=== PATIENT | female | born 1990 | race Caucasian/White ===

== ENCOUNTER 2018-12-19 19:01 | Emergency (ER) | payer MEDICAID, SELFPAY ==
[2018-12-19 19:05] VITALS: BP 151/111; PULSE 102; RESP 16; TEMP 36.8; O2SAT 100
--- NOTE | 2018-12-19 19:34 | W.ED.GENAD ---
Discharge Plan Disposition Patient Disposition: HOME Discharge Details Chief Complaint: Anxiety Clinical Impression: UTI (urinary tract infection) Primary Care Provider: Raiza,Local ED Provider: Chetan Young Home Meds and New Rx's Prescriptions: Continued gabapentin 300 mg capsule 300 mg PO QHS RF: 0 glatiramer [Copaxone] 40 mg/mL syringe 40 mg subcut .3x per week Qty: 12 RF: 11 methadone 10 mg tablet 20 mg PO DAILY MDD 20mg Qty: 1 RF: 0 gabapentin 600 mg tablet 600 mg PO DAILY RF: 0 bupropion HCl [Wellbutrin] 100 MG tablet 100 mg PO TID RF: 0 methylphenidate HCl 10 MG tablet 10 mg PO QID RF: 0 Discharge Instructions Instructions: Urinary Tract Infection in Women (ED) Additional Instructions: Please follow-up with gynecology regarding vaginal discharge. Take full course of antibiotic as prescribed. Be sure to complete the full course even if symptoms have resolved. Please contact your primary care physician to arrange follow-up. Return to the ER for any worsening or new concerning symptoms. [place] [facility] [place] Discharge Data Discharge Date/Time-TO BE ENTERED AT DEPARTURE: 12/19/18 20:35 Medical Decision Making 28-year-old female here with urinary symptoms concerning for UTI. Urinalysis reviewed and UTI. Plan to treat with Macrobid 100 mg twice daily x5 days. Patient has had vaginal discharge for greater than 1 year. She is refusing pelvic exam at this time. Informed refusal provided. She would like to follow-up with gynecology. I will refer her to [facility] and hopefully she can be seen in follow-up as soon as possible. I will asked care management to assist in arranging follow-up. Patient will also need to be established with a primary care physician. She is specifically requesting a primary care physician as she has not had one in recent past. HPI General Mode of arrival: ambulatory. Date/Time Provider Initiated Documentation: 12/19/18 19:15. Limitations to Documentation: no limitations. Information obtained by: patient. HPI Narrative: 28yo f with history of MS, ADD, anxiety disorder, here with chief complaint of urinary symptoms. Patient notes that she has had dysuria for the past 3 days. She has had increased urinary frequency. Yesterday she had some hematuria. Patient is concerned that she might have a urinary tract infection. She denies fever. She is quite anxious and notes multiple other concerns including dry skin and generally not feeling well. She is concerned that her tap water is contaminated because her ice cubes have white discoloration. Related Data Home Medications Medication Instructions Recorded Confirmed bupropion HCl [Wellbutrin] 100 mg PO TID 04/12/14 01/04/19 methylphenidate HCl 10 mg PO QID 12/13/14 01/04/19 gabapentin 300 mg capsule 300 mg PO QHS cap 10/26/18 01/04/19 gabapentin 600 mg tablet 600 mg PO DAILY tab 10/26/18 01/04/19 glatiramer 40 mg/mL subcutaneous 40 mg SUBCUT .3x per week #12 ml 10/26/18 01/04/19 syringe methadone 10 mg tablet 20 mg PO DAILY #1 tab MDD 20mg 10/26/18 01/04/19 Previous Rx's Medication Instructions Recorded glatiramer 40 mg/mL subcutaneous 40 mg SUBCUT .3x per week #12 ml 10/26/18 syringe methadone 10 mg tablet 20 mg PO DAILY #1 tab MDD 20mg 10/26/18 Allergies Allergy/AdvReac Type Severity Reaction Status Date / Time No Known Allergies Allergy Unverified 01/04/19 14:57 General Stated Complaint: Anxiety NAIMA: 3 Review of Systems Constitutional Denies fever(s) Genitourinary Reports as per HPI and Reports vaginal discharge (patient notes vaginal discharge for >1yr) Integumentary/Breasts Reports as per HPI Psychiatric Reports anxiety [facility] Medical History Multiple sclerosis (Chronic) ADD (attention deficit disorder) (Acute) Opioid dependence (Acute) Anxiety (Chronic) Depression (Chronic) Surgical History S/P tubal ligation (Acute) Family History Maternal Grandmother Multiple sclerosis Social History Smoking/Tobacco Use Status: Former Tobacco Use Alcohol Intake: never Drug use: Current Sobriety Substance use type: former substance user Household members: children Do you feel safe at home: Yes Do you feel safe in your relationship?: Yes Additional Social history: Lives with 8 year old daughter who has ADHD. Has 2 older children in the custody of her mother. Exam Const General: cooperative and no acute distress HENMT Mouth: mucous membranes dry Eyes Conjunctivae: normal conjunctivae Sclera: normal sclerae Resp Auscultation: clear to auscultation bilaterally, no rales, no rhonchi and no wheezes Cardio Jugular venous pressure: no JVD Rate: regular rate and not tachycardic Rhythm: regular rhythm GI Palpation: soft, not firm, no guarding, no masses, not rigid and tender (suprapubic) Skin General skin exam: no rashes or lesions noted Neuro General: alert, awake and tone normal Extrem General: no edema Psych Appearance: grossly normal Mood: anxious mood Course Vital Signs Temperature 36.8 C 12/19/18 19:05 Pulse 102 H 12/19/18 19:05 Respiratory Rate 16 12/19/18 19:05 Blood Pressure 151/111 H 12/19/18 19:05 Pulse Oximetry 100 12/19/18 19:05 Temperature 36.8 C 12/19/18 19:05 Temperature Source Temporal Artery Scan 12/19/18 19:05 Pulse 102 H 12/19/18 19:05 Respiratory Rate 16 12/19/18 19:05 Respiratory Effort 12/19/18 19:09 Blood Pressure 151/111 H 12/19/18 19:05 Blood Pressure Position Sitting 12/19/18 19:05 Pulse Oximetry 100 12/19/18 19:05 Oxygen Delivery Method Room Air 12/19/18 19:05 Oxygen Flow Rate 0 12/19/18 19:05
[2018-12-19 19:38] LABS: Bilirubin Negative (Negative); Blood Small (Negative); Clarity Clear; Glucose Negative (Negative); Ketones Negative (Negative); Leukocyte Esterase Small (Negative); Nitrite Negative (Negative); Urobilinogen 0.2 EU/dL (Up TO 0.2)
--- NOTE | 2018-12-19 19:44 | ED.GENADUL_ITS ---
Discharge Plan Disposition Patient Disposition: HOME Discharge Details Chief Complaint: Anxiety Clinical Impression: UTI (urinary tract infection) Primary Care Provider: Raiza,Local ED Provider: Chetan Young Home Meds and New Rx's Prescriptions: Continued gabapentin 300 mg capsule 300 mg PO QHS RF: 0 glatiramer [Copaxone] 40 mg/mL syringe 40 mg subcut .3x per week Qty: 12 RF: 11 methadone 10 mg tablet 20 mg PO DAILY MDD 20mg Qty: 1 RF: 0 gabapentin 600 mg tablet 600 mg PO DAILY RF: 0 bupropion HCl [Wellbutrin] 100 MG tablet 100 mg PO TID RF: 0 methylphenidate HCl 10 MG tablet 10 mg PO QID RF: 0 Discharge Instructions Instructions: Urinary Tract Infection in Women (ED) Additional Instructions: Please follow-up with gynecology regarding vaginal discharge. Take full course of antibiotic as prescribed. Be sure to complete the full course even if symptoms have resolved. Please contact your primary care physician to arrange follow-up. Return to the ER for any worsening or new concerning symptoms. Referrals: [facility] [place] [Provider Group] Discharge Data Discharge Date/Time-TO BE ENTERED AT DEPARTURE: 12/19/18 20:35 Medical Decision Making 28-year-old female here with urinary symptoms concerning for UTI. Urinalysis reviewed and UTI. Plan to treat with Macrobid 100 mg twice daily x5 days. Patient has had vaginal discharge for greater than 1 year. She is refusing pelvic exam at this time. Informed refusal provided. She would like to follow-up with gynecology. I will refer her to [facility] and hopefully she can be seen in follow-up as soon as possible. I will asked care management to assist in arranging follow-up. Patient will also need to be established with a primary care physician. She is specifically requesting a primary care physician as she has not had one in recent past. HPI General Mode of arrival: ambulatory . Date/Time Provider Initiated Documentation: 12/19/18 19:15 . Limitations to Documentation: no limitations . Information obtained by: patient . HPI Narrative: 28yo f with history of MS, ADD, anxiety disorder, here with chief complaint of urinary symptoms. Patient notes that she has had dysuria for the past 3 days. She has had increased urinary frequency. Yesterday she had some hematuria. Patient is concerned that she might have a urinary tract infection. She denies fever. She is quite anxious and notes multiple other concerns including dry skin and generally not feeling well. She is concerned that her tap water is contaminated because her ice cubes have white discoloration. Related Data Home Medications Medication Instructions Recorded Confirmed bupropion HCl [Wellbutrin] 100 mg PO TID 04/12/14 01/04/19 methylphenidate HCl 10 mg PO QID 12/13/14 01/04/19 gabapentin 300 mg capsule 300 mg PO QHS cap 10/26/18 01/04/19 gabapentin 600 mg tablet 600 mg PO DAILY tab 10/26/18 01/04/19 glatiramer 40 mg/mL subcutaneous 40 mg SUBCUT .3x per week #12 ml 10/26/18 01/04/19 syringe methadone 10 mg tablet 20 mg PO DAILY #1 tab MDD 20mg 10/26/18 01/04/19 Previous Rx's Medication Instructions Recorded glatiramer 40 mg/mL subcutaneous 40 mg SUBCUT .3x per week #12 ml 10/26/18 syringe methadone 10 mg tablet 20 mg PO DAILY #1 tab MDD 20mg 10/26/18 Allergies Allergy/AdvReac Type Severity Reaction Status Date / Time No Known Allergies Allergy Unverified 01/04/19 14:57 General Stated Complaint: Anxiety NAIMA: 3 Review of Systems Constitutional Denies fever(s) Genitourinary Reports as per HPI and Reports vaginal discharge (patient notes vaginal discharge for >1yr) Integumentary/Breasts Reports as per HPI Psychiatric Reports anxiety [facility] Medical History Multiple sclerosis (Chronic) ADD (attention deficit disorder) (Acute) Opioid dependence (Acute) Anxiety (Chronic) Depression (Chronic) Surgical History S/P tubal ligation (Acute) Family History Maternal Grandmother Multiple sclerosis Social History Smoking/Tobacco Use Status: Former Tobacco Use Alcohol Intake: never Drug use: Current Sobriety Substance use type: former substance user Household members: children Do you feel safe at home: Yes Do you feel safe in your relationship?: Yes Additional Social history: Lives with 8 year old daughter who has ADHD. Has 2 older children in the custody of her mother. Exam Const General: cooperative and no acute distress HENMT Mouth: mucous membranes dry Eyes Conjunctivae: normal conjunctivae Sclera: normal sclerae Resp Auscultation: clear to auscultation bilaterally, no rales, no rhonchi and no wheezes Cardio Jugular venous pressure: no JVD Rate: regular rate and not tachycardic Rhythm: regular rhythm GI Palpation: soft, not firm, no guarding, no masses, not rigid and tender (suprapubic) Skin General skin exam: no rashes or lesions noted Neuro General: alert, awake and tone normal Extrem General: no edema Psych Appearance: grossly normal Mood: anxious mood Course Vital Signs Temperature 36.8 C 12/19/18 19:05 Pulse 102 H 12/19/18 19:05 Respiratory Rate 16 12/19/18 19:05 Blood Pressure 151/111 H 12/19/18 19:05 Pulse Oximetry 100 12/19/18 19:05 Temperature 36.8 C 12/19/18 19:05 Temperature Source Temporal Artery Scan 12/19/18 19:05 Pulse 102 H 12/19/18 19:05 Respiratory Rate 16 12/19/18 19:05 Respiratory Effort 12/19/18 19:09 Blood Pressure 151/111 H 12/19/18 19:05 Blood Pressure Position Sitting 12/19/18 19:05 Pulse Oximetry 100 12/19/18 19:05 Oxygen Delivery Method Room Air 12/19/18 19:05 Oxygen Flow Rate 0 12/19/18 19:05
[2018-12-19 19:57] LABS: Epithelial Cells Few HPF (Negative); Other Cells Rare Renal (Negative)
[2018-12-19 19:58] LABS: Bacteria Negative HPF (Negative); C & S Indicated? Yes; Casts Negative LPF (Negative); Mucus Trace (Negative)
[2018-12-19] MEDS: MacroBID 100 MG CAP PO (20:31)
[2018-12-19 20:36] VITALS: BP 138/94; PULSE 71; O2SAT 100
--- NOTE | 2018-12-20 08:55 | PDOC.ERCMPRO ---
Care Management Progress Note 12/20-Dr. Eugenia Young requested assistance with a figure model f/u as well as establishing a PCP in 1-[address] Bradshaw automotive parts person. Referral faxed to [facility] as well as to [facility].
--- NOTE | 2018-12-20 08:56 | CMPROGNOTE_ITS ---
Care Management Progress Note 12/20-Dr. Eugenia Young requested assistance with a street worker f/u as well as establishing a PCP in 1-[address] Bradshaw extension clerk. Referral faxed to [facility] as well as to [facility].
== END 2018-12-19 20:35 | disposition home or self-care (01) ==
PROVIDERS: Emergency Provider Student in an Organized Health Care Education/Training Program
DX: N39.0 Urinary tract infection, site not specified (principal)
CPT/HCPCS: 99283; 81003; 81015; 87086

== ENCOUNTER 2019-01-04 14:48 | Emergency (ER) | payer MEDICAID, SELFPAY ==
[2019-01-04 14:53] VITALS: BP 141/102; PULSE 104; RESP 12; TEMP 36.5; O2SAT 98
--- NOTE | 2019-01-04 16:20 | W.ED.GENAD ---
Discharge Plan Disposition Patient Disposition: HOME Condition: Good Discharge Details Chief Complaint: RashLesion Clinical Impression: Anxiety about health, Scabies exposure Primary Care Provider: Raiza,Local ED Provider: Dewayne Moody Home Meds and New Rx's Prescriptions: Continued gabapentin 300 mg capsule 300 mg PO QHS RF: 0 glatiramer [Copaxone] 40 mg/mL syringe 40 mg subcut .3x per week Qty: 12 RF: 11 methadone 10 mg tablet 20 mg PO DAILY MDD 20mg Qty: 1 RF: 0 gabapentin 600 mg tablet 600 mg PO DAILY RF: 0 bupropion HCl [Wellbutrin] 100 MG tablet 100 mg PO TID RF: 0 methylphenidate HCl 10 MG tablet 10 mg PO QID RF: 0 Discharge Instructions Instructions: Scabies (ED), Anxiety (ED) Additional Instructions: Please watch for any development of rash and follow-up with your primary care provider or return to the emergency department as needed for reassessment. Otherwise continue to use mild soap to cleanse her skin and wash all of your linens well. You may also use hydrating lotion to help with dry skin. Referrals: Primary Care Provider [Outside] (As needed for reassessment) Medical Decision Making Patient presenting to the emergency department for chief complaint of scabies exposure. Patient states that her significant other that she was with for years was recently diagnosed with scabies but had not received treatment for years she reports that she has not been with this person for the past couple months but just found out about the scabies recently and started having subjective symptoms of crawling on her skin, intermittent random itching, odd sensations to her skin. Physical exam shows no evidence of rash, no erythema, no signs of excoriation, some white markings to her fingers that she reports was due to her soaking her arms and peroxide. Physical exam is otherwise unremarkable. I feel that patient's symptoms are mostly related to her anxiety about her health which she states is not ongoing problem. There is no evidence of active scabies infection as there are no lesions or other markings to suggest this. Thorough discussion of hygiene and washing of linens was performed with patient and she was encouraged to watch for any additional symptoms and to follow-up with her primary care provider or return as needed for reassessment. Patient does seem to have some mild dry skin so she was informed to use a hydrating lotion. After discussion of diagnosis and plan of care patient has no further needs, questions, or concerns and states clear understanding to return to the emergency department for any worsening symptoms. Patient did need to leave before receiving discharge paperwork but was agreeable to having us mail it to her. HPI General Mode of arrival: ambulatory. Date/Time Provider Initiated Documentation: 01/04/19 15:02. Limitations to Documentation: no limitations. Information obtained by: patient. History of Present Illness 28 year old F presents to the emergency department with the chief complaint of Scabies exposure, Quality is described as burning (itching), and is localized to the upper extremity. Patient started experiencing this week(s) (1) and it has been intermittent. No relieving factors improve symptom(s), Patient did receive the following treatments prior to arrival, other (Peroxide rinse) Related Data Home Medications Medication Instructions Recorded Confirmed bupropion HCl [Wellbutrin] 100 mg PO TID 04/12/14 01/04/19 methylphenidate HCl 10 mg PO QID 12/13/14 01/04/19 gabapentin 300 mg capsule 300 mg PO QHS cap 10/26/18 01/04/19 gabapentin 600 mg tablet 600 mg PO DAILY tab 10/26/18 01/04/19 glatiramer 40 mg/mL subcutaneous 40 mg SUBCUT .3x per week #12 ml 10/26/18 01/04/19 syringe methadone 10 mg tablet 20 mg PO DAILY #1 tab MDD 20mg 10/26/18 01/04/19 Previous Rx's Medication Instructions Recorded glatiramer 40 mg/mL subcutaneous 40 mg SUBCUT .3x per week #12 ml 10/26/18 syringe methadone 10 mg tablet 20 mg PO DAILY #1 tab MDD 20mg 10/26/18 Allergies Allergy/AdvReac Type Severity Reaction Status Date / Time No Known Allergies Allergy Unverified 01/04/19 14:57 General Stated Complaint: RashLesion NAIMA: 5 Review of Systems Constitutional Denies chills and Denies fever(s) Integumentary/Breasts Reports as per HPI [facility] Medical History Multiple sclerosis (Chronic) ADD (attention deficit disorder) (Acute) Opioid dependence (Acute) Anxiety (Chronic) Depression (Chronic) Surgical History S/P tubal ligation (Acute) Family History Maternal Grandmother Multiple sclerosis Social History Smoking/Tobacco Use Status: Former Tobacco Use Alcohol Intake: never Drug use: Current Sobriety Substance use type: former substance user Household members: children Do you feel safe at home: Yes Do you feel safe in your relationship?: Yes Additional Social history: Lives with 8 year old daughter who has ADHD. Has 2 older children in the custody of her mother. Exam Const General: cooperative, healthy appearing, no acute distress and anxious Orientation: alert, awake and oriented x3 HENMT Mouth: moist mucous membranes Resp Effort & Inspection: normal respiratory effort, able to speak in complete sentences and no respiratory distress Cardio Rate: regular rate Rhythm: regular rhythm Skin General skin exam: no rashes or lesions noted, no crusts, dry skin, no ecchymosis, no erythema, no excoriation(s) and no petechiae Lesions: no lesions Rashes: no rashes Trauma: no lacerations or abrasions Wounds: no wounds Neuro General: alert, awake, oriented x3 and moves all extremities Course Vital Signs Temperature 36.5 C 01/04/19 14:53 Pulse 104 H 01/04/19 14:53 Respiratory Rate 12 01/04/19 14:53 Blood Pressure 141/102 H 01/04/19 14:53 Pulse Oximetry 98 01/04/19 14:53 Temperature 36.5 C 01/04/19 14:53 Temperature Source Tympanic 01/04/19 14:53 Pulse 104 H 01/04/19 14:53 Respiratory Rate 12 01/04/19 14:53 Respiratory Effort Non-Labored 01/04/19 14:55 Blood Pressure 141/102 H 01/04/19 14:53 Blood Pressure Position Sitting 01/04/19 14:53 Pulse Oximetry 98 01/04/19 14:53 Oxygen Delivery Method Room Air 01/04/19 14:53 Oxygen Flow Rate 0 01/04/19 14:53 Pain Level 0 01/04/19 15:53
== END 2019-01-04 15:54 | disposition home or self-care (01) ==
PROVIDERS: Emergency Provider Nurse Practitioner Family
DX: F41.9 Anxiety disorder, unspecified (principal); Z20.7 Contact with and (suspected) exposure to pediculosis, acariasis and other infestations
CPT/HCPCS: 99282

== ENCOUNTER 2019-05-05 20:40 | Emergency (ER) | payer MEDICAID, SELFPAY ==
[2019-05-05 20:48] VITALS: BP 147/110; PULSE 102; RESP 20; TEMP 37.9; O2SAT 100
[2019-05-05 20:57] VITALS: RESP 20
--- NOTE | 2019-05-05 21:08 | ED.GENADUL_ITS ---
Discharge Plan Disposition Patient Disposition: HOME Condition: Improving Discharge Details Chief Complaint: GenMedical Clinical Impression: Anxiety Primary Care Provider: Raiza,Local ED Provider: Corona Cunningham Home Meds and New Rx's Prescriptions: Continued gabapentin 300 mg capsule 300 mg PO QHS RF: 0 glatiramer [Copaxone] 40 mg/mL syringe 40 mg subcut .3x per week Qty: 12 RF: 11 methadone 10 mg tablet 20 mg PO DAILY MDD 20mg Qty: 1 RF: 0 gabapentin 600 mg tablet 600 mg PO DAILY RF: 0 bupropion HCl [Wellbutrin] 100 MG tablet 100 mg PO TID RF: 0 methylphenidate HCl 10 MG tablet 10 mg PO QID RF: 0 Discharge Instructions Instructions: Anxiety (ED) Additional Instructions: You have declined further work-up at this time. Follow-up with neurology and her primary care doctor as previously planned. Return to the emergency department if you develop a fever, rash, or any other acute concern Medical Decision Making 28-year-old female presents emerged department stating that she became very anxious after a friend told her that 3 years of intermittent symptoms she has been having may be secondary to a parasite. She has not traveled, no exposure to fresh stream water, no work with indigent or incarcerated. She has had abdominal cramps, anxiety, dry eye, early satiety at times. She is anxious upon arrival with initial triage pulse of 102. She calms after my exam and his pulse measured at approximately 88. Discussed with her consideration of screening laboratories which she declines. She states she wishes to follow-up with her primary care as previously planned and is reassured that she does not appear to have acute parasitic infection after my history and physical. Offered to return at any time for reconsideration. She is stable for discharge at this time HPI General Mode of arrival: ambulatory . Date/Time Provider Initiated Documentation: 05/05/19 20:42 . Limitations to Documentation: no limitations . Information obtained by: patient . History of Present Illness 28 year old F presents to the emergency department with the chief complaint of Generalized anxiety, I think I have a parasite, described as moderate, Quality is described as constant, Patient reports no radiation. Patient started experiencing this hour(s) and it has been constant. No relieving factors improve symptom(s), No exacerbating factors reported . Patient notes other (General anxiety, feels her skin skin is crawling at times, abdominal cramps). Patient did receive the following treatments prior to arrival, none Related Data Home Medications Medication Instructions Recorded Confirmed bupropion HCl [Wellbutrin] 100 mg PO TID 04/12/14 05/05/19 methylphenidate HCl 10 mg PO QID 12/13/14 05/05/19 gabapentin 300 mg capsule 300 mg PO QHS cap 10/26/18 05/05/19 gabapentin 600 mg tablet 600 mg PO DAILY tab 10/26/18 05/05/19 glatiramer 40 mg/mL subcutaneous 40 mg SUBCUT .3x per week #12 ml 10/26/18 05/05/19 syringe methadone 10 mg tablet 20 mg PO DAILY #1 tab MDD 20mg 10/26/18 05/05/19 Previous Rx's Medication Instructions Recorded glatiramer 40 mg/mL subcutaneous 40 mg SUBCUT .3x per week #12 ml 10/26/18 syringe methadone 10 mg tablet 20 mg PO DAILY #1 tab MDD 20mg 10/26/18 Allergies Allergy/AdvReac Type Severity Reaction Status Date / Time No Known Allergies Allergy Unverified 05/05/19 20:55 General Stated Complaint: GenMedical NAIMA: 3 Review of Systems Review of Systems No travel, no fever, no rash, no tick bites. 6 systems reviewed and otherwise neg [facility] Medical History ADD (attention deficit disorder) (Acute) Anxiety (Chronic) Depression (Chronic) Multiple sclerosis (Chronic) Opioid dependence (Acute) Surgical History S/P tubal ligation (Acute) Family History Maternal Grandmother Multiple sclerosis Social History Smoking/Tobacco Use Status: Former Tobacco Use Alcohol Intake: never Drug use: Current Sobriety Substance use type: former substance user Household members: children Do you feel safe at home: Yes Do you feel safe in your relationship?: Yes Additional Social history: Lives with 8 year old daughter who has ADHD. Has 2 older children in the custody of her mother. Exam Narrative Exam Narrative: GEN: awake, alert, oriented 3. Pleasant, well groomed, interactive. HEAD: Normocephalic, atraumatic ENT: Mucous membranes moist, oropharynx unremarkable, External ear exam unremarkable EYES: PERRL, EOMI NECK: Full ROM, no MYLES, no menigismus CHEST/RESP: Nontender, clear to auscultation bilateral, no wheeze/rhonchi/rales CARDIOVASCULAR: RRR, no murmur, rub ernesto. 2+ Rad pulse bilateral ABDOMEN: Soft, nontender, no mass. +Bowel sounds EXT: Full ROM, no edema, no rash Neuro: Grossly normal neurologic exam, conversant, interactive. Cranial nerves II through XII intact. Visual villeda intact to confrontation Psych: Speech fluent, thoughts congruent, affect anxious Course Vital Signs Temperature 37.9 C H 05/05/19 20:48 Pulse 102 H 05/05/19 20:48 Respiratory Rate 20 05/05/19 20:48 Blood Pressure 147/110 H 05/05/19 20:48 Pulse Oximetry 100 05/05/19 20:48 Temperature 37.9 C H 05/05/19 20:48 Temperature Source Tympanic 05/05/19 20:48 Pulse 102 H 05/05/19 20:48 Respiratory Rate 20 05/05/19 20:57 Respiratory Effort 05/05/19 20:57 Respiratory Depth Normal 05/05/19 20:57 Respiratory Pattern Normal 05/05/19 20:57 Blood Pressure 147/110 H 05/05/19 20:48 Blood Pressure Position Sitting 05/05/19 20:48 Pulse Oximetry 100 05/05/19 20:48 Oxygen Delivery Method Room Air 05/05/19 20:48 Oxygen Flow Rate 0 05/05/19 20:48 Pain Level 0 05/05/19 20:48
== END 2019-05-05 21:20 | disposition home or self-care (01) ==
PROVIDERS: Emergency Provider Emergency Medicine
DX: F41.8 Other specified anxiety disorders (principal)
CPT/HCPCS: 99283

== ENCOUNTER 2019-07-31 16:10 | Emergency (ER) | payer MEDICAID, SELFPAY ==
[2019-07-31 16:15] VITALS: BP 158/90; PULSE 88; RESP 18; TEMP 36.8; O2SAT 100
--- NOTE | 2019-07-31 16:24 | W.ED.GENAD ---
Discharge Plan Disposition Patient Disposition: HOME Condition: Good Discharge Details Chief Complaint: DentalOral Clinical Impression: Broken tooth Primary Care Provider: Raiza,Local ED Provider: Etelvina Sterling Home Meds and New Rx's Prescriptions: Continued gabapentin 600 mg tablet 600 mg PO TID RF: 0 bupropion HCl [Wellbutrin] 100 MG tablet 100 mg PO QID RF: 0 methylphenidate HCl 10 MG tablet 10 mg PO QID RF: 0 methadone 10 mg tablet 14 mg PO DAILY MDD 20mg RF: 0 Discharge Instructions Instructions: Acute Dental Trauma (ED) Additional Instructions: Encourage hydration. Tylenol and/or ibuprofen as needed for discomfort. You may try temporary filling as discussed. He will need definitive care with a dentist, attached is a list of local dentist that you may call. If you develop fever/chills, increased pain, swelling, drainage or the new/worsening symptoms please seek care urgently once again. At this point, I see no evidence of infection that requires antibiotics. Discharge Data Discharge Date/Time-TO BE ENTERED AT DEPARTURE: 07/31/19 16:45 Medical Decision Making Patient is a 29-year-old female presenting today with chief complaint of broken tooth. She reports that the tooth broke this afternoon. Was advised by friend to seek care as there was concern for infection. She is not having any pain prior to the broken tooth. Does not appear to be uncomfortable now. She reports that this tooth has been bad for the past 4 years. She reports I was eating oatmeal and bit down on the spoon and attempt subsequently cracked. She denies any fevers or chills. Is not noted any swelling. Had not been having any acute issues prior to the broken tooth. Patient is concerned she is a history of MS and is concerned that if she has an infection it may cause a flare. Patient I discussed at length that had a broken tooth puts her at risk for infection that does not mean imminently she has an infection or will require antibiotics. I did advise that with her history of MS, she should get prophylactic care routinely needs to see a dentist on a regular basis. I did advise that she will need definitive care for this tube as it is a site that could be the source of infection. Encourage hydration. We did discuss [id number] measures to help with her discomfort. List of local dentist was given. She was given return precautions. All of her questions and concerns were addressed she is in agreement this plan. HPI General Mode of arrival: ambulatory. Date/Time Provider Initiated Documentation: 07/31/19 16:23. Limitations to Documentation: no limitations. Information obtained by: patient and RN notes reviewed. History of Present Illness 29 year old F presents to the emergency department with the chief complaint of dental pain, broken tooth, described as moderate, with intensity rated at 7. Quality is described as aching, and is localized to the mouth. Patient reports no radiation. Patient started experiencing this minute(s) and it has been constant. No relieving factors improve symptom(s), No exacerbating factors reported . Patient notes denies diaphoresis, fever/chills, headaches, loss of appetite, malaise, nausea/vomiting and rash. Patient did receive the following treatments prior to arrival, none Related Data Home Medications Medication Instructions Recorded Confirmed bupropion HCl [Wellbutrin] 100 mg PO QID 04/12/14 07/31/19 methylphenidate HCl 10 mg PO QID 12/13/14 07/31/19 gabapentin 600 mg tablet 600 mg PO TID tab 10/26/18 07/31/19 methadone 14 mg PO DAILY MDD 20mg 07/31/19 07/31/19 Allergies Allergy/AdvReac Type Severity Reaction Status Date / Time No Known Allergies Allergy Unverified 07/31/19 16:20 General Stated Complaint: DentalOral NAIMA: 4 Review of Systems Constitutional Constitutional: Reports as per HPI, Denies chills, Denies fatigue, Denies fever(s), Denies headache(s) and Denies poor appetite Eyes Eyes: Denies change in vision and Denies irritation ENT Ears, Nose, Mouth, and Throat: Reports as per HPI, Reports dental pain, Denies dysphagia, Denies dizziness, Denies dry mouth, Denies ear discharge, Denies otalgia, Reports facial pain, Denies headache(s), Denies hoarseness, Denies lip swelling, Denies nasal congestion, Denies odynophagia and Denies sore throat Cardiovascular Cardiovascular: Reports as per HPI and Denies chest pain Respiratory Respiratory: Reports as per HPI and Denies cough Gastrointestinal Gastrointestinal: Reports as per HPI, Denies dysphagia, Denies nausea, Denies odynophagia and Denies vomiting Integumentary/Breasts Skin/Breast: Reports as per HPI, Denies erythema, Denies rash and Denies skin pain Neurologic Neurologic: Reports as per HPI, Denies dizziness and Denies headache(s) Endocrine Endocrine: Denies fatigue Allergic/Immunologic Allergic/Immunologic: Denies lip swelling [facility] Medical History ADD (attention deficit disorder) (Acute) Anxiety (Chronic) Depression (Chronic) Multiple sclerosis (Chronic) Opioid dependence (Acute) Surgical History S/P tubal ligation (Acute) Social History Smoking/Tobacco Use Status: Former Tobacco Use Alcohol Intake: never Drug use: Current Sobriety Substance use type: former substance user Household members: children Do you feel safe at home: Yes Do you feel safe in your relationship?: Yes Additional Social history: Lives with 8 year old daughter who has ADHD. Has 2 older children in the custody of her mother. Exam Const General: cooperative, healthy appearing, comfortable, no acute distress, well developed and well groomed Nutritional Appearance: average body habitus and well nourished Orientation: alert and awake HENCO Head: normal to inspection, normocephalic and atraumatic Ears: hearing grossly normal bilaterally, external ears normal and TM's normal bilaterally General nose exam: external nose normal and nares normal Face and sinus: normal facial exam, sinuses nontender and face symmetric Mouth: oral mucosae normal, lip normal, tongue normal, salivary ducts normal, oropharynx normal, no trismus and No restricted motion Teeth and gingiva: poor dentition (Patient has a broken #3 tooth. No erythema, no swelling, no area of fluctu) Throat: posterior oropharynx normal, tonsils normal and uvula midline Eyes General: appearance normal, both eyes and all related structures Neck Neck: normal visual inspection, full ROM, no lymphadenopathy, supple and no anterior neck swelling Resp Effort & Inspection: normal respiratory effort, able to speak in complete sentences and no respiratory distress Auscultation: clear to auscultation bilaterally, no rales, no rhonchi and no wheezes Cardio Rate: regular rate Rhythm: regular rhythm Heart Sounds: S1 normal and S2 normal Skin General skin exam: no rashes or lesions noted Trauma: no lacerations or abrasions Neuro General: alert and awake Cognition: normal cognition Speech: speech normal Gait: normal gait Psych Appearance: grossly normal and well kempt Mental Status: mental status grossly normal Speech and Movement: speech and movement normal Course Vital Signs Vital signs: Vital Signs Temperature 36.8 C 07/31/19 16:15 Pulse 88 07/31/19 16:15 Respiratory Rate 18 07/31/19 16:15 Blood Pressure 158/90 H 07/31/19 16:15 Pulse Oximetry 100 07/31/19 16:15 Temperature 36.8 C 07/31/19 16:15 Temperature Source Temporal Artery Scan 07/31/19 16:15 Pulse 88 07/31/19 16:15 Respiratory Rate 18 07/31/19 16:15 Respiratory Effort 07/31/19 16:22 Blood Pressure 158/90 H 07/31/19 16:15 Blood Pressure Position Sitting 07/31/19 16:15 Pulse Oximetry 100 07/31/19 16:15 Oxygen Delivery Method Room Air 07/31/19 16:15 Oxygen Flow Rate 0 07/31/19 16:15 Pain Level 7 07/31/19 16:15
== END 2019-07-31 16:45 | disposition home or self-care (01) ==
PROVIDERS: Emergency Provider Physician Assistant
DX: K03.81 Cracked tooth (principal)
CPT/HCPCS: 99282

== ENCOUNTER 2020-03-14 04:41 | Emergency (ER) | payer MEDICAID, SELFPAY ==
--- NOTE | 2020-03-14 04:48 | W.ED.GENAD ---
Discharge Plan [facility]position [facility] Condition: Fair Discharge Details Chief Complaint: PsychEval Clinical Impression: Auditory hallucinations, Suicidal ideations Primary Care Provider: None,None ED Provider: Cody Rahman Home Meds and New Rx's Prescriptions: No Action turmeric root extract 500 mg capsule 500 mg PO DAILY RF: 0 glatiramer [Copaxone] 40 mg/mL syringe 40 mg subcut .3x per week Qty: 12 RF: 11 gabapentin 800 mg tablet 800 mg PO TID Qty: 90 RF: 5 cholecalciferol (vitamin D3) 50 mcg (2,000 unit) capsule 2,000 unit PO DAILY Qty: 90 RF: 3 bupropion HCl [Wellbutrin] 100 MG tablet 200 mg PO BID RF: 0 methylphenidate HCl 10 MG tablet 10 mg PO QID RF: 0 methadone 10 mg tablet 10 mg PO DAILY MDD 20mg RF: 0 fexofenadine 180 mg Tablet 180 mg PO DAILY RF: 0 omeprazole 20 mg Capsule,Delayed Release(Dr/Ec) 20 mg PO DAILY RF: 0 hydroxyzine HCl 10 mg Tablet 10 mg PO TID PRNRF: 0 loratadine 10 mg Tablet 10 mg PO DAILY RF: 0 levomefolate calcium [L-Methylfolate] 7.5 mg Tablet 7.5 mg PO DAILY RF: 0 Medical Decision Making <Nish Palma MD - Last Filed: 03/14/20 06:25> Patient presenting for mental health evaluation with complaint of hearing voices. Feeling suicidal because she cannot stand the constant voices in her head at this point. Will obtain screening laboratory studies. Has had imaging of her brain in the past because of history of MS. Will need a CPSO given complaint of feeling suicidal because of the voices. Consult mental health. 06:10 - Patient medically cleared. Laboratory studies are unremarkable. Mental health evaluating via Zoom currently. 06:30 - Patient to be admitted for inpatient psychiatric evaluation and management. COVID swab being sent now. Patient will be signed over to oncoming physician, Dr. Rahman. Medical Records Medical records reviewed: Yes I reviewed the patient's medical records. Lab Data Lab results reviewed: Yes I reviewed the patient's lab results. <Cody Rahman DO - Last Filed: 03/15/20 10:27> Patient was signed out to me by my colleague Dr. Palma pending [facility] placement. The patient has been hearing voices, and is concerned for this. [facility] recommends admission. It is 3:14 PM, we just got bed confirmation for [facility] but this will not be available until tomorrow morning or afternoon. There are currently no beds available at the hospital. We will continue to hold the patient here. We have given her morning medications, she remained stable currently. 6 PM Patient continues to remain stable here in the ED, patient was signed out to my colleague Dr. Palma pending placement tomorrow morning. Currently the patient is asking to take a shower. We have confirmed both with clinical case manager, her care plan, and nursing public works supervisor and we will bring the patient upstairs for shower. 03/15/20 10:25 AM Patient has been stable throughout the night. She is slept well. We have given her her methadone and gave some additional Haldol this morning because the patient was notably anxious, and hearing tons of voices. EKG shows no evidence of significant QT prolongation. QT 400, QTc 450. Patient tolerated her medications well. She has been accepted at [facility], under ariadna browne. Patient will be transferred via EMS which was specifically requested by the admitting facility. I have extensively reviewed the treatment plan with the patient. I have addressed all patient concerns at this time. I have also discussed the plan with the admitting physician and they agree with the current assessment and plan and have agreed to assume responsibility for the patient. All parties demonstrate verbal understanding and agreement with our assessment and plan at this time. EKG 8: 07 Rate 76, MI 142, QT 400, QRS 90, sinus rhythm, no significant ST elevations or depressions. No evidence of STEMI. HPI <Nish Palma MD - Last Filed: 03/14/20 06:25> General Mode of arrival: ambulatory. Date/Time Provider Initiated Documentation: 03/14/20 04:43. Limitations to Documentation: no limitations. Information obtained by: patient, RN notes reviewed and old records reviewed. HPI Narrative: Patient presents to ED with complaint of hearing voices. Patient reports hearing voices probably for the last 5 years. She does have a therapist and she has mentioned this to her but did not elaborate to therapist as to how bad it was. It has become progressively worse. She is to the point where she is constantly hearing voices. They do not tell her to do anything but tell her she has bad. She is unable to sleep or eat because they are so distracting. She presents to the ED because it is so bad she does not want to live anymore. She did call mental health crisis line. She has no complaint of fever, cough, shortness of breath, chest pain, vomiting, diarrhea, urinary symptoms. She is on methadone but denies drug use, alcohol use. She does have history of multiple sclerosis. She is cooperative and here for help. Related Data Home Medications Medication Instructions Recorded Confirmed bupropion HCl [Wellbutrin] 200 mg PO BID 04/12/14 03/14/20 methylphenidate HCl 10 mg PO QID 12/13/14 03/14/20 glatiramer 40 mg/mL subcutaneous 40 mg SUBCUT .3x per week #12 ml 08/24/19 03/14/20 syringe turmeric root extract 500 mg 500 mg PO DAILY 08/24/19 03/14/20 capsule cholecalciferol (vitamin D3) 50 2,000 unit PO DAILY #90 cap 11/23/19 03/14/20 mcg (2,000 unit) capsule gabapentin 800 mg tablet 800 mg PO TID #90 tab 11/23/19 03/14/20 methadone 10 mg tablet 10 mg PO DAILY tab MDD 20mg 11/23/19 03/14/20 fexofenadine 180 mg PO DAILY 03/14/20 03/14/20 hydroxyzine HCl 10 mg PO TID PRN 03/14/20 03/14/20 levomefolate calcium 7.5 mg PO DAILY 03/14/20 03/14/20 [L-Methylfolate] loratadine 10 mg PO DAILY 03/14/20 03/14/20 omeprazole 20 mg PO DAILY 03/14/20 03/14/20 Previous Rx's Medication Instructions Recorded glatiramer 40 mg/mL subcutaneous 40 mg SUBCUT .3x per week #12 ml 08/24/19 syringe cholecalciferol (vitamin D3) 50 2,000 unit PO DAILY #90 cap 11/23/19 mcg (2,000 unit) capsule gabapentin 800 mg tablet 800 mg PO TID #90 tab 11/23/19 Allergies Allergy/AdvReac Type Severity Reaction Status Date / Time cat dander Allergy Intermediate Verified 03/14/20 09:47 house dust mite Allergy Mild Verified 03/14/20 09:47 General NAIMA: 4 Review of Systems <Nish Palma MD - Last Filed: 03/14/20 06:25> Narrative: 07/03 Review of Systems completed and is negative except as stated above in HPI (Systems reviewed: Const, ENT, Resp, CV, GI, , MSK, Skin, Neuro, Psych) PFSH <Nish Palma MD - Last Filed: 03/14/20 06:25> Medical History ADD (attention deficit disorder) (Acute) Anxiety (Chronic) Depression (Chronic) Multiple sclerosis (Chronic) Opioid dependence (Acute) Surgical History S/P tubal ligation (Acute) Social History Smoking/Tobacco Use Status: Former Tobacco Use Alcohol Intake: never Drug use: Current Sobriety Substance use type: former substance user Household members: children Do you feel safe at home: Yes Do you feel safe in your relationship?: Yes Additional Social history: Lives with 8 year old daughter who has ADHD. Has 2 older children in the custody of her mother. Exam <Nish Palma MD - Last Filed: 03/14/20 06:25> Narrative Exam Narrative: Vitals: Afebrile. Elevated blood pressure. Normal heart rate. Normal room air pulse ox. Const: Thin female in NAD. HEENT: NC/AT. Normal facial exam. Eyes: Normal conjunctiva and sclera. Neck: Supple. Trachea midline. Lungs: Normal respiratory effort. Neuro: A+O x 3. Normal speech, mentation, gait. Cranial nerves II - XII grossly intact. No gross motor or sensory deficit. Ext: No C/C/E. Skin: Warm and dry without rash. Psych: Anxious, cooperative, holding head telling voices to stop. Tearful. Seems overwhelmed. Sign Out <Nish Palma MD - Last Filed: 03/14/20 06:25> Sign Out Data: Sign Out Comment: pending placement Last updated by Nish Palma MD at 03/14/20 07:40 Sign Out Comment: Pending transfer to outlying facility tomorrow with bed that is already confirmed, remaining stable, did give morning medication. Last updated by Cody Rahman DO at 03/14/20 19:15 Sign Out Comment: Slept all night after getting 5 mg of Ambien for sleep. Pending transfer to inpatient psych facility today. Last updated by Nish Palma MD at 03/15/20 07:28
[2020-03-14 05:05] VITALS: BP 133/105; PULSE 95; RESP 16; TEMP 36.4; O2SAT 97
[2020-03-14 05:23] LABS: Abs Immature Grans 0.02 k/cumm (0.0-0.09); Absolute Basophil Count 0.01 k/cumm (0.0-0.2); Absolute Eosinophil Count 0.04 k/cumm (0.0-0.7); Absolute Lymphocyte Count 1.24 k/cumm (1.2-3.4); Absolute Monocyte Count 0.61 k/cumm (0.11-0.7); Absolute Neutrophil Count 5.65 k/cumm (1.2-6.7); Basophils % 0.1; Eosinophils % 0.5; HCT 43.9 % (36.0-46.0); HGB 14.8 g/dL (12.0-15.5); Immature Grans % 0.3 %; Lymphocytes % 16.4; Mean Corp. HGB Concentration 33.7 g/dL (32.0-36.0); Mean Corpuscular Hemoglobin 31.1 pg (27.0-33.0); Mean Corpuscular Volume 92.2 fL (80-95); Mean Platelet Volume 10.2 fL (8.0-11.0); Monocytes % 8.1; Neutrophils % 74.6; Platelet Count 290 x1000/uL (130-400); RBC 4.76 m/cumm (4.00-5.20); White Blood Cell Count 7.57 k/cumm (4.4-10.8)
--- NOTE | 2020-03-14 05:23 | NUR.NOTE ---
To room for mental health eval. Pt reports she lives alone, has had auditory hallucinations x 5 years. This week becoming more frequent, telling her she is a bad person, that she will hurt people. States she hears 6 different voices. States she left her home 3 days ago and went to her mothers house. I just freaked out and left, I didn't even lock the door. States she is still hearing the voices at her mothers house if they don't leave me alone I'm going to kill myself, I can't live like this. States she cut her left wrist today in an attempt to kill herself. No wounds noted to left wrist I just did it really lightly. Pt calm and cooperative with care. Changed to paper clothing, room secured per protocol. Belongings in 2 white bags in utility room. Attempted to provide urine spec, unable. Provided with PO fluids. States she has a therapist, has not seen in several weeks. Stopped taking her meds a few days ago I thought the methylphenidate was what was making the voices worse. States at times she sees shadows as well.
[2020-03-14 05:46] LABS: ALT 19 U/L (14-59); AST 18 U/L (15-37); Albumin 4.8 g/dL (3.4-5.0); Alkaline Phosphatase 73 U/L (46-116); Anion Gap 13.9 mmol/L (3-11); BUN 33 mg/dL (7-18); Bilirubin, Total 0.7 mg/dL (0.2-1.0); CO2 26.1 mmol/L (21.0-32.0); CREATININE 1.05 mg/dL (0.55-1.02); Calcium 9.4 mg/dL (8.5-10.1); Chloride 101 mmol/L (98-107); Glucose 102 mg/dL (74-106); Potassium 3.4 mmol/L (3.5-5.1); Sodium 141 mmol/L (136-145); TSH 0.83 uIU/mL (0.36-3.74); Total Protein 7.9 g/dL (6.4-8.2)
[2020-03-14 05:48] LABS: ETHANOL BLOOD < 3.0 mg/dL (<3); Salicylate < 2.8 mg/dL (2.8-20.0)
[2020-03-14 05:49] LABS: Acetaminophen < 2 ug/mL (10-30)
--- NOTE | 2020-03-14 06:36 | PDOC.MHCN ---
Date of service: 03/14/20 Time of Service: 06:36 Mental Health Crisis Note Presenting Issue How did you arrive at the ED and why did you come: Client arrived at the ED by her mother. Client reported auditory hallucinations that will not go away. The voices are telling her to hurt herself and that she is a bad person. Client reports this has been going on for 5 years and she has brushed them off, but over the past few weeks the voices have become more constant. Precipitating Factors Client reports SI. Client reports that she cannot take listening to the voices talking to her all the time and that she wants to get a gun and shoot herself. Client reports that she has recently stopped taking all of her medication because she does not like how she feels while on the medication. Client is asking for inpatient treatment. Disposition BEHAVIOR: Hyperactive and agitated EYE CONTACT: normal MOOD: irritable AFFECT: flat APPETITE: Client reports that she has no appetite SLEEP(trouble falling/staying asleep: Client reports having difficulty sleeping and when she does fall asleep, she wakes up from the voices in her head. Plan This automobile service writer spoke with Dr. Palma and it was agreed that client will benefit from inpatient treatment. Client is willing to go voluntarily. This automobile service writer contacted hospitals for availability. All paperwork will be faxed over. This automobile service writer contacted sap solution manager consultant Sports Analyst to discuss plan and is waiting for call back. Client will remain at [facility] awaiting COVID testing as well as placement availability. Signature Clinician's Name/Title: Ilda Boland [facility] Emergency Clinician
--- NOTE | 2020-03-14 06:45 | NUR.NOTE ---
Eval by mental health. Plan for inpt psych. Covid swab obtained. Pt aware of need for urine spec. Intermittently sleeping. CPSO in place.
--- NOTE | 2020-03-14 08:38 | CMSP_ITS ---
- If Service Date Differs Date of service: 03/14/20 Time of Service: 08:38 Care Management Safety Plan Chief Complaint: Toya is a 29 year old female who presents in the ED for suicidal ideation and auditory hallucinations. Toya is seeking a voluntary psych placement. Toya was evaluated via zoom by Ilda [facility] crisis screener, and was found to meet criteria for a voluntary hospitalization. Referrals have been made to the [facility] and [facility] for review. All other psych hospitals are full. Toya will remain at [facility] while she awaits a placement. VOLUNTARY FOR INPATIENT PSYCHIATRIC STABILIZATION. Patient is appropriate in all interactions since arriving at [facility]; Pt has demonstrated appropriate coping and communication skills, has articulated her needs and concerns and is fully engaged during staff interactions. Safety plan has been established with patient, and care team, to adhere to patient goals, identify restrictions based on behavioral status, address nutrition, and determine allowed personal belongings, tools for hygiene and personal care. Determine level of activity including ambulation, level of supervision, visitors, and determine privileges based on behaviors and level of engagement by pt. SAFETY PLAN: 1. Will remain on suicide precautions. In Paper Clothes 2. Will remain in room under direct supervision of one-on-one staff at all times provided by CPSO; PROMISE, ASSISTANT FINANCIAL ACCOUNTANT assistant prosecuting attorney. 3. May have paper cups, plates, finger foods as well as a cardboard spoon with which to eat meals. 4. Follow [facility] Management of the Admitted Behavioral Health Patient policy. 5. Comfort bath system only. 6. No personal belongings 7. Visitors-No visitors at this time. 8. Activities: Soft tip markers, paper, music, and other activities at nursing discretion. 9. Bathroom privileges: While in the ED, must be accompanied by staff. If patient is moved to [facility], she will be allowed to use the bathroom in her room without supervision. 10. Phone: Patient allowed to call her mom at nursing discretion. 11. Due to VOLUNTARY status, if patient wishes to leave [facility], the [facility] trail maintenance worker must be contacted to re-evaluate patient prior to patient exiting the building. Patient is currently voluntarily at [facility] and seeking inpatient admission when a bed becomes available. [facility] Frontline Programs Director will continue seeking placement. Please contact the Health Care Coach Clothing Sorter ([phone]) and [facility] Programs Director ([phone]) for any needed changes in the Safety Plan. Safety plan has been provided to interdepartmental care team.
--- NOTE | 2020-03-14 08:52 | CMPROGNOTE_ITS ---
- If Service Date Differs Date of service: 03/14/20 Time of Service: 08:52 Care Management Progress Note S/O: Toya presents in the ED for suicidal ideation with a plan to shoot herself with a gun and with auditory hallucinations telling her to harm herself. She is also experiencing paranoid thoughts, believing that some unknown person is trying to poison her. Toya reports she has experienced auditory hallucinations for many years and states she previously was able to ignore the voices, but the voices have been increasing in intensity and have become more and more difficult to ignore over the past couple of weeks. She goes on to say she believed her medication may have been contributing to the worsening of the hallucinations, so she stopped taking her psych meds a couple of days ago. Toya is pleasant, cooperative and easily engages in conversation, but she is a nxious and is observed responding to internal stimuli. She denies a history of psychiatric hospitalizations. A: Toya is a 29 year old female who presents in the ED for suicidal ideation and auditory hallucinations. P: Toay was evaluated via zoom by Ilda [facility] crisis screener, and was found to meet criteria for a voluntary hospitalization. [facility] and [facility] for review. All other psych hospitals are full. Toya will remain at [facility] while she awaits a voluntary placement. [facility] will continue to follow.
[2020-03-14 09:16] LABS: Bilirubin Small (Negative); Blood Negative (Negative); Clarity Clear (Clear); Glucose Negative (Negative); Ketones 15 mg/dL (Negative); Leukocyte Esterase Negative (Negative); Nitrite Negative (Negative); Specific Gravity >= 1.030 (1.005-1.025); pH 6.5 (5-8)
[2020-03-14 09:29] LABS: Bacteria Negative HPF (Negative); C & S Indicated? No; Casts Negative LPF (Negative); Crystals Negative HPF (Negative); Epithelial Cells Moderate HPF (Negative); Mucus Moderate (Negative); RBC Negative HPF (0-2)
[2020-03-14 09:59] LABS: *AMPHETAMINES SCREEN URINE Negative (Negative); *BARBITURATES SCREEN URINE Negative (Negative); *BENZODIAZEPINES SCREEN URINE Negative (Negative); Cannabinoids THC Negative (Negative); Cocaine Screen,Urine Negative (Negative); METHADONE URINE SCREEN POSITIVE (Negative); OPIATES URINE SCREEN Negative (Negative)
[2020-03-14 10:01] LABS: Tricyclic Antidepressants Negative (Negative)
[2020-03-14 11:46] LABS: COVID-19 RT-PCR UVMMC Result Negative (Negative)
[2020-03-14] MEDS: Methadone 10 MG TAB PO (11:50)
[2020-03-14] MEDS: Gabapentin 800 MG TAB PO ×2 (11:50→20:59)
--- NOTE | 2020-03-14 16:14 | CMSP_ITS ---
- If Service Date Differs Date of service: 03/14/20 Time of Service: 16:14 Care Management Safety Plan REVISED SAFETY PLAN Chief complaint: Toya presents in the ED due to suicidal ideation and auditory hallucinations. Toya was assessed by Ilda [facility] face worker, earlier today and found to meet criteria for a voluntary psychiatric hospitalization. Referrals are faxed to [facility], [facility] and [facility] for review. The [facility] accepts Toya for placement but not until tomorrow (Wednesday, March 15, 2020). Transport will be done via nature photographer when ready. VOLUNTARY FOR INPATIENT PSYCHIATRIC STABILIZATION. Patient is appropriate in all interactions since arriving at [facility]; Pt has demonstrated appropriate coping and communication skills, has articulated her needs and concerns and is fully engaged during staff interactions. Safety plan has been established with patient, and care team, to adhere to patient goals, identify restrictions based on behavioral status, address nutrition, and determine allowed personal belongings, tools for hygiene and personal care. Determine level of activity including ambulation, level of supervision, visitors, and determine privileges based on behaviors and level of engagement by pt. SAFETY PLAN: 1. Will remain on suicide precautions and in paper clothes 2. Will remain in room under direct supervision of one-on-one staff at all times provided by C[employer]; PROMISE, PAINT PREPARER prevocational/rehabilitation counselor. 3. May have paper cups, plates, finger foods as well as a cardboard spoon with which to eat meals. 4. Follow [facility] Management of the Admitted Behavioral Health Patient policy. 5. Comfort bath system only while in the ED. If patient is moved to Med Surg, will be allowed to shower with supervision. 6. No personal belongings 7. Visitors-No visitors at this time. 8. Activities: Soft tip markers, paper, tablet for music, and other activities at nursing discretion. Will be allowed television if moved to Med Surg. 9. Bathroom privileges: While in the ED, must be accompanied by staff. If patient is moved to Med Surg, she will be allowed to use the bathroom in her room without supervision. 10. Phone: Patient is NOT allowed to have her cell phone. [facility] staff will assist in coordinating a phone call to her mom by using an [facility] staff phone. This will be done at nursing or CM discretion. 11. Due to VOLUNTARY status, if patient wishes to leave [facility], the [facility] dobie worker must be contacted to re-evaluate patient prior to patient exiting the building. Patient is currently voluntarily at [facility] and seeking inpatient admission when a bed becomes available. [facility] Frontline Bridge Painter will continue seeking placement. Please contact the Pipeline Systems Operator Quality Associate ([phone]) and [facility] Bridge Painter ([phone]) for any needed changes in the Safety Plan. Safety plan has been provided to interdepartmental care team.
[2020-03-14 16:55] VITALS: BP 144/111; PULSE 74; RESP 18; TEMP 36.7; O2SAT 98
[2020-03-14 19:09] VITALS: BP 137/92; PULSE 71; RESP 16; O2SAT 98
[2020-03-14] MEDS: Zolpidem 5 MG TAB PO (20:59)
[2020-03-15 08:14] VITALS: BP 126/98; PULSE 86; RESP 18; TEMP 36.8; O2SAT 98
[2020-03-15] MEDS: Haloperidol 5 MG TAB PO (08:25)
[2020-03-15] MEDS: Gabapentin 800 MG TAB PO (08:26)
[2020-03-15] MEDS: LORazepam 2 MG/ML VIAL IM (10:07)
[2020-03-15] MEDS: Methadone 10 MG TAB PO (10:34)
[2020-03-15 11:02] VITALS: BP 126/98; PULSE 86; RESP 16; TEMP 36.8; O2SAT 98
== END 2020-03-15 11:00 | disposition short-term general hospital (02) ==
PROVIDERS: Emergency Medicine; Emergency Provider Student in an Organized Health Care Education/Training Program
DX: R44.0 Auditory hallucinations (principal); R45.851 Suicidal ideations; F41.8 Other specified anxiety disorders; F11.20 Opioid dependence, uncomplicated; G35 Multiple sclerosis
CPT/HCPCS: 36415; 80053; 80307; 81025; 93005; 96372; 99285; U0003; 80320; 80329; 81003; 81015; 84443; 85025; 93010; J2060

== ENCOUNTER 2021-01-28 03:38 | Outpatient (CLI) | payer MEDICAID, SELFPAY ==
[2021-01-28 10:27] LABS: Hemoglobin A1C 4.7 % (<5.7)
[2021-01-28 11:08] LABS: ALT 33 U/L (14-59); AST 43 U/L (15-37); Albumin 4.4 g/dL (3.4-5.0); Alkaline Phosphatase 81 U/L (46-116); Anion Gap 13.6 mmol/L (3-11); BUN 25 mg/dL (7-18); Bilirubin, Total 0.5 mg/dL (0.2-1.0); CO2 24.4 mmol/L (21.0-32.0); CREATININE 0.8 mg/dL (0.55-1.02); Calcium 9.1 mg/dL (8.5-10.1); Calculated LDL 101 mg/dL (<100); Chloride 104 mmol/L (98-107); Cholesterol 250 mg/dL (<200); Glucose 87 mg/dL (74-106); HDL Cholesterol 116 mg/dL (40-60); Potassium 4.1 mmol/L (3.5-5.1); Sodium 142 mmol/L (136-145); TSH 1.99 uIU/mL (0.36-3.74); Total Protein 7.5 g/dL (6.4-8.2); Triglyceride 166 mg/dL (<150)
[2021-01-28 14:18] LABS: *AMPHETAMINES SCREEN URINE Negative (Negative); *BARBITURATES SCREEN URINE Negative (Negative); *BENZODIAZEPINES SCREEN URINE Negative (Negative); Cannabinoids THC Positive (Negative); Cocaine Screen,Urine Negative (Negative); METHADONE URINE SCREEN Negative (Negative); OPIATES URINE SCREEN Negative (Negative)
[2021-01-28 14:26] LABS: Tricyclic Antidepressants Negative (Negative)
== END 2021-01-28 03:39 | disposition home or self-care (01) ==
LOC: LBO 03:38
PROVIDERS: Visit Provider Nurse Practitioner Psychiatric/Mental Health
DX: F32.1 Major depressive disorder, single episode, moderate (principal); Z79.899 Other long term (current) drug therapy
CPT/HCPCS: 36415; 80053; 80061; 80307; 83036; 84443

== ENCOUNTER 2021-02-27 18:17 | Inpatient (IN) | payer MEDICAID, SELFPAY ==
[2021-02-27 18:30] VITALS: BP 184/112; PULSE 106; TEMP 37; O2SAT 97
[2021-02-27 18:49] LABS: Bilirubin Small (Negative); Blood Small (Negative); Clarity Clear (Clear); Glucose Negative (Negative); Ketones 40 mg/dL (Negative); Leukocyte Esterase Negative (Negative); Nitrite Negative (Negative); Specific Gravity >= 1.030 (1.005-1.025); pH 6.5 (5-8)
[2021-02-27 19:00] LABS: Bacteria Negative HPF (Negative); C & S Indicated? No; Casts Negative LPF (Negative); Crystals Negative HPF (Negative); Epithelial Cells Few HPF (Negative); Mucus Negative (Negative)
--- NOTE | 2021-02-27 19:03 | ED.GENADUL_ITS ---
Discharge Plan Disposition Patient Disposition: [facility] INPATIENT Condition: Stable Discharge Details Clinical Impression: Auditory hallucination, Visual hallucinations Primary Care Provider: Unknown,Unknown ED Provider: Jemal Patel Home Meds and New Rx's Prescriptions: No Action turmeric root extract 500 mg capsule 500 mg PO DAILY RF: 0 glatiramer [Copaxone] 40 mg/mL syringe 40 mg subcut .3x per week Qty: 12 RF: 11 gabapentin 800 mg tablet 800 mg PO TID Qty: 90 RF: 5 cholecalciferol (vitamin D3) 50 mcg (2,000 unit) capsule 2,000 unit PO DAILY Qty: 90 RF: 3 aripiprazole [Abilify] 5 mg tablet 5 mg PO DAILY RF: 0 zolpidem [Ambien] 5 mg tablet 5 mg PO QHS PRNRF: 0 bupropion HCl [Wellbutrin] 100 MG tablet 200 mg PO BID RF: 0 methylphenidate HCl 10 MG tablet 10 mg PO QID RF: 0 fexofenadine 180 mg Tablet 180 mg PO DAILY RF: 0 omeprazole 20 mg Capsule,Delayed Release(Dr/Ec) 20 mg PO DAILY RF: 0 loratadine 10 mg Tablet 10 mg PO DAILY RF: 0 Medical Decision Making 30-year-old female presenting to the ER for increasing both visual and auditory hallucinations. She feels hopeless but does not actively feel suicidal or homicidal. She has no medical complaints at this time. Admits to a sip of alcohol today, had a couple drinks yesterday. Admits to regular marijuana use. Clinically she appears well, nontoxic. The patient denies history of alcohol withdrawals and there are no signs of alcohol drawl on her examination now. Will obtain routine laboratory values for screening purposes and request mental health evaluate the patient. Given her hallucinations and her hopelessness, will order a [employer]PS[employer], and a safety plan Laboratory values resulted and did not reveal any obvious emergent process. Mental health was paged. Mental health evaluation completed, please see their note. Will begin referral process for inpatient voluntary psychiatric placement. Discussed the plan with patient, she is agreeable but reports that she feels claustrophobic in the exam room 5. She has taken Ambien before to help sleep, will provide a single dose of 5 mg. Will contact our hospitalist team to discuss admitting while psychiatric placement can be found. Case discussed with Dr. Angulo and was agreeable to admit the patient. I will place holding orders. Medical Records Medical records reviewed: Yes I reviewed the patient's medical records. Lab Data Lab results reviewed: Yes I reviewed the patient's lab results. Labs: Laboratory Tests Range/Units 02/27/21 02/27/21 02/27/21 18:36 18:36 18:58 WBC (4.4-10.8) 10^3/uL RBC (3.93-5.22) 10^6/uL Hgb (11.2-15.7) g/dL Hct (36.0-46.0) % MCV (80-95) fL MCH (27.0-33.0) pg MCHC (32.0-36.0) % RDW (11.7-14.6) % Plt Count (130-400) 10^3/uL MPV (8.0-11.0) fL Immature Gran % Neutrophils % Lymphocytes % Monocytes % Eosinophils % Basophils % Nucleated RBC % % Absolute Neutrophils (1.2-6.7) 10^3/uL Absolute Lymphocytes (1.2-3.4) 10^3/uL Absolute Monocytes (0.1-0.8) 10^3/uL Absolute Eosinophils (0.0-0.7) 10^3/uL Absolute Basophils (0.0-0.2) 10^3/uL Sodium (136-145) mmol/L 140 Potassium (3.5-5.1) mmol/L 3.6 Chloride (98-107) mmol/L 103 Carbon Dioxide (21.0-32.0) mmol/L 27.0 Anion Gap (3-11) mmol/L 10.0 BUN (7-18) mg/dL 18 Creatinine (0.55-1.02) mg/dL 0.9 Estimated GFR/1.73 m2 (mL/min/1.73m2) >= 60.00 Glucose (74-106) mg/dL 99 Calcium (8.5-10.1) mg/dL 9.2 Total Bilirubin (0.2-1.0) mg/dL 0.6 AST (15-37) U/L 70 H ALT (14-59) U/L 56 Alkaline Phosphatase (46-116) U/L 81 Total Protein (6.4-8.2) g/dL 7.6 Albumin (3.4-5.0) g/dL 4.1 TSH (0.36-3.74) uIU/mL 2.25 Urine Color (Yellow) Yellow Urine Clarity (Clear) Clear Urine pH (5-8) 6.5 Ur Specific [place] (1.005-1.025) >= 1.030 H Urine Protein (Negative) mg/dL 30 H Urine Ketones (Negative) mg/dL 40 H Urine Blood (Negative) Small H Urine Nitrite (Negative) Negative Urine Bilirubin (Negative) Small H Urine Urobilinogen (Up TO 0.2) EU/dL 1.0 H Ur Leukocyte Esterase (Negative) Negative Urine RBC (0-2) HPF 3-5 H Urine WBC (0-5) HPF 3-5 Ur Epithelial Cells (Negative) HPF Few Urine Crystals (Negative) HPF Negative Urine Bacteria (Negative) HPF Negative Urine Casts (Negative) LPF Negative Urine Mucus (Negative) Negative Ur Culture Indicated? No Urine Glucose (Negative) mg/dL Negative Salicylates (<2.8) mg/dL Urine Opiates Screen (Negative) Negative Urine Methadone Screen (Negative) Negative Acetaminophen (10-30) ug/mL Ur Barbiturates Screen (Negative) Negative Ur Tricyclics Screen (Negative) Negative Ur Amphetamines Screen (Negative) Negative U Benzodiazepines Scrn (Negative) Negative Urine Cocaine Screen (Negative) Negative Ur THC Screen (Negative) Positive A Ethyl Alcohol (<3) mg/dL < 3.0 Range/Units 02/27/21 02/27/21 18:58 18:58 WBC (4.4-10.8) 10^3/uL 6.32 RBC (3.93-5.22) 10^6/uL 4.22 Hgb (11.2-15.7) g/dL 13.9 Hct (36.0-46.0) % 42.2 MCV (80-95) fL 100.0 H MCH (27.0-33.0) pg 32.9 MCHC (32.0-36.0) % 32.9 RDW (11.7-14.6) % 11.3 L Plt Count (130-400) 10^3/uL 241 MPV (8.0-11.0) fL 9.9 Immature Gran % 0.2 Neutrophils % 73.3 Lymphocytes % 17.7 Monocytes % 6.2 Eosinophils % 2.1 Basophils % 0.5 Nucleated RBC % % 0 Absolute Neutrophils (1.2-6.7) 10^3/uL 4.64 Absolute Lymphocytes (1.2-3.4) 10^3/uL 1.12 L Absolute Monocytes (0.1-0.8) 10^3/uL 0.39 Absolute Eosinophils (0.0-0.7) 10^3/uL 0.13 Absolute Basophils (0.0-0.2) 10^3/uL 0.03 Sodium (136-145) mmol/L Potassium (3.5-5.1) mmol/L Chloride (98-107) mmol/L Carbon Dioxide (21.0-32.0) mmol/L Anion Gap (3-11) mmol/L BUN (7-18) mg/dL Creatinine (0.55-1.02) mg/dL Estimated GFR/1.73 m2 (mL/min/1.73m2) Glucose (74-106) mg/dL Calcium (8.5-10.1) mg/dL Total Bilirubin (0.2-1.0) mg/dL AST (15-37) U/L ALT (14-59) U/L Alkaline Phosphatase (46-116) U/L Total Protein (6.4-8.2) g/dL Albumin (3.4-5.0) g/dL TSH (0.36-3.74) uIU/mL Urine Color (Yellow) Urine Clarity (Clear) Urine pH (5-8) Ur Specific [place] (1.005-1.025) Urine Protein (Negative) mg/dL Urine Ketones (Negative) mg/dL Urine Blood (Negative) Urine Nitrite (Negative) Urine Bilirubin (Negative) Urine Urobilinogen (Up TO 0.2) EU/dL Ur Leukocyte Esterase (Negative) Urine RBC (0-2) HPF Urine WBC (0-5) HPF Ur Epithelial Cells (Negative) HPF Urine Crystals (Negative) HPF Urine Bacteria (Negative) HPF Urine Casts (Negative) LPF Urine Mucus (Negative) Ur Culture Indicated? Urine Glucose (Negative) mg/dL Salicylates (<2.8) mg/dL < 2.8 Urine Opiates Screen (Negative) Urine Methadone Screen (Negative) Acetaminophen (10-30) ug/mL < 2 Ur Barbiturates Screen (Negative) Ur Tricyclics Screen (Negative) Ur Amphetamines Screen (Negative) U Benzodiazepines Scrn (Negative) Urine Cocaine Screen (Negative) Ur THC Screen (Negative) Ethyl Alcohol (<3) mg/dL HPI General Mode of arrival: ambulatory . Date/Time Provider Initiated Documentation: 02/27/21 18:36 . Limitations to Documentation: no limitations . Information obtained by: patient . HPI Narrative: This is a 30-year-old female, presenting to the ER today with a past medical history of auditory hallucinations, she denies formal diagnosis of schizophrenia and/or bipolar, pr esenting for increased hallucinations. Patient is a rather vague and poor historian, she reports that there is a stressor a few days ago, unclear exactly what this was but it made her symptoms worse. Since that time her daughter has not been staying with her and so she is feeling hopeless and without a purpose. She states that the voices are not mean integrating to her but not giving her commands. She also states that at night in her bedroom she sees dark figures shadows. She denies any overt suicidal or homicidal thoughts but reports that she has tried to harm herself in the past, and again she is feeling hopeless. She admits to marijuana use and alcohol use. She states that her alcohol use is typically vodka, she drinks just enough to take the edge off because she feels like the Abilify is not working. She was hospitalized at [place] approximately 1 year ago. She denies recent illness or trauma. She denies any current fever, headache, chest pain, shortness of breath or abdominal pain, change in bowel or bladder function, numbness, tingling, weakness. Related Data Home Medications Medication Instructions Recorded Confirmed bupropion HCl [Wellbutrin] 200 mg PO BID 04/12/14 07/10/20 methylphenidate HCl 10 mg PO QID 12/13/14 07/10/20 glatiramer 40 mg/mL subcutaneous 40 mg SUBCUT .3x per week #12 ml 08/24/19 07/10/20 syringe turmeric root extract 500 mg 500 mg PO DAILY 08/24/19 07/10/20 capsule cholecalciferol (vitamin D3) 50 2,000 unit PO DAILY #90 cap 11/23/19 07/10/20 mcg (2,000 unit) capsule gabapentin 800 mg tablet 800 mg PO TID #90 tab 11/23/19 07/10/20 fexofenadine 180 mg PO DAILY 03/14/20 07/10/20 loratadine 10 mg PO DAILY 03/14/20 07/10/20 omeprazole 20 mg PO DAILY 03/14/20 07/10/20 aripiprazole 5 mg tablet 5 mg PO DAILY 07/10/20 07/10/20 zolpidem 5 mg tablet 5 mg PO QHS PRN 07/10/20 07/10/20 Previous Rx's Medication Instructions Recorded glatiramer 40 mg/mL subcutaneous 40 mg SUBCUT .3x per week #12 ml 08/24/19 syringe cholecalciferol (vitamin D3) 50 2,000 unit PO DAILY #90 cap 11/23/19 mcg (2,000 unit) capsule gabapentin 800 mg tablet 800 mg PO TID #90 tab 11/23/19 Allergies Allergy/AdvReac Type Severity Reaction Status Date / Time cat dander Allergy Intermediate Verified 07/10/20 10:50 house dust mite Allergy Mild Verified 07/10/20 10:50 General Stated Complaint: PsychEval NAIMA: 2 Review of Systems Constitutional Constitutional: Denies fatigue, Denies fever(s) and Denies weakness Eyes Eyes: Denies change in vision ENT Ears, Nose, Mouth, and Throat: Denies neck pain Cardiovascular Cardiovascular: Denies chest pain and Denies dyspnea Respiratory Respiratory: Denies cough and Denies dyspnea Gastrointestinal Gastrointestinal: Denies abdominal pain, Denies nausea and Denies vomiting Genitourinary Genitourinary: Denies dysuria Musculoskeletal Musculoskeletal: Denies back pain, Denies neck pain, Denies numbness and Denies tingling Integumentary/Breasts Skin/Breast: Denies rash Neurologic Neurologic: Denies numbness, Denies tingling and Denies weakness Psychiatric Psychiatric: Reports anxiety, Reports depression, Reports hopelessness, Denies homicidal ideation and Denies suicidal ideation Endocrine Endocrine: Denies fatigue [facility] Medical History ADD (attention deficit disorder) Anxiety Depression Migraine headache without aura Multiple sclerosis Opioid dependence Surgical History S/P tubal ligation Family History Maternal Grandmother Multiple sclerosis Social History Smoking/Tobacco Use Status: Former Tobacco Use Smoking risk assessment performed?: Yes Alcohol Intake: never Drug use: Current Sobriety Substance use type: former substance user Household members: children Housing: apartment Number of Children: 3 Pets and animals: No Seatbelt use: always Do you feel safe at home: Yes Do you feel safe in your relationship?: Yes Additional Social history: Lives with 8 year old daughter who has ADHD. Has 2 older children in the custody of her mother. Exam Const General: cooperative, healthy appearing, comfortable and no acute distress Orientation: alert, awake and oriented x3 HENMT Head: normal to inspection, normocephalic and atraumatic Face and sinus: normal facial exam Mouth: moist mucous membranes Eyes General: appearance normal, both eyes and all related structures Conjunctivae: conjunctivae normal Neck Neck: normal visual inspection, full ROM, no lymphadenopathy, no meningeal signs, trachea midline and supple Resp Effort & Inspection: normal respiratory effort and able to speak in complete sentences Auscultation: clear to auscultation bilaterally Cardio Rate: regular rate Rhythm: regular rhythm GI Palpation: soft and nontender Back/Spine/Pelvis Back: No back tenderness Skin General skin exam: no rashes or lesions noted Neuro General: patient alert, patient awake, patient oriented x3, moves all extremities and no focal motor deficits Cognition: normal cognition Speech: speech normal Gait: normal gait Motor: muscle tone normal throughout Sensory Exam: no sensory deficits noted Extrem General: normal to inspection, full ROM and capillary refill normal Psych Appearance: grossly normal Mental Status: mental status grossly normal Speech and Movement: speech and movement normal Mood: dysthymic mood Affect: sad Attitude: cooperative Thought Process: normal Thought Content: hallucinations auditory and visual Insight: fair Judgment: fair Course Vital Signs Vital signs: Vital Signs Temperature 37.0 C 02/27/21 18:30 Pulse 106 H 02/27/21 18:30 Blood Pressure 184/112 H 02/27/21 18:30 Pulse Oximetry 97 02/27/21 18:30 Temperature 37.0 C 02/27/21 18:30 Temperature Source Oral 02/27/21 18:30 Pulse 106 H 02/27/21 18:30 Respiratory Effort Non-Labored 02/27/21 18:57 Blood Pressure 184/112 H 02/27/21 18:30 Blood Pressure Position Sitting 02/27/21 18:30 Pulse Oximetry 97 02/27/21 18:30 Oxygen Delivery Method Room Air 02/27/21 18:30 Oxygen Flow Rate 0 02/27/21 18:30 Pain Level 0 02/27/21 18:30 Lab/Test Results Lab/Test Results: Laboratory Tests Range/Units 02/27/21 18:36 Urine Color (Yellow) Yellow Urine Clarity (Clear) Clear Urine pH (5-8) 6.5 Ur Specific [place] (1.005-1.025) >= 1.030 H Urine Protein (Negative) mg/dL 30 H Urine Ketones (Negative) mg/dL 40 H Urine Blood (Negative) Small H Urine Nitrite (Negative) Negative Urine Bilirubin (Negative) Small H Urine Urobilinogen (Up TO 0.2) EU/dL 1.0 H Ur Leukocyte Esterase (Negative) Negative Urine RBC (0-2) HPF 3-5 H Urine WBC (0-5) HPF 3-5 Ur Epithelial Cells (Negative) HPF Few Urine Crystals (Negative) HPF Negative Urine Bacteria (Negative) HPF Negative Urine Casts (Negative) LPF Negative Urine Mucus (Negative) Negative Ur Culture Indicated? No Urine Glucose (Negative) mg/dL Negative
[2021-02-27 19:04] LABS: Abs Immature Grans 0.01 10^3/uL (0.0-0.06); Absolute Basophil Count 0.03 10^3/uL (0.0-0.2); Absolute Eosinophil Count 0.13 10^3/uL (0.0-0.7); Absolute Lymphocyte Count 1.12 10^3/uL (1.2-3.4); Absolute Monocyte Count 0.39 10^3/uL (0.1-0.8); Absolute Neutrophil Count 4.64 10^3/uL (1.2-6.7); Basophils % 0.5; Eosinophils % 2.1; HCT 42.2 % (36.0-46.0); HGB 13.9 g/dL (11.2-15.7); Immature Grans % 0.2; Lymphocytes % 17.7; MCH 32.9 pg (27.0-33.0); MCHC 32.9 % (32.0-36.0); MPV 9.9 fL (8.0-11.0); Monocytes % 6.2; Neutrophils % 73.3; Nucleated RBC 0 %; Platelet Count 241 10^3/uL (130-400); RBC 4.22 10^6/uL (3.93-5.22); RDW 11.3 % (11.7-14.6); RDW-SD 41.5 fL; WBC 6.32 10^3/uL (4.4-10.8)
[2021-02-27 19:07] VITALS: BP 141/107; PULSE 101; O2SAT 99
[2021-02-27 19:07] LABS: *AMPHETAMINES SCREEN URINE Negative (Negative); *BARBITURATES SCREEN URINE Negative (Negative); *BENZODIAZEPINES SCREEN URINE Negative (Negative); Cannabinoids THC Positive (Negative); Cocaine Screen,Urine Negative (Negative); METHADONE URINE SCREEN Negative (Negative); OPIATES URINE SCREEN Negative (Negative)
[2021-02-27 19:08] LABS: Tricyclic Antidepressants Negative (Negative)
[2021-02-27 19:27] LABS: Salicylate < 2.8 mg/dL (<2.8)
[2021-02-27 19:29] LABS: ALT 56 U/L (14-59); AST 70 U/L (15-37); Albumin 4.1 g/dL (3.4-5.0); Alkaline Phosphatase 81 U/L (46-116); BUN 18 mg/dL (7-18); Bilirubin, Total 0.6 mg/dL (0.2-1.0); CREATININE 0.9 mg/dL (0.55-1.02); Calcium 9.2 mg/dL (8.5-10.1); Chloride 103 mmol/L (98-107); Glucose 99 mg/dL (74-106); Potassium 3.6 mmol/L (3.5-5.1); Sodium 140 mmol/L (136-145); TSH (W/Ref FT4) 2.25 uIU/mL (0.36-3.74); Total Protein 7.6 g/dL (6.4-8.2)
[2021-02-27 19:31] VITALS: BP 139/91; PULSE 92
[2021-02-27 19:31] LABS: Acetaminophen < 2 ug/mL (10-30)
[2021-02-27 19:45] LABS: ETHANOL BLOOD < 3.0 mg/dL (<3)
[2021-02-27 21:05] VITALS: BP 139/94; PULSE 87; RESP 16; O2SAT 98
--- NOTE | 2021-02-27 21:15 | PDOC.MHCN ---
Date of service: 02/27/21 Time of Service: 21:16 Mental Health Crisis Note Presenting Issue How did you arrive at the ED and why did you come: Client arrived at ED via self. Client reports hearing voices which sometimes tells her to do harm to herself. Client also reported that her current medication are not working and that is why she drinks. Client is seeking in-patient treatment for med adjustment and regulation and states that hopes the voices finally go away. Precipitating Factors Client denied SI/ HI at this time. However, client stated that sometimes the voice tells her to do harmful things to herself. Disposition BEHAVIOR: Client presented a withdrawn, depressed and tearful throughout this assessment. client expressed feeling physically and emotionally fatigues and stated: I don't have any will to keep going. Client initially presented as guarded but later became more open during this assessment. EYE CONTACT: Client maintained minimal eye contact and appeared to dissociate for a short time during this assessment. MOOD: Client presented with anxious, depressed and hopeless mood. AFFECT: Client presented with restricted affect APPETITE: Client reported no appetite and she did not eat anything all day. SLEEP(trouble falling/staying asleep: Client reported difficulty falling and staying asleep. Client also reported she experiences nightmares every time she sleep. Plan Client is currently on voluntary status and expressed a strong willingness to get treatment. However, client also expressed that she was very anxious and feeling panic about being at the hospital and having to wait for placement. Client has to be continuously encouraged to stay at the hospital so she can get placed for in-patient treatment. Client will also need to be reassessed by [facility] if and when she decides to discharge before placement. Client will be assessed daily by [facility] till she is placed. Signature Clinician's Name/Title: Shu Rodriguez / Emergency Services Clinician
[2021-02-27 21:45] LABS: Source Nasal/Nares
[2021-02-27] MEDS: Zolpidem 5 MG TAB PO (22:18)
--- NOTE | 2021-02-27 22:18 | W.PM.HP.N ---
Date of service: 02/27/21 Time of Service: 22:18 Assessment and Plan Assessment and plan (1) Auditory hallucination: Status: Acute (2) Visual hallucinations: Status: Acute (3) Depression: Status: Chronic Assessment and plan: She will be admitted to the hospital for further care. Attempt was made to get her transferred to a psychiatric facility as soon as possible. We will continue her Abilify, bupropion, methylphenidate and other nonpsychiatric medicines. She is in stable condition at the present time. History of Present Illness This 30-year-old female is here because of hallucinations, anxiety and difficulty sleeping. She has had a history of this going on for a number of months and is been on haloperidol and most recently on Abilify. She says the medicines do not really control her symptoms. When she was on the haloperidol she felt like a zombie. She has been hospitalized for this previously and would like to be readmitted to the hospital to get the symptoms under better control. She was evaluated emergency department she would like to be voluntarily admitted to a psychiatric institution. No beds are available tonight. She says she has been hearing voices and sees figures in her vision and sometimes they disappear but they seem quite real. Recently she has been drinking alcohol to help with her symptoms but has had legal problems with her drinking and would like to get her symptoms under better control. She has a history of multiple sclerosis that affects her legs and feet. She has 3 children and her youngest daughter is currently with her daughter's father. He has had her for the last 3 days. She is on disability due to her mental illness. She has not been around any medicines been sick and has been reluctant to get the Covid vaccine because she is afraid it might make her sick. She has not been traveling. Review of Systems Constitutional Constitutional: Reports difficulty sleeping, Denies fever(s), Reports lethargy and Reports poor appetite Cardiovascular Cardiovascular: Denies chest pain and Denies dyspnea Respiratory Respiratory: Denies dyspnea Gastrointestinal Gastrointestinal: Denies diarrhea, Denies nausea and Denies vomiting Genitourinary Genitourinary: Denies urinary frequency Comments: LMPis now. Psychiatric Psychiatric: Reports depression, Reports difficulty concentrating, Reports auditory hallucinations, Reports visual hallucinations, Denies homicidal ideation and Denies suicidal ideation [facility] Medical History ADD (attention deficit disorder) Anxiety Depression Migraine headache without aura Multiple sclerosis Opioid dependence Surgical History S/P tubal ligation Family History Maternal Grandmother Multiple sclerosis Social History Smoking/Tobacco Use Status: Former Tobacco Use Smoking risk assessment performed?: Yes Alcohol Intake: never Drug use: Current Sobriety Substance use type: former substance user Household members: children Housing: apartment Number of Children: 3 Pets and animals: No Seatbelt use: always Do you feel safe at home: Yes Do you feel safe in your relationship?: Yes Additional Social history: Lives with 8 year old daughter who has ADHD. Has 2 older children in the custody of her mother. Meds Allergies and Home Medications Allergies Allergy/AdvReac Type Severity Reaction Status Date / Time cat dander Allergy Intermediate Verified 07/10/20 10:50 house dust mite Allergy Mild Verified 07/10/20 10:50 Home Medications Medication Instructions Recorded Confirmed Type bupropion HCl [Wellbutrin] 200 mg PO BID 04/12/14 02/27/21 History methylphenidate HCl 10 mg PO QID 12/13/14 02/27/21 History glatiramer 40 mg/mL subcutaneous 40 mg SUBCUT .3x per week #12 ml 08/24/19 07/10/20 Rx syringe turmeric root extract 500 mg 500 mg PO DAILY 08/24/19 07/10/20 History capsule cholecalciferol (vitamin D3) 50 2,000 unit PO DAILY #90 cap 11/23/19 07/10/20 Rx mcg (2,000 unit) capsule gabapentin 800 mg tablet 800 mg PO TID #90 tab 11/23/19 02/27/21 Rx fexofenadine 180 mg PO DAILY 03/14/20 02/27/21 History loratadine 10 mg PO DAILY 03/14/20 07/10/20 History omeprazole 20 mg PO DAILY 03/14/20 02/27/21 History aripiprazole 5 mg tablet 5 mg PO DAILY 07/10/20 02/27/21 History zolpidem 5 mg tablet 5 mg PO QHS PRN 07/10/20 02/27/21 History Exam Const General: cooperative, comfortable and no acute distress Nutritional Appearance: average body habitus and well nourished Limitations: mental status not altered Eyes General: appearance normal, both eyes and all related structures Neck Neck: normal visual inspection and no lymphadenopathy Resp Effort & Inspection: normal respiratory effort and able to speak in complete sentences Auscultation: no rales, no rhonchi and no wheezes Cardio Rate: regular rate Rhythm: regular rhythm Heart Sounds: S1 normal, S2 normal, no gallops and no murmurs GI Inspection: normal to inspection Palpation: no hepatosplenomegaly, no guarding and nontender Psych Speech and Movement: speech and movement normal and not agitated Insight: fair Judgment: fair Results Labs Result diagrams: 02/27/21 18:58 02/27/21 18:58 Labs: Laboratory Results - last 24 hr 02/27/21 02/27/21 02/27/21 18:36 18:36 18:58 WBC RBC Hgb Hct MCV MCH MCHC RDW Plt Count MPV Immature Gran % Neutrophils % Lymphocytes % Monocytes % Eosinophils % Basophils % Nucleated RBC % Absolute Neutrophils Absolute Lymphocytes Absolute Monocytes Absolute Eosinophils Absolute Basophils Sodium 140 Potassium 3.6 Chloride 103 Carbon Dioxide 27.0 Anion Gap 10.0 BUN 18 Creatinine 0.9 Estimated GFR/1.73 m2 >= 60.00 Glucose 99 Calcium 9.2 Total Bilirubin 0.6 AST 70 H ALT 56 Alkaline Phosphatase 81 Total Protein 7.6 Albumin 4.1 TSH 2.25 Urine Color Yellow Urine Clarity Clear Urine pH 6.5 Ur Specific [place] >= 1.030 H Urine Protein 30 H Urine Ketones 40 H Urine Blood Small H Urine Nitrite Negative Urine Bilirubin Small H Urine Urobilinogen 1.0 H Ur Leukocyte Esterase Negative Urine RBC 3-5 H Urine WBC 3-5 Ur Epithelial Cells Few Urine Crystals Negative Urine Bacteria Negative Urine Casts Negative Urine Mucus Negative Ur Culture Indicated? No Urine Glucose Negative Salicylates Urine Opiates Screen Negative Urine Methadone Screen Negative Acetaminophen Ur Barbiturates Screen Negative Ur Tricyclics Screen Negative Ur Amphetamines Screen Negative U Benzodiazepines Scrn Negative Urine Cocaine Screen Negative Ur THC Screen Positive A Ethyl Alcohol < 3.0 COVID-19 Source 02/27/21 02/27/21 02/27/21 18:58 18:58 21:40 WBC 6.32 RBC 4.22 Hgb 13.9 Hct 42.2 MCV 100.0 H MCH 32.9 MCHC 32.9 RDW 11.3 L Plt Count 241 MPV 9.9 Immature Gran % 0.2 Neutrophils % 73.3 Lymphocytes % 17.7 Monocytes % 6.2 Eosinophils % 2.1 Basophils % 0.5 Nucleated RBC % 0 Absolute Neutrophils 4.64 Absolute Lymphocytes 1.12 L Absolute Monocytes 0.39 Absolute Eosinophils 0.13 Absolute Basophils 0.03 Sodium Potassium Chloride Carbon Dioxide Anion Gap BUN Creatinine Estimated GFR/1.73 m2 Glucose Calcium Total Bilirubin AST ALT Alkaline Phosphatase Total Protein Albumin TSH Urine Color Urine Clarity Urine pH Ur Specific [place] Urine Protein Urine Ketones Urine Blood Urine Nitrite Urine Bilirubin Urine Urobilinogen Ur Leukocyte Esterase Urine RBC Urine WBC Ur Epithelial Cells Urine Crystals Urine Bacteria Urine Casts Urine Mucus Ur Culture Indicated? Urine Glucose Salicylates < 2.8 Urine Opiates Screen Urine Methadone Screen Acetaminophen < 2 Ur Barbiturates Screen Ur Tricyclics Screen Ur Amphetamines Screen U Benzodiazepines Scrn Urine Cocaine Screen Ur THC Screen Ethyl Alcohol COVID-19 Source Nasal/nares Last Vital Signs Temp 37.0 C 02/27/21 18:30 Pulse 87 02/27/21 21:05 Resp 16 02/27/21 21:05 BP 139/94 H 02/27/21 21:05 Pulse Ox 98 02/27/21 21:05 COVID-19 Screening Have you, or household traveled for leisure in last 14 days?: No Had IN PERSON contact w/suspected or confirmed C-19 person: No
[2021-02-27 22:37] VITALS: BP 139/94; PULSE 87; RESP 16; TEMP 37; O2SAT 98
[2021-02-27 22:41] VITALS: BP 150/98; PULSE 85; RESP 18; TEMP 35.6; O2SAT 100
[2021-02-27 22:46] LABS: COVID-19 PCR Negative (Negative)
[2021-02-28 08:11] VITALS: BP 116/86; PULSE 70; RESP 17; TEMP 36.6; O2SAT 97
--- NOTE | 2021-02-28 08:19 | CMSP_ITS ---
- If Service Date Differs Date of service: 02/28/21 Time of Service: 08:28 Care Management Safety Plan Status: Voluntary - Reason for Wait Reason for Wait: Inpatient Admission VOLUNTARY FOR INPATIENT PSYCHIATRIC STABILIZATION. Patient is appropriate in all interactions since arriving at [facility]; Pt has demonstrated appropriate coping and communication skills, has articulated his or her needs and concerns and is fully engaged during staff interactions. Safety plan has been established with patient, and care team, to adhere to patient goals, identify restrictions based on behavioral status, address nut rition, and determine allowed personal belongings, tools for hygiene and personal care. Determine level of activity including ambulation, level of supervision, visitors, and determine privileges based on behaviors and level of engagement by pt. SAFETY PLAN: 1. Will remain on suicide precautions. In Paper Clothes 2. Will remain in room under direct supervision of one-on-one staff at all times provided by [employer]; PROMISE, GRAPHICS PROGRAMMER assembly line supervisor. 3. May have paper cups, plates, finger foods as well as a metal spoon with which to eat meals. 4. Follow [facility] Management of the Admitted Behavioral Health Patient policy. 5. Comfort bath system only, shower permitted at RN discretion. 6. Permitted patient's own cell phones at this time; [employer] to charge items as needed. 7. Visitors-limited to two vaccinated visitors per current visitor policy at this time. 8. Activities: SOFT cart items permitted per RN discretion, currently keshia, word search, adult coloring, crayons and fidget toy have been provided. 9. Bathroom available in room without limitation. 10. Phone: incoming and outgoing calls on the [facility] cordless phone permitted per RN discretion. 11. Due to VOLUNTARY status, if patient wishes to leave [facility], staff will contact [facility] Crisis Screener ([phone]) and On-Call Database Modeler ([phone]) as soon as possible. In the event of elopement, notify [facility] Police ([phone]). Patient is currently voluntarily at [facility] and seeking inpatient admission when a bed becomes available. [facility] Frontline Airplane Refueler will continue seeking placement. Please contact the Vehicle Body Maker Database Modeler ([phone]) and [facility] Airplane Refueler ([phone]) for any needed changes in the Safety Plan. Safety plan has been provided to interdepartmental care team.
--- NOTE | 2021-02-28 08:19 | PDOC.CMSAFE ---
- If Service Date Differs Date of service: 02/28/21 Time of Service: 08:28 Care Management Safety Plan Status: Voluntary - Reason for Wait Reason for Wait: Inpatient Admission VOLUNTARY FOR INPATIENT PSYCHIATRIC STABILIZATION. Patient is appropriate in all interactions since arriving at [facility]; Pt has demonstrated appropriate coping and communication skills, has articulated his or her needs and concerns and is fully engaged during staff interactions. Safety plan has been established with patient, and care team, to adhere to patient goals, identify restrictions based on behavioral status, address nutrition, and determine allowed personal belongings, tools for hygiene and personal care. Determine level of activity including ambulation, level of supervision, visitors, and determine privileges based on behaviors and level of engagement by pt. SAFETY PLAN: 1. Will remain on suicide precautions. In Paper Clothes 2. Will remain in room under direct supervision of one-on-one staff at all times provided by [employer]; PROMISE, FIRE OPERATIONS FORESTER home service demonstrator. 3. May have paper cups, plates, finger foods as well as a metal spoon with which to eat meals. 4. Follow [facility] Management of the Admitted Behavioral Health Patient policy. 5. Comfort bath system only, shower permitted at RN discretion. 6. Permitted patient's own cell phones at this time; [employer] to charge items as needed. 7. Visitors-limited to two vaccinated visitors per current visitor policy at this time. 8. Activities: SOFT cart items permitted per RN discretion, currently keshia, word search, adult coloring, crayons and fidget toy have been provided. 9. Bathroom available in room without limitation. 10. Phone: incoming and outgoing calls on the [facility] cordless phone permitted per RN discretion. 11. Due to VOLUNTARY status, if patient wishes to leave [facility], staff will contact [facility] Crisis Screener ([phone]) and On-Call Bonding Machine Operator ([phone]) as soon as possible. In the event of elopement, notify [facility] Police ([phone]). Patient is currently voluntarily at [facility] and seeking inpatient admission when a bed becomes available. [facility] Frontline Gas Furnace Installer will continue seeking placement. Please contact the [employer] Bonding Machine Operator ([phone]) and [facility] Gas Furnace Installer ([phone]) for any needed changes in the Safety Plan. Safety plan has been provided to interdepartmental care team.
[2021-02-28] MEDS: buPROPion 100 MG TAB 200 MG PO ×2 (08:29→20:28)
[2021-02-28] MEDS: Omeprazole 20 MG CAPCR PO (08:29)
[2021-02-28] MEDS: Gabapentin 800 MG TAB PO ×3 (08:29→20:28)
[2021-02-28] MEDS: ARIPiprazole 5 MG TAB PO (08:29)
[2021-02-28] MEDS: Fexofenadine 180 MG TAB PO (08:29)
[2021-02-28] MEDS: Loratidine 10 MG TAB PO (08:29)
[2021-02-28 08:52] LABS: HCG Qual (Urine) Negative
--- NOTE | 2021-02-28 08:53 | PDOC.CMPRO ---
- If Service Date Differs Date of service: 02/28/21 Time of Service: 09:10 Care Management Progress Note [id number] CM called [facility] to confirm referral was received. Spoke with Erica who reported referral was received and is currently being reviewed. [id number] CM spoke with Erica of who reported Toya was first on the waitlist to LGBTQ unit, with a possible anticipated discharge for tomorrow, 03/01/21. CM outreached to Erica as Toya requested, she is advocating for transfer to , while verbalizing that she is struggling with the idea of remaining at [facility] through another night. CM discussed with Nadia, who advised Eusebio would come to meet with Toya and review options for safety-planning. CM reviewed process with Toya who verbalized her needs well and advocated appropriately; safety plan adjusted accordingly. - Status Status: Voluntary - Reason for Wait Reason for Wait: Inpatient Admission
--- NOTE | 2021-02-28 08:56 | NUR.NOTE ---
Patient appeared to be crying so bid writer went in and attempted to talk to patient. Patient states that there was nothing that bid writer could do to make her feel better and refused offer to have bid writer sit in room with her.
[2021-02-28] MEDS: Methylphenidate 10 MG TAB 20 MG PO (10:55)
--- NOTE | 2021-02-28 12:38 | NUR.NOTE ---
PT talking to this GANG TAILER about her kids and why she is here. Also expressed to me that she is mad that it got this far. Sometimes I just wish I could run away and not come back.Nursing Note:
--- NOTE | 2021-02-28 13:08 | NUR.NOTE ---
PT just asked this BEAD FORMING MACHINE SET UP OPERATOR if it was almost time for some afternoon meds. She then expressed to me that she is starting to feel a little anxious. RN notified. Nursing Note:
--- NOTE | 2021-02-28 14:00 | PHA.REVIEW ---
Pharmacy Admission Review - Admission Clinical Review (Last Reviewed 02/27/21 @ 21:39 by CANELO Kelley) Auditory hallucination (Acute) Visual hallucinations (Acute) cat dander Allergy (Intermediate, Verified 07/10/20 10:50) house dust mite Allergy (Mild, Verified 07/10/20 10:50) Resuscitation Status Full Code Height 5 ft 7.5 in Weight 77.111 kg - Renal Dosing Renal Dosing: BUN 18 mg/dL (7-18) 02/27/21 18:58 Creatinine 0.9 mg/dL (0.55-1.02) 02/27/21 18:58 Medications needing adjustments: Reviewed - Anticoagulation Anticoagulation: Hgb 13.9 g/dL (11.2-15.7) 02/27/21 18:58 Hct 42.2 % (36.0-46.0) 02/27/21 18:58 Plt Count 241 10^3/uL (130-400) 02/27/21 18:58 Creatinine 0.9 mg/dL (0.55-1.02) 02/27/21 18:58 DVT Prohphylaxis: N/A - Opiate Usage Evaluate Pain Scale/Pains Meds: N/A - Relevant Labs Sodium 140 mmol/L (136-145) 02/27/21 18:58 Potassium 3.6 mmol/L (3.5-5.1) 02/27/21 18:58 Chloride 103 mmol/L (98-107) 02/27/21 18:58 Electrolytes, C-Reactive P, ESR: Reviewed - DM Control DM Control: Glucose 99 mg/dL (74-106) 02/27/21 18:58 Insulin Dosing: Reviewed - Heart Failure/PR EF%, MARGA's, B-Blockers, Diuretics: N/A - BP Control BP Control: Blood Pressure 116/86 If elevated: Reviewed - IV to PO Switch IV Medications: Reviewed - Home Meds Home Med List reviewed: Reviewed Relevent Home Meds Not ordered & why?: L-methylfolate - just added; copaxone is pending - waiting to hear back from prescriber to confirm if patient is still taking, would need it brought in as patient's own if she is; confirmed methylphenidate dosing with pt's pharmacy to be 2 tabs in AM 1 tab at noon and 1 at HS -- wanted to confirm this dosing with prescriber as well, waiting to hear back (HS dosing is uncommon but could be used to improve sleep efficiency given dx of ADHD) - Current meds Current Medication Order Review: Reviewed
[2021-02-28] MEDS: diazePAM 5 MG TAB PO ×2 (14:20→20:28)
--- NOTE | 2021-02-28 15:19 | W.INMHPGNOTE ---
Date of service: 02/28/21 Time of Service: 15:20 Mental Health Crisis Note Presenting Issue How did you arrive at the ED and why did you come: Pt arrived yesterday for a voluntary admission. She denied SI and Hi however, is having auditory hallucinations. Precipitating Factors Pt denied SI and HI today. Disposition BEHAVIOR: Pt is cooperative but very anxious about not being placed as of yet. She is trying to entertain herself but this has proven to be even harder at [facility]. She is not confident that she can stay at the hospital for placement. EYE CONTACT: Eye contact is good. MOOD: Mood is anxious. AFFECT: Affect is flat. APPETITE: Pt ate half her bagel this morning per her report. SLEEP(trouble falling/staying asleep: Pt reported she slept ok with the help of Ambien. Plan Pt will remain at [facility] pending admission. She will be assessed daily by [facility]. If she wants to leave she has agreed to safety plan with [facility] before leaving. She thought having the CPSO in her room may help distract her from her thoughts so the CPSO moved into the room. Signature Clinician's Name/Title: Nadia Patino MS, [facility] Emergency Services Clinician, [facility]
[2021-02-28 16:25] VITALS: BP 122/85; PULSE 80; RESP 17; TEMP 36.4; O2SAT 98
--- NOTE | 2021-02-28 16:34 | W.PM.PROGNOT ---
Date of Service Date of service: 02/28/21 Time of Service: 16:34 Assessment and Plan Assessment and plan (1) Auditory hallucination: Status: Acute Assessment and plan: patient still hearing voices telling her how bad a person she is and suggesting to kill herself. However she says that she is not suicidal and has no definite plans. She remains admitted on voluntary basis. She is now back on her Abilify and Wellbutrin. I added valium to help w/ her anxiety which she thanked me for this as she now feels calmer than this morning (2) Visual hallucinations: Status: Acute Assessment and plan: no visual hallucination today (3) Depression: Status: Chronic Assessment and plan: She will be admitted to the hospital for further care. Attempt was made to get her transferred to a psychiatric facility as soon as possible. We will continue her Abilify, bupropion, methylphenidate and other nonpsychiatric medicines. She is in stable condition at the present time. Subjective Subjective Interval history since last seen: Patient remains hospitalized on voluntary basis for auditory and visual hallucinations w/ suicidal ideation. She states that she has not intentios to commit suicide and she entered the hospital on a voluntary basis as she felt that her Abilify was not helping. she is awaiting acceptance and transfer to a psychiatric facility. Exam Const General: cooperative, healthy appearing, comfortable, no acute distress, well developed and well groomed Nutritional Appearance: average body habitus Orientation: alert, awake and oriented x3 Neuro General: patient alert, patient awake and patient oriented x3 Cognition: normal cognition Speech: speech normal Gait: normal gait Motor: muscle tone normal throughout Sensory Exam: no sensory deficits noted Psych Appearance: grossly normal Mental Status: mental status grossly normal Speech and Movement: speech and movement normal Mood: congruent mood Affect: normal affect Attitude: cooperative Thought Process: normal Thought Content: normal Insight: insight good Judgment: judgment good Objective Last Vital Signs Temp 36.4 C L 02/28/21 16:25 Pulse 80 02/28/21 16:25 Resp 17 02/28/21 16:25 BP 122/85 02/28/21 16:25 Pulse Ox 98 02/28/21 16:25 Laboratory Results - last 24 hr 02/27/21 02/27/21 02/27/21 18:36 18:36 18:36 WBC RBC Hgb Hct MCV MCH MCHC RDW Plt Count MPV Immature Gran % Neutrophils % Lymphocytes % Monocytes % Eosinophils % Basophils % Nucleated RBC % Absolute Neutrophils Absolute Lymphocytes Absolute Monocytes Absolute Eosinophils Absolute Basophils Sodium Potassium Chloride Carbon Dioxide Anion Gap BUN Creatinine Estimated GFR/1.73 m2 Glucose Calcium Total Bilirubin AST ALT Alkaline Phosphatase Total Protein Albumin TSH Urine Color Yellow Urine Clarity Clear Urine pH 6.5 Ur Specific [place] >= 1.030 H Urine Protein 30 H Urine Ketones 40 H Urine Blood Small H Urine Nitrite Negative Urine Bilirubin Small H Urine Urobilinogen 1.0 H Ur Leukocyte Esterase Negative Urine RBC 3-5 H Urine WBC 3-5 Ur Epithelial Cells Few Urine Crystals Negative Urine Bacteria Negative Urine Casts Negative Urine Mucus Negative Ur Culture Indicated? No Urine Glucose Negative Urine HCG, Qual Negative Salicylates Urine Opiates Screen Negative Urine Methadone Screen Negative Acetaminophen Ur Barbiturates Screen Negative Ur Tricyclics Screen Negative Ur Amphetamines Screen Negative U Benzodiazepines Scrn Negative Urine Cocaine Screen Negative Ur THC Screen Positive A Ethyl Alcohol COVID-19 Source SARS-CoV-2 (PCR) 02/27/21 02/27/21 02/27/21 18:58 18:58 18:58 WBC 6.32 RBC 4.22 Hgb 13.9 Hct 42.2 MCV 100.0 H MCH 32.9 MCHC 32.9 RDW 11.3 L Plt Count 241 MPV 9.9 Immature Gran % 0.2 Neutrophils % 73.3 Lymphocytes % 17.7 Monocytes % 6.2 Eosinophils % 2.1 Basophils % 0.5 Nucleated RBC % 0 Absolute Neutrophils 4.64 Absolute Lymphocytes 1.12 L Absolute Monocytes 0.39 Absolute Eosinophils 0.13 Absolute Basophils 0.03 Sodium 140 Potassium 3.6 Chloride 103 Carbon Dioxide 27.0 Anion Gap 10.0 BUN 18 Creatinine 0.9 Estimated GFR/1.73 m2 >= 60.00 Glucose 99 Calcium 9.2 Total Bilirubin 0.6 AST 70 H ALT 56 Alkaline Phosphatase 81 Total Protein 7.6 Albumin 4.1 TSH 2.25 Urine Color Urine Clarity Urine pH Ur Specific [place] Urine Protein Urine Ketones Urine Blood Urine Nitrite Urine Bilirubin Urine Urobilinogen Ur Leukocyte Esterase Urine RBC Urine WBC Ur Epithelial Cells Urine Crystals Urine Bacteria Urine Casts Urine Mucus Ur Culture Indicated? Urine Glucose Urine HCG, Qual Salicylates < 2.8 Urine Opiates Screen Urine Methadone Screen Acetaminophen < 2 Ur Barbiturates Screen Ur Tricyclics Screen Ur Amphetamines Screen U Benzodiazepines Scrn Urine Cocaine Screen Ur THC Screen Ethyl Alcohol < 3.0 COVID-19 Source SARS-CoV-2 (PCR) 02/27/21 21:40 WBC RBC Hgb Hct MCV MCH MCHC RDW Plt Count MPV Immature Gran % Neutrophils % Lymphocytes % Monocytes % Eosinophils % Basophils % Nucleated RBC % Absolute Neutrophils Absolute Lymphocytes Absolute Monocytes Absolute Eosinophils Absolute Basophils Sodium Potassium Chloride Carbon Dioxide Anion Gap BUN Creatinine Estimated GFR/1.73 m2 Glucose Calcium Total Bilirubin AST ALT Alkaline Phosphatase Total Protein Albumin TSH Urine Color Urine Clarity Urine pH Ur Specific [place] Urine Protein Urine Ketones Urine Blood Urine Nitrite Urine Bilirubin Urine Urobilinogen Ur Leukocyte Esterase Urine RBC Urine WBC Ur Epithelial Cells Urine Crystals Urine Bacteria Urine Casts Urine Mucus Ur Culture Indicated? Urine Glucose Urine HCG, Qual Salicylates Urine Opiates Screen Urine Methadone Screen Acetaminophen Ur Barbiturates Screen Ur Tricyclics Screen Ur Amphetamines Screen U Benzodiazepines Scrn Urine Cocaine Screen Ur THC Screen Ethyl Alcohol COVID-19 Source Nasal/nares SARS-CoV-2 (PCR) Negative
[2021-02-28] MEDS: Methylphenidate 10 MG TAB PO (18:23)
[2021-02-28] MEDS: Zolpidem 5 MG TAB PO (22:37)
--- NOTE | 2021-03-01 05:31 | NUR.NOTE ---
Documented PT observation for 044 and 0500 done by CHARLEEN, were entered on behalf of [employer], Jacinta Penaloza, who was locked out of the computer during those times.
[2021-03-01] MEDS: diazePAM 5 MG TAB PO ×2 (06:33→14:29)
[2021-03-01] MEDS: Methylphenidate 10 MG TAB 20 MG PO (06:33)
[2021-03-01 07:33] VITALS: BP 139/103; PULSE 92; RESP 18; TEMP 36.4; O2SAT 99
[2021-03-01 07:41] VITALS: BP 140/96
[2021-03-01] MEDS: buPROPion 100 MG TAB 200 MG PO (07:42)
[2021-03-01] MEDS: ARIPiprazole 5 MG TAB PO (07:43)
[2021-03-01] MEDS: Fexofenadine 180 MG TAB PO (07:43)
[2021-03-01] MEDS: Omeprazole 20 MG CAPCR PO (07:43)
[2021-03-01] MEDS: Gabapentin 800 MG TAB PO ×2 (07:43→14:27)
[2021-03-01] MEDS: Loratidine 10 MG TAB PO (07:43)
--- NOTE | 2021-03-01 10:32 | PDOC.MHCN ---
Date of service: 03/01/21 Time of Service: 10:32 Mental Health Crisis Note Presenting Issue How did you arrive at the ED and why did you come: Client arrived at [facility] ED on 03/01/21 stating she was hearing persistent voices that were telling her she was useless. Client is seen this morning for check-in assessment while awaiting voluntary placement at [facility]. Precipitating Factors Client denies current SI.HI with no plan or intent. Disposition BEHAVIOR: Client is sitting up in bed writing on paper when this production underwriter arrives in person. Client is dressed in proper paper hospital attire and engages with this production underwriter throughout assessment. EYE CONTACT: Client maintains good eye contact with this production underwriter. MOOD: Clients mood appears to be depressed and anxious. Client states that she has is super anxious about getting into treatment, but does not know how much longer she can stand to be in the hospital awaiting treatment. AFFECT: Normal Affect APPETITE: Client states that she did not eat breakfast this morning, but that she did eat dinner last night which was suprising. SLEEP(trouble falling/staying asleep: Client states that she normally does not sleep very well, however since they prescribed her Ambien since she had been at [facility] she has been able to get some good rest. Plan Client will remain at [facility] awaiting inpatient treatment at [facility]. Client is anxious about waiting another day for placement. however this production underwriter encourages her to stay. This production underwriter [facility] to check on referral. Erica at [facility] states that client is first on the list when there is a discharge, which is not looking like today, but hoping for a discharge tomorrow. Signature Clinician's Name/Title: Alina Schumacher [facility] Emergency Clinician
[2021-03-01] MEDS: Methylphenidate 10 MG TAB PO (11:38)
[2021-03-01] MEDS: diazePAM 5 MG TAB 10 MG PO (11:38)
--- NOTE | 2021-03-01 11:49 | W.PM.PROGNOT ---
Date of Service Date of service: 03/01/21 Time of Service: 12:06 Assessment and Plan Assessment and plan (1) Auditory hallucination: Start date: 03/01/21 Start time: 12:19 Status: Acute Assessment and plan: Still hearing voices though she states not as bad. She is feeling anxious wants to leave but states she will try riding it out. She doesn't understand why she doesn't have a bed. Will give now dose valium. (2) Visual hallucinations: Start date: 03/01/21 Start time: 12:30 Status: Acute Assessment and plan: no visual hallucination today (3) Depression: Start date: 03/01/21 Start time: 12:30 Status: Chronic Assessment and plan: CM continues to search for Bed. (4) DVT prophylaxis: Start date: 03/01/21 Start time: 12:33 Status: Acute Assessment and plan: 30 y.o female that is ambulatory not indicated discussed with Dr. Downing Subjective Subjective Interval history since last seen: Patient anxious. States she will stick it out for another day but she is getting tired of waiting. She keeps thinking of her apartment and wants to be there. She thought she would have been moved by now. She is upset and but reasonable. She states the voices are improving. She denies any other issues, she is having worsening anxiety. Will give her dose of valium now. Exam Const General: cooperative, healthy appearing, comfortable, no acute distress, well developed and well groomed Nutritional Appearance: average body habitus and well nourished Orientation: alert, awake and oriented x3 Limitations: mental status not altered Eyes General: appearance normal, both eyes and all related structures Neck Neck: normal visual inspection and no lymphadenopathy Resp Effort & Inspection: normal respiratory effort and able to speak in complete sentences Auscultation: no rales, no rhonchi and no wheezes Cardio Rate: regular rate Rhythm: regular rhythm Heart Sounds: S1 normal, S2 normal, no gallops and no murmurs GI Inspection: normal to inspection Palpation: no hepatosplenomegaly, no guarding and nontender Neuro General: patient alert, patient awake and patient oriented x3 Cognition: normal cognition Speech: speech normal Gait: normal gait Motor: muscle tone normal throughout Sensory Exam: no sensory deficits noted Psych Appearance: grossly normal Mental Status: mental status grossly normal Speech and Movement: speech and movement normal and not agitated Mood: anxious mood Affect: normal affect Attitude: cooperative Thought Process: normal Thought Content: normal Insight: fair Judgment: fair Objective Last Vital Signs Temp 36.4 C L 03/01/21 07:33 Pulse 92 H 03/01/21 07:33 Resp 18 03/01/21 07:33 BP 140/96 H 03/01/21 07:41 Pulse Ox 99 03/01/21 07:33
--- NOTE | 2021-03-01 13:43 | W.PM.DS.N ---
Date of service: 03/01/21 Time of Service: 13:43 DS: Diagnosis Discharge Diagnosis (1) Auditory hallucination: Start date: 03/01/21 Start time: 13:44 Status: Acute Asessment and Plan: C/o continuing to have them but they have improved. Valium for anxiety Accepted at [facility] for treatment by Dr. Pineda SI on admission, not having any SI today (2) Visual hallucinations: Start date: 03/01/21 Start time: 13:45 Status: Acute Asessment and Plan: denies any today (3) Depression: Start date: 03/01/21 Start time: 13:45 Status: Chronic Asessment and Plan: as above discussed with Dr. Downing Discharge Plan Disposition Patient Disposition: [facility] Condition: Stable Discharge Details Reason For Visit: Auditory and visual hallucinations Admit Date/Time: 02/27/21 21:35 Admit Provider: George Angulo Attending Provider: George Angulo Primary Care Provider: Unknown,Unknown Hospital Course Hospital Course: This 30-year-old female is here because of hallucinations, anxiety and difficulty sleeping. She has had a history of this going on for a number of months and is been on haloperidol and most recently on Abilify. She says the medicines do not really control her symptoms. When she was on the haloperidol she felt like a zombie. She has been hospitalized for this previously and would like to be readmitted to the hospital to get the symptoms under better control. She was evaluated by the emergency department and medically cleared. Mental health evaluated her for voluntarily admission to a psychiatric institution. She has a history of multiple sclerosis that affects her legs and feet. She has 3 children and her youngest daughter is currently with her daughter's father. He has had her for the last 3 days. She was admitted to transition unit with [facility] and 1:1 for further managment. She says she has been hearing voices and sees figures in her vision and sometimes they disappear but they seem quite real. Recently she has been drinking alcohol to help with her symptoms but has had legal problems with her drinking and would like to get her symptoms under better control. She is on disability due to her mental illness. Her anxiety has been up while up in the hospital requiring valium, which has been helpful. She has been accepted to [facility] by Dr. Pineda for further treatment. Home Meds and New Rx's Prescriptions: No Action turmeric root extract 500 mg capsule 500 mg PO DAILY RF: 0 glatiramer [Copaxone] 40 mg/mL syringe 40 mg subcut .3x per week Qty: 12 RF: 11 gabapentin 800 mg tablet 800 mg PO TID Qty: 90 RF: 5 cholecalciferol (vitamin D3) 50 mcg (2,000 unit) capsule 2,000 unit PO DAILY Qty: 90 RF: 3 aripiprazole [Abilify] 5 mg tablet 5 mg PO DAILY RF: 0 zolpidem [Ambien] 5 mg tablet 5 mg PO QHS PRNRF: 0 bupropion HCl [Wellbutrin] 100 MG tablet 200 mg PO BID RF: 0 methylphenidate HCl 10 MG tablet 10 mg PO QID RF: 0 levomefolate calcium 7.5 mg tablet 7.5 mg PO DAILY RF: 0 fexofenadine 180 mg Tablet 180 mg PO DAILY RF: 0 omeprazole 20 mg Capsule,Delayed Release(Dr/Ec) 20 mg PO DAILY RF: 0 loratadine 10 mg Tablet 10 mg PO DAILY RF: 0 Discharge Instructions Activity:: Activity as Tolerated Diet:: As Tolerated DS: Summary Time Spent with Patient providing and/or coordinating discharge services: Less than 30 minutes Status at Discharge Functional status at discharge: independent ambulation Overall status at discharge: patient is not back to baseline Mental Status: mental status grossly normal Speech and Movement: speech and movement normal and No agitated Mood: anxious mood Affect: normal affect Exam Const General: cooperative, healthy appearing, comfortable, no acute distress, well developed and well groomed Nutritional Appearance: average body habitus and well nourished Orientation: alert, awake and oriented x3 Limitations: mental status not altered Eyes General: appearance normal, both eyes and all related structures Neck Neck: normal visual inspection and no lymphadenopathy Resp Effort & Inspection: normal respiratory effort and able to speak in complete sentences Auscultation: no rales, no rhonchi and no wheezes Cardio Rate: regular rate Rhythm: regular rhythm Heart Sounds: S1 normal, S2 normal, no gallops and no murmurs GI Inspection: normal to inspection Palpation: no hepatosplenomegaly, no guarding and nontender Neuro General: patient alert, patient awake and patient oriented x3 Cognition: normal cognition Speech: speech normal Gait: normal gait Motor: muscle tone normal throughout Sensory Exam: no sensory deficits noted Psych Appearance: grossly normal Mental Status: mental status grossly normal Speech and Movement: speech and movement normal and not agitated Mood: anxious mood Affect: normal affect Attitude: cooperative Thought Process: normal Thought Content: normal Insight: fair Judgment: fair DS: Data Vitals/I&O Vitals and I&O: Vital Signs Temperature 36.4 C L 03/01/21 07:33 Temperature Source Tympanic 03/01/21 07:33 Pulse 92 H 03/01/21 07:33 Pulse Rhythm Regular 03/01/21 08:34 Respiratory Rate 18 03/01/21 07:33 Respiratory Effort Non-Labored 03/01/21 08:34 Respiratory Depth Normal 03/01/21 08:34 Respiratory Pattern Normal 03/01/21 08:34 Blood Pressure 140/96 H 03/01/21 07:41 Blood Pressure Position Sitting 02/27/21 18:30 Pulse Oximetry 99 03/01/21 07:33 Oxygen Delivery Method Room Air 03/01/21 07:33 Oxygen Flow Rate 0 03/01/21 07:33 Pain Level 0 02/28/21 16:25 Intake & Output 02/28/21 03/01/21 03/01/21 23:59 11:59 23:59 Other: Urine Appearance Clear Clear Comment voided in toilet, unmeasured pT voids independent Voiding Methods Toilet Toilet [facility] Medical History ADD (attention deficit disorder) Anxiety Depression Migraine headache without aura Multiple sclerosis Opioid dependence Surgical History S/P tubal ligation Family History Maternal Grandmother Multiple sclerosis Social History Smoking/Tobacco Use Status: Former Tobacco Use Smoking risk assessment performed?: Yes Alcohol Intake: never Drug use: Current Sobriety Substance use type: former substance user Household members: children Housing: apartment Number of Children: 3 Pets and animals: No Seatbelt use: always Do you feel safe at home: Yes Do you feel safe in your relationship?: Yes Additional Social history: Lives with 8 year old daughter who has ADHD. Has 2 older children in the custody of her mother.
[2021-03-01 15:18] VITALS: BP 124/92; PULSE 94; RESP 19; TEMP 36.6; O2SAT 99
--- NOTE | 2021-03-01 15:45 | PDOC.MHCN_ITS ---
Date of service: 03/01/21 Time of Service: 15:45 Mental Health Crisis Note Presenting Issue How did you arrive at the ED and why did you come: Client arrived at [facility] Ed on 02/27 having auditory hallucinations. Client is seen this afternoon after finding out that she was accepted at [facility] she is having 2nd thoughts on going now. Precipitating Factors Client denies current SI/HI with no plan or intent. Disposition BEHAVIOR: Client is sitting up in hospital bed in proper paper hospital attire when this advertising copywriter arrives in person. She is seen looking out the window and at her paperwork that she has all over the bed. Client tells this advertising copywriter that she is 2nd guessing if she should go to [facility] or not. Client had asked inpatient care manager rn what unit she was going to be on and when told that she was going to be on the [facility] unit she stated that she did not want to go. When this advertising copywriter engages with client she states that somebody that she knows had a bad experience on this unit and she does not want this to make her feel worse then she is already feeling. EYE CONTACT: Client makes minimal eye contact with this advertising copywriter, she is seen looking out the window the majority of the time. MOOD: Client appears to be anxious, stating she is unsure of what to expect when she arrives at [facility]. AFFECT: Normal affect APPETITE: This advertising copywriter does not assess at this time SLEEP(trouble falling/staying asleep: This advertising copywriter does not assess at this time. Plan Client was accepted at [facility] this afternoon. She is awaiting transportation currently. Client will follow up with [facility] when she gets out of treatment. Signature Clinician's Name/Title: Alina Schumacher [facility] Emergency Clinician
--- NOTE | 2021-03-02 13:22 | CMDISCH_ITS ---
- If Service Date Differs Date of service: 03/01/21 Time of Service: 15:00 Care Management Discharge Reason for Hospitalization: auditory hallucinations Discharge Plan: Toya will be transferred to [facility] for voluntary psychiatric admission. She will transport via EMS coordinated by nursing purchasing and claims supervisor. Patient/Family Education Needs: Expectations, limitations, Ask Me Three - MH Services (Omit if N/A) Current MH Services: Psychiatric Inp - Disposition Disposition: [place] Transport via of: EMS
== END 2021-03-01 16:07 | disposition short-term general hospital (02) | DRG 880 ==
LOC: ER 21:44 → MS 22:32
PROVIDERS: Admitting Provider Family Medicine; Emergency Provider Physician Assistant; Visit Provider Family Medicine
DX: R44.0 Auditory hallucinations (principal); F11.20 Opioid dependence, uncomplicated; R44.1 Visual hallucinations; F32.9 Major depressive disorder, single episode, unspecified; F41.9 Anxiety disorder, unspecified; F98.8 Other specified behavioral and emotional disorders with onset usually occurring in childhood and adolescence; G43.009 Migraine without aura, not intractable, without status migrainosus; G35 Multiple sclerosis; Z87.891 Personal history of nicotine dependence; Z20.822 Contact with and (suspected) exposure to COVID-19
CPT/HCPCS: 80053; 80307; 81025; 87635; 99285; 80320; 80329; 81003; 81015; 84443; 85025; 99222; 99231; 99232; 99238; 99284

== ENCOUNTER 2021-09-27 23:02 | Emergency (ER) | payer MEDICAID, SELFPAY ==
[2021-09-27 23:05] VITALS: BP 134/94; PULSE 73; RESP 18; TEMP 36.5; O2SAT 97
--- NOTE | 2021-09-27 23:15 | DI.RAD_ITS ---
Exam(s) XR ELBOW LT COMPLETE EXAM: XR ELBOW LT COMPLETE CLINICAL HISTORY: pain. TECHNIQUE: 2D digital imaging was performed. COMPARISON: No exams were available for comparison FINDINGS: BONES: No acute fracture is present. No bony destructive lesion is seen. JOINTS: The elbow is normally aligned. No joint effusion is seen. SOFT TISSUE: Normal. IMPRESSION: Unremarkable radiographs of the left elbow. DATA REPOSITORY: RADIATION DOSE DELIVERED:
--- NOTE | 2021-09-27 23:17 | ED.GENADUL_ITS ---
Discharge Plan Disposition Patient Disposition: HOME Condition: Stable Discharge Details Clinical Impression: Contusion of elbow, left Primary Care Provider: None,None ED Provider: Luis Daniel Forman Home Meds and New Rx's Prescriptions: Continued turmeric root extract 500 mg capsule 500 mg PO DAILY RF: 0 zolpidem [Ambien] 5 mg tablet 5 mg PO QHS PRNRF: 0 buspirone 10 mg tablet 10 mg PO TID RF: 0 clonidine HCl 0.2 mg tablet 0.2 mg PO TID RF: 0 escitalopram oxalate [Lexapro] 10 mg tablet 10 mg PO DAILY RF: 0 hydroxyzine pamoate 50 mg capsule 50 mg PO BID PRNRF: 0 levomefolate calcium [L-Methylfolate] 7.5 mg tablet 7.5 mg PO DAILY RF: 0 olanzapine 7.5 mg tablet 7.5 mg PO QHS RF: 0 gabapentin 800 mg tablet 800 mg PO QHS Qty: 90 RF: 3 glatiramer [Copaxone] 40 mg/mL syringe 40 mg subcut .3x per week Qty: 12 RF: 11 cholecalciferol (vitamin D3) 50 mcg (2,000 unit) capsule 2,000 unit PO DAILY Qty: 90 RF: 3 methylphenidate HCl 10 MG tablet 10 mg PO QID RF: 0 Discharge Instructions Instructions: Contusion in Adults (ED) Additional Instructions: your xray did not show a broken bone if pain continues in a week follow up with your primary care provider if you feel more ill, have severe worsening pain or fevers return to the emergency department Medical Decision Making 31 yo female with hx of add, chronic pain, MS, who comes in with left elbow pain for 2 days. She does admit to drinking alcohol tonight and denies other drug use. She is caox4 though has slurred speech and smells of alcohol. She states the pain started 2 days ago and she believes it was froma fall but doesn't provide any other input when questioned on this fall. She denies headache, neck pain, chest pain or abdominal pain. She has mild swelling of the olecranon otherwise no significant palpable or visible deformity on exam. Has intact distal sensation and pulses in the hand, no wrist, hand or other arm tenderness. Has no signs of trauma to the head, no ramos sign, perrl eomi, CN II-xII intact, no hemotympanum. Given pain started after reported fall will obtain xray of the elbow and reassess. xray negative on my read, still no other findings on exam, no tenderness anywhere on the arm other than over olecranon. She can range it though with pain. no erythema or warmth to suggest septic joint. Will treat as possible bone contusion and advised to follow up with pcp if pain continues in a week and return precautions given Differential Diagnosis Differential Diagnosis: contusion, fracture, sprain Medical Records Medical records reviewed: Yes I reviewed the patient's medical records. Imaging Data Radiologic Study: Attestation: I personally reviewed and interpreted this imaging study as follows: Imaging: X-Ray Radiologist's impression: no acute findings HPI General Mode of arrival: ambulatory . Date/Time Provider Initiated Documentation: 09/27/21 23:06 . Limitations to Documentation: no limitations . Information obtained by: patient . History of Present Illness 31 year old F presents to the emergency department with the chief complaint of left elbow pain, described as moderate, Quality is described as aching, and is localized to the left and upper extremity. Patient reports no radiation. Patient started experiencing this day(s) (2) and it has been constant. Rest improves symptom(s), Movement worsens symptoms . Patient notes no other symptoms.. Patient did receive the following treatments prior to arrival, none Related Data Home Medications Medication Instructions Recorded Confirmed methylphenidate HCl 10 mg PO QID 12/13/14 09/27/21 turmeric root extract 500 mg 500 mg PO DAILY 08/24/19 09/27/21 capsule zolpidem 5 mg tablet 5 mg PO QHS PRN 07/10/20 09/27/21 buspirone 10 mg tablet 10 mg PO TID 09/01/21 09/27/21 cholecalciferol (vitamin D3) 50 2,000 unit PO DAILY #90 cap 09/01/21 09/27/21 mcg (2,000 unit) capsule clonidine HCl 0.2 mg tablet 0.2 mg PO TID 09/01/21 09/27/21 escitalopram oxalate 10 mg tablet 10 mg PO DAILY 09/01/21 09/27/21 gabapentin 800 mg tablet 800 mg PO QHS #90 tab 09/01/21 09/27/21 glatiramer 40 mg/mL subcutaneous 40 mg SUBCUT .3x per week #12 ml 09/01/21 09/27/21 syringe hydroxyzine pamoate 50 mg capsule 50 mg PO BID PRN 09/01/21 09/27/21 levomefolate calcium 7.5 mg tablet 7.5 mg PO DAILY 09/01/21 09/27/21 olanzapine 7.5 mg tablet 7.5 mg PO QHS 09/01/21 09/27/21 Previous Rx's Medication Instructions Recorded cholecalciferol (vitamin D3) 50 2,000 unit PO DAILY #90 cap 09/01/21 mcg (2,000 unit) capsule gabapentin 800 mg tablet 800 mg PO QHS #90 tab 09/01/21 glatiramer 40 mg/mL subcutaneous 40 mg SUBCUT .3x per week #12 ml 09/01/21 syringe Allergies Allergy/AdvReac Type Severity Reaction Status Date / Time cat dander Allergy Intermediate Verified 09/27/21 23:15 house dust mite Allergy Mild Verified 09/27/21 23:15 General Stated Complaint: Orthopedic NAIMA: 4 Review of Systems All systems reviewed & are unremarkable except as noted in HPI and below Constitutional Constitutional: Denies chills, Denies fever(s) and Denies weakness Cardiovascular Cardiovascular: Denies chest pain and Denies dyspnea Respiratory Respiratory: Denies cough and Denies dyspnea Gastrointestinal Gastrointestinal: Denies abdominal pain, Denies nausea and Denies vomiting Musculoskeletal Musculoskeletal: Denies joint swelling Neurologic Neurologic: Denies weakness PFSH All Active Problems (Updated 09/27/21 @ 23:37 by Luis Daniel Forman MD) Contusion of elbow, left (Acute) DVT prophylaxis (Acute) Depression (Chronic) Auditory hallucination (Acute) Visual hallucinations (Acute) Migraine headache without aura (Acute) Blurred vision (Acute) Chronic pain (Chronic) Right knee pain (Acute) Fatigue (Chronic) Arm paresthesia, right (Chronic) Multiple sclerosis (Chronic) Medical History ADD (attention deficit disorder) Anxiety Depression Opioid dependence Surgical History S/P tubal ligation Family History Maternal Grandmother Multiple sclerosis Social History Smoking/Tobacco Use Status: Former Tobacco Use Smoking risk assessment performed?: Yes Alcohol Intake: never Drug use: Current Sobriety Substance use type: former substance user Household members: children Housing: apartment Number of Children: 3 Pets and animals: No Seatbelt use: always Do you feel safe at home: Yes Do you feel safe in your relationship?: Yes Additional Social history: Lives with 8 year old daughter who has ADHD. Has 2 older children in the custody of her mother. Exam Const General: no acute distress Orientation: alert HENMT Head: normal to inspection Ears: external ears normal General nose exam: external nose normal Mouth: moist mucous membranes Eyes General: appearance normal, both eyes and all related structures Neck Neck: normal visual inspection Resp Effort & Inspection: normal respiratory effort and able to speak in complete sentences Cardio Rate: regular rate Skin General skin exam: no rashes or lesions noted Neuro General: patient alert and patient oriented x3 Extrem General: normal to inspection Psych Thought Content: no homicidality and suicidality Course Vital Signs Vital signs: Vital Signs Temperature 36.5 C 09/27/21 23:05 Pulse 73 09/27/21 23:05 Respiratory Rate 18 09/27/21 23:05 Blood Pressure 134/94 H 09/27/21 23:05 Pulse Oximetry 97 09/27/21 23:05 Temperature 36.5 C 09/27/21 23:05 Temperature Source Oral 09/27/21 23:05 Pulse 73 09/27/21 23:05 Respiratory Rate 18 09/27/21 23:05 Blood Pressure 134/94 H 09/27/21 23:05 Blood Pressure Position Sitting 09/27/21 23:05 Pulse Oximetry 97 09/27/21 23:05 Oxygen Delivery Method Room Air 09/27/21 23:05 Oxygen Flow Rate 0 09/27/21 23:05 Pain Level 5 09/27/21 23:05
--- NOTE | 2021-09-27 23:44 | DI.VRAD_ITS ---
PROCEDURE INFORMATION: Exam: XR Left Elbow Exam date and time: 09/27/2021 11:29 PM Age: 31 years old Clinical indication: Pain; Elbow; Left TECHNIQUE: Imaging protocol: XR Left elbow. Views: 3 or more views. COMPARISON: No relevant prior studies available. FINDINGS: Bones/joints: Elbow joint spacing and alignment are anatomic. Bones and joints are intact. Normal osseous mineralization. No joint effusion. Soft tissues: Normal. IMPRESSION: No significant abnormality. Dictated and Authenticated by: Edil Larios MD. Ordering:DEANDRE Cary MD
== END 2021-09-27 23:55 | disposition home or self-care (01) ==
PROVIDERS: Emergency Provider Emergency Medicine
DX: S50.02XA Contusion of left elbow, initial encounter (principal); W18.39XA Other fall on same level, initial encounter
CPT/HCPCS: 99283; 73080

== ENCOUNTER 2024-07-08 09:19 | Emergency (ER) | payer MEDICAID, SELFPAY ==
[2024-07-08] VITALS (13 sets, daily range): BP systolic 148–170; BP diastolic 98–131; PULSE 72–110; RESP 15–25; TEMP 36.2–36.3; O2SAT 94–98
--- NOTE | 2024-07-08 09:45 | RT.EKG_ITS ---
APPROVED REPORT Exam: Resting ECG Reason for Exam: L. chest wall pain Patient Location: E HR:85 bpm ECG Measurements Heart Rate 85 AXIS OR 159 P 55 QRSd 89 QRS 51 QT 408 T -11 QTc 486 Conclusion Sinus rhythm, rate 85 No interval abnormalities No STEMI
--- NOTE | 2024-07-08 09:45 | DI.RAD_ITS ---
Exam(s) XR CHEST 2V PA LATERAL EXAM: XR CHEST 2V PA LATERAL CLINICAL HISTORY: L. chest pain with inspiration TECHNIQUE: 2D digital imaging was performed of the chest. Two images were obtained. PA and lateral views were obtained. COMPARISON: CR ABD FLAT UPRIGHT PA CHEST from 01/26/2009 FINDINGS: MEDIASTINUM: Normal. HEART: Normal. PULMONARY VASCULATURE: Normal. LUNGS: Clear. PLEURAL SPACE: No pleural effusion or pneumothorax. BONE:Within normal limits for the patient's age. OTHER FINDINGS:Normal. IMPRESSION: No acute pulmonary findings. DATA REPOSITORY: RADIATION DOSE DELIVERED:
--- NOTE | 2024-07-08 09:52 | ED.GENADUL_ITS ---
Discharge Plan Disposition Patient Disposition: Home Condition: Stable Discharge Details Clinical Impression: Epiploic appendagitis, Multiple sclerosis, Migraine headache without aura, Hepatosplenomegaly Primary Care Provider: None,None ED Provider: Betty Mustafa Home Meds and New Rx's Prescriptions: No Action zolpidem [Ambien] 5 mg tablet 5 mg PO QHS PRN clonidine HCl 0.2 mg tablet 0.2 mg PO TID escitalopram oxalate [Lexapro] 10 mg tablet 10 mg PO DAILY olanzapine 7.5 mg tablet 7.5 mg PO QHS cholecalciferol (vitamin D3) 50 mcg (2,000 unit) capsule 2,000 unit PO DAILY Qty: 90 3RF dexmethylphenidate [Focalin XR] 15 mg capsule,ER biphasic 50-50 15 mg PO DAILY Discharge Instructions Instructions: Managing acute pain at home Additional Instructions: You were seen in the emergency department today for evaluation of pain, and were found to have a twisting of the fat inside your belly, condition called epiploic appendagitis. This is managed by taking anti-inflammatory medicine such as ibuprofen for the next few days to reduce the inflammation in the area. It does not require antibiotics and typically does not require any surgical intervention s. You were also noted to have an enlargement of your liver and spleen, and need to follow-up with a primary care provider to discuss this finding, and ongoing management of your chronic conditions. Thank you for allowing us to be part of your care. HPI General Mode of arrival: ambulatory . Date/Time Provider Initiated Documentation: 07/08/24 09:30 . Limitations to Documentation: no limitations . Information obtained by: patient and old records reviewed . HPI Narrative: HPI: This is a 34-year-old female patient with a past medical history significant for multiple sclerosis, not on any medical therapies, a history of migraines, and depression who is presenting for evaluation of left chest wall pain and nausea with vomiting. The patient reports that she first noted the symptoms approximately weeks ago, they started gradually and did not have any inciting injury, illness, or other event. She reports that the pain is located around her left sided ribs and into her left upper abdomen, are worse with deep breath, movement, and palpation. She has noted nonbloody, nonbilious emesis and has had difficulty maintaining her p.o. intake. She states that she has not noted any hemoptysis, shortness of breath, does not have chest pain at rest. She tried some Tylenol a few days ago to manage her symptoms without improvement. The patient reports that she has not had measured fevers, but does occasionally get night sweats. She does not use any hormonal medications and does not have any history of thromboembolic disease nor complaints of DVT symptoms. She has a history of tubal ligation, no other past abdominal surgical history. Exam: Gen: Awake and alert, in no apparent distress HEENT: Non-icteric sclera Neck: Supple Lungs: No apparent respiratory distress, normal respiratory effort. Lung sounds clear and equal bilaterally without wheezes, rhonchi, rales CV: Appears well perfused, strong distal pulses, heart with regular rate and rhythm on this provider's examination. The patient has tenderness to palpation over the left sided costal margin without overlying skin changes, deformity, or crepitus Abdomen: Non-distended, soft, tenderness to palpation in the left upper lateral quadrant, without rigidity, rebound, or guarding MSK: Moves 4 extremities without apparent limitation in ROM. No unilateral calf swelling or tenderness, no peripheral edema Skin: Visualized skin without rashes, cyanosis. Neuro: Normal Gait, no obvious focal deficits or facial asymmetry. Speaks in full, clear sentences. Psych: Appropriate for situation. MDM: This is a 34-year-old female patient presenting for evaluation of left- sided and upper abdominal pain, vomiting, and night sweats. My differential includes but is not limited to infectious etiologies including pneumonia, bronchitis, considered viral upper respiratory infection though the patient is without nasal symptoms or fever. Certainly considered pulmonary embolism in this patient who is hypertensive in triage and has a pleuritic aspect to her pain. Considered pneumothorax, pleural effusion, pulmonary edema, malignancy. There is no evidence on physical examination for herpes zoster, she is young and at lower risk for ACS. I considered pericarditis and myocarditis, as well as abdominal abnormalities including gastritis/PUD, pancreatitis. I considered hepatitis, cholecystitis, appendicitis. No urinary symptoms to suggest UTI or nephrolithiasis the patient reports no new sexual partners or concern for STIs, making her lower risk for PID/TOA. Abdominal exam is not consistent with c oncerning pathology such as perforation, bowel obstruction, mesenteric ischemia. The patient is hemodynamically appropriate at this time, we will provide her with a dose of Zofran as well as Toradol for symptomatic management. I will obtain a chest x-ray, and laboratory studies to include CBC, CMP, lipase, troponin, D-dimer. ED Course: I reviewed the patient's laboratory studies, which show no leukocytosis, anemia or thrombocytopenia. Chemistry panel without significant electrolyte derangements, nor evidence of kidney dysfunction. The patient has a very modest elevation in her AST to 49 without associated elevation in bilirubin or ALT. Troponin was negative, lipase is low, but the D-dimer was modestly elevated to 696 for this reason we will proceed to CT imaging, including a PE study, and I will obtain an abdomen and pelvis given her abdominal complaints. Independently reviewed the patient's CT imaging, which is notable for epiploic appendagitis in the area of the patient's reported pain, hepatosplenomegaly, and on my review concern for bilateral ovarian cysts. I shared these findings with the patient, encouraged NSAID use for epiploic appendagitis, and obtained a Monospot which was negative. The patient does have a history of alcohol use disorder, and will follow-up with primary care (referral provided) for ongoing workup and management of her hepatosplenomegaly. Given that she had a normal blood count I have less concern for lymphoma or leukemia in this patient, though certainly she requires further monitoring. Urinalysis was obtained and was noninfectious, though contaminated. In the absence of specific urinary symptoms would not send for culture. At this time, the patient has had a full medical evaluation and is safe for discharge to home. They are hemodynamically stable, ambulatory, and tolerating PO. They are understanding of the follow-up plan and return precautions. They left our facility without incident. Betty Mustafa MD Related Data Home Medications ?Medication ?Instructions ?Recorded ?Confirmed zolpidem 5 mg tablet (Ambien) 5 mg PO QHS PRN 07/10/20 07/08/24 cholecalciferol (vitamin D3) 50 2,000 unit PO DAILY #90 caps 09/01/21 07/08/24 mcg (2,000 unit) capsule clonidine HCl 0.2 mg tablet 0.2 mg PO TID 09/01/21 07/08/24 escitalopram oxalate 10 mg tablet 10 mg PO DAILY 09/01/21 07/08/24 (Lexapro) olanzapine 7.5 mg tablet 7.5 mg PO QHS 09/01/21 07/08/24 dexmethylphenidate 15 mg 15 mg PO DAILY 07/08/24 07/08/24 capsule,extended release -32 (Focalin XR) Previous Rx's ?Medication ?Instructions ?Recorded cholecalciferol (vitamin D3) 50 2,000 unit PO DAILY #90 caps 09/01/21 mcg (2,000 unit) capsule Allergies Allergy/AdvReac Type Severity Reaction Status Date / Time cat dander Allergy Intermediate Itching Verified 07/08/24 09:24 house dust mite Allergy Mild Itching Verified 07/08/24 09:24 General Stated Complaint: Chest/Rib NAIMA: 3 Course Vital Signs Vital signs: Vital Signs Temperature 36.2 C L 07/08/24 09:26 Pulse 110 H 07/08/24 09:26 Respiratory Rate 16 07/08/24 09:26 Blood Pressure 170/131 H 07/08/24 09:26 Pulse Oximetry 98 07/08/24 09:26 Temperature 36.2 C L 07/08/24 09:26 Temperature Source Temporal Artery Scan 07/08/24 09:26 Pulse 110 H 07/08/24 09:26 Respiratory Rate 16 07/08/24 09:26 Respiratory Effort Normal, Non-Labored 07/08/24 09:30 Respiratory Depth Normal 07/08/24 09:30 Respiratory Pattern Normal 07/08/24 09:30 Blood Pressure 170/131 H 07/08/24 09:26 Blood Pressure Position Sitting 07/08/24 09:26 Pulse Oximetry 98 07/08/24 09:26 Oxygen Delivery Method Room Air 07/08/24 09:26 Oxygen Flow Rate 0 07/08/24 09:26 Pain Level 6 07/08/24 09:30 Medical Decision Making Quality:SDOH Health Related Social Needs: No Data to Display PFSH All Active Problems (Updated 07/08/24 @ 11:46 by Betty Mustafa MD) Hepatosplenomegaly (Acute) Epiploic appendagitis (Acute) DVT prophylaxis (Acute) Depression (Chronic) Auditory hallucination (Acute) Visual hallucinations (Acute) Migraine headache without aura (Acute) Blurred vision (Acute) Chronic pain (Chronic) Right knee pain (Acute) Fatigue (Chronic) Arm paresthesia, right (Chronic) Multiple sclerosis (Chronic) Medical History ADD (attention deficit disorder) Anxiety Depression Opioid dependence Surgical History S/P tubal ligation Family History Maternal Grandmother Multiple sclerosis Social History Smoking/Tobacco Use Status: Current every day Tobacco Type: cigarettes Smoking risk assessment performed?: Yes Alcohol Intake: current Alcohol Intake frequency: 3 or more drinks per day Alcohol type: beer Drug use: Occasionally Substance use type: marijuana Household members: children Housing: apartment Number of Children: 3 Pets and animals: No Seatbelt use: always Do you feel safe at home: Yes Do you feel safe in your relationship?: Yes Additional Social history: Lives with 8 year old daughter who has ADHD. Has 2 older children in the custody of her mother.
--- OUTSIDE RECORDS SUMMARY | 2024-07-08 09:58 | XMS_ITS | Encounter Summary ---
Author Organization [facility] Address [facility] [place] [address] Care Team Providers Care Plant Operations Engineer Name Role Phone None Primary Care Provider Unavailabl e Reason for Visit * Reason Comments Multiple Sclerosis Encounter Details Date Type Department Care Team (Late st Contact Info) Description 06/14/2017 1:00 PM EDT Office [place] [address] Magalis Nj MD [facility] [place] [address] Chetan Owen MD [facility] [place] [place] [address] Multiple sclerosis Social History Tobacco Use Types Packs/Day Years Used Date Smoking Tobacco: Former Cigarettes 1 5 Smokeless Tobacco: Never Comments:quit 2009 Alcohol Use Standard Drinks/Week Comments No 0 (1 standard drink = 0.6 oz pur e alcohol) Sex and Gender Information Value Date Recorded Sex Assigned at Not on file Gender Identity Not on file Sexual Orientation Not on file documented as of this encounter Last Filed Vital Signs Vital Sign Reading Time Taken Comments Blood Pressure 114/71 06/14/2017 1:07 PM EDT Pulse 97 06/14/2017 1:07 PM EDT Temperature - - Respiratory Rate 18 06/14/2017 1:07 PM EDT Oxygen Saturation - - Inhaled Oxygen Concentration - - Weight 54.4 kg (120 lb) 06/14/2017 1:07 PM EDT Height 166.4 cm (5' 5.5) 06/14/2017 1:07 PM EDT Body Mass Index 19.67 06/14/2017 1:07 PM EDT documented in this encounter Patient Instructions * Patient Instructions* Chetan Owen - 06/14/2017 1:00 PM EDT You were seen in the Neurology Clinic at [facility]. 06/14/2017 Your diagnosis: Relapsing Remitting Multiple Sclerosis Medication Changes: Keep taking the Copaxone (Glatiramer) injections three times a week. I'll work on getting a different medication covered for your MS. We'll hold off on scheduling your MRI today, but will plan to see you again in clinic in 6 months. Patient Instructions: ??? Call your doctor or seek medical attention if you have ??? weakness or numbness in your face or one of your limbs or difficulty speaking ??? loss of vision ??? seizures or loss of consciousness ??? Diet: we recommend a heart healthy diet: low fat, low cholesterol, low concentrated sweets. FOLLOWUP APPOINTMENT: You will have an outpatient followup appointment in the neurology clinic at [facility]. If not already listed in this document, we will contact you to schedule this appointment. -- If 1 week passes by after your visit and you still do not have an appointment, please call [phone]. documented in this encounter Progress Notes * Chetan Owen - 06/14/2017 1:00 PM EDT Neurology Clinic Note - 06/14/2017 Neurology Clinic Visit - 06/14/2017 Patient Name: Toya Tellez : 1990 PCP: None Clinic Attending: Dr. Nj Patient ID: Toya Tellez is a 26 y.o. right handed female with MS, previously seen by Dr. Alvarez, most recently in 01/22/16 for establishing care. Interval History: Toya is a 24yo female with diagnosis of MS based on imaging, symptoms, and LP in 11/04. MRI 10/2014: LP 10/2014: WBC 10 (98% lymphocyte), RBC 0, Pro 28. Glu 57. + 6 oligoclonal bands. IgG index negative. Previously had persistent RUE tingling. This is now improved on gabapentin. Dose reported as 600 mgTID. Smoking:none EtOH:none Interval Hisotry; - doesn't appreciate any changes to MS - No clinical MS flares - She does have intermittent non-specific illness - She relates she is clumsy. Has particular difficulty walking in a straight line. She is self-conscious of this. - She has extreme anxiety. - RUE tingling improved after starting gabapentin for anxiety - Copaxone: She skips some days because of anxiety. - She has been doing better taking it in the past year. - Had a month delay in getting prior auth so didn't take it for a month - Depression felt to be much better off of it - Now back on it for a month, feels depression is worse. Suspects that contributes to her depression. - Wants to set up MRI, but I don't have a doctor. Has to have a pre-sedation phsyical. - Has had some increased nausea recently. Has eaten less. No past medical history on file. Medications: Medications 01/22/16 1428 Medication Sig Taking? glatiramer (COPAXONE) 40 mg/mL Syringe Inject 40 mg subcutaneously three times a week. traZODone (DESYREL) 100 mg Tablet Take 1 tablet by mouth nightly as needed. buPROPion (WELLBUTRIN SR) 100 mg Tablet Sustained Release Take 1 tablet by mouth 3 times daily. METHADONE HCL (METHADONE ORAL) Take 20 mg by mouth daily. Liquid. ondansetron (ZOFRAN) 4 mg Tablet Take 1 tablet by mouth every 8 hours as needed. methylphenidate (RITALIN) 10 mg Tablet Take 10 mg by mouth 3 times daily. Allergy: No Known Allergies Review of systems: Constitutional: No fevers or chills Eyes: No vision changes, no diplopia, no blurry vision ENT: No rhinorrhea or pharyngitis, no meningismus CV: No chest pain or palpitations Resp: No cough, no shortness of breath GI: No nausea, vomiting, diarrhea or constipation : No dysuria, no incontinence Heme: No bleeding or bruising Endo: No polyuria or cold intolerance Neuro: See HPI Psych: No depression, normal sleep [x] Review of systems otherwise negative Physical Exam: Vitals: 06/14/17 1307 BP: 114/71 BP Location (NBP): Right arm Patient Position: Sitting BP Cuff Sizes: Small Adult (20-26 cm) Pulse: 97 Resp: 18 Weight: 54.4 kg (120 lb) Height: 166.4 cm (5' 5.5) Gen: Apparent stated age, well nourished, well developed, awake, alert, NAD Neck: Supple, no meningismus, no carotid bruit, no occipital tenderness HEENT: MMM Resp: Normal respiratory effort Abd: +normoactive bowel sounds, soft, nontender, nondistended Ext: No edema. No bony deformity Skin: No suspicious rashes or lesions Neuro Exam: MS: Awake, alert, oriented to person, place, year, month 3/3 Immediate, 3/3 Delayed recall Able to state months of year backwards, mimic complex hand gestures No dysarthria, language fluent, cooperative with neuro exam CN: Pupils 4mm ERRL, EOMI, visual villeda full to confrontation Facial sensation intact to light touch, temperature No facial asymmetry Hearing intact to voice Palate elevates symmetrically, tongue protrudes midline SCM and trap strength intact Motor: Normal bulk and tone. No pronator drift. Hand rolling intact. UE: 5/5 R, 5/5 L Arm abduction at shoulder 5/5 R, 5/5 L Elbow extension 5/5 R, 5/5 L Elbow flexion 5/5 R, 5/5 L Media Senior Recruiter LE: 5/5 R, 5/5 L Hip flexion 5/5 R, 5/5 L Knee extension 5/5 R, 5/5 L Knee flexion 5/5 R, 5/5 L Foot dorsiflexion 5/5 R, 5/5 L Foot plantar flexion Sensation: Intact to light touch, temperature throughout Reflexes: DTRs 2+ R, 2+ L Biceps 2+ R, 2+ L Brachioradialis 2+ R, 2+ L Triceps 2+ R, 2+ L Patellar 2+ R, 2+ L Achilles tendon Babinski - R down, L down Coordination: Finger to nose intact, mildly dysmetric RUE Rapid alternating movements & finger tapping smooth and symmetric Heel-jaramillo mildly dysmetric on RLE No tremor Gait: Normal stride, stance, armswing. Stable. Negative Romberg. Unable to tandem walk. Labs: No results found for this or any previous visit (from the past 24 hour(s)). Diagnostic Tests and Imaging: MRI Brain wwo 11/2014: Findings are consistent with a demyelinating process with most likely etiology being multiple sclerosis, especially tumefactive MS. Other differential considerations include acute disseminated encephalomyelitis. Findings are not thought to be related to septic emboli, neoplasm, or ischemic infarction. MRI C Spine, Brain wwo 06/2015: IMPRESSION: 1. The lesions in the brain demonstrate significant interval improvement. 2. Numerous cervical cord lesions do not enhance. ?? Assessment / Plan: Toya Tellez is a 26 y.o. female with radiographically diagnosed and CSF confirmed MS. This likely represents relapsing and remitting MS, given suspected four events in the year prior to presentation and has returned to baseline after each with the exception of right arm tingling. No new events or flare ups that we can detect so do not want to change copaxone, but she states when off this, herdepression was much improved. Will work on coverage for dimethyl fumarate, and continue on copaxoneuntil insurance confirmation of coverage for new medication. Of note, she will need sedation with repeat MRIs- she is extremely claustrophobic. # Relapsing Remitting Multiple Sclerosis - Continue copaxone (glatiramer) 40 mg 3x/week for now, - Will work on dimethyl fumarate (Tecfidera) prescription - Conitnue gabapentin at current dose for symptomatic paresthesias - Hold off on repeating MRI for now, given clinical stability # RTC [address] Ondina Owen MD PGY3, Neurology 06/14/2017 documented in this encounter Plan of Treatment Not on file documented as of this encounter Visit Diagnoses Diagnosis Multiple sclerosis documented in this encounter Care Teams Plant Operations Engineer Relationship Specialty Start Date End Date None None PCP - General 01/22/16 documented as of this encounter
--- OUTSIDE RECORDS SUMMARY | 2024-07-08 09:58 | XMS_ITS | Encounter Summary ---
Author Organization [facility] [place] [address] Care Team Providers Care Junior Accountant Name Role Phone None Primary Care Provider Unavailabl e Reason for Visit * Reason Onset Date Comments Medication Refill 09/15/2018 Encounter Details Date Type Department Care Team (Late st Contact Info) Description 09/15/2018 [place] [address] Ced Riggs III, MD [facility] [place] [address] Social History Tobacco Use Types Packs/Day Years Used Date Smoking Tobacco: Former Cigarettes 1 5 0 02/11/2005 - 02/11/2010 Smokeless Tobacco: Never Alcohol Use Standard Drinks/Week Comments No 0 (1 standard drink = 0.6 oz pur e alcohol) Sex and Gender Information Value Date Recorded Sex Assigned at Not on file Gender Identity Not on file Sexual Orientation Not on file documented as of this encounter Plan of Treatment Not on file documented as of this encounter Visit Diagnoses Not on filedocumented in this encounter Care Teams Junior Accountant Relationship Specialty Start Date End Date None None PCP - General 01/22/16 documented as of this encounter
--- OUTSIDE RECORDS SUMMARY | 2024-07-08 09:58 | XMS_ITS | Encounter Summary ---
Author Organization [facility] Address [address] [place] [address] Care Team Providers Care Forge Heater Name Role Phone Arely Miller MD Primary Care Provider [phone] Encounter Details Date Type Department Care Team (Late st Contact Info) Description 11/27/2005 Results Only [facility] [address] [place] [address] Sabas Oreilly MD [address] [place], [place] [id number] Social History Tobacco Use Types Packs/Day Years Used Date Smoking Tobacco: Never Assessed Sex and Gender Information Value Date Recorded Sex Assigned at Not on file Gender Identity Not on file Sexual Orientation Not on file documented as of this encounter Plan of Treatment Not on file documented as of this encounter Procedures Procedure Name Priority Date/Time Associated Diagnosis Comments CYTOPATHOLOGY Routine 11/27/2005 0:00 EST documented in this encounter Results * CYTOPATHOLOGY (11/27/2005 0:00 EST) Pathology Report: CYTOPATHOLOGY REPORT Reports generated via electronic interface contain original data; however they are lacking the format of the original report. Caution should be taken when reading/interpreti ng unformatted reports. Name: ? TEGAN TELLEZ ? Accession #: ? [id number] : ? 1990 (Age: 15) ??F ?Collect Date: ? 11/27/2005 Location: ? [facility] ? Receive Date: ? 11/30/2005 Provider: ?SABAS OREILLY MD Copy to: ? Specimen/Source: ?ThinPrep Pap Test, Cervix/Endocervix, processed on [employer] ThinPrep Imaging System, with manual evaluation Last Menstrual Period: ? 08/18/05 Menstrual/Pregnanc y Status: ? Other: ? HPVA - HPV testing requested if ASC-US on the current ThinPrep Pap test. ? SPECIMEN ADEQUACY ? Satisfactory for Evaluation - transformation zone component present GENERAL CATEGORIZATION ? Epithelial Cell Abnormality INTERPRETATION ? Squamous Cell Abnormality - High grade squamous intraepithelial lesion (HSIL). EDUCATIONAL NOTES/RECOMMENDATI ONS ? [facility] recommends following the 2001 Consensus Guidelines for the Management of Women with Cervical Cytological Abnormalities (CRISTIAN,2002;287:212 0-9). Management algorithms have been distributed by [facility] and are available online at www.ASCCP.org. ? Document reviewed and electronically signed by: ? KEMAL CARR MD ? Report Date: ??12/03/2005 10:25 End of Report [facility] 11/27/2005 11/30/2005 Sabas Oreilly MD PATHOLOGY ORDERABLES [facility] [address] [place] [address] documented in this encounter Visit Diagnoses Not on filedocumented in this encounter Care Teams Forge Heater Relationship Specialty Start Date End Date Arely Miller MD [address] [place] [address] PCP - General 05/22/10 documented as of this encounter
--- OUTSIDE RECORDS SUMMARY | 2024-07-08 09:58 | XMS_ITS | Encounter Summary ---
Author Organization [facility] [place] [address] Care Team Providers Care Sec Reporting Consultant Name Role Phone None Primary Care Provider Unavailabl e Reason for Visit * Reason Onset Date Comments Medication Refill 04/29/2017 Encounter Details Date Type Department Care Team (Late st Contact Info) Description 04/29/2017 [place] [address] Magalis Nj MD [facility] [place] [address] Social History Tobacco Use Types Packs/Day Years [...] on filedocumented in this encounter Care Teams Sec Reporting Consultant Relationship Specialty Start Date End Date None None PCP - General 01/22/16 documented as of this encounter
--- OUTSIDE RECORDS SUMMARY | 2024-07-08 09:58 | XMS_ITS | Encounter Summary ---
Author Organization [facility] [place] [address] Care Team Providers Care Floor Plan Adjuster Name Role Phone None Primary Care Provider Unavailabl e Reason for Visit * Reason Comments Medication Refill Encounter Details Date Type Department Care Team (Late st Contact Info) Description 04/14/2021 Refill Psychiatry and [place] [address] Puja Bradley MD [facility] [place] [address] Social History Tobacco Use Types Packs/Day Years [...] on filedocumented in this encounter Care Teams Floor Plan Adjuster Relationship Specialty Start Date End Date None None PCP - General 01/22/16 documented as of this encounter
--- OUTSIDE RECORDS SUMMARY | 2024-07-08 09:58 | XMS_ITS | Encounter Summary ---
Author Organization [facility] Address [address] [place] [address] Care Team Providers Care Appliance Painter And Refinisher Name Role Phone Arely Miller MD Primary Care Provider [phone] Encounter Details Date Type Department Care Team (Late st Contact Info) Description 07/01/2004 Results Only [facility] [address] [place] [address] Kori Vides MD Social History Tobacco Use Types Packs/Day Years Used Date Smoking Tobacco: Never Assessed Sex and Gender Information Value Date Recorded Sex Assigned at Not on file Gender Identity Not on file Sexual Orientation Not on file documented as of this encounter Plan of Treatment Not on file documented as of this encounter Procedures Procedure Name Priority Date/Time Associated Diagnosis Comments CYTOPATHOLOGY Routine 07/01/2004 0:00 EDT documented in this encounter Results * CYTOPATHOLOGY (07/01/2004 0:00 EDT) Pathology Report: CYTOPATHOLOGY REPORT Reports generated via electronic interface contain original data; however they are lacking the format of the original report. Caution should be taken when reading/interpreti ng unformatted reports. Name: ? TEGAN TELLEZ ? Accession #: ? [id number] : ? 1990 (Age: 14) ??F ?Collect Date: ? 07/01/2004 Location: ? [facility] ? Receive Date: ? 07/02/2004 Provider: ?KORI VIDES MD Copy to: ? Specimen/Source: ?ThinPrep Pap Test, Cervix/Endocervix Last Menstrual Period: ? 06/21/2004 Hormonal/Contracep tive Status: ? Depo-Provera Other: ? Additional clinical information: first pap HPVL - HPV testing requested if LSIL/ASCUS/JOÃO on the current ThinPrep Pap test. ? SPECIMEN ADEQUACY ? Satisfactory for Evaluation - transformation zone component present - scant squamous epithelial component GENERAL CATEGORIZATION ? Negative for Intraepithelial Lesion or Malignancy ? Document reviewed and electronically signed by: ? Alma Feng, [facility](ASCP) ? Report Date: ??07/07/2004 15:03 End of Report [facility] 07/01/2004 07/02/2004 Kori Vides MD PATHOLOGY ORDERABLES Performing Organization Address City/State/[facility] Co de Phone Number [facility] [address] [place] [address] documented in this encounter Visit Diagnoses Not on filedocumented in this encounter Care Teams Appliance Painter And Refinisher Relationship Specialty Start Date End Date Arely Miller MD [address] [place] [address] PCP - General 05/22/10 documented as of this encounter
--- OUTSIDE RECORDS SUMMARY | 2024-07-08 09:58 | XMS_ITS | Clinical Summary ---
Author Organization [facility] Address [address] [place] [address] Care Team Providers Care Coach Cleaner Name Role Phone Arely Miller MD Primary Care Provider [phone] Social History Tobacco Use Types Packs/Day Years Used Date Smoking Tobacco: Never Assessed Sex and Gender Information Value Date Recorded Sex Assigned at Not on file Gender Identity Not on file Sexual Orientation Not on file Plan of Treatment Health Maintenance Due Date Last Done Comments Hepatitis C Screen 1990 Hepatitis B Vaccine (1 of 3 - 19+ 3-dose series) 06/29 COVID-19 Vaccine ( season) 2023 Care Teams Coach Cleaner Relationship Specialty Start Date End Date Arely Miller MD [address] [place] [address] PCP - General 05/22/10
--- OUTSIDE RECORDS SUMMARY | 2024-07-08 09:58 | XMS_ITS | Encounter Summary ---
Author Organization [facility] Address [address] [place] [address] Care Team Providers Care Parimutuel Ticket Cashier Name Role Phone Arely Miller MD Primary Care Provider [phone] Encounter Details Date Type Department Care Team (Late st Contact Info) Description 09/18/2010 Results Only [facility] [phone] Anna Gillette MD [address] [place] [address] Social History Tobacco Use Types Packs/Day Years Used Date Smoking Tobacco: Never Assessed Sex and Gender Information Value Date Recorded Sex Assigned at Not on file Gender Identity Not on file Sexual Orientation Not on file documented as of this encounter Plan of Treatment Not on file documented as of this encounter Procedures Procedure Name Priority Date/Time Associated Diagnosis Comments SURGICAL PATHOLOGY Routine 09/18/2010 0:00 EST documented in this encounter Results * SURGICAL PATHOLOGY (09/18/2010 0:00 EST) Pathology Report: SURGICAL PATHOLOGY REPORT ? Reports generated via electronic interface contain original data; ? however they are lacking the format of the original report. ? Caution should be taken when reading/interpreti ng unformatted reports. ? Name: ? TELLEZ, TEGAN E ? Accession #: ? [id number] ? : ? 1990 (Age: 20) ??F ? Collect Date: ? 09/18/2010 ? Location: ? [facility] ? Receive Date: ? 09/18/2010 ? Provider: ANNA GILLETTE MD ? Copy to: REYNA L SOTO SIGN LANGUAGE INSTRUCTOR ? ANEA LELONG CNM ? Final Pathologic Diagnosis: ? A. ?Fallopian tube, right, ligation: ? 1. ?Segment of fallopian tube with complete cross sections identified. ? B. ?? Fallopian tube, left, ligation: ? 1. ?? Segment of fallopian tube with complete cross sections identified. ? Document reviewed and electronically signed by: ? LELA SKINNER MD ? Report ??Date: 09/22/2010 14:31 ? By the signature above, the attending physician certifies that he/she has ? personally conducted a gross and/or microscopic examination of the described ? specimens and rendered or confirmed the above diagnosis. ? Specimen(s) Received: ? A. ?Portion of right fallopian tube ? B. ? Portion of left fallopian tube ? Clinical History: ? Undesired fertility ? Gross Description: ? Received in formalin labelled Tegan Tellez and portion right fallopian tube is a 2.0 x 1.0 x 0.6 cm piece of khan, smooth, serosal-covered tissue ? containing a tubular structure with a a pinpoint lumen. ??Two commercial representative ? cross sections are submitted as (A). ? Received in formalin labelled Tegan Tellez and #2 portion left fallopian ?? tube is a khan-white, serosal-covered tubular structure measuring 2.0 cm in ? length with a diameter of 0.7 cm and a less than 0.1 cm diameter lumen. ??Two ? commercial representative sections are submitted as (B). ??(C. Yolanda)/main ? End of Report ? [facility] 09/18/2010 09/18/2010 19: 53 EST Anna Gillette MD PATHOLOGY ORDERABLES [facility] [address] [place] [address] documented in this encounter Visit Diagnoses Not on filedocumented in this encounter Care Teams Parimutuel Ticket Cashier Relationship Specialty Start Date End Date Arely Miller MD [address] [place] [address] PCP - General 05/22/10 documented as of this encounter
--- OUTSIDE RECORDS SUMMARY | 2024-07-08 09:58 | XMS_ITS | Encounter Summary ---
[place] [address] Care Team Providers Care Tool Polishing Machine Operator Name Role Phone None Primary Care Provider Unavailabl e Reason for Referral * Consultation (Routine) - Specialty Diagnoses / Procedures Referred By Wendi hernandez Referred To Contact Neurology Diagnoses Multiple sclerosis Ced Lake MD [facility] [place] [address] Referral ID Status Reason Start Date Expiration Date V isits Requested Visits Authorized [id number] Consult, Test & Treat 08/02/2018 01/29/2019 1 1 Encounter Details Date Type Department Care Team (Late st Contact Info) Description 08/02/2018 Orders [place] [address] Ced Lake MD [facility] [place] [address] Multiple sclerosis Social History Tobacco Use Types [...] as of this encounter Plan of Treatment Scheduled Referrals Name Type Priority Associated Diagnoses Orde r Schedule Referral to Neurology Outpatient Referral Routine Multiple sclerosis Ordered: 08/02/2018 documented as of this encounter Visit Diagnoses Diagnosis Multiple sclerosis documented in this encounter Care Teams Tool Polishing Machine Operator Relationship Specialty Start Date End Date None None PCP - General 01/22/16 documented as of this encounter
--- OUTSIDE RECORDS SUMMARY | 2024-07-08 09:58 | XMS_ITS | Encounter Summary ---
Author Organization [facility] Address [address] [place] [address] Care Team Providers Care Monitoring Analyst Name Role Phone Arely Miller MD Primary Care Provider [phone] Encounter Details Date Type Department Care Team (Late st Contact Info) Description 08/18/2010 Results Only [facility] - [facility] ([facility] [address], [place] [address] Tara Kan CNM [address] [place], [place] [id number] Social History Tobacco Use Types Packs/Day Years Used Date Smoking Tobacco: Never Assessed Sex and Gender Information Value Date Recorded Sex Assigned at Not on file Gender Identity Not on file Sexual Orientation Not on file documented as of this encounter Plan of Treatment Not on file documented as of this encounter Procedures Procedure Name Priority Date/Time Associated Diagnosis Comments CYTOPATHOLOGY Routine 08/18/2010 0:00 EST documented in this encounter Results * CYTOPATHOLOGY (08/18/2010 0:00 EST) Pathology Report: CYTOPATHOLOGY REPORT ? Reports generated via electronic interface contain original data; ? however they are lacking the format of the original report. ? Caution should be taken when reading/interpreti ng unformatted reports. ? Name: ? TEGAN TELLEZ ? Accession #: ? [id number] ? : ? 1990 (Age: 20) ??F ?Collect Date: ? 08/18/2010 ? Location: ? [facility] ? Receive Date: ? 08/19/2010 ? Provider: ?ANEA LELONG CNM ? Copy to: ? Specimen/Source: ?Pap Test, Cervix/Endocervix, ThinPrep Imaging System ? with manual evaluation ? Last Menstrual Period: ? 3/28/10 ? Menstrual/Pregnanc y Status: ? Previous Gynecologic Pathology: ? HSIL: 3/06 ? ASC-US: 6/06 cannot exclude HSIL, ASCUS 10/06 ? HPV: + 10/06 ? Treatment History: ? Colposcopy: 3/23/06, 7/07-normal ? Other: ? Additional clinical information: 5/07 and 6/08 pap negative ? SPECIMEN ADEQUACY ? Satisfactory for Evaluation ? - transformation zone component present ? GENERAL CATEGORIZATION ? Negative for Intraepithelial Lesion or Malignancy ? Document reviewed and electronically signed by: ? Radha Chance, CT(ASCP) ? Report Date: ??08/21/2010 14:03 ? End of Report ? [facility] 08/18/2010 08/19/2010 Tara Kan CNM PATHOLOGY ORDERABLES Performing Organization Address City/State/[facility] Co de Phone Number [facility] [address] [place] [address] documented in this encounter Visit Diagnoses Not on filedocumented in this encounter Care Teams Monitoring Analyst Relationship Specialty Start Date End Date Arely Miller MD [address] [place] [address] PCP - General 05/22/10 documented as of this encounter
--- OUTSIDE RECORDS SUMMARY | 2024-07-08 09:58 | XMS_ITS | Encounter Summary ---
Author Organization Health system Address [address] [place] [address] Care Team Providers Care Hand Reamer Name Role Phone Arely Mliler MD Primary Care Provider [phone] Encounter Details Date Type Department Care Team (Late st Contact Info) Description 03/04/2006 Results Only [facility] - Map conversion [address] [place] [address] [place], [place] [address] Social History Tobacco Use Types Packs/Day Years Used Date Smoking Tobacco: Never Assessed Sex and Gender Information Value Date Recorded Sex Assigned at Not on file Gender Identity Not on file Sexual Orientation Not on file documented as of this encounter Plan of Treatment Not on file documented as of this encounter Procedures Procedure Name Priority Date/Time Associated Diagnosis Comments CYTOPATHOLOGY Routine 03/04/2006 0:00 EDT documented in this encounter Results * CYTOPATHOLOGY (03/04/2006 0:00 EDT) Pathology Report: CYTOPATHOLOGY REPORT Reports generated via electronic interface contain original data; however they are lacking the format of the original report. Caution should be taken when reading/interpreti ng unformatted reports. Name: ? TEGAN TELLEZ ? Accession #: ? [id number] : ? 1990 (Age: 15) ??F ?Collect Date: ? 03/04/2006 Location: ? [facility] ? Receive Date: ? 03/05/2006 Provider: ?ALMA MAYS CNM Copy to: ? Specimen/Source: ?ThinPrep Pap Test, Cervix/Endocervix, processed on [employer] ThinPrep Imaging System, with manual evaluation Last Menstrual Period: ? 08/18/05 Menstrual/Pregnanc y Status: ? Previous Gynecologic Pathology: ? HSIL: 11/27/05 - Not verified by colpo Treatment History: ? Colposcopy: 12/10/05 Other: ? HPVA - HPV testing requested if ASC-US on the current ThinPrep Pap test. ? SPECIMEN ADEQUACY ? Satisfactory for Evaluation - transformation zone component present GENERAL CATEGORIZATION ? Epithelial Cell Abnormality INTERPRETATION ? Squamous Cell Abnormality - Atypical squamous cells, cannot exclude ? high grade squamous intraepithelial lesion (HSIL). EDUCATIONAL NOTES/RECOMMENDATI ONS ? [facility] recommends following the 2001 Consensus Guidelines for the Management of Women with Cervical Cytological Abnormalities (CRISTIAN,2002;287:212 0-9). Management algorithms have been distributed by [facility] and are available online at www.ASCCP.org. ? Document reviewed and electronically signed by: ? KRISTINA ABDUL MD ? Report Date: ??03/10/2006 17:13 End of Report [facility] 03/04/2006 03/05/2006 Alma Mays CNM PATHOLOGY ORDERABLES Performing Organization Address City/State/[facility] Co de Phone Number [facility] [address] [place] [address] documented in this encounter Visit Diagnoses Not on filedocumented in this encounter Care Teams Hand Reamer Relationship Specialty Start Date End Date Arely Miller MD [address] [place] [address] PCP - General 05/22/10 documented as of this encounter
--- OUTSIDE RECORDS SUMMARY | 2024-07-08 09:58 | XMS_ITS | Encounter Summary ---
Author Organization [facility] Address [address] [place] [address] Care Team Providers Care Senior Billing Consultant Name Role Phone Arely Miller MD Primary Care Provider [phone] Encounter Details Date Type Department Care Team (Late st Contact Info) Description 01/30/2015 Results Only [facility] [phone] Sue Santos, TREVOR [address] [place] [address] Social History Tobacco Use Types Packs/Day Years Used Date Smoking Tobacco: Never Assessed Sex and Gender Information Value Date Recorded Sex Assigned at Not on file Gender Identity Not on file Sexual Orientation Not on file documented as of this encounter Plan of Treatment Not on file documented as of this encounter Procedures Procedure Name Priority Date/Time Associated Diagnosis Comments PAP TEST- RESULT ONLY Routine 01/30/2015 0:00 EDT documented in this encounter Results * PAP TEST- RESULT ONLY (01/30/2015 0:00 EDT) Pathology Report: CYTOPATHOLOGY REPORT Reports generated via electronic interface contain original data; however they are lacking the format of the original report. Caution should be taken when reading/interpreti ng unformatted reports. Name: ? TEGAN TELLEZ ? Accession #: ? [id number] : ? 1990 (Age: 24) ??F ?Collect Date: ? 01/30/2015 Location: ? [facility] ? Receive Date: ? 02/01/2015 Provider: ?SUE SANTOS FREELANCE DISPLAYER Copy to: ? Specimen/Source: ?Pap Test, Cervix/Endocervix, ThinPrep Imaging System with manual evaluation Last Menstrual Period: ? SPECIMEN ADEQUACY ? Satisfactory for Evaluation - transformation zone component present GENERAL CATEGORIZATION ? Negative for Intraepithelial Lesion or Malignancy ? Document reviewed and electronically signed by: ? Airam Murphy, CT(ASCP)(IAC) ? Report Date: ??02/12/2015 10:01 End of Report [facility] 01/30/2015 02/01/2015 Sue Santos NP PATHOLOGY ORDERABLES [facility] [address] [place] [address] documented in this encounter Visit Diagnoses Not on filedocumented in this encounter Care Teams Senior Billing Consultant Relationship Specialty Start Date End Date Arely Miller MD [address] [place] [address] PCP - General 05/22/10 documented as of this encounter
--- OUTSIDE RECORDS SUMMARY | 2024-07-08 09:58 | XMS_ITS | Encounter Summary ---
Author Organization [facility] [place] [address] Care Team Providers Care Sales Service Professional Name Role Phone None Primary Care Provider Unavailabl e Reason for Visit * Reason Onset Date Comments Other 10/01/2016 Other Encounter Details Date Type Department Care Team (Late st Contact Info) Description 10/01/2016 [place] [phone] Janiya Alvarez MD [facility] [place] [address] Other (Other) Social History Tobacco Use Types Packs/Day Years [...] on file documented as of this encounter Miscellaneous Notes * Telephone Encounter - Nayeli Roger RN - 10/01/2016 1:26 PM EST Voicemail received from Alma at [facility] stating that Medicaid denied the private ride to doctor's appts saying that they needed more information as to why the pt can't take a shuttle. Faxed revised letter to Alma at [phone]. * Telephone Encounter - Nayeli Roger RN - 10/01/2016 12:04 PM EST Call placed to [facility] at [phone] with voicemail reached. Left message asking for a return call regarding pt's ride to her doctor's office. * Telephone Encounter - Kellie Bledsoe - 10/01/2016 11:37 AM EST Caller: Toya If not Pt / Relation to pt: Best time to reach caller: Anytime - Pt has no preference Before 2:30pm - Informed caller that nurse will call back by the end of the day Best number to reach caller: [phone] After 230 pm (if not red arrow message) - Informed caller that if the nurse does not call back by the end of the day they will be called tomorrow AM Best number to reach caller: Reason for call: Patient called in today stating that her Medicaid Ride has canceled on her due to the office notes not being enough for Medicaid. Patient states that [facility] would like for us to call them at to discuss further to approve the Medicaid rides for the patient. documented in this encounter Plan of Treatment Not on file documented as of this encounter Visit Diagnoses Not on filedocumented in this encounter Care Teams Sales Service Professional Relationship Specialty Start Date End Date None None PCP - General 01/22/16 documented as of this encounter
--- OUTSIDE RECORDS SUMMARY | 2024-07-08 09:58 | XMS_ITS | Encounter Summary ---
Author Organization [facility] Address [address] [place] [address] Care Team Providers Care Abstracter Name Role Phone Arely Miller MD Primary Care Provider [phone] Encounter Details Date Type Department Care Team (Late st Contact Info) Description 09/03/2006 Results Only [facility] - Maple conversion [address] [place] [address] Tara Kan [id number] [place], [place] [id number] Social History Tobacco Use Types Packs/Day Years Used Date Smoking Tobacco: Never Assessed Sex and Gender Information Value Date Recorded Sex Assigned at Not on file Gender Identity Not on file Sexual Orientation Not on file documented as of this encounter Plan of Treatment Not on file documented as of this encounter Procedures Procedure Name Priority Date/Time Associated Diagnosis Comments SURGICAL PATHOLOGY Routine 09/03/2006 0:00 EST documented in this encounter Results * SURGICAL PATHOLOGY (09/03/2006 0:00 EST) Pathology Report: SURGICAL PATHOLOGY REPORT Reports generated via electronic interface contain original data; however they are lacking the format of the original report. Caution should be taken when reading/interpreting unformatted reports. Name: ? TELLEZTEGAN SAUNDERS ? Accession #: ? [id number] ? : ? 1990 (Age: 16) ??F ? Collect Date: ? 09/03/2006 ? Location: ? [facility] ? Receive Date: ? 09/06/2006 ? Provider: TARA TURNER Copy to: KORI HOLM MD ? Final Pathologic Diagnosis: ? Tissue passed from cervical os, removal: - Degenerated endometrial tissue with decidualization. ??See comment. Comment: ? Duct Maker sections have been reviewed at intradepartmental consultation conference. ??(Dr. Coleman)/[facility] Document reviewed and electronically signed by: LELA COLEMAN MD Report ??Date: 09/09/2006 14:47 By the signature above, the attending physician certifies that he/she has personally conducted a gross and/or microscopic examination of the described specimens and rendered or confirmed the above diagnosis. Specimen(s) Received: ? endometrial bx Clinical History: ? S/P vaginal del. 05/28/06. Cervical lac that extended into lower uterine segment. Repaired successfully. Patient had endometritis day #14. Tx with ??ABX successfully. F/U visit wnl. Patient passed this tiss.08/31. Exam 09/[address] Callum bejarano path. Patient on Depo 150 mg IM. Gross Description: ? Received in formalin labelled Tellez and ? endometrial bx is a 5.0 x 3.0 x 2.0 saccular khan-brown piece of tissue. ??Duct Maker sections are submitted as (A1)-(A3). (Salinas Martinez)/[facility] End of Report [facility] 09/03/2006 09/06/2006 8:3 1 EST Tara Kan [facility] PATHOLOGY ORDERABLES [facility] [address] [place] [address] documented in this encounter Visit Diagnoses Not on filedocumented in this encounter Care Teams Abstracter Relationship Specialty Start Date End Date Arely Miller MD [address] [place] [address] PCP - General 05/22/10 documented as of this encounter
--- OUTSIDE RECORDS SUMMARY | 2024-07-08 09:58 | XMS_ITS | Encounter Summary ---
Author Organization [facility] [place] [address] Care Team Providers Care Assistant Research Scientist Name Role Phone None Primary Care Provider Unavailabl e Reason for Visit * Reason Onset Date Comments Other 06/16/2017 Encounter Details Date Type Department Care Team (Late st Contact Info) Description 06/16/2017 [place] [phone] Chetan Owen MD [facility] [place] [address] Other Social History Tobacco Use Types Packs/Day Years [...] encounter Miscellaneous Notes * Telephone Encounter - Elizabeth Hays RN - 06/21/2017 10:43 AM EDT Tecfidera start form mailed to patient on 06/21/17 for review and signature. Pt was supplied with pre stamped/[facility] addressed envelope to return to us. MY D-H message also sent to pt informing her of this. * Telephone Encounter - Elizabeth Hays RN - 06/16/2017 4:[address] Owen: Can we work on starting dimethyl fumarate for this patient? 120 mg BID for 1 week, then maintenance 240 mg BID. Has depression and anxiety as side effects of current glatiramer. I attempted to phone pt to review tecfidera. We will also need to mail her a form to sign and mail back. I need to review this on the phone with her prior to mailing out. I have tried to call severaltimes. I left message on cell phone to call back [phone]. I attempted to phone home number listed in chart and it states this number is not reachable. Will wait for pt to call back. documented in this encounter Plan of Treatment Not on file documented as of this encounter Visit Diagnoses Not on filedocumented in this encounter Care Teams Assistant Research Scientist Relationship Specialty Start Date End Date None None PCP - General 01/22/16 documented as of this encounter
--- OUTSIDE RECORDS SUMMARY | 2024-07-08 09:58 | XMS_ITS | Encounter Summary ---
Author Organization [place] [address] Care Team Providers Care Client Care Representative Name Role Phone None Primary Care Provider Unavailabl e Reason for Visit * Reason Onset Date Comments Other 06/30/2017 Encounter Details Date Type Department Care Team (Late st Contact Info) Description 06/30/2017 [place] [phone] Chetan Owen MD [facility] [place] [place] [address] Other Social History Tobacco Use Types Packs/Day [...] Telephone Encounter - Elizabeth Hays RN - 07/02/2017 9:[address] Owen has reviewed and aware. * Telephone Encounter - Elizabeth Hays RN - 07/01/2017 12:28 PM EDT Pt phoned back. She states she reviewed the information on the tecfidera. She doesn't want to change to that right now. She states she would like to stay on the copaxone a little longer and keep track of how she feels on it. Plan: as above and I will forward to Dr. Owen. * Telephone Encounter - Elizabeth Hays RN - 07/01/2017 9:07 AM EDT I attempted to phone pt. There was no answer. Message left on voice mail to call back [phone]. * Telephone Encounter - Delisa Watkins - 06/30/2017 1:21 PM EDT Caller: Toya Best time to reach caller: anytime Before 2:30pm - Informed caller that nurse will call back by the end of the day Best number to reach caller: [phone] Reason for call: patient called. She has read through the pamphlet for the new medication (Tecfidera ) and she would like to stay on the old medication because of the side effects. Please call to discuss. documented in this encounter Plan of Treatment Not on file documented as of this encounter Visit Diagnoses Not on filedocumented in this encounter Care Teams Client Care Representative Relationship Specialty Start Date End Date None None PCP - General 01/22/16 documented as of this encounter
--- OUTSIDE RECORDS SUMMARY | 2024-07-08 09:58 | XMS_ITS | Referral Summary ---
Author Organization [facility] Address [address] [place] [address] Care Team Providers Care Justice Professor Name Role Phone Arely Miller MD Primary Care Provider [phone] Social History Tobacco Use Types Packs/Day Years Used Date Smoking Tobacco: Never Assessed Sex and Gender Information Value Date Recorded Sex Assigned at Not on file Gender Identity Not on file Sexual Orientation Not on file Plan of Treatment Not on file Care Teams Justice Professor Relationship Specialty Start Date End Date Arely Miller MD [address] [place] [address] PCP - General 05/22/10
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
--- OUTSIDE RECORDS SUMMARY | 2024-07-08 09:58 | XMS_ITS | Encounter Summary ---
Author Organization [facility] Address [address] [place] [address] Care Team Providers Care Orchestra Conductor Name Role Phone Arely Miller MD Primary Care Provider Encounter Details Date Type Department Care Team (Late st Contact Info) Description 03/14/2020 Lab Requisition [facility] Pathology & Laboratory Medicine - [facility] [address], [place] [id number] Outr Resulting Lab, Provider Social History Tobacco Use Types Packs/Day Years Used Date Smoking Tobacco: Never Assessed Sex and Gender Information Value Date Recorded Sex Assigned at Not on file Gender Identity Not on file Sexual Orientation Not on file documented as of this encounter Plan of Treatment Not on file documented as of this encounter Procedures Procedure Name Priority Date/Time Associated Diagnosis Comments ZZCOVID-19 TEST [facility] PCR Today 03/14/2020 6:21 EDT COVID-19 TESTING Routine 03/14/2020 6:21 EDT documented in this encounter Results * COVID-19 TEST [facility] PCR (03/14/2020 6:21 EDT) Swab ENTIRE NASOPHARYNX / Unknown 03/14/2020 6:21 EDT 03/14/2020 8:48 EDT Provider Outr Resulting Lab MICROBIOLOGY - GENERAL ORDERABLES [facility] [address] [place] [address] * COVID-19 TESTING (03/14/2020 6:21 EDT) COVID-19 rt-PCR Result Negative Negative 03/14/2020 11:41 EDT [facility] Comment: This test has not been FDA cleared or approved. This test has been authorized by FDA under an EUA for use by authorized laboratories. This test has been authorized only for detection of nucleic acid from 2019-nCoV, not for any other viruses or pathogens. This test is only authorized for the duration of the declaration that circumstances exist justifying the authorization of emergency use of in vitro diagnostic tests for detection and/or diagnosis of 2019-nCoV under section 564(b)(1) of Act, 21 U.S.C ?? 360bbb-3(b) (1), unless the authorization is terminated or revoked sooner. Negative results do not preclude 2019-nCoV infection and should not be used as the sole basis for treatment or other patient management decisions. Negative results must be combined with clinical observations, patient history, and epidemiological information. Performed on the [employer] Fusion instrument Performing Lab [place] [facility] Lab 03/14/2020 11:41 EDT [facility] Swab 03/14/2020 6:21 EDT 03/14/2020 8:48 EDT Provider Outr Resulting Lab MICROBIOLOGY - GENERAL ORDERABLES [facility] [address] [place] [address] documented in this encounter Visit Diagnoses Not on filedocumented in this encounter Care Teams Orchestra Conductor Relationship Specialty Start Date End Date Arely Miller MD [address] [place] [place] [id number] PCP - General 05/22/10 documented as of this encounter
--- OUTSIDE RECORDS SUMMARY | 2024-07-08 09:58 | XMS_ITS | Encounter Summary ---
Author Organization [facility] Address [facility] [place] [address] Care Team Providers Care Chemical Production Engineer Name Role Phone None Primary Care Provider Unavailabl e Encounter Details Date Type Department Care Team (Late st Contact Info) Description 07/28/2018 [place] [address] Ced Lake MD [facility] [place] [address] Social History Tobacco Use Types Packs/Day Years [...] Telephone Encounter - Elizabeth Hays RN - 08/02/2018 12:[address] Lake reviewed and okay to place neurology referral to [facility]. Referral placed. Will ask legal secretary receptionist to fax with recent office note. I attempted to phone pt. There was no answer. Message left on voice mail regarding above. * Telephone Encounter - Elizabeth Hays RN - 08/02/2018 10:54 AM EST I phoned pt back. She is looking for a referral to neurology at [facility]. She states she really needs to be closer to home stating it is difficult for her to get here. I will forward to Dr. Lake. * Telephone Encounter - Elizabeth Hays RN - 07/28/2018 2:08 PM EST I attempted to phone pt to discuss. There was no answer. Message left on voice mail to call back [phone]. * Telephone Encounter - Catalina Gentile - 07/28/2018 12:48 PM EST Clinical Marionette Performer Message Caller: Patient If not Pt / Relation to pt: Callback number: [phone] Best time to reach caller: anytime Reason for call: Lab/Test/Referral order for outside facility Lab/Test/Referral being requested: Neurology Facility Requested: [facility] Facility/Department Name: Neurology Fax #: Does not have Other Info: She would like to see Dr. Baca. Disposition of Call: ?? Orders are not in chart - message sent to nurse documented in this encounter Plan of Treatment Not on file documented as of this encounter Visit Diagnoses Not on filedocumented in this encounter Care Teams Chemical Production Engineer Relationship Specialty Start Date End Date None None PCP - General 01/22/16 documented as of this encounter
--- OUTSIDE RECORDS SUMMARY | 2024-07-08 09:58 | XMS_ITS | Encounter Summary ---
Author Organization [facility] [place] [address] Care Team Providers Care Italian Lecturer Name Role Phone None Primary Care Provider Unavailabl e Encounter Details Date Type Department Care Team (Late st Contact Info) Description 02/11/2018 [place] [address] Dewayne Montes Social History Tobacco Use Types Packs/Day Years [...] on filedocumented in this encounter Care Teams Italian Lecturer Relationship Specialty Start Date End Date None None PCP - General 01/22/16 documented as of this encounter
--- OUTSIDE RECORDS SUMMARY | 2024-07-08 09:58 | XMS_ITS | Clinical Summary ---
Author Organization [facility] Address [facility] [address] Care Team Providers Care Vacuum Conditioner Operator Name Role Phone None Primary Care Provider Unavailabl e Allergies No known active allergies Medications Medication Sig Dispensed Refills Start Date End Date Status methylphenidate (RITALIN) 10 mg Tablet Take 10 mg by mouth 4 times daily. Active buPROPion (WELLBUTRIN SR) 100 mg Tablet Sustained Release Take 1 tablet by mouth 3 times daily. Active METHADONE HCL (METHADONE ORAL) Take 20 mg by mouth daily. Liquid. Active traZODone (DESYREL) 100 mg Tablet Take 1 tablet by mouth nightly as needed. 0 01/18/2016 Active gabapentin (NEURONTIN) 600 mg Tablet Take 1 tablet by mouth 3 times daily. 0 06/02/2017 Active gabapentin (NEURONTIN) 300 mg Capsule Take 300 mg by mouth nightly. Active glatiramer (COPAXONE) 40 mg/mL Syringe Inject 40 mg subcutaneously three times a week. 36 Syringe 09/16/2018 Active escitalopram (Lexapro) 10 mg Tablet TAKE 1 TABLET BY MOUTH EVERY MORNING 30 tablet 1 06/04/2021 Active OLANZapine (ZyPREXA) 5 mg Tablet TAKE 1 TABLET BY MOUTH AT BEDTIME 30 tablet 1 06/04/2021 Active propranoloL (Inderal) 10 mg Tablet TAKE 2 TABLETS BY MOUTH TWICE DAILY 120 tablet 1 06/04/2021 Active Active Problems Problem Noted Date Diagnosed Date MS (multiple sclerosis) 09/15/2017 Social History Tobacco Use Types Packs/Day Years Used Date Smoking Tobacco: Former Cigarettes 1 5 0 02/11/2005 - 02/11/2010 Smokeless Tobacco: Never Tobacco Cessation:Counseling Given: No Alcohol Use Standard Drinks/Week Comments No 0 (1 standard drink = 0.6 oz pur e alcohol) Sex and Gender Information Value Date Recorded Sex Assigned at Not on file Gender Identity Not on file Sexual Orientation Not on file Last Filed Vital Signs Vital Sign Reading Time Taken Comments Blood Pressure 140/99 02/11/2018 9:21 AM EDT Pulse 92 02/11/2018 9:21 AM EDT Temperature 37.1 ??C (98.7 ??F) 06/26/2015 8:58 AM ED T Respiratory Rate 18 06/14/2017 1:07 PM EDT Oxygen Saturation 100% 06/26/2015 11:46 AM EDT Inhaled Oxygen Concentration - - Weight 60.9 kg (134 lb 3.2 oz) 02/11/2018 9:21 A M EDT Height 171.5 cm (5' 7.5) 02/11/2018 9:21 AM EDT reported Body Mass Index 20.71 02/11/2018 9:21 AM EDT Plan of Treatment Health Maintenance Due Date Last Done Comments Tetanus/Diphtheria/Pertussis Vaccines (1 - Tdap) 06/29 HPV test 2018 PAP Smear 2018 Covid-19 Vaccine ( - season) 2024 Influenza (Flu) vaccine (1 o f 1 - Influenza standard series) 05/21/2024 HIV screen Completed 12/14/2014 Hepatitis C Screening Completed 12/14/2014 Procedures Procedure Name Priority Date/Time Associated Diagnosis Comments HIV SCREEN, 4TH GENERATION ([facility] [place]) Routine 12/14/2014 2:25 PM EDT HEPATITIS C ANTIBODY Routine 12/14/2014 2:25 PM EDT from Last 3 Months or Most Recently Relevant to Health Maintenance Results * Hepatitis C Antibody (12/14/2014 2:25 PM EDT) Pathologist [facility] Hepatitis C Antibody Negative Negative [facility] Blood specimen (specimen) Venous Draw / Unknown 12/14/2014 2:25 PM EDT 12/14/2014 2:51 PM EDT Narrative Resulting Agency Comment Spec In Lab Ja Degroot MD CHEMISTRY ORDERA BLES [facility] * HIV Screen, 4th Generation (12/14/2014 2:25 PM EDT) HIV Ab/Ag Screen Negative Negative [facility] Comment: This 4th Generation HIV test screens for the presence of the HIV-1 p24 antigen as well as antibodies reactive against HIV-1 and HIV-2. A negative screen does not rule out an acute HIV infection. If acute HIV infection is suspected, testing should be repeated in 2 - 3 weeks or HIV nucleic acid testing performed. Blood specimen (specimen) 12/14/2014 2:25 PM EDT 12/14/2014 2:32 PM EDT Narrative Resulting Agency Comment Spec In Lab Ja Degroot MD CHEMISTRY ORDERA BLES Performing Organization Address City/[facility] Co de Phone Number [facility] from Last 3 Months or Most Recently Relevant to Health Maintenance Advance Directives * Full Code (Latest Code Status on File) Date Activated Date Inactivated Comments 12/14/2014 12:13 AM 12/19/2014 1:47 PM Question Answer Comments Order Status: Initial Order Does patient have decision m aking capacity? Yes, Order is based on Patients wishes. Care Teams Vacuum Conditioner Operator Relationship Specialty Start Date End Date None None PCP - General 01/22/16
--- OUTSIDE RECORDS SUMMARY | 2024-07-08 09:58 | XMS_ITS | Encounter Summary ---
Author Organization [facility] [place] [address] Care Team Providers Care Mixer And Scaler Name Role Phone None Primary Care Provider Unavailabl e Reason for Visit * Reason Onset Date Comments Prior Authorization 04/29/2017 COPAXONE 40M G APPROVED 05/06/17-05/06/18 Encounter Details Date Type Department Care Team (Late st Contact Info) Description 04/29/2017 [place] [address] Janiya Alvarez MD [facility] [place] [address] Prior Authorization (COPAXONE 40MG APPROVED 05/06/17-05/06/18) Social History Tobacco Use Types Packs/Day Years [...] Telephone Encounter - Elizabeth Hays RN - 05/10/2017 10:55 AM EDT I attempted to phone pt back. Just informing her that copaxone approved. If pt calls back it can bepassed on to her that medication approved. * Telephone Encounter - Catalina Gentile - 05/10/2017 10:28 AM EDT Patient had called into the Neurology office while Henny Isabel called her but she is off and ready for a call back. * Telephone Encounter - Elizabeth Hays RN - 05/10/2017 10:23 AM EDT I attempted to phone pt back. There was no answer and her voice mail has not been set up so was notable to leave message. Was going to inform pt that copaxone has been approved. * Telephone Encounter - Toyin Gonzalez - 05/10/2017 10:06 AM EDT COPAXONE 40MG APPROVED 05/06/17-05/06/18 TRACKING #: [id number] PA #: [id number] QT/DAY SUPPLY: 09/16 * Telephone Encounter - Toyin Gonzalez - 05/06/2017 4:34 PM EDT RENEWAL PA FOR COPAXONE 40MG FAXED TO [facility] [employer]. * Telephone Encounter - Sofia Smith - 04/29/2017 10:20 AM EDT Caller: Toya If not Pt / Relation to pt: Caller Contact Number: [phone] Medication requiring PA: copaxone Pharmacy Coverage Company: [facility] Coverage ID #: Pharmacy Coverage Company Phone Number: Pharmacy used by patient: [facility] BIN#: PCN# : Before 2:30pm - Informed caller that nurse will call back by the end of the day Patient did not have her card with her. Obtained all information that she could give me on the call. After 230 pm - Informed caller that if the nurse does not call back by the end of the day they willbe called tomorrow AM - Best number for tomorrow am: documented in this encounter Plan of Treatment Not on file documented as of this encounter Visit Diagnoses Not on filedocumented in this encounter Care Teams Mixer And Scaler Relationship Specialty Start Date End Date None None PCP - General 01/22/16 documented as of this encounter
--- OUTSIDE RECORDS SUMMARY | 2024-07-08 09:58 | XMS_ITS | Encounter Summary ---
Author [facility] [place] [address] Care Team Providers Care Histologist Name Role Phone None Primary Care Provider Unavailabl e Reason for Visit * Reason Onset Date Comments Prior Authorization 05/10/2018 COPAXONE 40M G APPROVED 05/24/18-05/24/19 Encounter Details Date Type Department Care Team (Late st Contact Info) Description 05/10/2018 [place] [address] Ced Lake MD [facility] [place] [address] Prior Authorization (COPAXONE 40MG APPROVED 05/24/18-05/24/19) Social History Tobacco Use Types Packs/Day Years [...] encounter Miscellaneous Notes * Telephone Encounter - Toyin Gonzalez - 05/25/2018 9:16 AM EDT Images from the original note were not included. * Telephone Encounter - Toyin Gonzalez - 05/24/2018 11:11 AM EDT FORM SIGNED AND FAXED BACK. * Telephone Encounter - oTyin Gonzalez - 05/24/2018 11:11 AM EDT Images from the original note were not included. * Telephone Encounter - Toyin Gonzalez - 05/19/2018 3:14 PM EDT RENEWAL PA FOR COPAXONE 40MG FAXED TO [employer]. * Telephone Encounter - Catalina Gentile - 05/10/2018 4:17 PM EDT Caller: Angie If not Pt / Relation to pt: Field Service Rep For Robin Best time to reach caller: anytime till 5:00pm After 230 pm (if not red arrow message) - Informed caller that if the nurse does not call back by the end of the day they will be called tomorrow AM Best number to reach caller: [phone] Reason for call: Angie states that the patient's Copaxxone requires a PA. SHe states that she can dothe PA but will need the Office notes or she can initiate the PA and send to this office to finish.She would like to know how to proceed. documented in this encounter Plan of Treatment Not on file documented as of this encounter Visit Diagnoses Not on filedocumented in this encounter Care Teams Histologist Relationship Specialty Start Date End Date None None PCP - General 01/22/16 documented as of this encounter
--- OUTSIDE RECORDS SUMMARY | 2024-07-08 09:58 | XMS_ITS | Encounter Summary ---
Author Organization [facility] Address [address] [place] [address] Care Team Providers Care Dull Coat Mill Operator Name Role Phone Arely Miller MD Primary Care Provider [phone] Encounter Details Date Type Department Care Team (Late st Contact Info) Description 01/31/2007 Results Only [facility] [address] [place] [address] Tara Echavarria [place] [id number] [place], [place] [id number] Social History Tobacco Use Types Packs/Day Years Used Date Smoking Tobacco: Never Assessed Sex and Gender Information Value Date Recorded Sex Assigned at Not on file Gender Identity Not on file Sexual Orientation Not on file documented as of this encounter Plan of Treatment Not on file documented as of this encounter Procedures Procedure Name Priority Date/Time Associated Diagnosis Comments CYTOPATHOLOGY Routine 01/31/2007 0:00 EDT documented in this encounter Results * CYTOPATHOLOGY (01/31/2007 0:00 EDT) Pathology Report: CYTOPATHOLOGY REPORT Reports generated via electronic interface contain original data; however they are lacking the format of the original report. Caution should be taken when reading/interpreti ng unformatted reports. Name: ? TEGAN TELLEZ ? Accession #: ? [id number] : ? 1990 (Age: 16) ??F ?Collect Date: ? 01/31/2007 Location: ? [facility] ? Receive Date: ? 02/01/2007 Provider: ?TARA ECHAVARRIA CNM Copy to: ? Specimen/Source: ?ThinPrep Pap Test, Cervix/Endocervix, processed on [employer] ThinPrep Imaging System, with manual evaluation Last Menstrual Period: ? 12/16/06 Menstrual/Pregnanc y Status: ? Hormonal/Contracep tive Status: ? Oral contraceptives Previous Gynecologic Pathology: ? HSIL: 11/27/05 ASC-US: Cannot exclude HSIL 03/04/06 ASC-US: 07/09/06 Treatment History: ? Colposcopy: 12/10/05 ? SPECIMEN ADEQUACY ? Satisfactory for Evaluation - transformation zone component present GENERAL CATEGORIZATION ? Negative for Intraepithelial Lesion or Malignancy ? Document reviewed and electronically signed by: ? DAVID Gomes(ASCP) ? Report Date: ??02/02/2007 16:15 End of Report [facility] 01/31/2007 02/01/2007 Tara Echavarria CNM PATHOLOGY ORDERABLES [facility] [address] [place] [address] documented in this encounter Visit Diagnoses Not on filedocumented in this encounter Care Teams Dull Coat Mill Operator Relationship Specialty Start Date End Date Arely Miller MD [address] [place] [address] PCP - General 05/22/10 documented as of this encounter
--- OUTSIDE RECORDS SUMMARY | 2024-07-08 09:58 | XMS_ITS | Encounter Summary ---
Author Organization [facility] Address [address] [place] [address] Care Team Providers Care Machine Staker Name Role Phone Arely Miller MD Primary Care Provider [phone] Encounter Details Date Type Department Care Team (Late st Contact Info) Description 03/13/[address] [facility] [address] [place] [address] [place], [place] [address] Social History Tobacco Use Types Packs/Day Years Used Date Smoking Tobacco: Never Assessed Sex and Gender Information Value Date Recorded Sex Assigned at Not on file Gender Identity Not on file Sexual Orientation Not on file documented as of this encounter Plan of Treatment Not on file documented as of this encounter Procedures Procedure Name Priority Date/Time Associated Diagnosis Comments CYTOPATHOLOGY Routine 03/13/2008 0:00 EDT documented in this encounter Results * CYTOPATHOLOGY (03/13/2008 0:00 EDT) Pathology Report: CYTOPATHOLOGY REPORT Reports generated via electronic interface contain original data; however they are lacking the format of the original report. Caution should be taken when reading/interpreti ng unformatted reports. Name: ? TEGAN TELLEZ ? Accession #: ? [id number] : ? 1990 (Age: 17) ??F ?Collect Date: ? 03/13/2008 Location: ? [facility] ? Receive Date: ? 03/14/2008 Provider: ?ALMA MAYS WILIAN Copy to: ? Specimen/Source: ?ThinPrep Pap Test, Cervix/Endocervix, processed on [employer] ThinPrep Imaging System, with manual evaluation Last Menstrual Period: ? 05/06/07 Menstrual/Pregnanc y Status: ? Post Previous Gynecologic Pathology: ? HSIL: 11/23 ASC-US: 02/23 cannot exclude HSIL,06/25 Treatment History: ? Colposcopy: 12/10/05 Other: ? Additional clinical information: 01/31/07 neg. pap ? SPECIMEN ADEQUACY ? Satisfactory for Evaluation - transformation zone component present GENERAL CATEGORIZATION ? Negative for Intraepithelial Lesion or Malignancy ? Document reviewed and electronically signed by: ? DAVID Gomes(ASCP) ? Report Date: ??03/15/2008 13:25 End of Report [facility] 03/13/2008 03/14/2008 Alma Dustin CEDENO PATHOLOGY ORDERABLES [facility] [address] [place] [address] documented in this encounter Visit Diagnoses Not on filedocumented in this encounter Care Teams Machine Staker Relationship Specialty Start Date End Date Arely Miller MD [address] [place] [address] PCP - General 05/22/10 documented as of this encounter
--- OUTSIDE RECORDS SUMMARY | 2024-07-08 09:58 | XMS_ITS | Encounter Summary ---
Author [facility] [address] Care Team Providers Care Jewelry Drill Operator Name Role Phone None Primary Care Provider Unavailabl e Reason for Visit * Reason Onset Date Comments Other 10/09/2016 Encounter Details Date Type Department Care Team (Late st Contact Info) Description 10/09/2016 Tele[place] [address] Janiya Alvarez MD [facility] [place] [address] Other Social History Tobacco Use Types Packs/Day [...] Telephone Encounter - Nayeli Roger RN - 10/09/2016 9:16 AM EST Forwarded letter on to Dr. Alvarez to sign. Will fax to [facility] ([place] Medicaid) at [phone]. * Telephone Encounter - Sofia Smith - 10/09/2016 8:48 AM EST Caller: Toya If not Pt / Relation to pt: Best time to reach caller: anytime Before 2:30pm - Informed caller that nurse will call back by the end of the day Best number to reach caller: [phone] Reason for call: Patient called stating that she now needs a letter to Medicaid stating that she needs a ride to all health appointments due to her MS. Please call patient to get fax number and address. She did not have it at the time. documented in this encounter Plan of Treatment Not on file documented as of this encounter Visit Diagnoses Not on filedocumented in this encounter Care Teams Jewelry Drill Operator Relationship Specialty Start Date End Date None None PCP - General 01/22/16 documented as of this encounter
--- OUTSIDE RECORDS SUMMARY | 2024-07-08 09:58 | XMS_ITS | Encounter Summary ---
Author Organization [facility] [place] [address] Care Team Providers Care Sebd Teacher Name Role Phone None Primary Care Provider Unavailabl e Reason for Visit * Reason Onset Date Comments Letter Request From Patient 09/09/2016 Encounter Details Date Type Department Care Team (Late st Contact Info) Description 09/09/2016 [place] [id number] Janiya Alvarez MD [facility] [place] [address] Letter Request From Patient Social History Tobacco Use Types Packs/Day Years [...] Telephone Encounter - Nayeli Roger RN - 09/15/2016 3:12 PM EST Letter faxed. * Telephone Encounter - Nayeli Roger RN - 09/09/2016 11:34 AM EST Forwarded letter on to Dr. Alvarez to sign. [facility] at [phone]. * Telephone Encounter - Dewayne Montes - 09/09/2016 11:12 AM EST Caller: Pt If not Pt / Relation to pt: Caller Contact Number: [phone] Best time to reach pt back: any Reason for call: Patient stated that she receives RCT rides and that they are ending these on Wednesday. Patient stated that she needs a letter of medical necessity for these that establish that she hasMS so that she can continue to get these rides. Patient stated that this is very important and asked for it to be done as soon as possible. Before 2:30pm - Informed caller that nurse will call back by the end of the day After 230 pm - Informed caller that if the nurse does not call back by the end of the day they willbe called tomorrow AM - Best number for tomorrow am: documented in this encounter Plan of Treatment Not on file documented as of this encounter Visit Diagnoses Not on filedocumented in this encounter Care Teams Sebd Teacher Relationship Specialty Start Date End Date None None PCP - General 01/22/16 documented as of this encounter
--- OUTSIDE RECORDS SUMMARY | 2024-07-08 09:58 | XMS_ITS | Encounter Summary ---
Author Organization [facility] [place] [address] Care Team Providers Care Core Composer Feeder Name Role Phone None Primary Care Provider Unavailabl e Reason for Visit * Reason Onset Date Comments Medication Refill 08/30/2017 Encounter Details Date Type Department Care Team (Late st Contact Info) Description 08/30/2017 [place] [address] Chetan Owen MD [facility] [place] [address] Social History Tobacco Use Types Packs/Day Years [...] on filedocumented in this encounter Care Teams Core Composer Feeder Relationship Specialty Start Date End Date None None PCP - General 01/22/16 documented as of this encounter
--- OUTSIDE RECORDS SUMMARY | 2024-07-08 09:58 | XMS_ITS | Encounter Summary ---
Author Organization [facility] [place] [address] Care Team Providers Care Shuttle Inspector Name Role Phone None Primary Care Provider Unavailabl e Reason for Visit * Reason Onset Date Comments Other 06/22/2016 Encounter Details Date Type Department Care Team (Late st Contact Info) Description 06/22/2016 [place] [id number] Janiya Alvarez MD [facility] [place] [address] Other Social History Tobacco Use Types Packs/Day [...] encounter Miscellaneous Notes * Telephone Encounter - Janiya Alvarez MD - 06/22/2016 4:52 PM EDT 4:52 PM Have tried calling ed's phone multiple times, automated no answer. Will try [facility] provider tomorrow morning if i still don't hear from her. If she calls overnight, overnight resident is to call my cell phone. Plan - Attempt to see patient prior to MRI for H&P (not sure if writing abbreviated versions is allowed) Then will have second half of appointment following MRI Will discuss with ed about general sedation, last time she did well with mild. * Telephone Encounter - Reyna Hood - 06/22/2016 11:28 AM EDT Caller: Ed If not Pt / Relation to pt: Caller Contact Number: [phone] Best time to reach pt back: any time Reason for call: Patient called to schedule MRI , because she requires IV sedation which requires an H & P. Patient doesn't have a PCP, I advised her to call local offices to establish care. She would like to speak to Dr. Alvarez, she didn't want to scheduled a follow up at this time. Before 2:30pm - Informed caller that nurse [...] on filedocumented in this encounter Care Teams Shuttle Inspector Relationship Specialty Start Date End Date None None PCP - General 01/22/16 documented as of this encounter
--- OUTSIDE RECORDS SUMMARY | 2024-07-08 09:58 | XMS_ITS | Encounter Summary ---
Author Organization [facility] [place] [address] Care Team Providers Care Carrier Driver Name Role Phone None Primary Care Provider Unavailabl e Reason for Visit * Reason Onset Date Comments Medication Refill 04/29/2017 Encounter Details Date Type Department Care Team (Late st Contact Info) Description 04/29/2017 Telephone [place] [address] Janiya Alvarez MD [facility] [place] [address] Medication Refill Social History Tobacco Use Types Packs/Day Years [...] Telephone Encounter - Elizabeth Hays RN - 04/29/2017 10:37 AM EDT New rx generated for provider review and signature to clinic attending and marked urgent. * Telephone Encounter - Sofia Smith - 04/29/2017 10:17 AM EDT Caller: Toya If not Pt / Relation to pt: Best time to reach caller if there are questions with medication refill request: Best number to reach caller if needed: [phone] Name of Med: copaxone Strength of Pills:40 mg /ml syringe Dosing Directions: inject 40 mg subcutaneously three times a week 30 or 90 Day: 30 Pharmacy: [facility] Last Appointment:02/13/16 Next Appointment:05/11/17 Is Patient out of Medication?:yes documented in this encounter Plan of Treatment Not on file documented as of this encounter Visit Diagnoses Not on filedocumented in this encounter Care Teams Carrier Driver Relationship Specialty Start Date End Date None None PCP - General 01/22/16 documented as of this encounter
--- OUTSIDE RECORDS SUMMARY | 2024-07-08 09:58 | XMS_ITS | Encounter Summary ---
Author Organization [facility] Address [address] [place] [address] Care Team Providers Care Digital Producer Name Role Phone Unavailable Primary Care Provider Aly e Encounter Details Date Type Department Care Team (Late st Contact Info) Description 07/09/2006 Results Only [facility] [address] [place] [address] Tara Echavarria CNM [facility] [address] [place], [place] [id number] Social History Tobacco Use Types Packs/Day Years Used Date Smoking Tobacco: Never Assessed Sex and Gender Information Value Date Recorded Sex Assigned at Not on file Gender Identity Not on file Sexual Orientation Not on file documented as of this encounter Plan of Treatment Not on file documented as of this encounter Procedures Procedure Name Priority Date/Time Associated Diagnosis Comments HPV DETECTION, HIGH RISK TYPES Routine 07/09/2006 11:50 EDT CYTOPATHOLOGY Routine 07/09/2006 0:00 EDT documented in this encounter Results * HUMAN PAPILLOMA VIRUS DNA TEST (07/09/2006 11:50 EDT) Specimen Description Cervix, ThinPrep vial [facility] Result Positive for one or more of HPV types 16,18,31,33,35 ,39,45,51,52,5 6,58,59, or 68. These high/intermedi ate risk HPV types are associated with dysplasia and some cervical cancers. [facility] Report Status Final [id number] [facility] 07/09/2006 11:5 0 EDT 07/19/2006 9:50 EST Tara Echavarria CNM MICROBIOLOGY - GENER AL ORDERABLES [facility] [address] [place] [address] * CYTOPATHOLOGY (07/09/2006 0:00 EDT) Pathology Report: CYTOPATHOLOGY REPORT Reports generated via electronic interface contain original data; however they are lacking the format of the original report. Caution should be taken when reading/interpreti ng unformatted reports. Name: ? TEGAN TELLEZ ? Accession #: ? [id number] : ? 1990 (Age: 16) ??F ?Collect Date: ? 07/09/2006 Location: ? [facility] ? Receive Date: ? 07/12/2006 Provider: ?TARA ECHAVARRIA CNM Copy to: ? Specimen/Source: ?ThinPrep Pap Test, Cervix/Endocervix, processed on Parallel UniversePrep Imaging System, with manual evaluation Last Menstrual Period: ? 08/18/05 Menstrual/Pregnanc y Status: ? Post Previous Gynecologic Pathology: ? HSIL: 11/27/05 ASC-US: cannot exclude HSIL 03/04/06 Treatment History: ? Colposcopy: 12/10/05 not verified by [facility] Other: ? HPVA - HPV testing requested if ASC-US on the current ThinPrep Pap test. ? SPECIMEN ADEQUACY ? Satisfactory for Evaluation - transformation zone component present GENERAL CATEGORIZATION ? Epithelial Cell Abnormality INTERPRETATION ? Squamous Cell Abnormality - Atypical squamous cells, undetermined significance. EDUCATIONAL NOTES/RECOMMENDATI ONS ? [facility] recommends following the 2001 Consensus Guidelines for the Management of Women with Cervical Cytological Abnormalities (CRISTIAN,2002;287:212 0-9). Management algorithms have been distributed by [facility] and are available online at www.ASCCP.org. ? Document reviewed and electronically signed by: ? Laurita Currie MD ? Report Date: ??07/16/2006 13:33 End of Report [facility] 07/09/2006 07/12/2006 Tara Echavarria CNM PATHOLOGY ORDERABLES Performing Organization Address City/State/[facility] Co de Phone Number [facility] [address] [place] [address] documented in this encounter Visit Diagnoses Not on filedocumented in this encounter
--- OUTSIDE RECORDS SUMMARY | 2024-07-08 09:58 | XMS_ITS | Encounter Summary ---
Author Organization [facility] Address [facility] [place] [address] Care Team Providers Care Boat Loader Name Role Phone None Primary Care Provider Unavailabl e Reason for Visit * Reason Onset Date Comments Other 09/30/2016 Encounter Details Date Type Department Care Team (Late st Contact Info) Description 09/30/2016 [place] [phone] Janiya Alvarez MD [facility] [place] [address] Other Social History Tobacco Use Types Packs/Day [...] Encounter - Nayeli Roger RN - 10/01/2016 9:04 AM EST Call placed to pt letting her know that a letter had been faxed to [facility] on 09/15. She was grateful for this information and will call them to schedule a ride. She also asked for information about a medical ID bracelet. Sent her two brochures for the ID jewelry, along with brochures from the [employer] and the [employer] for financial assistance. * Telephone Encounter - O'Carlos Alberto, Wilfred A - 09/30/2016 3:36 PM EST Caller: Patient via VOICEMAIL @ 9:31am on 09/30/16 Best time to reach caller: Did not state Before 2:30pm Best number to reach caller: [phone] Reason for call: Patient called because she states that her [facility] ([facility]) situation has still not been sorted out. documented in this encounter Plan of Treatment Not on file documented as of this encounter Visit Diagnoses Not on filedocumented in this encounter Care Teams Boat Loader Relationship Specialty Start Date End Date None None PCP - General 01/22/16 documented as of this encounter
--- OUTSIDE RECORDS SUMMARY | 2024-07-08 09:58 | XMS_ITS | Encounter Summary ---
Author Organization [facility] [place] [address] Care Team Providers Care Leadership Development Instructor Name Role Phone None Primary Care Provider Unavailabl e Reason for Visit * Reason Onset Date Comments Medication Refill 03/10/2017 Encounter Details Date Type Department Care Team (Late st Contact Info) Description 03/10/2017 [place] [address] Sanchez Harrison MD [facility] [place] [address] Social History Tobacco Use Types Packs/Day Years [...] on filedocumented in this encounter Care Teams Leadership Development Instructor Relationship Specialty Start Date End Date None None PCP - General 01/22/16 documented as of this encounter
--- OUTSIDE RECORDS SUMMARY | 2024-07-08 09:59 | XMS_ITS | Encounter Summary ---
[place] [address] Care Team Providers Care Director Game Name Role Phone Arely Argueta MD Primary Care Provider [phone] Encounter Details Date Type Department Care Team (Late st Contact Info) Description 11/19/2015 [place] [address] Janiya Alvarez MD [facility] [place] [address] Social History Tobacco Use Types Packs/Day Years [...] on file documented as of this encounter Progress Notes * Janiya Alvarez MD - 11/19/2015 4:15 PM EST Re: telephone note E-prescribed rxx to [facility] mail order documented in this encounter Plan of Treatment Not on file documented as of this encounter Visit Diagnoses Not on filedocumented in this encounter Care Teams Director Game Relationship Specialty Start Date End Date Arely Argueta MD [address] [place], [place] [address] PCP - General 08/12/10 01/21/16 documented as of this encounter
--- OUTSIDE RECORDS SUMMARY | 2024-07-08 09:59 | XMS_ITS | Encounter Summary ---
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 differential considerations include acute disseminated encephalomyelitis. Findings are not thought to be related to septic emboli, neoplasm, or ischemic infarction. CT head 12/14/2014: IMPRESSION: Multiple areas of nonspecific white matter hypoattenuation which need further evaluation with MRI. Differential considerations include demyelination,infectious/inflammatory process or vascular insults. The relative lack of edema argues against a neoplastic process. CT carotids and COW 12/14/2014: IMPRESSION: Findings suggest the possibility of intracranial vasculopathy. CT chest with contrast 12/15/2014: Interpretation: Normal chest CT scan The subtle opacities seen on the patient's recent chest x-ray were due to vascular superimposition LP: revealed wbc of 10 (98%), lymphocytic predominance, Protein: 28, Glucose: 57 Labs pending: Lyme igG and igM antibody, Lyme CSF, MBP pending, MBP Oligoclonal bands, IgG index are ABNORMAL VDRL CSF negative, Viral studies negative, Toxoplasma PCR CSF negative Assessment / Plan: Toya Duenas is a 24 y.o. female who presented initially with episodes of vertigo and a bifrontal headache. Her MRI brain with and without contrast was completed on 12/17, which was indicative of ademyelinating disease and she received two doses of gram of solumedrol total so far. Her Oligoclonal bands and IgG index are abnormal. Myelin Basic pending is pending. Viral studies and infectious studies have been negative. After receiving two doses, she has much improved: did not have any vertigoand headache has improved and anticipate discharge today after third dose. Multiple Sclerosis - Neurology q4h neuro checks and vitals - LP completed. Labs pending: MBP, lyme disease in CSF and serum, MARGA in csf - VEP completed - Bupropion 100mg BID (home) - Methadone 10mg qd (home) - Toradol 30 mg IV PRN for pain Other: - DVT ppx: Ambulate, SCDs - GI ppx: RBOs - Regular diet - IVF 100ml/hr - Zofran PRN for nausea Madonna Mejia MD Neurology Resident PGY2 Pager [phone] General Neurology [phone] I have seen the patient and reviewed the resident's above history and I agree with the details as written. The assessment and plan were formulated in discussion with me and I agree with them as documented. Plan: DC home today. FU with Neurology to discuss MS disease modifying drugs for Probable MS. Discussed with patient and will provide introductory information on Avonex and Copaxone Pennie Escobar MD * Toya Bill RN - 12/18/2014 3:57 PM EDT Office of Care Management Clinical Turbine Operator (CRC) Toya Bill RN, BSN -CRC Neurology/ENT Voice Mail [phone] Pager [phone] DISCHARGE PLANNING: Room: [facility] Attending: Dr. Degroot Reason for Hospitalization: 24 y.o. R-handed F w/hx of opiate abuse (no IVDU per patient), anxiety,depression, tubal ligation presenting to [facility] from [facility] for further evaluation. She was at her baseline health until 6 weeks ago when she developed insidious in onset vertigo and gait instability. Therapists feel that patient is doing well and will be able to return home without services. P: No d/c needs identified at this time, will follow in case needs should arise. * Pennie Escobar MD - 12/18/2014 7:47 AM EDT Neurology Progress Note Patient Name: Toya Duenas Admit Date: 12/13/2014 Attending: Dr. Escobar Patient ID: Toya Duenas is a 24 y.o. Toya Duenas is a 24 y.o. R-handed F with a history of opiate abuse(no IVDU per patient), anxiety, depression, tubal ligation presenting to [facility] from [facility] for further evaluation of her ring-enhancing lesions seen on imaging. Active Issues: Demyelinating Disease Secondary Problems: Anxiety, Depression, Previous Opioid Abuse Interval History: Received 1 g of solumedrol yesterday. Patient has improved in her headache(4/10) and mood. She does not have any episodes of vertigo. Quarantine, HSV, Enteroviris is negative Syphilis Antibody negative. VEP completed yesterday, report pending Medications: Scheduled Meds: ??? methadone (METHADOSE) oral solution 10 mg Oral Daily ??? buPROPion 100 mg Oral BID ??? sodium chloride 0.9 % 5 mL Intravenous BID ??? docusate sodium 100 mg Oral BID Continuous Infusions: ??? sodium chloride 0.9% 1,000 mL (12/17/14 5043) PRN Meds:.hydrOXYzine, hydrOXYzine, gadobutrol, acetaminophen, ketorolac, sodium chloride 0.9 %, lidocaine, ondansetron OR ondansetron Physical Exam: Vitals: Temp: [36.5 ??C (97.7 ??F)-36.8 ??C (98.2 ??F)] Heart Rate: [63-82] Resp: [14-16] BP: (105-132)/(55-90) SpO2: [97 %-100 %] Gen: Patient of apparent stated age, well nourished. Neuro Exam: MS: Alert to person, place and time, with clear language, no dysarthria, follows commands CN: PERRL, EOMI, visual villeda full Facial sensation intact, no facial asymmetry Hearing intact to finger rub Palate elevates symmetrically, tongue protrudes midline SCM and trap strength intact Motor: Normal bulk and tone. UE: 5/5 R, 5/5 L Arm abduction at shoulder 5/5 R, 5/5 L Elbow extension 5/5 R, 5/5 L Elbow flexion LE: 5/5 R, 5/5 L Hip flexion 5/5 R, 5/5 L Knee extension5/5 5/5 R, 5/5 L Knee flexion 5/5 R, 5/5 L Foot dorsiflexion 5/5 R, 5/5 L Foot plantar flexion Sensation: Intact to light touch Reflexes: DTRs 3+ R, 3+ L Biceps 3+ R, 3+ L Brachioradialis 3+ R, 3+ L Triceps 3+ R, 3+ L Patellar Coordination: No tremor Gait: able to walk, steady Labs: No results found for this or any previous visit (from the past 24 hour(s)). Diagnostic Tests and Imaging: MRI brain with/WO contrast 12/17/2014: Findings are consistent with a demyelinating process with most likely etiology being multiple sclerosis, especially tumefactive MS. Other differential considerations include acute disseminated encephalomyelitis. Findings are not thought to be related to septic emboli, neoplasm, or ischemic infarction. CT head 12/14/2014: IMPRESSION: Multiple areas of nonspecific white matter hypoattenuation which need further evaluation with MRI. Differential considerations include demyelination,infectious/inflammatory process or vascular insults. The relative lack of edema argues against a neoplastic process. CT carotids and COW 12/14/2014: IMPRESSION: Findings suggest the possibility of intracranial vasculopathy. CT chest with contrast 12/15/2014: Interpretation: Normal chest CT scan The subtle opacities seen on the patient's recent chest x-ray were due to vascular superimposition LP: revealed wbc of 10 (98%), lymphocytic predominance, Protein: 28, Glucose: 57 Labs pending: VDRL CSF, Lyme igG and igM antibody, Lyme CSF, VZV, CMV, EBV, toxoplasma PCR CSF, [facility] labs (Oligoclonal bands, IgG index MBP) Assessment / Plan: Toya Duenas is a 24 y.o. female who presented initially with episodes of vertigo and a bifrontal headache. Her MRI brain with and without contrast was completed on 12/17, which was indicative of ademyelinating disease and she received her first dose of gram of solumedrol yesterday. After receiving her first dose, she has much improved: did not have any vertigo and headache has improved. She will need two more doses. Labs continue pending as per LP. Multiple Sclerosis - Neurology q4h neuro checks and vitals - LP completed. Labs pending, see above. - VEP completed yesterday, report pending - Bupropion 100mg BID (home) - Methadone 10mg qd (home) - Toradol 30 mg IV PRN for pain Other: - DVT ppx: Ambulate, SCDs - GI ppx: RBOs - Regular diet - IVF 100ml/hr - Zofran PRN for nausea Madonna Mejia MD Neurology Resident PGY2 Pager [phone] General Neurology [phone] Attending Physician Attestation I saw and evaluated the patient with Dr. Mejia. I have reviewed the medical records and the patient's history during the visit and I agree with the details as written. My physical examination confirmsthe findings. Much more comfortable and interactive today. Otherwise as above. Labs still pending include toxo titers. MRI brain with multiple lesions characterized by fluffy FLAIR hyperintensity, several of which haveT1 black holes and ring-like enhancement and partial ring enhancement. No mass effect or shift. The assessment and plan were formulated in discussion with me at the time of the visit and I agree with them as documented. Rx: as for acute demyelinating event. MILLER inluding visual evoked potentials ongoing. Will complete 3 days IV Solumedrol. Plan to DC tomorrow if stable, with outpatient close FU. Pennie Escobar MD * Pennie Escobar MD - 12/17/2014 8:10 AM EDT Neurology Progress Note Patient Name: Toya Duenas Admit Date: 12/13/2014 Attending: Dr Escobar Patient ID: Toya Duenas is a 24 y.o. R-handed F with a history of opiate abuse (no IVDU per patient), anxiety, depression, tubal ligation presenting to [facility] from [facility] for further evaluation of her ring- enhancing lesions seen on imaging. Active Issues: Ring-enhancing lesions Secondary Problems: Anxiety, depression Interval History: Patient complaints of bi-frontal headache this morning. LP: revealed wbc of 10 (98%), lymphocytic predominance, Protein: 28, Glucose: 57 HIV negative/Hep B negative/Hep C/MARGA normal Cytology: Rare single atypical cell; likely reactive histiocyte. Mostly small mature reactive lymphocytes. No malignant cell seen. Fluid Flow Cytometry: negative. Cryptococcoal negative LP labs are pending: viral studies (HSV, VZV, CMV, EBV) pending, Lyme, Toxoplasma, fungus culture, MS labs, MARGA, VDRL Serum Labs pending: ANTONELLA, AFB culture, Lyme disease, Syphilis Antibody, Quantiferon-TB Unfortunately couldn't get MRI brain performed secondary to jewelry which couldn't be removed, and patient refused MRI several times over the weekend. 1 bottle of GP Cocci in clusters possible contaminant overnight, Vancomycin was discontinued. Pulmonary had seen felt that there were tiny nodules in the chest that were unrelated to the brain lesions CT Chest: Normal chest CT scan The subtle opacities seen on the patient's recent chest x-ray were due to vascular superimposition. Methadone restarted over the weakness. Medications: Scheduled Meds: ??? methadone (METHADOSE) oral solution 10 mg Oral Daily ??? buPROPion 100 mg Oral BID ??? sodium chloride 0.9 % 5 mL Intravenous BID ??? docusate sodium 100 mg Oral BID Continuous Infusions: ??? sodium chloride 0.9% 1,000 mL (12/16/14 3341) PRN Meds:.acetaminophen, ketorolac, sodium chloride 0.9 %, lidocaine, ondansetron OR ondansetron Physical Exam: Vitals: Temp: [36.4 ??C (97.5 ??F)-36.7 ??C (98.1 ??F)] Heart Rate: [61-78] Resp: [16-18] BP: (110-112)/(70-74) SpO2: [98 %-100 %] Constitutional: Patient of apparent stated age, well nourished, well developed. She does not look comfortable, has an icepack over the forehead. Room is dark, but television is on. HEENT: Anicteric sclerae, no OP exudates, no sinus tenderness Neuro: - MS: Alert, oriented, clear language, no aphasia - CN: PERRL no APD, EOMI no nystagmus, visual villeda full, trigeminal sensation intact, no facial asymmetry, hearing intact to whisper, palate elevates symmetrically, tongue protrudes midline, SCM and trap strength intact. - Motor: Normal bulk and tone. No tremors. 5/5 strength in bilateral upper and lower extremities - Sensation: Vibration and proprioception intact throughout. Slightly decreased light touch in the posterior neck and RUE. - Reflexes: (+) Clonus. (+) L-upgoing toes. Patellar reflexes 4+ w/spread, ankles 2+, biceps/triceps/brachioradialis 2+. - Coordination: no tremor - Gait: Not assessed Labs: No results found for this or any previous visit (from the past 24 hour(s)). Diagnostic Tests and Imaging: LP as above CT head 12/14/2014: IMPRESSION: Multiple areas of nonspecific white matter hypoattenuation which need further evaluation with MRI. Differential considerations include demyelination,infectious/inflammatory process or vascular insults. The relative lack of edema argues against a neoplastic process. CT carotids and COW 12/14/2014: IMPRESSION: Findings suggest the possibility of intracranial vasculopathy. CT chest with contrast 12/15/2014: Interpretation: Normal chest CT scan The subtle opacities seen on the patient's recent chest x-ray were due to vascular superimposition Assessment: Toya Duenas is a 24 y.o. R-handed F w/hx of opiate abuse (no IVDU per patient), anxiety, depression, tubal ligation presenting to [facility] from [facility] for further evaluation. She is complaining of subacute insidious onset of gait instability and vertigo, followed by nausea and vomiting and R-periauricular, cervical and brachial paraesthesia. Her exam is significantfor bilateral hyperreflexia and (+) upgoing toe on the left likely signifying cord myelopathy, brainstem lesion, or diffuse HYDRAULIC PRESS OPERATOR lesions. Differential includes infectious, demyelinating etiologies and currently evaluating for these causes. Patient may need neurosurgical biopsy, will work on continuing to obtain MRI brain. Unsteady gait, ataxia - Neurology q4h neuro checks and vitals - LP completed. - Bupropion 100mg BID (home) - Methadone 10mg qd (home) - Toradol 30 mg IV PRN for pain - Labs: serum ANTONELLA, NMDA-R Ab serum, NMDA-R Ab CSF, IgG index, MBB, oligos, HSV and VZV, Toxo, syphilis, lyme, CMV, EBV Other: - DVT ppx: Ambulate, SCDs - GI ppx: RBOs - Regular diet - IVF 100ml/hr - Zofran PRN for nausea Madonna Mejia MD Neurology Resident PGY2 Pager [phone] General Neurology [phone] Attending Physician Attestation I saw and evaluated the patient with Dr. Mejia. I have reviewed the medical records and the patient's history during the visit and I agree with the details as written. My physical examination confirmsthe findings. She complains of persisitent CALDERON. We discussed options for pain control and her hx of addiction. Meera is to get off methadone, and therefore does not want any increase in methadone dose or other meds that would slow that goal. She actually has significant anxiety/claustrophia and perhaps the addition of hydroxyine to toradol will help with both. The assessment and plan were formulated in discussion with me at the time of the visit and I agree with them as documented. Awaiting infection/inflammation w/u. CSF suggests this rather than malignancy, but is MILLER unrevealing may need to consider Bx to rule out abscess/neoplasm/ Pennie Escobar MD * Shalonda Wu RN - 12/16/2014 4:23 PM EDT Spoke to MRI Regarding pt's test today: need to reavaluate the possibility to have it done with pt's piercings. Will make MD aware. * Dev Campbell MD - 12/16/2014 8:36 AM EDT Neurology Progress Note Patient Name: Toya Duenas Admit Date: 12/13/2014 Attending: Dr Campbell Patient ID: Toya Duenas is a 24 y.o. R-handed F w/hx of opiate abuse (no IVDU per patient), anxiety, depression, tubal ligation presenting to [facility] from [facility] for further evaluation. Active Issues: Ring-enhancing lesions Secondary Problems: Anxiety, depression Interval History: Patient admitted yesterday in transfer LP: revealed wbc of 10, lymphocytic predominance HIV negative/Hep B negative LP labs are pending: viral studies pending, Toxoplasma, fungus culture Unfortunately couldn't get MRI brain performed secondary to jewelry which couldn't be removed, nursing had tried with lidocaine jelly. 1 bottle of GP Cocci in clusters possible contaminant overnight, Vancomycin was discontinued. CT Chest: Normal chest CT scan The subtle opacities seen on the patient's recent chest x-ray were due to vascular superimposition Spoke to methadone clinic to restart her methadone Medications: Scheduled Meds: ??? methadone (METHADOSE) oral solution 10 mg Oral Daily ??? buPROPion 100 mg Oral BID ??? sodium chloride 0.9 % 5 mL Intravenous BID ??? docusate sodium 100 mg Oral BID Continuous Infusions: ??? sodium chloride 0.9% 1,000 mL (12/16/14612) PRN Meds:.acetaminophen, sodium chloride 0.9 %, lidocaine, ondansetron OR ondansetron Physical Exam: Vitals: Temp: [36.4 ??C (97.5 ??F)-36.7 ??C (98.1 ??F)] Heart Rate: [70-109] Resp: [16] BP: (108-129)/(70-78) SpO2: [97 %-99 %] Constitutional: Patient of apparent stated age, well nourished, well developed. She does not look comfortable, has an icepack over the forehead. Room is dark, but television is on. HEENT: Anicteric sclerae, no OP exudates, no sinus tenderness Neck: No meningismus CV: RRR, S1, S2, no murmur Resp: CTAB Abd: Soft, nontender, nondistended Ext: No edema. No bony deformity. No osler nodes, janeway lesions or otherwise signs of IE Neuro: - MS: Alert, oriented, clear language, no aphasia - CN: PERRL no APD, EOMI no nystagmus, visual villeda full, trigeminal sensation intact, no facial asymmetry, hearing intact to whisper, palate elevates symmetrically, tongue protrudes midline, SCM and trap strength intact. - Motor: Normal bulk and tone. No tremors. 5/5 strength in bilateral upper and lower extremities - Sensation: Vibration and proprioception intact throughout. Slightly decreased light touch in the posterior neck and RUE. - Reflexes: (+) Clonus. (+) L-upgoing toes. Patellar reflexes 4+ w/spread, ankles 2+, biceps/triceps/brachioradialis 2+. - Coordination: no tremor - Gait: Not assessed Labs: No results found for this or any previous visit (from the past 24 hour(s)). Diagnostic Tests and Imaging: None new, LP as above Assessment: Toya Duenas is a 24 y.o. R-handed F w/hx of opiate abuse (no IVDU per patient), anxiety, depression, tubal ligation presenting to [facility] from [facility] for further evaluation. She is complaining of subacute insidious onset of gait instability and vertigo, followed by nausea and vomiting and R-periauricular, cervical and brachial paraesthesia. Her exam is significantfor bilateral hyperreflexia and (+) upgoing toe on the left likely signifying cord myelopathy, brainstem lesion, or diffuse HYDRAULIC PRESS OPERATOR lesions. Differential includes infectious, demyelinating etiologies and currently evaluating for these causes. Patient may need neurosurgical biopsy, will work on continuing to obtain MRI brain. Unsteady gait, ataxia - Neurology q4h neuro checks and vitals - XR Fluoro (under light sedation) - Start Aspirin 325mg today, 81mg tomorrow - Bupropion 100mg BID (home) - Methadone 10mg qd (home) - Toradol PRN for pain - Labs: Basic labs, serum ANTONELLA, NMDA-R Ab serum, NMDA-R Ab CSF, CSF protein /glucose/cc, IgG index, MBB, oligos, HSV and VZV, Toxo, sylhillis, lyme, crypto, CMV, EBV, MARGA Other: - DVT ppx: Ambulate, SCDs - GI ppx: RBOs - Regular diet - IVF 100ml/hr - Zofran PRN for nausea Madonna Mejia MD Neurology Resident PGY2 Pager [phone] General Neurology 9190 Neurology Staff Note I have reviewed the above resident's history during the visit and I agree with the details as written. My physical examination confirms the resident's findings. The assessment and plan were formulated in discussion with me at the time of the visit and I agree with them as documented. * Dev Campbell MD - 12/15/2014 11:10 AM EDT Neurology Progress Note Patient Name: Toya Duenas Admit Date: 12/13/2014 Attending: Dr Campbell Patient ID: Toya Duenas is a 24 y.o. R-handed F w/hx of opiate abuse (no IVDU per patient), anxiety, depression, tubal ligation presenting to [facility] from [facility] for further evaluation. Active Issues: Ring-enhancing lesions Secondary Problems: Anxiety, depression Interval History: Patient admitted yesterday in transfer LP yesterday revealed wbc of 10, lymphocytic predominance Unfortunately couldn't get MRI brain performed secondary to jewelry which couldn't be removed 1 bottle of GPCocci in clusters overnight Unable to get methadone secondary to closing of methadone clinic Medications: Scheduled Meds: ??? methadone 10 mg Oral Daily ??? buPROPion 100 mg Oral BID ??? sodium chloride 0.9 % 5 mL Intravenous BID ??? docusate sodium 100 mg Oral BID Continuous Infusions: ??? sodium chloride 0.9% 1,000 mL (12/14/14 1101) PRN Meds:.sodium chloride 0.9 %, lidocaine, ondansetron OR ondansetron Physical Exam: Vitals: Temp: [36.1 ??C (97 ??F)-36.7 ??C (98.1 ??F)] Heart Rate: [55-96] Resp: [14-18] BP: (111-128)/(52-78) SpO2: [97 %-100 %] Constitutional: Patient of apparent stated age, well nourished, well developed. She does not look comfortable, has an icepack over the forehead. Room is dark, but television is on. HEENT: Anicteric sclerae, no OP exudates, no sinus tenderness Neck: No meningismus CV: RRR, S1, S2, no murmur Resp: CTAB Abd: Soft, nontender, nondistended Ext: No edema. No bony deformity. No osler nodes, janeway lesions or otherwise signs of IE Neuro: - MS: Alert, oriented, clear language, no aphasia - CN: PERRL no APD, EOMI no nystagmus, visual villeda full, trigeminal sensation intact, no facial asymmetry, hearing intact to whisper, palate elevates symmetrically, tongue protrudes midline, SCM and trap strength intact. - Motor: Normal bulk and tone. No tremors. 5/5 strength in bilateral upper and lower extremities - Sensation: Vibration and proprioception intact throughout. Slightly decreased light touch in the posterior neck and RUE. - Reflexes: (+) Clonus. (+) L-upgoing toes. Patellar reflexes 4+ w/spread, ankles 2+, biceps/triceps/brachioradialis 2+. - Coordination: Finger to nose intact, rapid alternating movements intact and symmetric - Gait: Not assessed Labs: Recent Results (from the past 24 hour(s)) URINALYSIS WITH MICROSCOPIC Result Value Ref Range Glucose UA Negative Negative mg/dL Protein UA Negative Negative mg/dL Bilirubin UA Negative Negative mg/dL Urobilinogen UA 2.0 (*) Normal mg/dL pH UA 6.0 5.0 - 8.0 Blood UA Negative Negative mg/dL Ketones UA Negative Negative mg/dL Nitrite UA Negative Negative Leukocytes UA Small (*) Negative mcL Appearance UA Hazy (*) Clear Spec [place] UA 1.015 1.002 - 1.030 Color UA Yellow Yellow RBC UA 2 0 - 4 /HPF WBC UA 5 0 - 5 /HPF Bacteria UA Rare (*) None /HPF Squam Epith UA 6 (*) <=4 /HPF URINE, QUALITATIVE Result Value Ref Range SG Urine 1.015 1.002 - 1.030 Beta HCG Qual Negative BASIC METABOLIC PANEL (NON-FASTING) Result Value Ref Range Glucose Lvl 97 60 - 199 mg/dL BUN 15 8 - 18 mg/dL Creatinine 0.79 0.70 - 1.20 mg/dL Sodium 139 135 - 145 mmol/L Potassium 3.9 3.5 - 5.0 mmol/L Chloride 100 98 - 107 mmol/L CO2 25 22 - 31 mmol/L Anion Gap 14 5 - 15 mmol/L Calcium 9.7 8.5 - 10.5 mg/dL Estimated GFR >60 >=60 MAGNESIUM Result Value Ref Range Magnesium 0.89 0.69 - 1.07 mmol/L PHOSPHORUS Result Value Ref Range Phosphorus 4.5 2.5 - 4.5 mg/dL HEPATIC FUNCTION PANEL Result Value Ref Range Total Protein 7.1 6.1 - 8.0 gm/dL Albumin 5.0 3.2 - 5.2 gm/dL AST 19 0 - 30 unit/L ALT 12 0 - 30 unit/L Alk Phos 45 40 - 104 unit/L Total Bilirubin 0.6 0.2 - 1.3 mg/dL Bili, Direct 0.2 0.0 - 0.3 mg/dL HEMOGRAM Result Value Ref Range WBC 5.8 4.0 - 10.0 x10(3)/mcL RBC 4.54 3.93 - 5.22 x10(6)/mcL Hemoglobin 13.4 11.2 - 15.7 gm/dL Hematocrit 40.3 34.0 - 45.0 % MCV 88.8 79.0 - 94.0 fL MCH 29.5 26.6 - 32.2 pg MCHC 33.3 32.0 - 36.5 gm/dL Platelets 169 145 - 370 x10(3)/mcL RDWSD 38.1 35.0 - 46.0 fL RDWCV 11.9 10.9 - 14.4 % MPV 10.6 9.0 - 12.0 fL DIFFERENTIAL, AUTOMATED Result Value Ref Range Neutrophils % 55.7 Neutr Abs (ANC) 3.20 1.50 - 6.30 x10(3)/mcL Lymphocytes % 37.3 Lymphocytes Abs 2.2 1.0 - 3.6 x10(3)/mcL Monocytes % 4.3 Monocyte Abs 0.2 0.2 - 1.0 x10(3)/mcL Eosinophils % 2.4 Eosinophils Abs 0.1 0.0 - 0.5 x10(3)/mcL Basophils % 0.3 Basophils Abs 0.0 0.0 - 0.2 x10(3)/mcL Immature Gran % 0.00 Sandy Gran Abs 0.00 0.00 - 0.05 x10(3)/mcL RAPID QUALITATIVE DRUG SCREEN, URINE ([facility]) Result Value Ref Range MARINO Marijuana Metabolites Scr None Detected None Detected MARINO Phencyclidine Scr None Detected None Detected MARINO Cocaine Metabolites Scr None Detected None Detected MARINO Methamphetamines Scr None Detected None Detected MARINO Opiates Scr None Detected None Detected MARINO Amphetamines Scr None Detected None Detected MARINO Benzodiazepines Scr Presumptive Pos (*) None Detected MARINO Tricyclics Scr None Detected None Detected MARINO Methadone Scr Presumptive Pos (*) None Detected MARINO Barbiturates Scr None Detected None Detected MARINO Oxycodone Scr None Detected None Detected MARINO Propoxyphene Scr None Detected None Detected MRAINO Buprenorphine Scr None Detected None Detected PROTEIN LEVEL CSF Result Value Ref Range T Protein, CSF 28 15 - 45 mg/dL Xanthochromia Neg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 rude it's just that I've been doing all of this for six weeks with no problem.?? Objective: Pt seen for evaluation today in coordination with OT services. Pain: 6/10 on Numeric Pain Rating Scale located headache Vital Signs: Last value Range last 8 hrs Temperature Temp: 36.7 ??C (98.1 ??F) Temp: [36.6 ??C (97.9 ??F)-36.7 ??C (98.1 ??F)] Heart Rate Heart Rate: 64 Heart Rate: [64-70] Blood Pressure BP: 114/61 mmHg BP: (105-114)/(55-61) Respiratory Rate Resp: 14 Resp: [14] SpO2 SpO2: 97 % SpO2: [97 %-99 %] Mental Status: alert, oriented to person, place, and time Musculoskeletal: LE AROM: WFL LE Strength: WFL LE Sensation: WFL Bed Mobility: Supine to Sit: independent without bed rail and with HOB at 20* Sit to Supine: independent without bed rail and with HOB at 20* Transfers: Sit to Stand: independent using no assistive device Stand to Sit: independent using no assistive device Gait: Distance: 150 feet Device used: no assistive device Level of assist: independent Gait pattern: slightly widened CONCHA, otherwise unremarkable Balance: Sitting: WFL Standing: minimally impaired Standardized Testing: [facility] AM-PAC 6 Clicks Basic Mobility Inpatient Short Form (Without Stair Climbing) How much difficulty does the patient currently have... Unable (1) A Lot (2) A Little (3) None (4) 1. Turning over in bed (including adjusting bedclothes, sheets and blankets)? X 2. Sitting down on and standing up from a chair with arms (e.g., wheelchair, bedside commode, etc.)? X 3. Moving from lying on back to sitting on the side of the bed? X How much help from another person does the patient currently need... Total (1) A Lot (2) A Little (3) None (4) 4. Moving to and from a bed to a chair (including a wheelchair)? X 5. Need to walk in hospital room? X Raw Score: 24 Standardized Score: 6.94 CMS 0-100% Score: 0.0% CMS Modifier: CH Education: patient have been educated on Bed mobility, Transfers, Safety , Gait , Role of therapy, Balance and Discharge planning and verbalizes and demonstrates understanding. Patient status, treatment, and mobility recommendations discussed with nursing. Assessment: Toya Duenas admitted for further evaluation of her ring- enhancing lesions seen on imaging. At this time, pt limited by minimally impaired dynamic balance and utilized slightly widenedbase of support, however demonstrates no LOB when ambulating without assistance or use of assistive device. Pt participated in standardized assessment via Six Clicks with raw score of 24/24. Pt fiercely independent and admitted to rehab staff that she is somewhat embarrassed to have impairments identified in evaluation today - OT / PT provided education to pt regarding community resources including ways in which PT/OT may be beneficial in future if pt experiences functional decline. Pt left resting comfortably in bed with Masimo secured, and call golden in reach. Pt encouraged to ambulate frequently with staff, getting into the bathroom for toileting and walking out in the ybarra as able. The pt would benefit from skilled therapy services to maximize functional independence while in the hospital and to address limitations as noted above. Plan: Pt to remain on monitor for this senior writer for remainder of this admission, see recommendations below.Patient agrees with plan as stated above. Discharge Recommendations: No ongoing PT needs upon D/C. No other consults recommended at this time Equipment needs: No equipment necessary. Time IN / OUT: 1:45 - 2:21 Total time spent with patient: 36 minutes for evaluation Total timed interventions: 0 minutes Fabiola Lares PT, DPT 12/18/2014 Pager: [phone] Physical Therapy Inpatient Rehabilitation Department * Plan of Care - Whitney Ruano RN - 12/18/2014 2:19 PM EDT Problem: General Plan of Care Goal: Plan of Care Review 12/17/14 1432 12/18/14 0815 Plan of Care Review Plan of Care Outcome Status ongoing (interventions implemented as appropriate) -- Progress progress toward functional goals as expected -- Coping/Psychosocial Response Interventions Plan of Care Reviewed with -- patient OUTCOME EVALUATION NOTE: OUTCOME SUMMARY: Pt continues to complain of headache and nausea, toradol and zofran given with adequate relief. No changes in neuro checks. PLAN MOVING FORWARD: Monitor hemodynamic status, pain levels, medication effectiveness. Plan is to discharge to home tomorrow, pt disappointed that she couldn't leave today. INDIVIDUALIZED FALL PREVENTION: Assistance: Calls appropriately for assistance Supervision: Independent in room, gait steady Surveillance: Hourly rounding CPG GOAL OUTCOME EVALUATION: Goal: Infection Control 12/18/14 0815 Safety Interventions Isolation Precautions standard precautions maintained Infection Prevention hydration promoted;nutrition promoted Coping/Psychosocial Response Interventions Counseling emotional support provided Problem: Skin Integrity Impairment, Risk/Actual (Adult, Obstetrics) Goal: Identify Signs and Symptoms and Related Risk Factors Signs and symptoms and related risk factors are identified upon initiation of Human Response Clinical Practice Guideline (CPG) 12/16/14 0052 Skin Integrity Impairment, Risk/Actual Treatment Related Related Risk Factors (Skin Integrity Impairment, Risk/Actual) medication;physicalimmobilization;other (see comments) Goal: Skin Integrity/Wound Healing Patient will demonstrate the desired outcomes. 12/18/14 1414 Skin Integrity Impairment, Risk/Actual (Adult, Obstetrics) Skin Integrity/Wound Healing making progress toward outcome * Initial Assessments - Adriana Kaur, OT - 12/18/2014 1:54 PM EDT Occupational Therapy Evaluation Patient profile: Toya Duenas is a 24 y.o. female patient of Pennie Hendricks MD,with h/o opiate use (no IVDU per pt), anxiety, and depression, admitted on 12/13/2014 for further evaluation of her ring-enhancing lesions seen on MRI. Per H&P pt was at her baseline health until 6 weeks prior to admission when she developed insidious in onset vertigo and gait instability. Approximately 10-14 days prior to admission pt started having intermittent bouts of nausea and vomiting, and continued to vomit even on day of admission. Approximately 7 days prior to admission she woke up with numbnessaround her (R) ear, this then progressed to numbness over the (R) posterior aspect of the neck, down to the (R) shoulder, and to (R) hand over the next few days. Her MRI brain with and without contrast was completed on 12/17, which was indicative of a demyelinating disease and she received two dosesof gram of solumedrol with improvement in symptoms. PMH: Tubal ligation Anxiety Depression Opiate use (no IVDU per pt) Social History: Per PT note, Patient lives with her daughter in a single story, 3rd floor apartment in [place], [place]. Pt states that she can use stairs or an elevator to reach the 3dr floor once indoors. Pt reports that bathroom includes a tub shower and does not have grab bars or a seat. Stairs: 0 stairs to enter Baseline Mobility: independent without use of assistive device; Does not drive; Endorses furniture walking when weak prior to admission Equipment at home: none Pt is not currently employed Code Status: Full Code Activity Orders:activty as tolerated Precautions: at risk to fall Subjective: It's just so embarrassing to walk like this. Objective: Seen today for OT evaluation in collaboration with PT. Cognitive Status/Behavior: Alert, oriented x4 Following commands Appropriate Tearful about current status and potential diagnosis Guarded Discussed community resources and potential for support groups and assured pt that people with MS (if this is the diagnosis) can still leave productive lives Communication: appropriate Vision & Perception: denies any vision changes, able to read clock and labels accurately Range of motion, strength, coordination: Hand dominance: right Bilateral UEs are within functional limitations for strength and ROM, mild weakness in hand counter weigher, but functional for self-care tasks LE status: WFL Sensation: reports R >L tingling throughout arm and R side of face/neck, intact to light touch and able to localize to light touch, but states it is different from normal Activities of Daily Living: Self-feeding: Independent per pt Hygiene grooming: pt reports she was able to complete standing at the sink without difficulty Upper and lower body dressing and bathing: ?? LB dressing: able to reach feet to don/doff socks ?? Bathing: pt was able to demonstrate simulated tub shower transfer holding onto a wall with SBA and then stand with feet apart, eyes closed and hands over head with supervision, no LOB Toileting: not observed, reports she has been doing this independently in her room today Functional Mobility: Supine to sit: independent to L EOB Sit to stand: distant supervision with no device Ambulation: pt ambulated 150' with no device, wide base of support, no LOB Stand to sit: distant supervision Sit to supine: independent Balance: noted wide base of support while mobilizing, tending to reach out for objects at times, but no LOB; pt reports she has been able to catch herself' at home when she loses her balance IADL???s: Offered strategies for pacing/energy conservation and managing her home and care of her daughter. Pt was guarded Endurance: Information taken from last recorded vitals in flowsheet. Last value Range last 8 hrs Heart Rate Heart Rate: 79 Blood Pressure BP: 140/82 mmHg SpO2 SpO2: 98 % SpO2: -- Dizziness with quick position changes, improved since admission Pain: Pt reported headache at 6/10, received pain medication before session Skin: Not assessed2 Informed Consent: The patient agrees to and understands the OT treatment plan and goals. Education: Patient has been educated on Role of occupational therapy/rehabilitation, Transfers, ADL, Exercise, Positioning, Safety, Precautions/Protocol, Functional Mobility, Activity pacing/Energy conservation, Home Management, Balance, Recommendations and Discharge planning and verbalizes understanding, though would likely benefit from reinforcement. Patient status, treatment, and mobility recommendations discussed with nursing. Assessment: Pt presents for ongoing workup of demyelinating disease, likely MS. Pt does report improvement with administration of Solumedrol. Session was limited because of headache and pt's frustration. Pt was able to demonstrate the ability to manage her basic ADL's without loss of balance. Pt expressed frustrations and fears related to her potential diagnosis and feeling embarrassed. Offered strategies for pacing/energy conservation and beginning education and encouragement re: support groups. Pt will likely benefit from ongoing support and assistance with managing and adjusting to illness. No further skilled OT needs are warranted at this time. Recommendations: Equipment needs at discharge: No equipment necessary Discharge Recommendations: no further skilled OT needs identified Other Recommendations: pt would benefit from services/resources r/t managing/coping/adjusting to new diagnosis Plan: Plan is for pt to d/c home when medically cleared. Eval Date: 12/18/2014 Total time spent with patient: 27 minutes for initial evaluation Total timed interventions: 0 minutes Pager: [phone] Adriana Kaur OT 12/18/2014 Occupational Therapy Rehabilitation Department * Med Student Progress Note - Lamin Rahman - 12/18/2014 7:01 AM EDT Neurology Progress Note Patient Name: Toya Duenas Admit Date: 12/13/2014 Attending: Dr Escobar Patient ID: Toya Duenas is a 24 y.o. R handed female with a history of non IV substance abuse, depression, and anxiety who was transferred here for evaluation of ring enhancing lesions in the brain. Active Issues: Demyelinating process Secondary Problems: Depression, anxiety Interval History: 24 hrs: lip ring removed, head MRI done Overnight: no issues Toya reports that she is feeling better after having the steroids. The headaches improved after the first dose yesterday. She has not had any further nausea or vomiting. Medications: Scheduled Meds: ??? methadone (METHADOSE) oral solution 10 mg Oral Daily ??? buPROPion 100 mg Oral BID ??? sodium chloride 0.9 % 5 mL Intravenous BID ??? docusate sodium 100 mg Oral BID Continuous Infusions: ??? sodium chloride 0.9% 1,000 mL (12/17/14 6276) PRN Meds:.hydrOXYzine, hydrOXYzine, gadobutrol, acetaminophen, ketorolac, sodium chloride 0.9 %, lidocaine, ondansetron OR ondansetron Physical Exam: Vitals: Temp: [36.5 ??C (97.7 ??F)-36.8 ??C (98.2 ??F)] Heart Rate: [63-82] Resp: [14-16] BP: (105-132)/(55-90) SpO2: [97 %-100 %] Gen: Patient of apparent stated age, well nourished, well developed, awake, alert, NAD CV: + S1, S2, RRR, no murmur Resp: CTA B/L Abd: +normoactive bowel sounds, soft, nontender, nondistended Ext: No edema. No bony deformity Neuro Exam: MS: AAOx4, clear language, no dysarthria, follows commands CN: PERRL, EOMI, Facial sensation intact, no facial asymmetry, Trapezius strength intact Motor: Normal bulk and tone. Full strength throughout. Gait: Stable, a little unsteady, side to side sway when doing toe to heel gait Labs: Quantiferon TB was negative Diagnostic Tests and Imaging: Head MRI yesterday IMPRESSION: 1. Findings are consistent with a demyelinating process with most likely etiology being multiple sclerosis, especially tumefactive MS. Other differential considerations include acute disseminated encephalomyelitis. Findings are not thought to be related to septic emboli, neoplasm, or ischemic infarction. Assessment / Plan: Toya Duenas is a 24 y.o. female who was admitted for work up of ring enhancing lesions. I suspect she has MS from the positive response she had to the first dose of steroids yesterday. # Ring Enhancing Lesions - likely MS - Neuro checks q 4 hours - Vitals q 4 hr - Bupropion 100 mg BID - Methadone 10 mg qd - Toradol 30 mg IV PRN headaches # Prophylaxis - Ambulate, SCDs # Other - Regular diet - IVF 100 ml/hr - Ondansetron prn nausea Lamin Rahman MS [phone] personal pager [phone] team pager * Plan of Care - Whitney Álvarez RN - 12/18/2014 5:09 AM EDT Problem: General Plan of Care Goal: Plan of Care Review Outcome: Ongoing (Interventions Implemented as Appropriate) OUTCOME EVALUATION NOTE: OUTCOME SUMMARY: AOX4, reports headache managed by PRN Toradol, please see MAR. No neuro changes noted over night, slept fairly. PLAN MOVING FORWARD: Continue treatment plan. Consult to PT/OT. Visual evoked Potential test today. INDIVIDUALIZED FALL PREVENTION: Assistance: Stand by assist Supervision: Minimal assistance Surveillance: Hourly rounding, frequent visual check. CPG GOAL OUTCOME EVALUATION: Goal: Fall Prevention-Safe Patient Handling Outcome: Ongoing (Interventions Implemented as Appropriate) 12/18/14457 Safety Interventions Safety Precautions/Fall Reduction fall reduction program maintained;lighting adjusted for task/safety;low bed;nonskid shoes/slippers when out of bed;room near unit station Musculoskeletal Interventions Activity/Level of Assistance up in room;with stand by assist Positioning independent Muscle Strengthening activity/mobility promoted;mobility in bed promoted Self-Care Promotion assistance provided to decrease frustration;independence encouraged while providing assistance Goal: Infection Control Outcome: Ongoing (Interventions Implemented as Appropriate) 12/18/14457 Safety Interventions Isolation Precautions standard precautions maintained Infection Prevention environmental surveillance;rest/sleep promoted Coping/Psychosocial Response Interventions Counseling calming techniques promoted;emotional support provided Problem: Skin Integrity Impairment, Risk/Actual (Adult, Obstetrics) Goal: Skin Integrity/Wound Healing Patient will demonstrate the desired outcomes. Outcome: Ongoing (Interventions Implemented as Appropriate) 12/18/14457 Skin Integrity Impairment, Risk/Actual (Adult, Obstetrics) Skin Integrity/Wound Healing making progress toward outcome * Plan of Care - Miguel Pitts RN - 12/17/2014 2:40 PM EDT Problem: General Plan of Care Goal: Plan of Care Review Outcome: Ongoing (Interventions Implemented as Appropriate) 12/17/14 1432 Plan of Care Review Plan of Care Outcome Status ongoing (interventions implemented as appropriate) Progress progress toward functional goals as expected Coping/Psychosocial Response Interventions Plan of Care Reviewed with patient OUTCOME EVALUATION NOTE: OUTCOME SUMMARY: Patient alert and oriented. Patient reports a constant headache that is made worse by sitting up and ambulated, pain only mildly covered by Toradol and ice. MRI completed today, solu-medrol started. PLAN MOVING FORWARD: Continue with plan of care, orders for PT/OT, anticipated visual evoked potential test tomorrow INDIVIDUALIZED FALL PREVENTION: Assistance: 1 assist Supervision: Nursing Surveillance: Morgan, hourly rounding CPG GOAL OUTCOME EVALUATION: Goal: Individualization and Mutuality Outcome: Ongoing (Interventions Implemented as Appropriate) Goal: Fall Prevention-Safe Patient Handling Outcome: Ongoing (Interventions Implemented as Appropriate) 12/15/14 1600 12/17/14 0900 12/17/14 1057 Safety Interventions Safety Precautions/Fall Reduction -- -- -- Brambila Fall Risk History of Falling -- -- 25 Secondary Diagnosis -- -- 0 Ambulatory Aids -- -- 0 Intravenous Therapy/Heparin/Saline Lock -- -- 20 Gait/Transferring -- -- 0 Mental Status -- -- 0 Score -- -- 45 OTHER Brambila Fall Risk -- -- High Musculoskeletal Interventions Activity/Level of Assistance -- with stand by assist -- Positioning independent -- -- 12/17/14 1418 Safety Interventions Safety Precautions/Fall Reduction bed alarm;fall reduction program maintained;lighting adjusted fortask/safety;low bed;nonskid shoes/slippers when out of bed;room near unit station Brambila Fall Risk History of Falling -- Secondary Diagnosis -- Ambulatory Aids -- Intravenous Therapy/Heparin/Saline Lock -- Gait/Transferring -- Mental Status -- Score -- OTHER Brambila Fall Risk -- Musculoskeletal Interventions Activity/Level of Assistance -- Positioning -- Goal: Infection Control Outcome: Ongoing (Interventions Implemented as Appropriate) 12/17/14 1432 Safety Interventions Isolation Precautions standard precautions maintained Infection Prevention environmental surveillance;hydration promoted;nutrition promoted;rest/sleep promoted Coping/Psychosocial Response Interventions Counseling calming techniques promoted;emotional support provided;understanding of situation facilitated;verbalization of feelings encouraged;reassurance provided Goal: Discharge Needs Assessment Outcome: Ongoing (Interventions Implemented as Appropriate) Problem: Skin Integrity Impairment, Risk/Actual (Adult, Obstetrics) Goal: Identify Signs and Symptoms and Related Risk Factors Signs and symptoms and related risk factors are identified upon initiation of Human Response Clinical Practice Guideline (CPG) Outcome: Ongoing (Interventions Implemented as Appropriate) Goal: Skin Integrity/Wound Healing Patient will demonstrate the desired outcomes. Outcome: Ongoing (Interventions Implemented as Appropriate) 12/17/14 1432 Skin Integrity Impairment, Risk/Actual (Adult, Obstetrics) Skin Integrity/Wound Healing making progress toward outcome * Plan of Care - Hong Costa RN - 12/17/2014 3:59 AM EDT OUTCOME EVALUATION NOTE: OUTCOME SUMMARY: Toya has been pleasant and cooperative. She verbalized not eating well cause the food served doesn't taste Good. She had complaint of headache but wants only ice pack. PLAN MOVING FORWARD: No specific plan yet for d/c. Will continue to monitor INDIVIDUALIZED FALL PREVENTION: Assistance: Standby assist Supervision: Standby assist Surveillance: Frequent rounding, Airborne Precaution, Masimo, CPG GOAL OUTCOME EVALUATION: Problem: General Plan of Care Goal: Plan of Care Review Outcome: Ongoing (Interventions Implemented as Appropriate) 12/16/14 0052 12/16/141999 Plan of Care Review Plan of Care Outcome Status ongoing (interventions implemented as appropriate) -- Progress no change -- Coping/Psychosocial Response Interventions Plan of Care Reviewed with -- patient Goal: Individualization and Mutuality Outcome: Ongoing (Interventions Implemented as Appropriate) 12/13/141999 Mutuality/Individual Preferences What anxieties, fears or concerns do you have about your health or care? i have 3 children What questions do you have about your health or care? no What information would help us give you more personalized care? no Goal: Fall Prevention-Safe Patient Handling Outcome: Ongoing (Interventions Implemented as Appropriate) 12/15/14 1600 12/16/14199912/16/14 2200 Safety Interventions Safety Precautions/Fall Reduction -- -- mobility aid Brambila Fall Risk History of Falling -- 25 -- Secondary Diagnosis -- 0 -- Ambulatory Aids -- 0 -- Intravenous Therapy/Heparin/Saline Lock -- 20 -- Gait/Transferring -- 10 -- Mental Status -- 0 -- Score -- 55 -- OTHER Brambila Fall Risk -- High -- Musculoskeletal Interventions Activity/Level of Assistance -- with stand by assist -- Positioning independent -- -- Goal: Infection Control Outcome: Ongoing (Interventions Implemented as Appropriate) 12/16/141999 Safety Interventions Isolation Precautions airborne precautions maintained Infection Prevention environmental surveillance Coping/Psychosocial Response Interventions Counseling emotional support provided;calming techniques promoted Goal: Discharge Needs Assessment Outcome: Ongoing (Interventions Implemented as Appropriate) 12/14/14 0600 Living Environment Transportation Available public transportation;family or friend will provide Problem: Skin Integrity Impairment, Risk/Actual (Adult, Obstetrics) Goal: Identify Signs and Symptoms and Related Risk Factors Signs and symptoms and related risk factors are identified upon initiation of Human Response Clinical Practice Guideline (CPG) Outcome: Ongoing (Interventions Implemented as Appropriate) 12/15/143 12/16/14 0052 Skin Integrity Impairment, Risk/Actual Personal Related Risk Factors (Skin Integrity Impairment, Risk/Actual) confusion/combative -- Treatment Related Related Risk Factors (Skin Integrity Impairment, Risk/Actual) -- medication;physical immobilization;other (see comments) Goal: Skin Integrity/Wound Healing Patient will demonstrate the desired outcomes. Outcome: Ongoing (Interventions Implemented as Appropriate) 12/14/14 1607 Skin Integrity Impairment, Risk/Actual (Adult, Obstetrics) Skin Integrity/Wound Healing making progress toward outcome * Plan of Care - Whitney Dominguez RN - 12/16/2014 1:18 AM EDT Problem: General Plan of Care Goal: Plan of Care Review Outcome: Ongoing (Interventions Implemented as Appropriate) 12/16/14 0052 Plan of Care Review Plan of Care Outcome Status ongoing (interventions implemented as appropriate) Progress no change Coping/Psychosocial Response Interventions Plan of Care Reviewed with patient OUTCOME SUMMARY: VSS, PERRL, A&Ox4, Lungs clear. bowel sounds in all quadrants. 5/5 strengths all extremities. Patient reports headache. Madonna Mejia MD aware. No new orders at this time. Patient tolerating PO well Standard precautions maintained. Patient slept well this shift. 2129: patient had episode of being tearful, and expressing frustration. Patient stated that she needs to know what is going on with her. That she has never been away from her 4 year old daughter thislong, that her daughter got very upset when she called her so she didn't want to call her anymore because she didn't want to upset her daughter any more. This senior writer asked the patient if there was anything we could do for her to help her with this difficult time. Patient stated that she would like to talk to an MD tomorrow for an update before going to MRI or any other tests. PLAN MOVING FORWARD: Plans for MRI (must take out body piercings prior to MRI) Continue to monitor Pain management Maintain patient safety Continue airborne precautions INDIVIDUALIZED FALL PREVENTION: fall risk precautions maintained. Bed in low position. Bed alarms with 3 side rails raised at all times patient is in bed. Tabs/chair alarms on at all times when patient is out of bed. Staff in bathroom with patient at all times.Tolieting offered. Bathing/hygeine/dressing assistance provided while e ncouraging independence. Environment clear of obstacles/tripping hazard. Lighting provided/adjusted. Patient instructed in use of call golden call golden within reach at all times. Patient will remain free from falls this shift. ASSISTANCE: To ambulate patient is 1 assist SUPERVISION: patient is within reach with all ADL's, when patient is out of bed, and while patient is in bathroom with patient at all times. SURVEILLANCE: Purposeful hourly rounding done, masimo, airborne precautions maintained, call golden within reach. GOAL OUTCOME EVALUATION: Problem: Skin Integrity Impairment, Risk/Actual (Adult, Obstetrics) Goal: Identify Signs and Symptoms and Related Risk Factors Signs and symptoms and related risk factors are identified upon initiation of Human Response Clinical Practice Guideline (CPG) Outcome: Ongoing (Interventions Implemented as Appropriate) 12/16/14 0052 Skin Integrity Impairment, Risk/Actual Treatment Related Related Risk Factors (Skin Integrity Impairment, Risk/Actual) medication;physicalimmobilization;other (see comments) Skin is clean dry and intact. No s/s of pressure ulcers or breakdown present. Ecchymotic. Tatoos. Specialty bed utilized. HOB elevated. Pressure points/heels off bed. Food preferences provided. Frequent small meals provided. Oral nutrition/fluids promoted. Supplemental drinks provided. Oral hygiene/rinse provided. Cleansing/protectant products provided. Skin will remain clear of pressure ulcers during this shift. skin to skin areas protected, skin to device areas protected. Tubing/devices free from under patient. Patient turns/repostitions self. Patient has numerous body piercings, tongue, nostril, lower lip, upper lip. These must be removed prior to MRI * Plan of Care - Aneta Kumar RN - 12/15/2014 8:19 PM EDT Problem: General Plan of Care Goal: Plan of Care Review Outcome: Ongoing (Interventions Implemented as Appropriate) 12/15/14 0217 12/15/14 0800 Plan of Care Review Plan of Care Outcome Status ongoing (interventions implemented as appropriate) -- Progress no change -- Coping/Psychosocial Response Interventions Plan of Care Reviewed with -- patient OUTCOME EVALUATION NOTE: OUTCOME SUMMARY: Patient initial neurological assessment showed that patient unaware of date and time. A&O x [address] done today on shift. Patient very anxious, feeling that she does not know what is going on. Very upset over not having a diagnosis. I'm not staying here for long. Emotionally liable. Discussed need for MRI, patient refused MRI secondary to piercing removal. MRI team stated piercings not a problem in MRI so long as the patient is aware there may be discomfort. Patient still refused, and physician aware. Patient refusing care at this time, refusing vital signs. Airborneprecautions continue. Safety maintained. Will continue to monitor. PLAN MOVING FORWARD: Maintain safety, continue to reinforce stress relief, communication strategies to reduce anxiety. Continue neurological assessments. INDIVIDUALIZED FALL PREVENTION: Assistance: 1 Person assist, stand-by. Supervision: RN and WELDER/FITTER, stand-by. Surveillance: Bed alarm on, bed in lowest position. Call golden in reach, usage reinforced. Rings appropriately. Hourly and frequent rounding continues. Safety maintained. Will continue to monitor. CPG GOAL OUTCOME EVALUATION: Goal: Individualization and Mutuality Outcome: Ongoing (Interventions Implemented as Appropriate) 12/13/141999 Mutuality/Individual Preferences What anxieties, fears or concerns do you have about your health or care? i have 3 children What questions do you have about your health or care? no What information would help us give you more personalized care? no Goal: Fall Prevention-Safe Patient Handling Outcome: Ongoing (Interventions Implemented as Appropriate) 12/15/14 0800 12/15/14 1352 12/15/14 1600 Safety Interventions Safety Precautions/Fall Reduction -- -- environmental modification;fall reduction program maintained;lighting adjusted for task/safety;family at bedside;low bed;nonskid shoes/slippers when out of bed;room near unit station;supervised activity Brambila Fall Risk History of Falling 0 -- -- Secondary Diagnosis 15 -- -- Ambulatory Aids 0 -- -- Intravenous Therapy/Heparin/Saline Lock 20 -- -- Gait/Transferring 10 -- -- Mental Status 15 -- -- Score 60 -- -- OTHER Brambila Fall Risk High -- -- Musculoskeletal Interventions Activity/Level of Assistance -- up ad doris;up in room;with stand by assist -- Positioning -- -- independent Goal: Infection Control Outcome: Ongoing (Interventions Implemented as Appropriate) 12/15/14 0800 Safety Interventions Isolation Precautions airborne precautions maintained Infection Prevention environmental surveillance;bronchial hygiene promoted;hydration promoted;nutrition promoted;promote handwashing;rest/sleep promoted Coping/Psychosocial Response Interventions Counseling calming techniques promoted;emotional support provided;goal setting facilitated;journaling promoted;problem solving facilitated;relaxation techniques promoted;reassurance provided;understanding of situation facilitated;verbalization of feelings encouraged Goal: Discharge Needs Assessment Outcome: Ongoing (Interventions Implemented as Appropriate) 12/14/14 0600 Living Environment Transportation Available public transportation;family or friend will provide Problem: Skin Integrity Impairment, Risk/Actual (Adult, Obstetrics) Goal: Identify Signs and Symptoms and Related Risk Factors Signs and symptoms and related risk factors are identified upon initiation of Human Response Clinical Practice Guideline (CPG) Outcome: Ongoing (Interventions Implemented as Appropriate) 12/15/14 1953 Skin Integrity Impairment, Risk/Actual Personal Related Risk Factors (Skin Integrity Impairment, Risk/Actual) confusion/combative Goal: Skin Integrity/Wound Healing Patient will demonstrate the desired outcomes. Outcome: Ongoing (Interventions Implemented as Appropriate) 12/14/14 1607 Skin Integrity Impairment, Risk/Actual (Adult, Obstetrics) Skin Integrity/Wound Healing making progress toward outcome * Plan of Care - Whitney Dominguez RN - 12/15/2014 2:20 AM EDT Problem: General Plan of Care Goal: Plan of Care Review Outcome: Ongoing (Interventions Implemented as Appropriate) 12/15/14 0217 Plan of Care Review Plan of Care Outcome Status ongoing (interventions implemented as appropriate) Progress no change Coping/Psychosocial Response Interventions Plan of Care Reviewed with patient OUTCOME SUMMARY: VSS, PERRL, A&Ox4 Lungs clear. bowel sounds in all quadrants. 5/5 strengths all extremities. Patient reports no pain. Patient tolerating PO well Standard precautions maintained. Patient slept well this shift. 2015: 2mg ativan PO given prior to MRI. safety sheet done. All piercing except for one on right upper lip removed. Patient states she is unable to removed body piercing on upper lip. Patient returnedto floor, MRI unable to be done at this time. Luis Daniel Rawls MD aware. PLAN MOVING FORWARD: Continue to monitor Pain management Maintain patient safety MRI INDIVIDUALIZED FALL PREVENTION: fall risk precautions maintained. Bed in low position. Bed alarms with 3 side rails raised at all times patient is in bed. Tabs/chair alarms on at all times when patient is out of bed. Staff in bathroom with patient at all times. Tolieting offered. Bathing/hygeine/dressing assistance provided whileencouraging independence. Environment clear of obstacles/tripping hazard. Lighting provided/adjusted. Patient instructed in use of call golden call golden within reach at all times. Patient will remain free from falls this shift. ASSISTANCE: To ambulate patient is 1 - 2 assist SUPERVISION: patient is hands on assist with all ADL's, when patient is out of bed, and while patient is in bathroom with patient at all times. SURVEILLANCE: Purposeful hourly rounding done, morgan, call golden within reach. GOAL OUTCOME EVALUATION: * Consult Note - Corona Cruz MD - 12/14/2014 9:43 PM EDT Pulmonary/preliminary Pt. Seen and examined. Full note to follow. 24 yo wf with multiple ring- enhancing and non-enhancinglesions in brain, no clinical evidence of SBE, and a few tiny nodules in the chest. Seems very unlikely that the chest and brain lesions are associated with one another but further characterization of the chest lesions with a CT would be very helpful. * Consult Note - Corona Cruz MD - 12/14/2014 9:41 PM EDT PPulmonary * Plan of Care - Aneta Kumar RN - 12/14/2014 4:11 PM EDT Problem: General Plan of Care Goal: Plan of Care Review Outcome: Ongoing (Interventions Implemented as Appropriate) 12/14/14 0800 12/14/14 1607 Plan of Care Review Plan of Care Outcome Status -- ongoing (interventions implemented as appropriate) Progress -- no change Coping/Psychosocial Response Interventions Plan of Care Reviewed with patient -- OUTCOME EVALUATION NOTE: OUTCOME SUMMARY: Patient remains A&Ox4, with 5/5 strengths bilaterally. Patient's airborne precautions reinstated at beginning of shift. NPO status maintained until bedside lumbar puncture. Rash noted to have developed on face and chest at time of lumbar puncture. Progressed back to regular diet. Safety maintained, will continue to monitor. PLAN MOVING FORWARD: Awaiting test results, treat anxiety as possible. Continue to monitor and assess for infection, safety, and neurological status. INDIVIDUALIZED FALL PREVENTION: Assistance: 1 person SBA Supervision: RN and PROMISE - SBA. Surveillance: Call golden in reach, bed alarm on, bed in lowest position. Call golden usage reinforced.Frequent and hourly rounding continues. Neurological assessments Q 4 continues. Safety maintained. Will continue to monitor. CPG GOAL OUTCOME EVALUATION: Goal: Individualization and Mutuality Outcome: Ongoing (Interventions Implemented as Appropriate) 12/13/141999 Mutuality/Individual Preferences What anxieties, fears or concerns do you have about your health or care? i have 3 children What questions do you have about your health or care? no What information would help us give you more personalized care? no Goal: Fall Prevention-Safe Patient Handling Outcome: Ongoing (Interventions Implemented as Appropriate) 12/14/14 0800 12/14/14 1200 Safety Interventions Safety Precautions/Fall Reduction -- bed alarm;environmental modification;fall reduction program maintained;lighting adjusted for task/safety;low bed;nonskid shoes/slippers when out of bed;room near unit station;supervised activity Brambila Fall Risk History of Falling 0 -- Secondary Diagnosis 15 -- Ambulatory Aids 0 -- Intravenous Therapy/Heparin/Saline Lock 20 -- Gait/Transferring 0 -- Mental Status 0 -- Score 35 -- OTHER Brambila Fall Risk Med -- Musculoskeletal Interventions Activity/Level of Assistance with stand by assist -- Positioning -- independent Goal: Infection Control Outcome: Ongoing (Interventions Implemented as Appropriate) 12/14/14 0800 Safety Interventions Isolation Precautions airborne precautions initiated Coping/Psychosocial Response Interventions Counseling calming techniques promoted;emotional support provided;goal setting facilitated;reassurance provided;relaxation techniques promoted;understanding of situation facilitated;verbalization of feelings encouraged Goal: Discharge Needs Assessment Outcome: Ongoing (Interventions Implemented as Appropriate) 12/14/14 0600 Living Environment Transportation Available public transportation;family or friend will provide Problem: Skin Integrity Impairment, Risk/Actual (Adult, Obstetrics) Goal: Identify Signs and Symptoms and Related Risk Factors Signs and symptoms and related risk factors are identified upon initiation of Human Response Clinical Practice Guideline (CPG) Outcome: Ongoing (Interventions Implemented as Appropriate) Goal: Skin Integrity/Wound Healing Patient will demonstrate the desired outcomes. Outcome: Ongoing (Interventions Implemented as Appropriate) 12/14/14 1607 Skin Integrity Impairment, Risk/Actual (Adult, Obstetrics) Skin Integrity/Wound Healing making progress toward outcome * Med Student Consult - Savage Ayala - 12/14/2014 3:39 PM EDT MEDICAL STUDENT CONSULT NOTE Service: Consult Pulmonology Note Originally Written by Savage Ayala MS3 ID: Toya Duenas is a 24 year old female with a past medical history notable for depression, anxiety, opioid abuse and ADHD admitted on 12/13/14 for 6 weeks of gait instability and dizziness, 4-5 of persistent nausea and vomiting 1 week of right sided upper extremity numbness and tingling. HPI: Ms. Duenas was in her usual state of good health when 6 weeks ago she noted onset of gait instability and dizziness. She notes that she had difficulty walking without feeling as if she were going to fall over. She describes this sensation not like weakness saying that she felt like falling over if I spent time on either leg. She attributed these symptoms to vertigo, a diagnosis which she had previously been ascribed. She also notes onset of double vision at this time.4-5 weeks ago she noted onset of nausea and vomiting. She says she was unable to keep any food down and would bring upfood contents as well as, green, bileous contents. These symptoms led to her losing 30 lbs in thethe last month. She had marked decrease in appetite, but notes that symptoms were not as pronouncedin the evening and she could eat then. 1 week ago, Ms. Duenas notes a feeling of tingling starting in her R ear but eventually progressing to the right side of her neck and then to her right arm and hand. With this accumulation of symptoms, Ms. Duenas decided she required medical evaluation. Since admission, Ms. Duenas notes resolution of her vomiting and nausea. She continues to note feelings of numbness in her R upper extremity and neck. Yesterday she also developed frontal headache. She says the headache is lessened today but notes that it still is waiting and feels it could recurespecially with harsh light. Her vision continues to doubled. Evaluation of the brain by MRI has revealed white matter hypoattenuation as well as several ring enhancing lesions. CXR from yesterday has revealed multiple nodular densities. She denies any respiratory symptoms. She denies, SOB, cough, runny nose, chest tightness, chest pain, wheeze or hemoptysis. She has also denied fever, night sweats, lymphadenopathy, sick contacts, recent travel or noxious exposure. Notably, Ms. Duenas describes having previous episodes somewhat similar to the one she is sufferingfrom currently. Last year on 03/03 and again on 08/03 Ms. Duenas describes 2 week episodes where shehad difficulty maintaining balance and double vision. Previous evaluation of these episodes led to the diagnosis of vertigo and accumulation of ear wax. She describes that after removal of ear wax during the last episode she started to feel better over the course of a couple weeks. She has never previously had episodes of numbness or tingling and says this current episodes has lasted much longer than her previous ones. ROS: Gen: Endorses weight loss, loss of appetite. Denies fever, night sweats, trauma, malaise. HEENT: Endorses double vision, frontal headache with photophobia. Denies runny nose, epistaxis, sore throat, change in hearing, lymphadenopathy PULM: Denies SOB, cough, sputum, wheeze, hemoptysis CV: Denies chest pain, orthopnea, palpitations, fainting, claudication GI: Endorses nausea and bilious vomiting. Denies abd pain, diarrhea/constipation, hematemesis, bloody stool, indigestion : Denies dysuria, polyuria, hematuria, incontinence MSK: Denies pain, joint stiffness, joint swelling, decreased ROM Neuro: Endorses headache, R sided upper extremity numbness and tingling, ataxia. Denies weakness, changes in smell, changes in hearing, seizures PMH: Depression Anxiety ADHD Opioid abuse: only PO. PSH: None Allergies: NKDA Immunizations: UTD up to age 14, but is unsure. Social: Ms. Duenas lives in [place], [place] with her 4 year old daughter. She has 2 other older children fathered by another man who are not in her custody. She is currently unemployed and is on disabilityfor her emotional condition. She has had previous issues with opioid substance abuse specifically with oral opioids and denies IVDU. She denies any other drug use. She denies smoking cigarettes. She denies any known exposure to HIV or Hep C but notes having a sexual relationship with a man who was an IV drug user and a questionable HIV and Hep C status. When his status became unclear, Ms. Duenas terminated relations with him. She has had no recent travel. Family: Mother has transient upper extremity numbness and tingling attributed to pinched nerves. OBJECTIVE: Vitals: Tm: 36.7 HR: 69 BP: 128/59 RR: 18 SaO2: 97% on RA PHYSICAL EXAM: Gen: Ms. Duenas is a well appearing young woman in no acute distress. She is fully alert and oriented. HEENT: NCAT, EOMI, PERRLA, MMM, no lymphadenopathy PULM: Bilateral, symmetrical excursions without use of accessory muscles. Respirations somewhat shallow. Lungs clear to auscultation bilaterally without evidence of crackles, rhonchi, rales, wheezes CV: RRR, No m/r/g GI: BS+, Soft, NTND MSK: No evidence of splinter hemorrhages, no edema, cap refill <2 secs Neuro: CNII-XII intact bilaterally. Numbness noted on R upper arm and R neck compared with L side. Normal strength bilaterally. Normal finger to nose, heel to jaramillo. No pronator drift. Normal pronation/supination. Recent Results (from the past 24 hour(s)) URINALYSIS WITH MICROSCOPIC Result Value Ref Range Glucose UA Negative Negative mg/dL Protein UA Negative Negative mg/dL Bilirubin UA Negative Negative mg/dL Urobilinogen UA 2.0 (*) Normal mg/dL pH UA 6.0 5.0 - 8.0 Blood UA Negative Negative mg/dL Ketones UA Negative Negative mg/dL Nitrite UA Negative Negative Leukocytes UA Small (*) Negative mcL Appearance UA Hazy (*) Clear Spec [place] UA 1.015 1.002 - 1.030 Color UA Yellow Yellow RBC UA 2 0 - 4 /HPF WBC UA 5 0 - 5 /HPF Bacteria UA Rare (*) None /HPF Squam Epith UA 6 (*) <=4 /HPF URINE, QUALITATIVE Result Value Ref Range SG Urine 1.015 1.002 - 1.030 Beta HCG Qual Negative BASIC METABOLIC PANEL (NON-FASTING) Result Value Ref Range Glucose Lvl 97 60 - 199 mg/dL BUN 15 8 - 18 mg/dL Creatinine 0.79 0.70 - 1.20 mg/dL Sodium 139 135 - 145 mmol/L Potassium 3.9 3.5 - 5.0 mmol/L Chloride 100 98 - 107 mmol/L CO2 25 22 - 31 mmol/L Anion Gap 14 5 - 15 mmol/L Calcium 9.7 8.5 - 10.5 mg/dL Estimated GFR >60 >=60 MAGNESIUM Result Value Ref Range Magnesium 0.89 0.69 - 1.07 mmol/L PHOSPHORUS Result Value Ref Range Phosphorus 4.5 2.5 - 4.5 mg/dL HEPATIC FUNCTION PANEL Result Value Ref Range Total Protein 7.1 6.1 - 8.0 gm/dL Albumin 5.0 3.2 - 5.2 gm/dL AST 19 0 - 30 unit/L ALT 12 0 - 30 unit/L Alk Phos 45 40 - 104 unit/L Total Bilirubin 0.6 0.2 - 1.3 mg/dL Bili, Direct 0.2 0.0 - 0.3 mg/dL HEMOGRAM Result Value Ref Range WBC 5.8 4.0 - 10.0 x10(3)/mcL RBC 4.54 3.93 - 5.22 x10(6)/mcL Hemoglobin 13.4 11.2 - 15.7 gm/dL Hematocrit 40.3 34.0 - 45.0 % MCV 88.8 79.0 - 94.0 fL MCH 29.5 26.6 - 32.2 pg MCHC 33.3 32.0 - 36.5 gm/dL Platelets 169 145 - 370 x10(3)/mcL RDWSD 38.1 35.0 - 46.0 fL RDWCV 11.9 10.9 - 14.4 % MPV 10.6 9.0 - 12.0 fL DIFFERENTIAL, AUTOMATED Result Value Ref Range Neutrophils % 55.7 Neutr Abs (ANC) 3.20 1.50 - 6.30 x10(3)/mcL Lymphocytes % 37.3 Lymphocytes Abs 2.2 1.0 - 3.6 x10(3)/mcL Monocytes % 4.3 Monocyte Abs 0.2 0.2 - 1.0 x10(3)/mcL Eosinophils % 2.4 Eosinophils Abs 0.1 0.0 - 0.5 x10(3)/mcL Basophils % 0.3 Basophils Abs 0.0 0.0 - 0.2 x10(3)/mcL Immature Gran % 0.00 Sandy Gran Abs 0.00 0.00 - 0.05 x10(3)/mcL RAPID QUALITATIVE DRUG SCREEN, URINE ([facility]) Result Value Ref Range MARINO Marijuana Metabolites Scr None Detected None Detected MARINO Phencyclidine Scr None Detected None Detected MARINO Cocaine Metabolites Scr None Detected None Detected MARINO Methamphetamines Scr None Detected None Detected MARINO Opiates Scr None Detected None Detected MARINO Amphetamines Scr None Detected None Detected MARINO Benzodiazepines Scr Presumptive Pos (*) None Detected MARINO Tricyclics Scr None Detected None Detected MARINO Methadone Scr Presumptive Pos (*) None Detected MARINO Barbiturates Scr None Detected None Detected MARINO Oxycodone Scr None Detected None Detected MARINO Propoxyphene Scr None Detected None Detected MARINO Buprenorphine Scr None Detected None Detected PROTEIN LEVEL CSF Result Value Ref Range T Protein, CSF 28 15 - 45 mg/dL Xanthochromia Neg GLUCOSE LEVEL CSF Result Value Ref Range Glucose, CSF 57 LEUKEMIA LYMPHOMA SCREEN (FORMERLY MALIGNANT CELL SCREEN) Result Value Ref Range LLS BF Type CSF Leukemia Lymphoma Screen See Comment CSF DESC 1 Result Value Ref Range Tube Num CSF #1 1 Color CSF #1 Colorless Colorless Appear CSF #1 Clear Clear Tot Vol CSF #1 3.8 CSF DESC 2 Result Value Ref Range Tube Num CSF #2 2 Color CSF #2 Colorless Colorless Appear CSF #2 Clear Clear Tot Vol CSF #2 4.0 CSF DESC 3 Result Value Ref Range Tube Num CSF #3 3 Color CSF #3 Colorless Colorless Appear CSF #3 Clear Clear Tot Vol CSF #3 4.6 CSF DESC 4 Result Value Ref Range Tube Num CSF #4 4 Color CSF #4 Colorless Colorless Appear CSF #4 Clear Clear Tot Vol CSF #4 3.8 CSF CELL COUNT Result Value Ref Range Tube # Ct CSF [address] 10 (*) 0 - 5 /mcl RBC CSF CT 0 Lymphocyte CSF 98 Macrophage CSF [address] CSF 200 HIV SCREEN, 4TH GENERATION Result Value Ref Range HIV-1/2 Ab and Ag Negative Negative CSF CULTURE Result Value Ref Range Central Nervous System Culture Value: Patient Name: TOYA DUENAS Ordered By: JA DEGROOT MR#: [id number] LOC: 5WS /Sex: 1990 (24 years), Female PROCEDURE: Central Nervous System Culture SOURCE: CSF COLLECTED: 12/14/2014 14:25 STARTED: 12/14/2014 16:53 STAINS / PREPARATIONS Gram Stain Report Verified:12/14/2014 17:41 Cytocentrifuge Gram Stain performed White Blood Cells seen No microorganisms seen. PROTHROMBIN TIME Result Value Ref Range PT 15.3 12.5 - 15.5 sec INR 1.1 0.9 - 1.1 APTT Result Value Ref Range PTT 37 (*) 25 - 35 sec MARIOLA INK STAIN Result Value Ref Range Mariola Ink Stain Value: Patient Name: TOYA DUENAS Ordered By: JA DEGROOT MR#: [id number] LOC: 5WST /Sex: 1990 (24 years), Female PROCEDURE: Mariola Ink Stain SOURCE: CSF COLLECTED: 12/14/2014 14:25 STARTED: 12/14/2014 17:00 STAINS / PREPARATIONS Mariola Ink Preparation Report Verified:12/14/2014 17:26 Mariola Ink preparation Negative. HEPATITIS C ANTIBODY Result Value Ref Range Hepatitis C Ab Negative Negative HEPATITIS B SURFACE ANTIGEN Result Value Ref Range HepB Surface Ag Negative Negative HEPATITIS B SURFACE ANTIBODY Result Value Ref Range HepB Surface Ab Positive HEPATITIS B CORE ANTIBODY, TOTAL Result Value Ref Range Hep B Core Ab Negative Negative MISCELLANEOUS LAB REQUEST Result Value Ref Range Misc Lab Result Request received in lab. MISCELLANEOUS LAB REQUEST Result Value Ref Range Misc Lab Result Request received in lab. Scheduled Meds: ??? methadone 10 mg Oral Daily ??? buPROPion 100 mg Oral BID ??? sodium chloride 0.9 % 5 mL Intravenous BID ??? docusate sodium 100 mg Oral BID Continuous Infusions: ??? sodium chloride 0.9% 1,000 mL (12/14/14 1101) PRN Meds:.sodium chloride 0.9 %, lidocaine, ondansetron OR ondansetron Imaging: CXR (12/14/14): 1 cm nodular density with multiple nodular densities noted. MRI of brain (12/14/14): White matter hypoattenuation and multiple ring enhancing lesions. ASSESSMENT/PLAN: A: Toya Duenas is a 24 year old female with a PMHx notable for depression, anxiety, ADHD and non IV opioid abuse admitted on 12/13/14 for persistent gait instability, double vision, nausea vomiting and more recent onset of R sided upper extremity numbness and tingling and CALDERON. A particularly concerning feature of Ms. Duenas' presentation are her imaging results which include white matter hypoattenuation and multiple ring enhancing lesions in addition to multiple nodular opacities on CXR. A mostconcerning diagnosis would be a metastatic lymphoma affecting the lung and the brain, but without night sweats, fatigue as well as lack of lymphadenopathy, this diagnosis is currently less likely. She does present with weight loss, but this could be attributed to poor intake from her nausea/vomiting rather than a neoplastic process. Pyogenic abscesses are also particularly concerning and atypicalorganisms like Nocardia or Mycobacteria could be possible culprit pathogens. However, Ms. Duenas' lack of constitutional symptoms, respiratory symptoms or leukocytosis point away from infective cause. Also, Ms. Duenas' lack of hemoptysis, night sweats, fever and no identifiable exposure to TB wouldmake that infection far less likely. Considering her immunocompetent status and previous negative HIV screen infection with toxoplasmosis, aspergillus or cryptococcus are less likely and lack of travel history would discount neurocysticercosis. However, Ms. Duenas may have had exposure to HIV and definitively evaluating her status is important in ruling out opportunistic infection. CT of the chest would be better able to visualize the nodules visualized on CXR and better understand nature of lung findings. Finally, considering her white matter lesions, neurological symptoms, previous history of similar episodes and demographic, multiple sclerosis is also a possible diagnosis. Evaluation of CSF for oligoclonal bans will be able to evaluate this cause further. The differential will become more clear as initial laboratories return results. P: 1) Further evaluation of chest nodules visualized from CXR -Obtain chest CT -F/u initial labs and cultures Savage Ayala, MS3 * Plan of Care - Luis Daniel Ward RN - 12/14/2014 6:30 AM EDT Problem: General Plan of Care Goal: Fall Prevention-Safe Patient Handling 12/14/14 0630 Safety Interventions Safety Precautions/Fall Reduction fall reduction program maintained;lighting adjusted for task/safety Pt. Educated on need to call for assistance with transfer and amublation. Pt. Agreed to ask for assistance documented in this encounter Plan of Treatment Not on file documented as of this encounter Procedures Procedure Name Priority Date/Time Associated Diagnosis Comments VISUAL EVOKED POTENTIAL TEST Routine 12/18/2014 6:44 PM EDT MISCELLANEOUS LAB REQUEST STAT 2014 12:46 PM EDT MRI BRAIN WWO CONTRAST (GENERIC) Routine 12/17/2014 11:20 AM EDT DIAGNOSTIC LUMBAR PUNCTURE Routine 12/17/2014 10:[address] CHEST W CONTRAST Routine 12/15/2014 3 :29 PM EDT AFB CULTURE Routine 12/14/2014 5:46 PM EDT IMMUNOPHENOTYPING FLOW CYTOMETRY (BLOOD) Routine 12/14/2014 4:00 PM EDT MISCELLANEOUS LAB REQUEST Routine 2014 4:00 PM EDT MISCELLANEOUS LAB REQUEST Routine 2014 4:00 PM EDT LYME IGG & IGM ANTIBODY Routine 12/15/19 15 4:00 PM EDT VDRL SCREEN CSF Routine 12/14/2014 4:00 PM EDT FUNGUS CULTURE & MARIOLA INK STAIN Routine 12/14/2014 2:25 PM EDT MARIOLA INK STAIN Routine 12/14/2014 2:25 PM EDT NON-ADMINISTRATIVE JUDGE FINAL REPORT Routine 12/14/2014 2:25 PM EDT QUANTIFERON-TB GOLD Routine 12/14/2014 2 :25 PM EDT VZV PCR, CSF Routine 12/14/2014 2:25 PM EDT TOXOPLASMA PCR, CSF Routine 12/14/2014 2 :25 PM EDT ENTEROVIRUS PCR, CSF Routine 12/14/2014 2:25 PM EDT EBV PCR QUALITATIVE, CSF Routine 015 2:25 PM EDT CMV PCR, QUALITATIVE Routine 12/14/2014 2:25 PM EDT HEPATITIS C ANTIBODY Routine 12/14/2014 2:25 PM EDT OLIGOCLONAL BANDING CSF Routine 12/15/19 15 2:25 PM EDT TOXOPLASMA ANTIBODY, IGM Routine 015 2:25 PM EDT IGG INDEX CSF Routine 12/14/2014 2:25 PM EDT HEPATITIS B CORE ANTIBODY, TOTAL Routine 12/14/2014 2:25 PM EDT SYPHILIS ANTIBODY SCREEN WITH REFLEX Routine 12/14/2014 2:25 PM EDT CRYPTOCOCCAL ANTIGEN CSF ([facility]/CGP/APD/NL) Routine 12/14/2014 2:25 PM EDT HSV PCR, CSF Routine 12/14/2014 2:25 PM EDT HIV SCREEN, 4TH GENERATION ([facility]/CGP/APD/NL) Routine 12/14/2014 2:25 PM EDT HEPATITIS B SURFACE ANTIBODY Routine 12/14/2014 2:25 PM EDT HEPATITIS B SURFACE ANTIGEN Routine 12/14/2014 2:25 PM EDT APTT Routine 12/14/2014 2:25 PM EDT PROTHROMBIN TIME Routine 12/14/2014 2:25 PM EDT CSF CULTURE Routine 12/14/2014 2:25 PM EDT FUNGUS CULTURE Routine 12/14/2014 2:25 PM EDT ANGIOTENSIN CONVERTING ENZYME Routine 12/14/2014 2:25 PM EDT MYELIN BASIC PROTEIN, CSF Routine 2014 2:24 PM EDT FLUID REVIEW FLOW CYTOMETRY REPORT? Routine 12/14/2014 2:24 PM EDT FLUID REVIEW REPORT Routine 12/14/2014 2 :24 PM EDT MISC MEHTA TEST-MEHTA Routine 12/14/2014 2 :24 PM EDT 4 TOTAL TUBES SENT CSF Routine 5 2:24 PM EDT CSF CELL COUNT Routine 12/14/2014 2:24 PM EDT CSF DESC 4 Routine 12/14/2014 2:24 PM EDT CSF DESC 3 Routine 12/14/2014 2:24 PM EDT CSF DESC 2 Routine 12/14/2014 2:24 PM EDT CSF DESC 1 Routine 12/14/2014 2:24 PM EDT HEMATOLOGY FLUID REVIEW Routine 12/15/19 15 2:24 PM EDT PROTEIN LEVEL CSF Routine 12/14/2014 2:2 4 PM EDT GLUCOSE LEVEL CSF Routine 12/14/2014 2:2 4 PM EDT ANGIOTENSIN CONVERTING ENZYME CSF Routine 12/14/2014 2:24 PM EDT METHADONE, URINE, CONFIRMATION STAT 12/14/2014 1:46 PM EDT DRUG SCREEN WITH CONFIRMATION, URINE (SEND OUT) Routine 12/14/2014 1:46 PM EDT RAPID DRUG SCREEN W/O CONFIRMATION, URINE STAT 12/14/2014 1:46 PM EDT ECHOCARDIOGRAM TRANSTHORACIC Routine 12/14/2014 10:45 AM EDT Brain lesion CYTOPATHOLOGY NON-GYNECOLOGICAL Routine 12/14/2014 9:29 AM EDT XR CHEST PA AND LATERAL Routine 12/15/19 6:[address] CAROTIDS AND [place] OF [place] W CONTRAST Routine 12/14/2014 6:23 AM EDT HEMOGRAM Routine 12/14/2014 4:54 AM EDT DIFFERENTIAL, AUTOMATED Routine 12/15/19 4:54 AM EDT BLOOD CULTURE STAT 12/14/2014 4:54 AM EDT BLOOD CULTURE STAT 12/14/2014 4:54 AM EDT CBC (WITH DIFF) Routine 12/14/2014 4:54 AM EDT ANTONELLA ANTIBODY SCREEN Routine 12/14/2014 4 :54 AM EDT PHOSPHORUS Routine 12/14/2014 4:54 AM EDT MAGNESIUM Routine 12/14/2014 4:54 AM EDT HEPATIC FUNCTION PANEL Routine 5 4:54 AM EDT BASIC METABOLIC PANEL Routine 12/14/2014 4:54 AM EDT METHADONE, URINE, CONFIRMATION Routine 12/14/2014 4:14 AM EDT DRUG SCREEN WITH CONFIRMATION, URINE (SEND OUT) Routine 12/14/2014 4:14 AM EDT URINE, QUALITATIVE Routine 12/14/2014 4:14 AM EDT URINALYSIS WITH REFLEX CULTURE Routine 12/14/2014 4:14 AM EDT REQUEST FOR 2ND READ CT HEAD Routine 12/14/2014 1:05 AM EDT documented in this encounter Results * Visual evoked potential test (12/18/2014 6:44 PM EDT) Narrative Luann Sequeira - 12/18/2014 6:44 PM EDT Luann Sequeira ? 12/18/2014 ??6:44 PM ? VEP#: Patient had LIBORIO in EEG lab 12/18/14 Left eye was 20/20 Right eye was 20/20 Technologist was Luann Sequeira Pennie Escobar MD NEUROLOGY ORDERABLES * Miscellaneous Lab request (12/18/2014 12:46 PM EDT) Label Request received in lab. [facility] Blood specimen (specimen) 12/18/2014 12:46 PM EDT 12/18/2014 1:21 PM EDT Narrative Resulting Agency Comment Spec In Lab Pennie Escobar MD LAB SEND OUT ORDERAB LES [facility] * MRI brain with/WO contrast (12/17/2014 11:20 AM EDT) Anatomical Region Laterality Modality Head Magnetic Resonan ce 12/17/2014 11:2 0 AM EDT Impressions 12/17/2014 3:09 PM EDT IMPRESSION: 1. ??Findings are consistent with a demyelinating process with most likely etiology being multiple sclerosis, ??especially tumefactive MS. Other differential considerations include acute disseminated encephalomyelitis. Findings are not thought to be related to septic emboli, neoplasm, or ischemic infarction. This report was reviewed by George Marin MD at 12/17/2014 3:03 PM Film and interpretation reviewed by the attending Narrative 12/17/2014 3:09 PM EDT EXAMINATION: MR BRAIN W/WO CONTRAST CLINICAL HISTORY: patient with CT lesions - presenting with 6 weeks of vertigo, and 1 weeks of numbness in her right neck and arm. TECHNIQUE: MRI acquired of the brain before and after the administration of 6 mm of gadavist intravenously. COMPARISON: CT head 12/14/[address] head 12/03/2014. Prior MRI examination dated 12/07/2014 is not available at the time of initial interpretation. FINDINGS: There are multiple T2 hyperintense lesions throughout the juxtacortical and periventricular white matter of the supratentorial brain and involving the posterior aspect of the right medulla and left brachium pontis. Many of the supratentorial lesions demonstrate postcontrast ring and partial ring enhancement. Lesions do involve the undersurface of the corpus callosum and callosal septal interface. No central restricted diffusion. No significant mass effect. No susceptibility related signal loss to suggest hemoglobin degradation products. Ventricles are normal in size. Extra-axial spaces are normal. Visualized bone marrow is normal in signal. The orbits are normal in signal. Paranasal sinuses and mastoid air cells are normal in signal. There is a right-sided partially imaged focus of T2 prolongation within the cervical cord at the level of C2 seen on series 5, image 170 which demonstrates postcontrast enhancement on sagittal sequence series 9, image 49. Procedure Note George Mari MD - 12/17/2014 EXAMINATION: MR BRAIN W/WO CONTRAST CLINICAL HISTORY: patient with CT lesions - presenting with 6 weeks ofvertigo, and 1 weeks of numbness in her right neck and arm. TECHNIQUE: MRI acquired of the brain before and after the administrationof 6 mm of gadavist intravenously. COMPARISON: CT head 12/14/[address] head 12/03/2014. Prior MRI examinationdated 12/07/2014 is not available at the time of initial interpretation. FINDINGS: There are multiple T2 hyperintense lesions throughout the juxtacorticaland periventricular white matter of the supratentorial brain and involvingthe posterior aspect of the right medulla and left brachium pontis. Many ofthe supratentorial lesions demonstrate postcontrast ring and partial ring enhancement. Lesions do involve the undersurface of the corpus callosumand callosal septal interface. No central restricted diffusion. No significantmass effect. No susceptibility related signal loss to suggest hemoglobindegradation products. Ventricles are normal in size. Extra-axial spaces are normal. Visualizedbone marrow is normal in signal. The orbits are normal in signal. Paranasalsinuses and mastoid air cells are normal in signal. There is a right-sided partially imaged focus of T2 prolongation withinthe cervical cord at the level of C2 seen on series 5, image 170 whichdemonstrates postcontrast enhancement on sagittal sequence series 9, image 49. IMPRESSION IMPRESSION: 1. Findings are consistent with a demyelinating process with mostlikely etiology being multiple sclerosis, especially tumefactive MS. Other differential considerations include acute disseminatedencephalomyelitis. Findings are not thought to be related to septic emboli, neoplasm, orischemic infarction. This report was reviewed by George Marin MD at 12/17/2014 3:03 PM Film and interpretation reviewed by the attending Ja Degroot MD IMG MRI ORDERABL ES * DIAGNOSTIC LUMBAR PUNCTURE (12/17/2014 10:51 AM EDT) Narrative Pennie Escobar MD - 12/17/2014 10:51 AM EDT Pennie Escobar MD ? 12/17/2014 10:51 AM Neurology Procedure Note: Date: 12/14/2014 Patient: Toya Duenas ?? : ??1990 Procedure name: lumbar puncture (diagnostic) Indications: multiple ring-enhancing lesions Procedural sedation assessment: No past medical history on file. Scheduled Meds: ? ? methadone ??10 mg Oral Daily ? ? buPROPion ??100 mg Oral BID ? ? sodium chloride 0.9 % ??5 mL Intravenous BID ? ? docusate sodium ??100 mg Oral BID ? ? LORazepam ??2 mg Oral Once ? ? hydrOXYzine ??50 mg Oral Once ? ? lidocaine ??5 mL Subdermal Once Continuous Infusions: ? ? sodium chloride 0.9% 1,000 mL (12/14/14 1101) PRN Meds:.sodium chloride 0.9 %, lidocaine, ondansetron OR ondansetron No Known Allergies Most recent food intake: yesterday Expected sedation needs: None Procedure: Risk and benefits were explained to the patient and consent was obtained. Sedation provided: none Patient was prepped with betadine and draped in sterile fashion. ?? The patient was positioned sitting upright/left lateral decubitus. ?? 3cc lidocaine were used to numb the skin and insertion site. ?? A 22-g 3.5 spinal needle was inserted into the space between L4 and L5. ?? One attempt was made. ?? CSF DESCRIPTION: Clear CSF was obtained. Opening pressure of 14.5cmH20 Studies sent for: Protein, glucose, cell count, oligoclonal bands, IgG ratio, MBO, multiple infectious labs A total of 14 cc spinal fluid was removed. ?? Patient tolerated the procedure well. ??There were no immediate complications observed. ??Patient was advised to lie flat. Janiya Mas MD I was the attending physician supervising the resident in the above care and I was present with the resident for the tang component(s) of the procedure and remained immediately available throughout the remainder. Pennie Escobar MD Ja Dergoot MD NEUROLOGY ORDERA BLES * CT chest with contrast (12/15/2014 3:29 PM EDT) Anatomical Region Laterality Modality Chest Computed Tomogra phy 12/15/2014 3:29 PM EDT Narrative 12/15/2014 3:52 PM EDT Clinical information: Technique: 3.75 mm transaxial slices were obtained through the thorax after administration of 60 cc of Omnipaque 350 Findings: Lungs and airways:Normal Pleura:Normal Pneumothorax:NONE Lymph nodes:Normal Esophagus: normal Heart and pericardium: Normal Vasculature:Normal Chest wall:Normal Interpretation: Normal chest CT scan The subtle opacities seen on the patient's recent chest x-ray were due to vascular superimposition Procedure Note Lisset Torre MD - 12/15/2014 Clinical information: Technique: 3.75 mm transaxial slices were obtained through the thoraxafter administration of 60 cc of Omnipaque 350 Findings: Lungs and airways:Normal Pleura:Normal Pneumothorax:NONE Lymph nodes:Normal Esophagus: normal Heart and pericardium: Normal Vasculature:Normal Chest wall:Normal Interpretation: Normal chest CT scan The subtle opacities seen on the patient's recentchest x-ray were due to vascular superimposition Pennie Escobar MD IMG CT ORDERABLES * AFB culture (12/14/2014 5:46 PM EDT) Acid Fast Bacilli Culture ? Patient Name: TOYA DUENAS ? Ordered By: JANIYA MAS ? MR#: [id number] ?LOC: ??5WST ? /Sex: ??1990 (24 years), ? Female ? PROCEDURE: Acid Fast Bacilli Culture ?SOURCE: CSF ? COLLECTED: 12/14/2014 17:46 ? STARTED: 12/14/2014 17:46 ? STAINS / PREPARATIONS ? Acid Fast Stain Report ? Verified: 19:56 ? No Acid Fast Bacilli seen ? Reviewed Stain Report ? Verified: 20:05 ? AFB stain not performed. Report entered by mistake. Called to Alberto ? Frankieyan at ??12/17/2014 20:05:03. ? FINAL REPORT ? Final Report ? Verified: 10:02 ? No Acid Fast Bacilli isolated ? PRELIMINARY REPORT ? Preliminary Report ? Verified: 14:01 ? No acid fast bacilli isolated at 7 weeks. ? [facility]ILLEN[facility] Cerebrospinal fluid specimen (specimen) 12/14/2014 5:46 PM EDT 12/14/2014 5:46 PM EDT Narrative Resulting Agency Comment Spec In Lab Janiya Mas MD MICROBIOLOGY - GENER AL ORDERABLES [facility] * Lyme IgG & IgM Antibody (12/14/2014 4:00 PM EDT) Lyme Antibody Neg Neg [facility] Blood specimen (specimen) Venous Draw / Unknown 12/14/2014 4:00 PM EDT 12/18/2014 8:33 AM EDT Narrative Resulting Agency Comment Spec In Lab Madonna Mejia MD IMMUNOLOGY ORDERABLE S Performing Organization Address City/[facility]/ZIP Co de Phone Number [facility] * Miscellaneous Lab request (12/14/2014 4:00 PM EDT) Label Request received in lab. [facility] Cerebrospinal fluid specimen (specimen) 12/14/2014 4:00 PM EDT 12/14/2014 4:39 PM EDT Narrative Resulting Agency Comment Spec In Lab Ja Degroot MD LAB SEND OUT ORD ERABLES Performing Organization Address [facility] Co de Phone Number [facility] * VDRL Screen CSF (12/14/2014 4:00 PM EDT) VDRL Screen CSF (JANUARY) Negative Negative [facility] Comment: ADDITIONAL INFORMATION Positive results by this test are not confirmed with a treponemal-specific assay. Test Performed by: [facility] [place] [address] Barrel Assembly Inspector: Sabas Rodrigues II, M.D., Ph.D. Cerebrospinal fluid specimen (specimen) 12/14/2014 4:00 PM EDT 12/17/2014 9:45 AM EDT Narrative Resulting Agency Comment Spec In Lab Ja Degroot MD LAB SEND OUT ORD ERABLES Performing Organization Address City/[facility] de Phone Number [facility] * Miscellaneous Lab request (12/14/2014 4:00 PM EDT) Label Request received in lab. [facility] Cerebrospinal fluid specimen (specimen) 12/14/2014 4:00 PM EDT 12/14/2014 4:39 PM EDT Narrative Resulting Agency Comment Spec In Lab Ja Degroot MD LAB SEND OUT ORD ERABLES Performing Organization Address [facility] de Phone Number [facility] * Immunophenotyping Flow Cytometry (12/14/2014 4:00 PM EDT) Immunophenotyping Flow See Comment [facility] Comment: When completed by the Pathologist, the Flow Cytometry Report ([id number]) will display under the Pathology Results section within eD. Specimen of unknown material (specimen) 12/14/2014 4:00 PM EDT 12/14/2014 4:39 PM EDT Narrative Resulting Agency Comment Spec In Lab Ja Degroot MD HEMATOLOGY ORDER ANDERS Performing Organization Address [facility] de Phone Number [facility] * Non-Welding Machine Operator Helper Gas Final Report (12/14/2014 2:25 PM EDT) Diagnosis Discussion ? [facility] ? Provider: ?? JANIYA MAS ? Pt. Name: ?? TOYA DUENAS ? Acc #: ?[id number] ?Pt. ? Col Date: ?? 12/14/2014 ? /Sex: ?1990,( ? years),Female ? Rec Date: ?? 12/14/2014 ? LOC: ?5WST ? CYTOPATHOLOGY: ??NGYN ? ---Cytopathologi c Diagnosis--- ? Negative for Malignancy ? 12/17/14 ?Screened by: ? REP ? Rescreened by: ?? LOGISTICS RESEARCH ENGINEER,LOGISTICS RESEARCH ENGINEER ? 12/17/14 ?Verified by: ? BARRINGTON CARRILLO MD ?Pathologist ?(Electronic Signature) ? ---Comment--- ? Cerebrospinal Fluid, Lumbar: ? Specimen is composed of lymphocytes- mainly small forms with rare larger- ? likely reactive forms. ? Please also see [id number] report and concurrent flow cytometry results on this ? sepcimen. ? ---Clinical Information--- ? Specimen Source: ?Cerebrospinal Fluid, Lumbar ? Pertinent Clinical Data and Significant Therapy: ?New enhancing brain lesions ? Clinical Impression: ?Rule out malignancy ? Pertinent Radiologic Findings: ?(not provided) ? Gross Description: ?Received fresh, approximately 4 ml. total volume of clear, colorless ? fluid. ?Total Preparation: Diff Quik 1; Pap Stain 1. 12/17/2014 3:[address] [facility] CEREBROSPINAL FLUID SPECIMEN / Unknown 12/14/2014 2:25 PM EDT 12/14/2014 2:25 PM EDT Janiya Mas MD PATHOLOGY/CYTOLOGY O RDHARMONY Performing Organization Address City/[facility]/ZIP Co de Phone Number [facility] [place] [address] * Hepatitis B Core Antibody, Total (12/14/2014 2:25 PM EDT) Hepatitis B Core Antibody Negative Negative [facility] Blood specimen (specimen) Venous Draw / Unknown 12/14/2014 2:25 PM EDT 12/14/2014 2:51 PM EDT Narrative Resulting Agency Comment Spec In Lab Ja Degroot MD CHEMISTRY ORDERA BLES Performing Organization Address [facility] Co de Phone Number [facility] * Hepatitis B Surface Antibody (12/14/2014 2:25 PM EDT) Hepatitis B Surface Antibody Positive [facility] Comment: Expected Results: Vaccinated: Positive Unvaccinated: Negative Please note: A positive result for this assay is consistent with a concentration of anti-HBs antibodies >10mIU/ml, which indicates that anti-HBs antibodies have been detected at levels consistent with protective immunity against HBV infection. Blood specimen (specimen) Venous Draw / Unknown 12/14/2014 2:25 PM EDT 12/14/2014 2:51 PM EDT Narrative Resulting Agency Comment Spec In Lab Ja Degroot MD CHEMISTRY ORDERA BLES Performing Organization Address [facility]/ZIP Co de Phone Number [facility] * Hepatitis B Surface Antigen (12/14/2014 2:25 PM EDT) Hepatitis B Surface Antigen Negative Negative [facility] Blood specimen (specimen) Venous Draw / Unknown 12/14/2014 2:25 PM EDT 12/14/2014 2:51 PM EDT Narrative Resulting Agency Comment Spec In Lab Ja Degroot MD CHEMISTRY CHALINO MCKNIGHT Performing Organization Address [facility] de Phone Number [facility] * Hepatitis C Antibody (12/14/2014 2:25 PM EDT) Hepatitis C Antibody Negative Negative [facility] Blood specimen (specimen) Venous Draw / Unknown 12/14/2014 2:25 PM EDT 12/14/2014 2:51 PM EDT Narrative Resulting Agency Comment Spec In Lab Ja Degroot MD CHEMISTRY CHALINO MCKNIGHT Performing Organization Address [facility] de Phone Number [facility] * Fungus culture (12/14/2014 2:25 PM EDT) Pathologist [facility] Fungus Culture ? Patient Name: TOYA DUENAS ? Ordered By: JA DEGROOT ? MR#: [id number] ?LOC: ??5WST ? /Sex: ??1990 (24 years), ? Female ? PROCEDURE: Fungus Culture ?SOURCE: CSF ? COLLECTED: 12/14/2014 14:25 ? STARTED: 12/14/2014 17:00 ? FINAL REPORT ? Final Report ? Verified:2014 08:14 ? No Fungus isolated ? PRELIMINARY REPORT ? Preliminary Report ? Verified:2014 08:09 ? No Fungus isolated to date ? [facility] Cerebrospinal fluid specimen (specimen) 12/14/2014 2:25 PM EDT 12/14/2014 5:00 PM EDT Narrative Resulting Agency Comment Spec In Lab Ja Degroot MD MICROBIOLOGY - G ENERAL ORDERABLES [facility] * Mariola Ink Stain (12/14/2014 2:25 PM EDT) Mariola Ink Stain ? Patient Name: TOYA DUENAS ? Ordered By: JA DEGROOT ? MR#: [id number] ?LOC: ??5WST ? /Sex: ??1990 (24 years), ? Female ? PROCEDURE: Mariola Ink Stain ?SOURCE: CSF ? COLLECTED: 12/14/2014 14:25 ? STARTED: 12/14/2014 17:00 ? STAINS / PREPARATIONS ? Mariola Ink Preparation Report ? Verified: 015 17:26 ? Mariola Ink preparation Negative. ? [facility] Cerebrospinal fluid specimen (specimen) 12/14/2014 2:25 PM EDT 12/14/2014 5:00 PM EDT Narrative Resulting Agency Comment Spec In Lab Ja Degroot MD MICROBIOLOGY - G ENERAL ORDERABLES Performing Organization Address [facility] Co de Phone Number [facility] * (ABNORMAL) APTT (12/14/2014 2:25 PM EDT) Partial Thromboplastin Time 37(H) 25 - 35 sec [facility] Comment: Recommended therapeutic PTT range for full dose unfractionated heparin is 80-114 seconds. Blood specimen (specimen) 12/14/2014 2:25 PM EDT 12/14/2014 2:32 PM EDT Narrative Resulting Agency Comment Spec In Lab Ja Degroot MD HEMATOLOGY ORDER ANDERS Performing Organization Address [facility] Phone Number [facility] * Prothrombin Time (12/14/2014 2:25 PM EDT) Prothrombin Time 15.3 12.5 - 15.5 sec [facility] Comment: Transfusion Committee Guidelines: INR less than 2.0, PTT less than OR equal to 43.5 seconds, or Fibrinogen greater than or equal to 100 mg/dl indicate adequate procoagulant activity for hemostasis in patients without underlying bleeding disorders. International Normalization Ratio 1.1 0.9 - 1.1 [facility] Blood specimen (specimen) 12/14/2014 2:25 PM EDT 12/14/2014 2:32 PM EDT Narrative Resulting Agency Comment Spec In Lab Ja Degroot MD HEMATOLOGY ORDER ANDERS Performing Organization Address [facility] Co de Phone Number [facility] * Syphilis Antibody, IgG (12/14/2014 2:25 PM EDT) Syphilis IgG Neg Neg [facility] Blood specimen (specimen) 12/14/2014 2:25 PM EDT 12/17/2014 7:51 AM EDT Narrative Resulting Agency Comment Spec In Lab Ja Degroot MD CHEMISTRY ORDERA BLES Performing Organization Address [facility] Co de Phone Number [facility] * Toxoplasma Antibody, IgM (12/14/2014 2:25 PM EDT) Toxoplasma Antibody IgM Neg Neg [facility] Blood specimen (specimen) 12/14/2014 2:25 PM EDT 12/17/2014 11:36 AM EDT Narrative Resulting Agency Comment Spec In Lab Ja Degroot MD IMMUNOLOGY ORDER ANDERS Performing Organization Address [facility] de Phone Number [facility] * Toxoplasma PCR, CSF (12/14/2014 2:25 PM EDT) Toxoplasma Gondii Pcr (MAY) Test ? Result ?? Flag ??Unit ??RefValue Toxoplasma gondii PCR ??Specimen Source ?CSF ??Toxoplasma gondii PCR ?Negative ? Negative ---ADDITIONAL INFORMATION----- Laboratory developed test. Test Performed by: [facility] - [address] [address] Barrel Assembly Inspector: Sabas Rodrigues II, M.D., Ph.D. [facility] Cerebrospinal fluid specimen (specimen) 12/14/2014 2:25 PM EDT 12/17/2014 10:36 AM EDT Narrative Resulting Agency Comment Spec In Lab Ja Degroot MD LAB SEND OUT ORD CarJumpBLES Performing Organization Address [facility] Co de Phone Number [facility] * EBV PCR Qualitative, CSF (12/14/2014 2:25 PM EDT) EBV PCR, Qual Test ? Result ?? Flag ??Unit ??RefValue ------ Rick-Traore Virus PCR ??Specimen Source ?CSF ??Rick-Traore Virus PCR ? Negative ? Negative -ADDITIONAL INFORMATION------- Analyte Specific Reagent: This test was developed and its performance characteristics determined by [facility]. It has not been cleared or approved by the U.S. Food and Drug Administration. Test Performed by: [facility] [address] [address] Barrel Assembly Inspector: Melania Denson, Ph.D. [facility] Cerebrospinal fluid specimen (specimen) 12/14/2014 2:25 PM EDT 12/17/2014 10:37 AM EDT Narrative Resulting Agency Comment Spec In Lab Ja Degroot MD LAB SEND OUT ORD CarJumpJUAN LUIS Performing Organization Address [facility] Co de Phone Number [facility] * CMV PCR, Qualitative, CSF (12/14/2014 2:25 PM EDT) Cmv Pcr, Qualitative (MAY) Test ? Result ?? Flag ??Unit ??RefValue Cytomegalovirus PCR ??Specimen Source ?CSF ??Cytomegalovir us PCR ?Negative ? Negative ----ADDITIONAL INFORMATION---- Laboratory developed test. Test Performed by: [place] [address] Barrel Assembly Inspector: Melania Denson, Ph.D. [facility] Cerebrospinal fluid specimen (specimen) 12/14/2014 2:25 PM EDT 12/17/2014 10:37 AM EDT Narrative Resulting Agency Comment Spec In Lab Ja Degroot MD LAB SEND OUT ORD JAYLINBLES [facility] * VZV PCR, CSF (12/14/2014 2:25 PM EDT) Varicella-Zos ter PCR (MAY) Test ? Result ?? Flag ??Unit ??RefValue Varicella-Zoster Virus PCR ??Specimen Source ?CSF ??Varicella-Zost er Virus PCR ?? Negative ? Negative ---ADDITIONAL INFORMATION----- Laboratory developed test. Test Performed by: [place] [address] Barrel Assembly Inspector: Melania Denson, Ph.D. [facility] Cerebrospinal fluid specimen (specimen) 12/14/2014 2:25 PM EDT 12/17/2014 10:37 AM EDT Narrative Resulting Agency Comment Spec In Lab Ja Degroot MD LAB SEND OUT ORD ERABLES Performing Organization Address [facility] Co de Phone Number [facility] * Enterovirus PCR, CSF (12/14/2014 2:25 PM EDT) ENTV PCR Negative Negative [facility] Cerebrospinal fluid specimen (specimen) 12/14/2014 2:25 PM EDT 12/14/2014 4:57 PM EDT Narrative Resulting Agency Comment Spec In Lab Ja Degroot MD MICROBIOLOGY - G ENERAL ORDERABLES Performing Organization Address [facility] de Phone Number [facility] * HSV PCR, CSF (12/14/2014 2:25 PM EDT) HSV PCR, Qualitative Negative Negative [facility] Comment: This test was developed and its performance characteristics determined by [facility]. It has not been cleared or approved by the FDA. The laboratory is regulated under CLIA as qualified to perform high-complexity testing. This test is used for clinical purposes. It should not be regarded as investigational or for research. Cerebrospinal fluid specimen (specimen) 12/14/2014 2:25 PM EDT 12/14/2014 4:57 PM EDT Narrative Resulting Agency Comment Spec In Lab Ja Degroot MD MICROBIOLOGY - G ENERAL ORDERABLES Performing Organization Address City/State/ZIP Co la Phone Number [facility] * (ABNORMAL) IgG Index CSF (12/14/2014 2:25 PM EDT) IgG Index, CSF (MAY) Test ? Result ?? Flag ??Unit ? RefValue Cerebrospinal Fl, CSF, IgG Index ??IgG Index, CSF ? 0.81 ?<=0.85 ??IgG, CSF ? 2.2 ?mg/dL ?<=8.1 ??Albumin, CSF ? 17.2 ? mg/dL ?<=27.0 ??IgG/Albumin, CSF ? 0.13 ?<=0.21 ??Synthesis Rate, CSF ?3.68 ? mg/24 h ??<=12 ??IgG, S ? 765 ? L ?mg/dL ?767 - 1590 ??Albumin, S ? 4850 ?H ?mg/dL ?3200 - 4800 ??IgG/Albumin, S ? 0.16 ?<=0.40 Test Performed by: [facility] - [address] [address] Barrel Assembly Inspector: Sabas Rodrigues II, M.D., Ph.D. (A) [facility] Mehta Review 12/14/2014 2:25 PM EDT 12/17/2014 12:00 PM EDT Narrative Resulting Agency Comment Spec In Lab Ja Degroot MD LAB SEND OUT ORD ERABLES [facility] * (ABNORMAL) Oligoclonal banding (12/14/2014 2:25 PM EDT) Oligo Bands Csf (MAY) Test ? Result ??Flag ??Unit ?? RefValue --------- Oligoclonal Banding ??Serum Bands ?0 ? bands ??CSF Bands ?6 ? bands ??CSF Olig Bands ? 6 ?@ ?bands ??<4 ?Interpretation The oligoclonal band assay detected 4 or more IgG bands in the CSF, which are not detected in the serum. This is a Positive result. CSF is used in the diagnosis of MS by identifying increased intrathecal IgG synthesis qualitatively (Oligoclonal Bands) or quantitatively (IgG index or IgG synthesis rate, CSF). Oligoclonal bands (4 or more CSF-specific bands) and/or an elevated CSF IgG index are detected in up to 90% of patients with MS. These findings, however, are not specific for MS as CSF-specific IgG synthesis may also be found in patients with other neurologic diseases including infectious, inflammatory, cerebrovascular, and paraneoplastic disorders. Test Performed by: [address] [address] Barrel Assembly Inspector: Sabas Rodrigues II, M.D., Ph.D.(A) [facility] Review 12/14/2014 2:25 PM EDT 12/17/2014 12:00 PM EDT Narrative Resulting Agency Comment Spec In Lab Ja Degroot MD LAB SEND OUT ORD ERABLES Performing Organization Address [facility] Co de Phone Number [facility] * Cryptococcal Antigen CSF (12/14/2014 2:25 PM EDT) Cryptococcal Antigen, CSF Negative Negative [facility] Cerebrospinal fluid specimen (specimen) 12/14/2014 2:25 PM EDT 12/14/2014 5:45 PM EDT Narrative Resulting Agency Comment Spec In Lab Ja Degroot MD MICROBIOLOGY - G ENERAL ORDERABLES Performing Organization Address [facility] de Phone Number [facility] * CSF Culture (12/14/2014 2:25 PM EDT) Central Nervous System Culture ? Patient Name: TOYA DUENAS ? Ordered By: JA DEGROOT ? MR#: [id number] ?LOC: ??5WST ? /Sex: ??1990 (24 years), ? Female ? PROCEDURE: Central Nervous System Culture ?SOURCE: CSF ? COLLECTED: 12/14/2014 14:25 ? STARTED: 12/14/2014 16:53 ? STAINS / PREPARATIONS ? Gram Stain Report ? Verified:12/15/19 15 17:41 ? Cytocentrifuge Gram Stain performed ? White Blood Cells seen ? No microorganisms seen. ? FINAL REPORT ? Final Report ? Verified:12/18/19 15 10:19 ? No growth ? PRELIMINARY REPORT ? Preliminary Report ? Verified:12/16/19 15 07:58 ? No growth to date. ? [facility] Cerebrospinal fluid specimen (specimen) 12/14/2014 2:25 PM EDT 12/14/2014 4:53 PM EDT Narrative Resulting Agency Comment Spec In Lab Ja Degroot MD MICROBIOLOGY - G ENERAL ORDERABLES [facility] * HIV Screen, 4th Generation (12/14/2014 2:25 PM EDT) Pathologist [facility] HIV Ab/Ag Screen Negative Negative [facility] Comment: This 4th Generation HIV test screens [...] Spec In Lab Ja Degroot MD CHEMISTRY CHALINO MCKNIGHT [facility] * QuantiFERON-TB Gold (12/14/2014 2:25 PM EDT) Quantiferon-TB Gold Negative Negative [facility] Comment: Nil (IU/mL)=0.04 TB Ag minus Nil (IU/mL)=0.00 Mitogen minus Nil (IU/mL)=>10 M. tuberculosis (TB) infection NOT likely ?A negative specimen should have a TB Ag minus Nil value less than 0.35 IU/mL OR a TB Ag minus Nil greater than or equal to 0.35 IU/mL and in addition the TB Ag minus Nil value must be less than 25% of the Nil value. A negative specimen should have a Mitogen minus Nil value greater than or equal to 0.5 IU/mL. ?A negative QuantiFERON-TB Gold IT result does not preclude the possibility of M. tuberculosis infection or tuberculosis disease: false negative results can be due to stage of infection (e.g., specimen obtained prior to the development of cellular immune response), co-morbid conditions which affect immune function, or other individual immunological factors. ?The performance of the QuantiFERON-TB Gold IT test has not been extensively evaluated with specimens from the following groups of individuals: ?1. Individuals who have impaired or altered immune function such as those who have HIV infection or AIDS, those who have transplantation managed with immunosuppressive treatment or others who receive immunosuppressive drugs (e.g., corticosteroids, methotrexate, azathioprine, cancer chemotherapy), and those who have other clinical conditions: diabetes, silicosis, chronic renal failure, hematological disorders (e.g., leukemia and lymphomas), and other specific malignancies (e.g., carcinoma of the head or neck and lung). ?2. Individuals younger than age 17 years. ?3. women. Note: Diagnosing or excluding tuberculosis disease, and assessing the probability of LTBI, require a combination of epidemiological, historical, medical, and diagnostic findings that should be taken into account when interpreting QuantiFERON-TB Gold results. Reference (http://www.cdc.gov/nchstp/tb/) Blood specimen (specimen) 12/14/2014 2:25 PM EDT 12/17/2014 8:17 AM EDT Narrative Resulting Agency Comment Spec In Lab Ja Degroot MD CHEMISTRY ORDERA BLES Performing Organization Address [facility] Co de Phone Number [facility] * Angiotensin Converting Enzyme (12/14/2014 2:25 PM EDT) Pathologist [facility] Marga (JANUARY) 23 8 - 53 unit/L [facility] Comment: Test Performed by: [facility] [address] Barrel Assembly Inspector: Melania Denson, Ph.D. Blood specimen (specimen) 12/14/2014 2:25 PM EDT 12/14/2014 4:17 PM EDT Narrative Resulting Agency Comment Spec In Lab Ja Degroot MD LAB SEND OUT ORD ERABLES Performing Organization Address [facility] de Phone Number [facility] * [facility] Test-[facility] (12/14/2014 2:24 PM EDT) [facility] Test ? Result ?? Flag ??Unit ??RefValue West Nile Virus Ab, IgG and IgM,CSF ??West Nile Virus Ab, IgG, ? Negative ? Negative ?CSF ??West Nile Virus Ab, IgM, ? Negative ? Negative ?CSF Test Performed by: [place] [address] Barrel Assembly Inspector: Sabas Rodrigues II, M.D., Ph.D. [facility] Cerebrospinal fluid specimen (specimen) Other / Unknown 12/14/2014 2:24 PM EDT 12/17/2014 10:19 AM EDT Narrative Resulting Agency Comment Spec In Lab Ja Degroot MD LAB SEND OUT ORD ERABLES [facility] * Fluid Review Report (12/14/2014 2:24 PM EDT) Fluid Review Report ? [facility] ? Provider: ?? JA DEGROOT Pt. Name: ?? TOYA DUENAS ?A ? Acc #: ?[id number] ? Pt. ? Col Date: ?? 12/14/2014 ? /Sex: ?1990,(24 ? years),Female ? Rec Date: ?? 12/14/2014 ? LOC: ?5WST ? MORPHOLOGIC HEMATOLOGY: FLUID REVIEW ? ---Clinical Information--- ? Specimen: ? CSF ? Clinical Diagnosis: ?enhancing lesions ? Indication for Study: ?? LLS ? ---Preparation--- ? Microscopic Description: ?WBC/ul: ?10 ?RBC/uL ? 0 ? 200 cells counted on cytocentrifuge preparation. ? # ?Neut: ??_ ?Lymph: 196 ?Phag: ??4 ?Eos: ?? _ ?Baso: ??_ ?Meso: ??_ ?Other: _ ? ---Interpretation--- ? Rare single atypical cell; likely reactive histiocyte. Mostly small mature ? reactive lymphocytes. No malignant cell seen. Also see ? cytology report [id number]. ? 12/15/14 ? PK ? 12/15/14 Verified by: ? Susan MALHOTRA, Alex ? Hematopathologist ? (Electronic Signature) ? The attending pathologist whose signature appears on this report has ? reviewed all diagnostic slides and has edited the gross and/or ? microscopic portion of the report in rendering the final pathologic ? diagnosis. ? ---Comment--- ? Flow analysis supports the above finding. ? This study is optimal for evaluation of abnormal lymphocytic infiltrates ? and blasts in fluid specimens. For metastatic nonlymphoid malignancies like ? carcinomas, subtle involvement, ??especially cases with unknown primary ? disease, ??the specimens are optimally reviewed by cytology evaluation where ? [facility] ? Provider: ?? JA DEGROOT Pt. Name: ?? TOYA DUENAS ?A ? Acc #: ?[id number] ? Pt. ? Col Date: ?? 12/14/2014 ? /Sex: ?1990,(24 ? years),Female ? Rec Date: ?? 12/14/2014 ? LOC: ?5WST ? further work-up with immunostains can be performed for a more definitive ? diagnosis. [facility] 12/14/2014 2:24 PM EDT Ja Degroot MD PATHOLOGY/CYTOLO GY ORDERABLES [facility] * Fluid Review Flow Cytometry Report? (12/14/2014 2:24 PM EDT) Fluid Review Flow Cytometry Report? [facility] ? Provider: ?? JA DEGROOT Pt. Name: ?? TOYA DUENAS ?A ? Acc #: ?[id number] ? Pt. ? Col Date: ?? 12/14/2014 ? /Sex: ?1990,(24 ? years),Female ? Rec Date: ?? 12/14/2014 ? LOC: ?5WST ? ANALYTICAL CELL PATHOLOGY ? ---Clinical Information--- ? new enhancing lesions ? ---Preparation--- ? FCM: [id number] ? [id number] ? ---Markers--- ? Cells for immunophenotypic analysis were derived from CSF. ??CD45 vs side ? scatter gating was utilized to identify a lymphoid analysis region that ? comprises approximately 45-66% of all cells. ? The following markers were assesed: CD2, CD3, CD4, CD5, CD7, CD8, CD10, ? CD19, CD45, CD56, kappa light chain and lambda light chain. ? ---Interpretation--- ? Blasts based on CD45 expression and orthogonal light scatter, are not ? increased. ? The T-lymphocytes, CD56+ NK cells and B- lymphocytes comprise approx 97%, ? 1%, 1% of the gated population, respectively. ? CD19 positive B-lymphocytes are too few, which precludes further ? delineation by Ig light chains. The T-cells are an admixture of CD4+ and ? CD8+ T lymphocytes (ratio of 6.9). No loss or atypical intensity ? distributions are seen for any huber T antigen (CD2, 3, 4+8, 5, 7). There is ? no increase in SH28-mictdzqy/CD3-ne g NK cells. ?Diagnosis: ??Normal immunophenotyping results. No significant B-cell ? population or phenotypically abnormal T-cell population or ? increase in blasts ??is detected. ? 12/15/14 ? JRP ? 12/15/14 Verified by: ? Alex Davis MD ? Hematopathologist ? (Electronic Signature) ? ---Comment--- ?Flow analysis is an ancillary study. A definite diagnosis requires ? correlation with the morphologic features of this process and if necessary, ? [facility] ? Provider: ?? JA DEGROOT Pt. Name: ?? TOYA DUENAS ?A ? Acc #: ?[id number] ? Pt. ? Col Date: ?? 12/14/2014 ? /Sex: ?1990,(24 ? years),Female ? Rec Date: ?? 12/14/2014 ? LOC: ?5WST ? correlation with other ancillary studies like immunohistochemistry , enzyme ? cytochemistry and/or cyto/molecular genetics. ? ANALYTICAL CELL PATHOLOGY ?This test was developed and its performance characteristics determined ? by the Clinical Flow Cytometry Laboratory at [facility] ? Center. It has not been cleared or approved by the U.S. Food and Drug ? Administration. ??The FDA has determined that such clearance or approval is ? not necessary. ??This test is used for clinical purposes. ??It should not be ? regarded as investigational or for research. ??This laboratory is certified ? under the Clinical Laboratory Improvement Act of 1988 (CLIA) as qualified ? to perform high complexity clinical laboratory testing. CERNER MILLENNIUM 12/14/2014 2:24 PM EDT Ja Degroot MD PATHOLOGY/CYTOLO GY ORDERABLES [facility] * (ABNORMAL) CSF Cell Count (12/14/2014 2:24 PM EDT) Tube # counted 3 CERNE R MILLENNIUM Total Nucleated Cell Count, CSF 10(H) 0 - 5 /mcl [facility] Comment: If Nucleated Cell Count equals zero, No Scan or Differential is performed. If Nucleated Cell Count equals 1-5, Smear is scanned but no results are reported unless abnormalities are seen. If Nucleated Cell Count equals 6 or greater, Differential is reported. Nucleated Cell Count results are correlated with body fluid type and clinical condition. RBC Count CSF 0 /mcl CERNER MILLENNIUM Lymphocyte, CSF 98 % CERN ER MILLENNIUM Macrophage CSF 2 % CERNE R MILLENNIUM Total Cells, CSF 200 Cells CER NER MILLENNIUM Cerebrospinal fluid specimen (specimen) 12/14/2014 2:24 PM EDT 12/14/2014 4:39 PM EDT Narrative Resulting Agency Comment Spec In Lab Ja Degroot MD BODY FLUIDS AND STOOLS ORDERABLES [facility] * CSF DESC 4 (12/14/2014 2:24 PM EDT) Tube Num CSF 4 4 CERNE R MILLENNIUM Color, CSF 4 Colorless Colorless CERNER MILLENNIUM Appearance, CSF 4 Clear Clear CERNER MILLENNIUM Total Vol, CSF 4 3.8 mL [facility] MILLENNIUM Cerebrospinal fluid specimen (specimen) 12/14/2014 2:24 PM EDT 12/14/2014 4:39 PM EDT Narrative Resulting Agency Comment Spec In Lab Ja Degroot MD BODY FLUIDS AND STOOLS ORDERABLES Performing Organization Address [facility] de Phone Number [facility] * CSF DESC 3 (12/14/2014 2:24 PM EDT) Tube Num CSF 3 3 CERNE R MILLENNIUM Color, CSF 3 Colorless Colorless CERNER MILLENNIUM Appearance, CSF 3 Clear Clear CERNER MILLENNIUM Total Vol, CSF 3 4.6 mL CERNER MILLENNIUM Cerebrospinal fluid specimen (specimen) 12/14/2014 2:24 PM EDT 12/14/2014 4:39 PM EDT Narrative Resulting Agency Comment Spec In Lab Ja Degroot MD BODY FLUIDS AND STOOLS ORDERABLES Performing Organization Address [facility] de Phone Number [facility]ER MILLENNI[facility] * CSF DESC 2 (12/14/2014 2:24 PM EDT) Tube Num CSF #2 2 CERNER MILLENNIUM Color, CSF 2 Colorless Colorless CERNER MILLENNIUM Appearance, CSF 2 Clear Clear CERNER MILLENNIUM Total Vol, CSF 2 4.0 mL CERNER MILLENNIUM Cerebrospinal fluid specimen (specimen) 12/14/2014 2:24 PM EDT 12/14/2014 4:39 PM EDT Narrative Resulting Agency Comment Spec In Lab Ja Degroot MD BODY FLUIDS AND STOOLS ORDERABLES Performing Organization Address [facility] de Phone Number [facility]ER MILLENNI[facility] * CSF DESC 1 (12/14/2014 2:24 PM EDT) Tube Num CSF #1 1 CERNER MILLENNIUM Color, CSF Colorless Colorless CERNER MILLENNIUM Appearance, CSF Clear Clear CERNER MILLENNIUM Total Vol, CSF 3.8 mL CERNE R MILLENNIUM Cerebrospinal fluid specimen (specimen) 12/14/2014 2:24 PM EDT 12/14/2014 4:39 PM EDT Narrative Resulting Agency Comment Spec In Lab Ja Degroot MD BODY FLUIDS AND STOOLS ORDERABLES Performing Organization Address [facility] de Phone Number [facility] * Myelin Basic Protein, CSF (12/14/2014 2:24 PM EDT) Myelin Basic Protein, CSF 2.2 0.0 - 4.0 mcg/L [facility] Comment: Reference ranges for Myelin Basic Protein: ??Result ? Interpretation 0.0 - 4.0 mcg/L ?Negative 4.1 - 6.0 mcg/L ?Weakly Positive Greater than 6.0 mcg/L ? Positive This test was developed and its performance characteristics have been determined by [employer] [place], [place]. It has not been cleared or approved by the U.S. Food and Drug Administration. The FDA has determined that such clearance or approval is not necessary. Performance characteristics refer to the analytical performance of the test. Test Performed by [facility], [employer] [facility], [address] [place] [address] Hilton Payton M.D., Ph.D., Director of Laboratories , [facility] [id number] Cerebrospinal fluid specimen (specimen) 12/14/2014 2:24 PM EDT 12/17/2014 12:16 PM EDT Narrative Resulting Agency Comment Spec In Lab Ja Degroot MD LAB SEND OUT ORD ERABLES Performing Organization Address [facility] Co de Phone Number [facility] * Angiotensin Converting Enzyme CSF (12/14/2014 2:24 PM EDT) MARGA CSF 0.7 0.0 - 2.5 unit/L [facility] Comment: This test was developed and its performance characteristics determined by [facility]. The U.S. Food and Drug Administration has not approved or cleared this test; however, FDA clearance or approval is not currently required for clinical use. The results are not intended to be used as the sole means for clinical diagnosis or patient management decisions. Test Performed by: [facility] [address] [place] [address] Cerebrospinal fluid specimen (specimen) 12/14/2014 2:24 PM EDT 12/17/2014 9:45 AM EDT Narrative Resulting Agency Comment Spec In Lab Ja Degroot MD LAB SEND OUT ORD ERABLES Performing Organization Address [facility] Phone Number [facility] * Leukemia Lymphoma Screen Cerebrospinal Fluid (12/14/2014 2:24 PM EDT) FR BF Type CSF [facility] Hematology Fluid Review See Comment [facility] Comment:See Fluid Review Rep ort [id number] under Hematopathology Reports. Cerebrospinal fluid specimen (specimen) 12/14/2014 2:24 PM EDT 12/14/2014 4:39 PM EDT Narrative Resulting Agency Comment Spec In Lab Ja Degroot MD BODY FLUIDS AND STOOLS ORDERABLES Performing Organization Address [facility] Phone Number [facility] * Glucose Level CSF (12/14/2014 2:24 PM EDT) Glucose, CSF 57 mg/dL [facility] Comment:CSF at equilibrium e quals approximately 60-80% of plasma glucose. Cerebrospinal fluid specimen (specimen) 12/14/2014 2:24 PM EDT 12/14/2014 4:39 PM EDT Narrative Resulting Agency Comment Spec In Lab Ja Degroot MD BODY FLUIDS AND STOOLS ORDERABLES Performing Organization Address [facility] Phone Number [facility] * Protein Level CSF (12/14/2014 2:24 PM EDT) Pathologist [facility] Protein, CSF 28 15 - 45 mg/dL [facility] [employer] Neg [facility] Cerebrospinal fluid specimen (specimen) 12/14/2014 2:24 PM EDT 12/14/2014 4:39 PM EDT Narrative Resulting Agency Comment Spec In Lab Ja Degroot MD BODY FLUIDS AND STOOLS ORDERABLES [facility] * Methadone, Urine Confirmation (12/14/2014 1:46 PM EDT) U Meth Conf Test ?Result ?? Flag ??Unit ?? RefValue Drug of Abuse, Methadone Conf, U ??Confirmation - ?Positive ?Negative ?Methadone ??Methadone ? 2140 ? ng/mL ??Cutoff: <100 ??EDDP ?4880 ? ng/mL ??Cutoff: <100 ---ADDITIONAL INFORMATION----- This report is intended for use in clinical monitoring and management of patients. It is not intended for use in employment-relat ed drug testing. Test Performed by: [facility] [address], [place] [address] Barrel Assembly Inspector: Melania Denson, Ph.D. NIASIVA CONNSTACY Urine specimen (specimen) 12/14/2014 1:46 PM EDT 12/14/2014 1:55 PM EDT Ja Degroot MD URINE ORDERABLES [facility] * (ABNORMAL) Rapid Qual Drug Screen, Urine ([facility]) (12/14/2014 1:46 PM EDT) [place] Marijuana Metabolites Screen None Detected None Detected CERNER MILLENNIUM Comment: The marijuana metabolites screen detects the THC Metabolite (01-fgp-9-carboxy-? 9 -THC) at concentrations >50 ng/mL. Qualitative Drug screens are reported as None Detected or Presumptive Positive as the results are not routinely confirmed by highly-specific methods. As with any screen occasional false positive results from cross-reacting substances can occur. Not for Medico-Legal Purposes. Phencyclidine Screen, Urine None Detected None Detected CERNER MILLENNIUM Comment: The phencyclidine screen detects phencyclidine at concentrations >25 ng/mL. Qualitative Drug screens are reported as None Detected or Presumptive Positive as the results are not routinely confirmed by highly-specific methods. As with any screen occasional false positive results from cross-reacting substances can occur. Not for Medico-Legal Purposes. [place] Cocaine Metabolites Screen None Detected None Detected CERNER MILLENNIUM Comment: The cocaine metabolites screen detects benzoylecgonine (Cocaine Metabolite) at concentrations >150 ng/mL. Qualitative Drug screens are reported as None Detected or Presumptive Positive as the results are not routinely confirmed by highly-specific methods. As with any screen occasional false positive results from cross-reacting substances can occur. Not for Medico-Legal Purposes. Methamphetamines Screen, Urine None Detected None Detected CERNER MILLENNIUM Comment: The methamphetamine screen detects d-methamphetamine at concentrations >500 ng/mL. Qualitative Drug screens are reported as None Detected or Presumptive Positive as the results are not routinely confirmed by highly-specific methods. As with any screen occasional false positive results from cross-reacting substances can occur. Not for Medico-Legal Purposes. [facility] Opiates Screen None Detected None Detected CERNER MILLENNIUM Comment: The opiates screen detects opiates at a concentration >100 ng/mL and oxymorphone >250 ng/mL. Qualitative Drug screens are reported as None Detected or Presumptive Positive as the results are not routinely confirmed by highly-specific methods. As with any screen occasional false positive results from cross-reacting substances can occur. Not for Medico-Legal Purposes. [place] Amphetamines Screen None Detected None Detected CERNER MILLENNIUM Comment: The amphetamine screen detects d-amphetamine at concentrations >500 ng/mL. Qualitative Drug screens are reported as None Detected or Presumptive Positive as the results are not routinely confirmed by highly-specific methods. As with any screen occasional false positive results from cross-reacting substances can occur. Not for Medico-Legal Purposes. [facility] Benzodiazepines Screen Presumptive Pos(A) None Detected CERNER MILLENNIUM Comment: The benzodiazepines screen detects benzodiazepines at concentrations >150 ng/mL. Not all benzodiazepines cross-react equally with antibody used in this screen. Due to the low dosage of clonazepam, false negatives may be obtained due to low concentration of clonazepam metabolites. Qualitative Drug screens are reported as None Detected or Presumptive Positive as the results are not routinely confirmed by highly-specific methods. As with any screen occasional false positive results from cross-reacting substances can occur. Not for Medico-Legal Purposes. [place] Tricyclics Screen None Detected None Detected CERNER MILLENNIUM Comment: The tricyclics screen detects tricyclic antidepressants at concentrations >300 ng/mL. Not all tricyclics cross-react equally with the antibody used in this screen. Qualitative Drug screens are reported as None Detected or Presumptive Positive as the results are not routinely confirmed by highly-specific methods. As with any screen occasional false positive results from cross-reacting substances can occur. Not for Medico-Legal Purposes. [place] Methadone Screen Presumptive Pos(A) None Detected CERNER MILLENNIUM Comment: The methadone screen detects methadone at concentrations >200 ng/mL. Qualitative Drug screens are reported as None Detected or Presumptive Positive as the results are not routinely confirmed by highly-specific methods. As with any screen occasional false positive results from cross-reacting substances can occur. Not for Medico-Legal Purposes. [place] Barbiturates Screen None Detected None Detected CERNER MILLENNIUM Comment: The barbiturates screen detects barbiturate at concentrations >200 ng/mL. Note: Not all barbiturates cross-react equally with antibody used in this screen. Qualitative Drug screens are reported as None Detected or Presumptive Positive as the results are not routinely confirmed by highly-specific methods. As with any screen occasional false positive results from cross-reacting substances can occur. Not for Medico-Legal Purposes. [facility] Oxycodone Srceen None Detected None Detected CERNER MILLENNIUM Comment: The oxycodone screen detects oxycodone at concentrations >100 ng/mL and oxymorphone >250 ng/ml. Qualitative Drug screens are reported as None Detected or Presumptive Positive as the results are not routinely confirmed by highly-specific methods. As with any screen occasional false positive results from cross-reacting substances can occur. Not for Medico-Legal Purposes. Propoxyphene Screen, Urine None Detected None Detected CERNER MILLENNIUM Comment: The propoxyphene screen detects propoxyphene at concentrations >300 ng/mL. Qualitative Drug screens are reported as None Detected or Presumptive Positive as the results are not routinely confirmed by highly-specific methods. As with any screen occasional false positive results from cross-reacting substances can occur. Not for Medico-Legal Purposes. [place] Buprenorphine Screen None Detected None Detected CERNER MILLENNIUM Comment: The buprenorphine screen detects buprenorphine at concentrations >10 ng/mL. Qualitative Drug screens are reported as None Detected or Presumptive Positive as the results are not routinely confirmed by highly-specific methods. As with any screen occasional false positive results from cross-reacting substances can occur. Not for Medico-Legal Purposes. Urine specimen (specimen) 12/14/2014 1:46 PM EDT 12/14/2014 1:55 PM EDT Narrative Resulting Agency Comment Spec In Lab Ja Degroot MD URINE ORDERABLES [facility] * Drug Screen with Confirmation, Urine (12/14/2014 1:46 PM EDT) U [facility] w/Conf Test ?Result ?? Flag ??Unit ?? RefValue --------- [facility] Drug Screen, U ??Amphetamines ?Negative ? ng/mL ??Cutoff: 500 ??Barbiturates ?Negative ? ng/mL ??Cutoff: 200 ??Benzodiazepines ? Negative ? ng/mL ??Cutoff: 200 ??Cocaine Metabolite ?Negative ? ng/mL ??Cutoff: 150 ??Methadone ? Positive ? ng/mL ??Cutoff: 300 ??Opiates ? Negative ? ng/mL ??Cutoff: 300 ??Phencyclidine ? Negative ? ng/mL ??Cutoff: 25 ??Tetrahydrocanna binols ?? Negative ? ng/mL ??Cutoff: 50 ??Ethanol ? Negative ? mg/dL ??Cutoff: 10 --ADDITIONAL INFORMATION------ Results from this test are presumptive; for positive results refer to the corresponding drug confirmation for the definitive result. This report is intended for use in clinical monitoring and management of patients. It is not intended for use in employment-relate d drug testing. ??Confirmation - Opiates ??Negative ??Codeine ? Negative ? ng/mL ??<100 ??Hydrocodone ? Negative ? ng/mL ??<100 ??Hydromorphone ? Negative ? ng/mL ??<100 ??Morphine ?Negative ? ng/mL ??<100 ??Oxycodone ? Negative ? ng/mL ??<100 ??Oxymorphone ? Negative ? ng/mL ??<100 --ADDITIONAL INFORMATION------ This report is intended for use in clinical monitoring and management of patients. It is not intended for use in employment-relate d drug testing. Test Performed by: [place] [address] Barrel Assembly Inspector: Melania Denson, Ph.D. [facility] Urine specimen (specimen) 12/14/2014 1:46 PM EDT 12/14/2014 3:33 PM EDT Narrative Resulting Agency Comment Spec In Lab Ja Degroot MD URINE ORDERABLES [facility] * Echocardiogram Transthoracic(Leb) (12/14/2014 10:45 AM EDT) EF 65 HEARTLAB SYSTEM Anatomical Region Laterality Modality Other 12/14/2014 Narrative 12/14/2014 11:27 AM EDT Procedure: ? Transthoracic Echocardiogram Patient: ? HENRIQUE JAVED E ?(Age): 1990(24) Med Rec#: ?[id number] ? Sex: ?F ? Site Loc: ?[facility] ? Ht / Wt: ??170(cm)/65(kg) Pt. Loc: ? Adult Floor ?BSA: ?1.75 Study Date: ?12/14/2014 ? Pt. Type: Inpatient Tape: ?[id number] ? Referring: Ja Degroot Referring: DIONE LEVINE Coating Mixer Tender: Disha De Leon BA [facility] Diagnosis: ??Endocarditis (424.9) CPT Code(s): ??Color Doppler (05744), ??Echo Full (68279), ??Spectral Doppler (48251), Indication(s): ??Endocarditis Rhythm: HR ?BP ?125/66 ?? SUMMARY: 1. Left ventricular chamber size, wall thickness, global and segmental systolic function are within normal limits. Ejection fraction is estimated to be 65%. 2. The right ventricle is probably normal in size. ??Right ventricular global systolic function is probably normal. ??Pulmonary artery hypertension could not be assessed due to inadequate tricuspid regurgitation jet. 3. Technically limited valvular examination. ??There is no significant valve disease evident. ??Endocarditis, as clinically queried, is not observed but cannot be ruled out on the basis of this TTE. ?? 4. See remainder of report for additional findings. FINDINGS: Left Ventricle ?Left ventricular chamber size, wall thickness, global and segmental systolic function are within normal limits. Ejection fraction is estimated to be 65%. ?There are no left ventricular segmental wall motion abnormalities. ?Doppler assessment is consistent with normal left sided filling pressure. Left Atrium ?The left atrium is normal in size.(18 ml/m2 by volume index) Right Ventricle ?The right ventricle is probably normal in size. ?Right ventricular global systolic function is probably normal. ?Pulmonary artery hypertension could not be assessed due to inadequate tricuspid regurgitation jet. Right Atrium ?The right atrium is normal in size. Aortic Valve ?The aortic valve is not well visualized. ?The aortic valve is probably tricuspid. ?There is no evidence of aortic valve stenosis. ?There is no evidence of aortic regurgitation. Mitral Valve ?The mitral valve appears normal in structure and function. ?There is trace mitral regurgitation present. ?No vegetation is observed on the mitral valve. Tricuspid Valve ?The tricuspid valve is not well visualized. ?There is trace tricuspid regurgitation present. Pulmonic Valve ?The pulmonic valve is not well visualized. Pericardium ?The pericardium appears normal and there is no evidence of a pericardial effusion. Aorta ?The aortic root is normal in size. ?The ascending aorta is normal in size. Pulmonary Artery ?The main pulmonary artery appears normal. Venous ?The inferior vena cava appears normal in size. ?There is a greater than 50% respiratory change in the inferior vena cava dimension. Misc ?There is no hemodynamically significant valve disease. ?Suggest a transesophageal echocardiogram if clinically indicated. ?See remainder of report for additional findings. ?Two-dimensional echo, spectral Doppler and color Doppler performed. Wall Motion: Segment Name ?Rest ? Base-Anteroseptal ?? Normal ? Base-Anterior ? Normal ? Base-Anterolateral ??Normal ? Base-Posterolateral Normal ? Base-Inferior ? Normal ? Base-Inferoseptal ?? Normal ? Mid-Anteroseptal ?Normal ? Mid-Anterior ?Normal ? Mid-Anterolateral ?? Normal ? Mid-Posterolateral ??Normal ? Mid-Inferior ?Normal ? Mid-Inferoseptal ?Normal ? [place]-Septal ? Normal ? [place]-Anterior ? Normal ? [place]-Lateral ?Normal ? [place]-Inferior ? Normal ? [place]-Tip ?Normal ? Chambers ?Value ?Units (Range) ? LV EF Est ? 65 ? % (55 to 80) ? IVSd 2D ? 0.9 ?cm ? LVIDd 2D ?4.1 ?cm ? PWd 2D ?0.9 ?cm ? LVIDs 2D ?2.7 ?cm ? LVFS 2D ? 34 ? % ? LA area ? 14.4 ? cm2 (<21) ? RA area ? 7.9 ?cm2 (<18) ? Ao root ? 2.6 ?cm (2.1 to 3.6) ? Asc Ao ?2.8 ?cm (2 to 3.5) ? Mitral Valve ?Value ?Units (Range) ? E peak ?0.71 ? m/sec ? E/A ratio ? 1.1 ?ratio ? MVDT ?292 ?msec ? E1 ?0.1 ?m/sec ? E/E1 ?7.1 ?ratio ? This report has been electronically signed by: Rudi Koroma. ? 12/14/2014 11:26:40 Images reviewed and interpretation verified [facility] Cardiac Ultrasound [facility] Procedure Note Rudi Koroma MD - 12/14/2014 Procedure: Transthoracic Echocardiogram Patient: HENRIQUE ROBLES(Age): 1990(24) Med Rec#: [id number] Sex: F Site Loc: [facility] Ht / Wt: 170(cm)/65(kg) Pt. Loc: Adult Floor BSA: 1.75 Study Date: 12/14/2014 Pt. Type: Inpatient Tape: [id number] Referring: Ja Degroot Referring: DIONE LEVINE Coating Mixer Tender: Disha De Leon BA, [facility] Diagnosis: Endocarditis (424.9) CPT Code(s): Color Doppler (93838), Echo Full (90657), Spectral Doppler (64989), Indication(s): Endocarditis Rhythm: HR BP 125/66 SUMMARY: 1. Left ventricular chamber size, wall thickness, global and segmental systolic function are within normal limits. Ejection fraction is estimated to be 65%. 2. The right ventricle is probably normal in size. Right ventricular global systolic function is probably normal. Pulmonary artery hypertension could not be assessed due to inadequate tricuspid regurgitation jet. 3. Technically limited valvular examination. There is no significant valve disease evident. Endocarditis, as clinically queried, is not observed but cannot be ruled out on the basis of this TTE. 4. See remainder of report for additional findings. FINDINGS: Left Ventricle Left ventricular chamber size, wall thickness, global and segmental systolic function are within normal limits. Ejection fraction is estimated to be 65%. There are no left ventricular segmental wall motion abnormalities. Doppler assessment is consistent with normal left sided filling pressure. Left Atrium The left atrium is normal in size.(18 ml/m2 by volume index) Right Ventricle The right ventricle is probably normal in size. Right ventricular global systolic function is probably normal. Pulmonary artery hypertension could not be assessed due to inadequate tricuspid regurgitation jet. Right Atrium The right atrium is normal in size. Aortic Valve The aortic valve is not well visualized. The aortic valve is probably tricuspid. There is no evidence of aortic valve stenosis. There is no evidence of aortic regurgitation. Mitral Valve The mitral valve appears normal in structure and function. There is trace mitral regurgitation present. No vegetation is observed on the mitral valve. Tricuspid Valve The tricuspid valve is not well visualized. There is trace tricuspid regurgitation present. Pulmonic Valve The pulmonic valve is not well visualized. Pericardium The pericardium appears normal and there is no evidence of a pericardial effusion. Aorta The aortic root is normal in size. The ascending aorta is normal in size. Pulmonary Artery The main pulmonary artery appears normal. Venous The inferior vena cava appears normal in size. There is a greater than 50% respiratory change in the inferior vena cava dimension. Misc There is no hemodynamically significant valve disease. Suggest a transesophageal echocardiogram if clinically indicated. See remainder of report for additional findings. Two-dimensional echo, spectral Doppler and color Doppler performed. Wall Motion: Segment Name Rest Base-Anteroseptal Normal Base-Anterior Normal Base-Anterolateral Normal Base-Posterolateral Normal Base-Inferior Normal Base-Inferoseptal Normal Mid-Anteroseptal Normal Mid-Anterior Normal Mid-Anterolateral Normal Mid-Posterolateral Normal Mid-Inferior Normal Mid-Inferoseptal Normal [place]-Septal Normal [place]-Anterior Normal [place]-Lateral Normal [place]-Inferior Normal [place]-Tip Normal Chambers Value Units (Range) LV EF Est 65 % (55 to 80) IVSd 2D 0.9 cm LVIDd 2D 4.1 cm PWd 2D 0.9 cm LVIDs 2D 2.7 cm LVFS 2D 34 % LA area 14.4 cm2 (<21) RA area 7.9 cm2 (<18) Ao root 2.6 cm (2.1 to 3.6) Asc Ao 2.8 cm (2 to 3.5) Mitral Valve Value Units (Range) E peak 0.71 m/sec E/A ratio 1.1 ratio MVDT 292 msec E1 0.1 m/sec E/E1 7.1 ratio This report has been electronically signed by: Rudi Koroma 12/14/2014 11:26:40 Images reviewed and interpretation verified [facility] Cardiac Ultrasound [facility] Ja Degroot MD ECHO ORDERABLES * Cytopathology Non-Gynecological (12/14/2014 9:29 AM EDT) AP Specimen 12/14/2014 9:29 AM EDT 12/14/2014 9:29 AM EDT Narrative [facility] - 12/14/2014 9:29 AM EDT Specimen requisition ordered. ??Separate Pathology report to follow Ja Degroot MD PATHOLOGY/CYTOLO GY ORDERABLES [facility] * XR chest routine PA & lateral (12/14/2014 6:58 AM EDT) Anatomical Region Laterality Modality Chest N/A Radiographic Rachael ging 12/14/2014 6:58 AM EDT Impressions 12/14/2014 7:08 AM EDT IMPRESSION: Multiple nodular densities seen projecting over the left upper lobe and right lower lobe. These are indeterminate and may reflect prominent vessels. However, in a patient with multiple cerebral lesions on MRI, the possibility of pulmonary metastases cannot be excluded. If clinically indicated, recommend CT evaluation of the chest to exclude pulmonary metastases. Narrative 12/14/2014 7:08 AM EDT EXAMINATION: CHEST ROUTINE 2 VIEWS CLINICAL HISTORY: pt w/6 week hx of vertigo and 1 week hx of numbness R-facial and R-UE, ?multiple brain lesions on OSH MRI - eval for pulm nodules TECHNIQUE: PA and lateral radiographs of the chest. COMPARISON: None FINDINGS: 1 cm nodular density projects over the left upper lobe. Punctate nodular densities are noted at the right lung base. No pneumothorax or pleural effusion is seen. The heart is normal in size. There is no pneumoperitoneum present and osseous structures are preserved. Procedure Note Arron Eden MD - 12/14/2014 EXAMINATION: CHEST ROUTINE 2 VIEWS CLINICAL HISTORY: pt w/6 week hx of vertigo and 1 week hx of numbnessR-facial and R-UE, ?multiple brain lesions on OSH MRI - eval for pulm nodules TECHNIQUE: PA and lateral radiographs of the chest. COMPARISON: None FINDINGS: 1 cm nodular density projects over the left upper lobe. Punctate nodular densities are noted at the right lung base. No pneumothorax or pleuraleffusion is seen. The heart is normal in size. There is no pneumoperitoneum presentand osseous structures are preserved. IMPRESSION IMPRESSION: Multiple nodular densities seen projecting over the left upper lobe andright lower lobe. These are indeterminate and may reflect prominent vessels.However, in a patient with multiple cerebral lesions on MRI, the possibility ofpulmonary metastases cannot be excluded. If clinically indicated, recommend CTevaluation of the chest to exclude pulmonary metastases. Ja Degroot MD IMG DX ORDERABLE S * CT carotids and [place] with contrast (12/14/2014 6:23 AM EDT) Anatomical Region Laterality Modality Neck, Head Computed Tomogra phy 12/14/2014 6:23 AM EDT Impressions 12/14/2014 9:05 AM EDT IMPRESSION: Findings suggest the possibility of intracranial vasculopathy. The extracranial vasculature is unremarkable. Narrative 12/14/2014 9:05 AM EDT EXAMINATION: CT Carotids and [place] With Contrast CLINICAL HISTORY: pt w/6 weeks history of vertigo, now with 1 week history of R-neck and hand numbness - r/o dissection TECHNIQUE: CTA neck and [place] with and without contrast. 65 cc of Omni 350 administered. 3-D reformats performed on separate workstation. COMPARISON: CT head 12/03/2014. FINDINGS: CTA neck: Lung apices are clear. The aortic arch and origins of the carotid, vertebral, subclavian and innominate arteries appear normal. The vertebral arteries are codominant without any narrowing along their course. The common carotid arteries are unremarkable bilaterally. No narrowing of the carotid artery bifurcations. The bilateral internal carotid arteries are unremarkable. No masses or lymphadenopathy. Paranasal sinuses are clear. CTA [place]: The bilateral intradural vertebral arteries and basilar artery and their branches appear normal. Bilateral posterior cerebral arteries are of normal course and caliber. The left A1 segment is hypoplastic. A right-sided posterior communicating arteries identified. The left posterior commuting artery is absent or very small. On the sagittal MIP reformats there is questionable subtle irregular narrowing involving long segments of the pericallosal branches and right M3 branches. Procedure Note Edil Garvin MD - 12/14/2014 EXAMINATION: CT Carotids and [place] With Contrast CLINICAL HISTORY: pt w/6 weeks history of vertigo, now with 1 week historyof R-neck and hand numbness - r/o dissection TECHNIQUE: CTA neck and [place] with and without contrast. 65 ccof Omni 350 administered. 3-D reformats performed on separate workstation. COMPARISON: CT head 12/03/2014. FINDINGS: CTA neck: Lung apices are clear. The aortic arch and origins of thecarotid, vertebral, subclavian and innominate arteries appear normal. Thevertebral arteries are codominant without any narrowing along their course. Thecommon carotid arteries are unremarkable bilaterally. No narrowing of thecarotid artery bifurcations. The bilateral internal carotid arteries areunremarkable. No masses or lymphadenopathy. Paranasal sinuses are clear. CTA [place]: The bilateral intradural vertebral arteries andbasilar artery and their branches appear normal. Bilateral posterior cerebralarteries are of normal course and caliber. The left A1 segment is hypoplastic. A right-sided posteriorcommunicating arteries identified. The left posterior commuting artery is absent orvery small. On the sagittal MIP reformats there is questionable subtleirregular narrowing involving long segments of the pericallosal branches and rightM3 branches. IMPRESSION IMPRESSION: Findings suggest the possibility of intracranial vasculopathy. The extracranial vasculature is unremarkable. Ja Degroot MD IMG CT ORDERABLE S * ANTONELLA (12/14/2014 4:54 AM EDT) ANTONELLA Neg Neg CERNER MILLENNIUM Blood specimen (specimen) 12/14/2014 4:54 AM EDT 12/14/2014 8:17 AM EDT Narrative Resulting Agency Comment Spec In Lab Ja Degroot MD LAB SEND OUT ORD ERABLES CERNER MILLENNIUM * Differential, Automated (12/14/2014 4:54 AM EDT) Neutrophil % 55.7 % CERNER MILLENNIUM Neutrophil Absolute 3.20 1.50 - 6.30 x10(3)/mcL CERNER MILLENNIUM Lymph % 37.3 % CERNER MILLENNIUM Lymphocytes Abs 2.2 1.0 - 3.6 x10(3)/mcL CERNER MILLENNIUM Monocyte % 4.3 % CERNER MILLENNIUM Monocyte Abs 0.2 0.2 - 1.0 x10(3)/mcL CERNER MILLENNIUM Eos % 2.4 % CERNER MILLENNIUM Eosinophils Abs 0.1 0.0 - 0.5 x10(3)/mcL CERNER MILLENNIUM Basophil % 0.3 % CERNER MILLENNIUM Baso Absolute 0.0 0.0 - 0.2 x10(3)/mcL CERNER MILLENNIUM Immature Gran % 0.00 % CERN ER MILLENNIUM Comment: Immature granulocytes(IG's)percentage and absolute count will include metamyelocytes, myelocytes, and promyelocytes. Blood smears from CBCs yielding IG's will be scanned manually for concordance. If this scan disagrees with the automated IG or if promyelocytes are noted, a manual differential will be performed. Immature Gran Absolute 0.00 0.00 - 0.05 x10(3)/mcL CERNER MILLENNIUM Blood specimen (specimen) 12/14/2014 4:54 AM EDT 12/14/2014 5:10 AM EDT Narrative Resulting Agency Comment Spec In Lab Ja Degroot MD HEMATOLOGY ORDER ANDERS Performing Organization Address City/[facility]/ZIP Co de Phone Number CERSIVA CONNENNIUM * Hemogram (12/14/2014 4:54 AM EDT) White Blood Cell 5.8 4.0 - 10.0 x10(3)/mcL CERNER MILLENNIUM Red Blood Cell 4.54 3.93 - 5.22 x10(6)/mcL CERNER MILLENNIUM Hemoglobin 13.4 11.2 - 15.7 gm/dL CERNER MILLENNIUM Hematocrit 40.3 34.0 - 45.0 % CERNER MILLENNIUM Mean Cell Volume 88.8 79.0 - 94.0 fL CERNER MILLENNIUM Mean Cell Hemoglobin 29.5 26.6 - 32.2 pg CERNER MILLENNIUM Mean Cell Hemoglobin Concentration 33.3 32.0 - 36.5 gm/dL CERNER MILLENNIUM Platelet 169 145 - 370 x10(3)/mcL CERNER MILLENNIUM RDW Standard Deviation 38.1 35.0 - 46.0 fL CERNER MILLENNIUM RDW coefficient of variation 11.9 10.9 - 14.4 % CERNER MILLENNIUM Mean Platelet Volume 10.6 9.0 - 12.0 fL CERNER MILLENNIUM Blood specimen (specimen) 12/14/2014 4:54 AM EDT 12/14/2014 5:10 AM EDT Narrative Resulting Agency Comment Spec In Lab Ja Degroot MD HEMATOLOGY ORDER ANDERS [facility] * Blood culture (12/14/2014 4:54 AM EDT) Blood Culture ? Patient Name: TOYA DUENAS ? Ordered By: JA DEGROOT ? MR#: [id number] ?LOC: ??5WST ? /Sex: ??1990 (24 years), ? Female ? PROCEDURE: Blood Culture ?SOURCE: Blood ? COLLECTED: 12/14/2014 04:54 ? BODY SITE: Left Antecubital ? STARTED: 12/14/2014 05:44 ? STAINS / PREPARATIONS ? Bottle Gram Stain ? Verified:12/16/19 15 02:04 ? Growth detected in anaerobic bottle. ? Gram Positive Cocci in clusters seen ? Results called to and read back by Whitney Dominguez RN ??12/15/2014 02:04:27 FC ? FINAL REPORT ? Final Report ? Verified:12/20/19 15 08:30 ? Coagulase negative Staphylococcus species isolated ? The clinical importance of Coagulase Negative Staph, and some other Gram ? Positive organisms, from a ? single Blood Culture set cannot be interpreted. ? PRELIMINARY REPORT ? Preliminary Report ? Verified:12/17/19 15 08:08 ? Coagulase negative Staphylococcus species isolated ? The clinical importance of Coagulase Negative Staph, and some other Gram ? Positive organisms, from a ? single Blood Culture set cannot be interpreted. ? [facility] Blood specimen (specimen) ANTECUBITAL REGION STRUCTURE / Unknown 12/14/2014 4:54 AM EDT 12/14/2014 5:44 AM EDT Narrative Resulting Agency Comment Spec In Lab Ja Degroot MD MICROBIOLOGY - B LOOD ORDERABLES [facility] * Blood culture (12/14/2014 4:54 AM EDT) Blood Culture ? Patient Name: TOYA DUENAS ? Ordered By: JA DEGROOT ? MR#: [id number] ?LOC: ??5WST ? /Sex: ??1990 (24 years), ? Female ? PROCEDURE: Blood Culture ?SOURCE: Blood ? COLLECTED: 12/14/2014 04:54 ? BODY SITE: Right Hand ? STARTED: 12/14/2014 05:44 ?FREE TEXT SOURCE: AEROBIC ONLY ? FINAL REPORT ? Final Report ? Verified:2014 07:01 ? No growth at 5 days. ? PRELIMINARY REPORT ? Preliminary Report ? Verified:2014 07:02 ? No growth at 4 days. ? TOR CONNENNIUM Blood specimen (specimen) STRUCTURE OF RIGHT HAND / Unknown 12/14/2014 4:54 AM EDT 12/14/2014 5:44 AM EDT Comment:AEROBIC ONLY Narrative Resulting Agency Comment Spec In Lab Ja Degroot MD MICROBIOLOGY - B LOOD ORDERABLES CERNER MILLENNIUM * Hepatic Function Panel (12/14/2014 4:54 AM EDT) Protein, Total 7.1 6.1 - 8.0 gm/dL CERNER MILLENNIUM Albumin 5.0 3.2 - 5.2 gm/dL CERNER MILLENNIUM Aspartate Aminotransferase 19 0 - 30 unit/L CERNER MILLENNIUM Alanine Aminotransferase 12 0 - 30 unit/L CERNER MILLENNIUM Alkaline Phosphatase 45 40 - 104 unit/L CERNER MILLENNIUM Bilirubin, Total 0.6 0.2 - 1.3 mg/dL CERNER MILLENNIUM Bilirubin, Direct 0.2 0.0 - 0.3 mg/dL CERNER MILLENNIUM Blood specimen (specimen) 12/14/2014 4:54 AM EDT 12/14/2014 5:09 AM EDT Narrative Resulting Agency Comment Spec In Lab Ja Degroot MD CHEMISTRY ORDERA BLES Performing Organization Address [facility] de Phone Number [facility] * Phosphorus (12/14/2014 4:54 AM EDT) Phosphorus 4.5 2.5 - 4.5 mg/dL CERNER MILLENNIUM Blood specimen (specimen) 12/14/2014 4:54 AM EDT 12/14/2014 5:09 AM EDT Narrative Resulting Agency Comment Spec In Lab Ja Degroot MD CHEMISTRY ORDERA BLES Performing Organization Address [facility] de Phone Number CERNER MILLENNIUM * Magnesium (12/14/2014 4:54 AM EDT) Magnesium 0.89 0.69 - 1.07 mmol/L CERNER MILLENNIUM Blood specimen (specimen) 12/14/2014 4:54 AM EDT 12/14/2014 5:09 AM EDT Narrative Resulting Agency Comment Spec In Lab Ja Degroot MD CHEMISTRY ORDERA BLES CERNER MILLENNIUM * Basic Metabolic Panel (non-fasting) (12/14/2014 4:54 AM EDT) Glucose 97 60 - 199 mg/dL CERNER MILLENNIUM Comment:Diabetes: >=200 mg/d L plus symptoms Blood Urea Nitrogen 15 8 - 18 mg/dL CERNER MILLENNIUM Creatinine 0.79 0.70 - 1.20 mg/dL CERNER MILLENNIUM Comment: Please note that the pediatric reference intervals supplied above were not validated at [facility]. Results from pediatric patients should be interpreted in conjunction to the patient's age, height and muscle mass. Sodium 139 135 - 145 mmol/L CERNER MILLENNIUM Potassium 3.9 3.5 - 5.0 mmol/L CERNER MILLENNIUM Comment: Please note: ??Patients with WBC >100,000 may have falsely elevated Potassium levels. ??For accurate Potassium quantification in these patients send serum separator tube (gold top) for subsequent determinations. ??Contact the Clinical Chemistry Laboratory if there are any questions. Chloride 100 98 - 107 mmol/L CERNER MILLENNIUM Carbon Dioxide 25 22 - 31 mmol/L CERNER MILLENNIUM Anion Gap 14 5 - 15 mmol/L CERNER MILLENNIUM Calcium 9.7 8.5 - 10.5 mg/dL CERNER MILLENNIUM Est Glomerular Filtration Rate >60 >=60 CERNER MILLENNIUM Comment: This estimated GFR (eGFR) value was calculated using the MDRD equation which has been validated on patients between the ages of 18 and 70. The MDRD should not be used to assess kidney function in patients < 18 years of age or in patients with extremes of body mass, or in patients with acute kidney failure. This value should be multiplied by 1.2 for patients. For further information please copy and paste the following links into your internet browser. [email or web address] Blood specimen (specimen) 12/14/2014 4:54 AM EDT 12/14/2014 5:09 AM EDT Narrative Resulting Agency Comment Spec In Lab Ja Degroot MD CHEMISTRY ORDERA JUAN LUIS Performing Organization Address [facility] Co de Phone Number [facility] * Methadone, Urine Confirmation (12/14/2014 4:14 AM EDT) U Meth Conf Test ?Result ?? Flag ??Unit ?? RefValue Drug of Abuse, Methadone Conf, U ??Confirmation - ?Positive ?Negative ?Methadone ??Methadone ? 1930 ? ng/mL ??Cutoff: <100 ??EDDP ?6280 ? ng/mL ??Cutoff: <100 ---ADDITIONAL INFORMATION----- This report is intended for use in clinical monitoring and management of patients. It is not intended for use in employment-relat ed drug testing. Test Performed by: [place] [address] Barrel Assembly Inspector: Melania Denson, Ph.D. [facility] Urine specimen (specimen) 12/14/2014 4:14 AM EDT 12/14/2014 8:34 AM EDT Narrative Resulting Agency Comment Spec In Lab Ja Degroot MD URINE ORDERABLES Performing Organization Address [facility] de Phone Number [facility] * urine, qualitative (12/14/2014 4:14 AM EDT) Pathologist [facility] Specific [place] Urine Non-automated 1.015 1.002 - 1.030 [facility] Human Chorionic Gonadotropin Qualitative, Urine Negative [facility] Comment: If Specific [place] is less than 1.010, a negative result is obtained, and is still suspected, a repeat on a first morning specimen is recommended. Urine specimen (specimen) 12/14/2014 4:14 AM EDT 12/14/2014 4:36 AM EDT Narrative Resulting Agency Comment Spec In Lab Ja Degroot MD URINE ORDERABLES [facility] * Drug Screen with Confirmation, Urine (12/14/2014 4:14 AM EDT) [facility] U MARINO w/Conf Test ?Result ?? Flag ??Unit ?? RefValue --------- [facility] Drug Screen, U ??Amphetamines ?Negative ? ng/mL ??Cutoff: 500 ??Barbiturates ?Negative ? ng/mL ??Cutoff: 200 ??Benzodiazepines ? Negative ? ng/mL ??Cutoff: 200 ??Cocaine Metabolite ?Negative ? ng/mL ??Cutoff: 150 ??Methadone ? Positive ? ng/mL ??Cutoff: 300 ??Opiates ? Negative ? ng/mL ??Cutoff: 300 ??Phencyclidine ? Negative ? ng/mL ??Cutoff: 25 ??Tetrahydrocanna binols ?? Negative ? ng/mL ??Cutoff: 50 ??Ethanol ? Negative ? mg/dL ??Cutoff: 10 --ADDITIONAL INFORMATION------ Results from this test are presumptive; for positive results refer to the corresponding drug confirmation for the definitive result. This report is intended for use in clinical monitoring and management of patients. It is not intended for use in employment-relate d drug testing. ??Confirmation - Opiates ??Negative ??Codeine ? Negative ? ng/mL ??<100 ??Hydrocodone ? Negative ? ng/mL ??<100 ??Hydromorphone ? Negative ? ng/mL ??<100 ??Morphine ?Negative ? ng/mL ??<100 ??Oxycodone ? Negative ? ng/mL ??<100 ??Oxymorphone ? Negative ? ng/mL ??<100 --ADDITIONAL INFORMATION------ This report is intended for use in clinical monitoring and management of patients. It is not intended for use in employment-relate d drug testing. Test Performed by: [employer] [address] Barrel Assembly Inspector: Melania Denson, Ph.D. [facility] Urine specimen (specimen) 12/14/2014 4:14 AM EDT 12/14/2014 8:34 AM EDT Narrative Resulting Agency Comment Spec In Lab Ja Degroot MD URINE ORDERABLES [facility] QuandooENNIUM * (ABNORMAL) Urinalysis with microscopic (12/14/2014 4:14 AM EDT) Glucose, Urine Dipstick Negative Negative mg/dL CERNER MILLENNIUM Protein, Urine Dipstick Negative Negative mg/dL CERNER MILLENNIUM Bilirubin, Urine Dipstick Negative Negative mg/dL CERNER MILLENNIUM Comment: Clinical correlation required for positive Urine Bilirubin results as false positive may occur with some drugs and drug related products. If a false positive is suspected a serum total bilirubin should be considered if clinically indicated. Urobilinogen, Urine Dipstick 2.0(A) Normal mg/dL CERNER MILLENNIUM pH, Urn (dipstick) 6.0 5.0 - 8.0 CERNER MILLENNIUM Blood, Urine Dipstick Negative Negative mg/dL CERNER MILLENNIUM Ketone, Urine Dipstick Negative Negative mg/dL CERNER MILLENNIUM Nitrite, Urine Dipstick Negative Negative CERNER MILLENNIUM Leukocytes, Urine Dipstick Small(A) Negative mcL CERNER MILLENNIUM Appearance, Urine Dipstick Hazy(A) Clear CERNER MILLENNIUM Specific [place] Urine Automated 1.015 1.002 - 1.030 CERNER MILLENNIUM Color, Urine Dipstick Yellow Yellow CERNER MILLENNIUM RBC, Urine 2 0 - 4 /HPF CERNER MILLENNIUM WBC, Urine 5 0 - 5 /HPF CERNER MILLENNIUM Bacteria, Urine Rare(A) None /HPF CERN ER MILLENNIUM Squamous Epithelial Cells, Urine 6(H) <=4 /HPF CERNER MILLENNIUM Urine specimen (specimen) 12/14/2014 4:14 AM EDT 12/14/2014 4:36 AM EDT Narrative Resulting Agency Comment Spec In Lab Ja Degroot MD URINE ORDERABLES [facility] QuandooENNIUM * Request for 2nd read CT Head (12/14/2014 1:05 AM EDT) Anatomical Region Laterality Modality Head Other 12/14/2014 1:05 AM EDT Impressions 12/14/2014 8:28 AM EDT IMPRESSION: Multiple areas of nonspecific white matter hypoattenuation which need further evaluation with MRI. Differential considerations include demyelination, infectious/inflammatory process or vascular insults. The relative lack of edema argues against a neoplastic process. Narrative 12/14/2014 8:28 AM EDT EXAMINATION: OUTSIDE CT HEAD CLINICAL HISTORY: pt w/6 week hx of vertigo and 1 week hx of numbness R-facial and R-UE, ?multiple brain lesions on OSH MRI; What Modality is the exam? CT Scan; Body Part (please add comments as necessary): Head; I believe a reinterpretation of this exam may alter care of Patient. Yes TECHNIQUE: CT head without contrast. Protocol. COMPARISON: None FINDINGS: ??Multiple ill-defined areas of hypoattenuation identified within the bilateral centrum semiovale. Mass effect is minimal. Additional ill-defined area of hypoattenuation adjacent to the anterior horn of the left lateral ventricle. No hemorrhages or extra-axial collections. The ventricles are normal size and configuration. Visualized paranasal sinuses are clear as are the mastoid air cells. No osseous lesions. Procedure Note Edil Garvin MD - 12/14/2014 EXAMINATION: OUTSIDE CT HEAD CLINICAL HISTORY: pt w/6 week hx of vertigo and 1 week hx of numbnessR-facial and R-UE, ?multiple brain lesions on OSH MRI; What Modality is the exam?CT Scan; Body Part (please add comments as necessary): Head; I believe a reinterpretation of this exam may alter care of Patient. Yes TECHNIQUE: CT head without contrast. Protocol. COMPARISON: None FINDINGS: Multiple ill-defined areas of hypoattenuation identified withinthe bilateral centrum semiovale. Mass effect is minimal. Additionalill-defined area of hypoattenuation adjacent to the anterior horn of the left lateralventricle. No hemorrhages or extra-axial collections. The ventricles are normal sizeand configuration. Visualized paranasal sinuses are clear as are the mastoidair cells. No osseous lesions. IMPRESSION IMPRESSION: Multiple areas of nonspecific white matter hypoattenuation which needfurther evaluation with MRI. Differential considerations include demyelination, infectious/inflammatory process or vascular insults. The relative lack ofedema argues against a neoplastic process. Ja Degroot MD IMG OUTSIDE INTE RPRETATION ORDERABLES documented in this encounter Visit Diagnoses Diagnosis Brain lesion Other conditions of brain documented in this encounter Administered Medications Inactive Administered Medications - up to 3 most recent administrations Medication Order MAR Action Action Date Dose Rate Site acetaminophen (TYLENOL) tablet 650 mg 650 mg, Oral, EVERY 4 HOURS PRN, Starting on Wed12/16/14 at 0646, Until Wed12/19/14 at 1347, Pain, Maximum dose of acetaminophen is 4000 mg from all sources in 24 hours., Routine Given 12/19/2014 7:49 AM EDT 650 mg Given 12/17/2014 5:16 PM EDT 650 mg aspirin tablet 325 mg 325 mg, Oral, ONCE, 1 dose, On Wed12/14/14 at 0445, Routine Given 12/14/2014 4:49 AM EDT 325 mg buPROPion (WELLBUTRIN) tablet 100 mg 100 mg, Oral, 2 TIMES DAILY, First dose on Wed12/14/14 at 0900, Until Discontinued, Routine Given 12/19/2014 8:01 AM EDT 100 mg Given 12/18/2014 8:44 PM EDT 100 mg Given 12/18/2014 8:02 AM EDT 100 mg docusate sodium (COLACE) capsule 100 mg 100 mg, Oral, 2 TIMES DAILY, First dose on Wed12/14/14 at 0900, Until Discontinued, Routine Given 12/19/2014 8:01 AM EDT 100 mg Given 12/17/2014 8:33 PM EDT 100 mg Given 12/16/2014 9:10 AM EDT 100 mg hydrOXYzine (ATARAX) tablet 50 mg 50 mg, Oral, ONCE, 1 dose, On Wed12/14/14 at 1415, STAT Given 12/14/2014 5:09 PM EDT 50 mg hydrOXYzine (ATARAX) tablet 50 mg 50 mg, Oral, ONCE, 1 dose, On Wed12/17/14 at 1015, Routine Given 12/17/2014 10:06 AM EDT 50 mg iohexol (OMNIPAQUE) 350 mg/mL solution 22,750 mg 22,750 mg (65 mL), Intravenous, ONCE PRN, 1 dose, Starting on 12/15/14 at 1532, Until 12/15/14 at 1532, Per Protocol, Routine Given 12/15/2014 3:32 PM EDT 22,750 mg ketorolac (TORADOL) injection 15 mg 15 mg, Intravenous, ONCE, 1 dose, On Kristin 12/13/14 at 2130, Routine Given 12/13/2014 9:21 PM EDT 15 mg ketorolac (TORADOL) injection 30 mg 30 mg, Intravenous, EVERY 6 HOURS PRN, Starting on 12/16/14 at 1200, Until 12/19/14 at 1347, Pain, Routine Given 12/19/2014 8:08 AM EDT 30 mg Given 12/18/2014 12:51 PM EDT 30 mg Given 12/17/2014 10:09 PM EDT 30 mg lidocaine (XYLOCAINE) 10 mg/mL (1 %) injection 50 mg 50 mg (5 mL), Subdermal, ONCE, 1 dose, On Wed12/14/14 at 1600, Routine Given 12/14/2014 5:12 PM EDT 50 mg LORazepam (ATIVAN) 2 mg/mL injection 1 dose, Starting on Wed12/14/14 at 1356, Until Wed12/14/14 at 1400, SABA TAYLOR: cabinet override LORazepam (ATIVAN) injection 0.5 mg 0.5 mg, Intravenous, ONCE, 1 dose, On Wed12/14/14 at 0500, Routine Given 12/14/2014 4:45 AM EDT 0.5 mg LORazepam (ATIVAN) injection 1 mg 1 mg, Intravenous, ONCE, 1 dose, On Wed12/14/14 at 1415, Patient currently anxious, please give now, STAT Given 12/14/2014 2:00 PM EDT 1 mg LORazepam (ATIVAN) tablet 2 mg 2 mg, Oral, ONCE, 1 dose, On Wed12/14/14 at 1415, Give 20min prior to LP, STAT Given 12/14/2014 5:10 PM EDT 2 mg LORazepam (ATIVAN) tablet 2 mg 2 mg, Oral, ONCE, 1 dose, On Wed12/14/14 at 2015, Give 20min prior to LP, STAT Given 12/14/2014 8:15 PM EDT 2 mg LORazepam (ATIVAN) tablet 2 mg 2 mg, Oral, ONCE, 1 dose, On Wed12/17/14 at 1015, For piercing cutting, Routine Given 12/17/2014 10:06 AM EDT 2 mg magnesium sulfate 2 g in sterile water 50 mL 2 g, Intravenous, ONCE, 1 dose, On Wed12/16/14 at 1200, Administer over 120 Minutes Given 12/16/2014 11:52 AM EDT 2 g 25 mL/hr magnesium sulfate 2 g in sterile water 50 mL 2 g, Intravenous, ONCE, 1 dose, On Wed12/17/14 at 1000, Administer over 120 Minutes Given 12/17/2014 11:44 AM EDT 2 g 25 mL/hr methadone (METHADOSE) 10 mg/5 mL oral solution 10 mg 10 mg, Oral, DAILY, First dose on 12/15/14 at 1300, Until Discontinued, Liquid methadone should be used to avoid diversion, and a mouth check should be performed after each dose., Routine, Name of patient's Methadone clinic? [facility], Methadone clinic phone: [phone], Date last Methadone dose was given at the Outpatient Clinic? 12/13/2014, Dose of Methadone provided at the clinic? 10 mg daily Given 12/19/2014 8:02 AM EDT 10 mg Given 12/18/2014 8:03 AM EDT 10 mg Given 12/17/2014 8:46 AM EDT 10 mg methylPREDNISolone sodium succinate (PF) (solu-MEDROL) 1,000 mg in sodium chloride 0.9% 108 mL 1,000 mg, Intravenous, ONCE, 1 dose, On Wed12/17/14 at 1415, Administer over 30 Minutes Given 12/17/2014 2:28 PM EDT 1,000 mg 216 mL/hr methylPREDNISolone sodium succinate (PF) (solu-MEDROL) 1,000 mg in sodium chloride 0.9% 108 mL 1,000 mg, Intravenous, ONCE, 1 dose, On Wed12/18/14 at 0815, Administer over 30 Minutes Given 12/18/2014 8:16 AM EDT 1,000 mg 216 mL/hr methylPREDNISolone sodium succinate (PF) (solu-MEDROL) 1,000 mg in sodium chloride 0.9% 108 mL 1,000 mg, Intravenous, ONCE, 1 dose, On Wed12/19/14 at 0800, Administer over 30 Minutes Given 12/19/2014 7:49 AM EDT 1,000 mg 216 mL/hr ondansetron (ZOFRAN) injection 4 mg 4 mg, Intravenous, ONCE, 1 dose, On Kristin 12/13/14 at 2245 Given 12/13/2014 10:29 PM EDT 4 mg ondansetron (ZOFRAN) injection 4 mg 4 mg, Intravenous, EVERY 8 HOURS PRN, Starting on Wed12/14/14 at 0013, Until Wed12/19/14 at 1347, Nausea, May repeat times one in 30 minutes if ineffective. If multiple antiemetics are ordered, give ondansetron first. Given 12/19/2014 7:49 AM EDT 4 mg Given 12/18/2014 12:51 PM EDT 4 mg Given 12/16/2014 12:49 PM EDT 4 mg ondansetron (ZOFRAN) tablet 4 mg 4 mg, Oral, EVERY 8 HOURS PRN, Starting on Wed12/14/14 at 0013, Until Wed12/19/14 at 1347, Nausea, Vomiting, If multiple antiemetics are ordered, use ondansetron first. PO Preferred. If patient unable to take PO, may give IV if ordered. May repeat times one in 45 minutes if ineffective. If unable to take PO, may give IV., Routine Given 12/17/2014 8:54 AM EDT 4 mg sodium chloride 0.9 % flush 5 mL 5 mL, Intravenous, 2 TIMES DAILY, First dose on Wed12/14/14 at 0030, Until Discontinued, Routine Given 12/19/2014 8:02 AM EDT 5 mLs Given 12/18/2014 8:44 PM EDT 5 mLs Given 12/18/2014 8:16 AM EDT 5 mLs sodium chloride 0.9% 500 mL IV bolus Intravenous, ONCE, 1 dose, On Wed12/16/14 at 0930 Given 12/16/2014 9:41 AM EDT sodium chloride 0.9% infusion 1,000 mL, at 100 mL/hr, Intravenous, CONTINUOUS, Starting on Wed12/14/14 at 0030, Until Wed12/19/14 at 1347 New Bag 12/18/2014 8:45 PM EDT 1,000 mLs 100 mL /hr New Bag 12/18/2014 8:02 AM EDT 1,000 mLs 100 mL/hr New Bag 12/17/2014 10:16 PM EDT 1,000 mLs 100 mL/hr vancomycin 1 g in dextrose 5% 200 mL 1,000 mg (1 g), Intravenous, EVERY 12 HOURS, First dose on Wed12/15/14 at 0300, Until Discontinued, Maximum infusion rate is 1 gram/hour. If flushing of the face, neck, upper body, arms, and/or back occurs decrease infusion rate by 50% to reduce the severity of symptoms. This medication may have an associated drug lab level. Please see MAR for scheduled level., Routine, Indication for (Active or Suspected): Bacteremia/Sepsis Given 12/15/2014 3:07 AM EDT 1,000 mg documented in this encounter Active and Recently Administered Medications Times are shown in EDT. Scheduled Medication Order 12/17/2014 12/18/2014 12/19/2014 buPROPion (WELLBUTRIN) tablet 100 mg (CANCELED) 100 mg, Oral, 2 TIMES DAILY, First dose on Wed12/14/14 at 0900, Until Discontinued, Routine 0846 (Given - Provider: Miguel Pitts RN)2031 (Given - Provider: Whitney Álvarez RN) 08 (Given - Provider: Whitney Ruano RN)2043 (Given - Provider: Hong Costa RN) 0801 (Given - Provider: Aneta Kumar RN) docusate sodium (COLACE) capsule 100 mg (CANCELED) 100 mg, Oral, 2 TIMES DAILY, First dose on Wed12/14/14 at 0900, Until Discontinued, Routine 0900 (Not Given - Provider: Miguel Pitts RN - Reason: Patient/family refused)2032 (Given - Provider: Whitney Álvarez RN) 0816 (Not Given - Provider: Whitney Ruano RN - Reason: Patient/family refused)2043 (Not Given - Provider: Hong Costa RN - Reason: Patient/family refused) 0801 (Given - Provider: Aneta Kumar RN) hydrOXYzine (ATARAX) tablet 50 mg (COMPLETED) 50 mg, Oral, ONCE, 1 dose, On Wed12/17/14 at 1015, Routine 1006 (Given - Provider: Miguel Pitts RN) LORazepam (ATIVAN) tablet 2 mg (COMPLETED) 2 mg, Oral, ONCE, 1 dose, On Wed12/17/14 at 1015, For piercing cutting, Routine 1006 (Given - Provider: Miguel Pitts RN) magnesium sulfate 2 g in sterile water 50 mL (COMPLETED) 2 g, Intravenous, ONCE, 1 dose, On Wed12/17/14 at 1000, Administer over 120 Minutes 1144 (Given - Provider: Miguel Pitts RN - Comment: pt at MRI) methadone (METHADOSE) 10 mg/5 mL oral solution 10 mg (CANCELED) 10 mg, Oral, DAILY, First dose on 12/15/14 at 1300, Until Discontinued, Liquid methadone should be used to avoid diversion, and a mouth check should be performed after each dose., Routine, Name of patient's Methadone clinic? [facility], Methadone clinic phone: [phone], Date last Methadone dose was given at the Outpatient Clinic? 12/13/2014, Dose of Methadone provided at the clinic? 10 mg daily 0846 (Given - Provider: Miguel Pitts RN) 0803 (Given - Provider: Whitney Ruano RN) 0802 (Given - Provider: Aneta Kumar RN) methylPREDNISolone sodium succinate (PF) (solu-MEDROL) 1,000 mg in sodium chloride 0.9% 108 mL (COMPLETED) 1,000 mg, Intravenous, ONCE, 1 dose, On Wed12/17/14 at 1415, Administer over 30 Minutes 1428 (Given - Provider: Miguel Pitts RN) methylPREDNISolone sodium succinate (PF) (solu-MEDROL) 1,000 mg in sodium chloride 0.9% 108 mL (COMPLETED) 1,000 mg, Intravenous, ONCE, 1 dose, On Wed12/18/14 at 0815, Administer over 30 Minutes 0816 (Given - Provider: Whitney Ruano RN) methylPREDNISolone sodium succinate (PF) (solu-MEDROL) 1,000 mg in sodium chloride 0.9% 108 mL (COMPLETED) 1,000 mg, Intravenous, ONCE, 1 dose, On Wed12/19/14 at 0800, Administer over 30 Minutes 0749 (Given - Provider: Aneta Kumar, VALENTINA) sodium chloride 0.9 % flush 5 mL (CANCELED) 5 mL, Intravenous, 2 TIMES DAILY, First dose on Wed12/14/14 at 0030, Until Discontinued, Routine 0847 (Given - Provider: Miguel Pitts, VALENTINA)2033 (Given - Provider: Whitney Álvarez RN) 0816 (Given - Provider: Whitney Ruano RN)2044 (Given - Provider: Hong Costa, VALENTINA) 0802 (Given - Provider: Aneta Kumar RN) Continuous Medication Order 12/17/2014 12/18/2014 12/19/2014 sodium chloride 0.9% infusion (CANCELED) 1,000 mL, at 100 mL/hr, Intravenous, CONTINUOUS, Starting on Wed12/14/14 at 0030, Until Wed12/19/14 at 1347 2216 (New Bag - Provider: Whitney Álvarez RN) 0802 (New Bag - Provider: Whitney Ruano RN)2044 (New Bag - Provider: Hong Costa RN) PRN Medication Order 12/17/2014 12/18/2014 12/19/2014 acetaminophen (TYLENOL) tablet 650 mg (CANCELED) 650 mg, Oral, EVERY 4 HOURS PRN, Starting on 12/16/14 at 0646, Until Wed12/19/14 at 1347, Pain, Maximum dose of acetaminophen is 4000 mg from all sources in 24 hours., Routine 1716 (Given - Provider: Miguel Pitts RN) 0749 (Given - Provider: Aneta Kumar RN) hydrOXYzine (ATARAX) tablet 25 mg 25 mg, Oral, 3 TIMES DAILY PRN, Starting on 12/17/14 at 1900, Until Wed12/19/14 at 1347, Itching, Anxiety, To give after MRI, Routine ketorolac (TORADOL) injection 30 mg (CANCELED) 30 mg, Intravenous, EVERY 6 HOURS PRN, Starting on Wed12/16/14 at 1200, Until Wed12/19/14 at 1347, Pain, Routine 0540 (Given - Provider: Hong Costa, VALENTINA)1241 (Given - Provider: Miguel Pitts, VALENTINA)2209 (Given - Provider: Whitney Álvarez RN) 1251 (Given - Provider: Whitney Ruano RN) 0808 (Given - Provider: Aneta Kumar RN) ondansetron (ZOFRAN) injection 4 mg (CANCELED)(Linked Group 1) 4 mg, Intravenous, EVERY 8 HOURS PRN, Starting on Wed12/14/14 at 0013, Until 12/19/14 at 1347, Nausea, May repeat times one in 30 minutes if ineffective. If multiple antiemetics are ordered, give ondansetron first. 0854 (See Alternative - Provider: Miguel Pitts RN) 1251 (Given - Provider: Whitney Ruano RN) 0749 (Given - Provider: Aneta Kumar RN) ondansetron (ZOFRAN) tablet 4 mg(Linked Group 1) 4 mg, Oral, EVERY 8 HOURS PRN, Starting on Wed12/14/14 at 0013, Until Wed12/19/14 at 1347, Nausea, Vomiting, If multiple antiemetics are ordered, use ondansetron first. PO Preferred. If patient unable to take PO, may give IV if ordered. May repeat times one in 45 minutes if ineffective. If unable to take PO, may give IV., Routine 0854 (Given - Provider: Miguel Pitts RN) 1251 (See Alternative - Provider: Whitney Ruano RN) 0749 (See Alternative - Provider: Aneta Kumar RN) Linked Groups Order Group 1: ondansetron (ZOFRAN) tablet 4 mgJump to med 4 mg, Oral, EVERY 8 HOURS PRN, Starting on Wed12/14/14 at 0013, Until Wed12/19/14 at 1347, Nausea, Vomiting, If multiple antiemetics are ordered, use ondansetron first. PO Preferred. If patient unable to take PO, may give IV if ordered. May repeat times one in 45 minutes if ineffective. If unable to take PO, may give IV., Routine Or ondansetron (ZOFRAN) injection 4 mg (CANCELED)Jump to med 4 mg, Intravenous, EVERY 8 HOURS PRN, Starting on Wed12/14/14 at 0013, Until Wed12/19/14 at 1347, Nausea, May repeat times one in 30 minutes if ineffective. If multiple antiemetics are ordered, give ondansetron first. documented in this encounter Care Teams Jacquard Loom Fixer Relationship Specialty Start Date End Date Arely Bond MD [address] [place] [address] PCP - General 08/12/10 01/21/16 documented as of this encounter
--- OUTSIDE RECORDS SUMMARY | 2024-07-08 09:59 | XMS_ITS | Encounter Summary ---
[facility] [place] [address] Care Team Providers Care Belt Knife Feeder Name Role Phone Arely Bond MD Primary Care Provider Encounter Details Date Type Department Care Team (Late st Contact Info) Description 03/05/2015 1:45 PM EDT [place] [id number] Ja Degroot MD [facility] [place] [address] Multiple sclerosis Discharge Disposition: Home Social History Tobacco Use [...] Sign Reading Time Taken Comments Blood Pressure 136/94 03/05/2015 1:50 PM EDT Manual; 144/92 by machine Pulse 96 03/05/2015 1:50 PM EDT Temperature - - Respiratory Rate - - Oxygen Saturation - - Inhaled Oxygen Concentration - - Weight 64.4 kg (142 lb) 03/05/2015 1:50 PM EDT Wt loss per pt Height 171.5 cm (5' 7.5) 03/05/2015 1: 50 PM EDT Reported Body Mass Index 21.91 03/05/2015 1:50 PM EDT documented in this encounter Patient Instructions * Patient Instructions* Janiya Alvarez MD - 03/05/2015 3:17 PM EDT Today, you were seen in [facility] for multiple sclerosis. 1.continue administering copaxone as directed, I will call the insurance company for prior auth forthe three times weekly dosing 2. Call if you have any questions, problems, new symptoms 3. We will still plan for MRI of brain and neck in June 23. For now, we will plan for follow-up in June, unless you have new symptoms and I will see you sooner. documented in this encounter Progress Notes * Janiya Alvarez MD - 03/05/2015 3:04 PM EDT Neurology Clinic Note Patient Name: Toya Tellez : 1990 PCP: ARELY BOND MD Clinic Attending: Dr. Degroot Patient ID: Toya Tellez is a 24 y.o. right handed female with MS (detailed below) here for scheduled FU visit. Patient was last seen by me 2 months ago There are no active problems to display for this patient. Interval History: Toya is a 24yo female with diagnosis of MS based on imaging, symptoms, and LP in 11/04. She believes 4 episodes since February, vertigo, numbness, has a lot of anxiety over prognosis Toya now has found out her paternal grandma had MS, was never in a wheelchair, from intestinal obstruction / emergency age 60s or early 70s. Smoking: EtOH: No past medical history on file. Medications: Medications 03/05/15 1358 Medication Sig Taking? glatiramer (COPAXONE) 20 mg/mL Syringe Inject 20 mg subcutaneously daily. Yes buPROPion (WELLBUTRIN SR) 100 mg Tablet Sustained Release Take 1 tablet by mouth 2 times daily. Yes METHADONE HCL (METHADONE ORAL) Take 17 mg by mouth daily. Liquid. Yes ondansetron (ZOFRAN) 4 mg Tablet Take 1 tablet by mouth every 8 hours as needed. Yes methylphenidate (RITALIN) 10 mg Tablet Take 10 mg by mouth 3 times daily. Yes glatiramer (COPAXONE) 40 mg/mL Syringe Inject 40 mg subcutaneously three times a week. hydrOXYzine (ATARAX) 25 mg Tablet Take 1 tablet by mouth 3 times daily as needed for Itching or Anxiety. Allergy: No Known Allergies Review of systems: [...] Review of systems otherwise negative Physical Exam: Filed Vitals: 03/05/15 1350 BP: 136/94 Pulse: 96 Height: 171.5 cm (5' 7.5) Weight: 64.411 kg (142 lb) Gen: Patient of apparent stated age, well nourished, well developed, awake, alert, NAD Neck: Supple, no meningismus, no carotid bruit, no occipital tenderness CV: + S1, S2, RRR, no murmur [...] L Elbow flexion 5/5 R, 5/5 L Bleach Boiler Puller 5/5 R, 5/5 L Thumb abduction (APB) 5/5 R, 5/5 L Finger abduction LE: 5/5 R, 5/5 L Hip flexion 5/5 R, 5/5 L Knee extension 5/5 R, 5/5 L Knee flexion 5/5 R, 5/5 L Foot dorsiflexion 5/5 R, 5/5 L Foot plantar flexion Sensation: Intact to light touch, temperature, and vibration throughout Reflexes: DTRs 2+ R, 2+ L Biceps 2+ R, 2+ L Brachioradialis 2+ R, 2+ L Triceps 3+ L Patellar 3+b/ L Achilles tendon Toes - R down, L down Coordination: Finger to nose intact, no dysmetria Rapid alternating movements & finger tapping smooth and symmetric Heel-jaramillo intact No tremor Gait: Stable, steady Labs: No results found for this or any previous visit (from the past 24 hour(s)). Diagnostic Tests and Imaging: No new imaging studies Assessment / Plan: Toya Tellez is a 24 y.o. female with radiographically diagnosed and CSF confirmed MS. Most probably she has relapsing and remitting MS since we suspect she has had 4 events in the last year and has returned to baseline after each. We started her on copaxone daily injections 2 months ago and shehas had a lot of anxiety giving herself the injections. She has had support from her clinic and from solutions nurse but still has a lot of anxiety and sometimes doesn't sleep and can stress about the injection for hours. She says she is so stressed she doesn't eat and has lost a lot of weight. Sheactually appears to have lost weight. Her prior auth for 3 times weekly copaxone dosing was denied but I will call [email or web address] today for [id number] information exchange. Most of today's appointment was geared toward education about her disease and counseling her about her fears of becoming disabled. She is on wellbutrin and denies SI. We will continue to correspond via phone since she lives in [facility] and she verbalized understanding to call as soon as she has any unusual symptoms.We still plan to get MRI brain and c-spine in June for 6-month progression scan. Can repeat labsat that time as needed. She will need 50mg hydroxyzine prior to MRI and I can call in a script for her sooner to her scheduled date. Orders: MRI brain and c-spine with and without for June Will need hydroxyzine Rx Follow-up: June Patient Instructions: Today, you were seen in [facility] for multiple sclerosis. 1.continue administering copaxone as directed, I will call the insurance [employer] for prior auth forthe three times weekly dosing 2. Call if you have any questions, problems, new symptoms 3. We will still plan for MRI of brain and neck in June 23. For now, we will plan for follow-up in June, unless you have new symptoms and I will see you sooner. Discussed with Dr. Mikayla Alvarez MD Neurology Resident, PGY2 Pager [phone] Addendum: After visit, I spoke with pharmacist from [email or web address] and Nayeli will help me re-submit rx and prior auth for copaxone 40mg three times weekly dosing Neurology (Staff) Addendum I saw and evaluated the patient. I have reviewed the resident's history, physical examination findings, assessment and plan during the visit and I agree with the details as written, unless otherwise specified as below. Ja Degroot MD documented in this encounter Plan of Treatment Not on file documented as of this encounter Results * MRI brain with/WO contrast (06/26/2015 11:47 AM EDT) Anatomical Region Laterality Modality Head Magnetic Resonan ce Impressions 06/26/2015 12:04 PM EDT IMPRESSION: 1. ??The lesions in the brain demonstrate significant interval improvement. 2. ??Numerous cervical cord lesions do not enhance. Narrative 06/26/2015 12:04 PM EDT EXAMINATION: MRI BRAIN WWO CONTRAST, MRI CERVICAL SPINE WITH/WO CONTRAST CLINICAL HISTORY: MS progression TECHNIQUE: MRI of the brain and cervical spine with and without contrast. Multiple sclerosis protocol. 6 cc Gadavist administered. COMPARISON: MRI brain 12/17/2014. FINDINGS: MRI brain: The multiple supratentorial white matter lesions are much smaller on the current study. No definite new lesions. The lesions involving both cerebellar peduncles are also smaller on the current study. The previously seen ring enhancement has resolved. No new areas of enhancement. The ventricles are normal size and configuration. The corpus callosum is thinned. Paranasal sinuses are clear. The proximal cranial flow voids are unremarkable. Cervical spine: There are numerous cervical cord lesion spanning 1-2 vertebral body in length. A prominent lesion is identified along the left dorsal aspect of the cord at the C4-C5 level. Alignment of the cervical spine is normal. The disc spaces and vertebral body heights are well-maintained. None of these lesions enhance. Procedure Note Edil Garvin MD - 06/26/2015 EXAMINATION: MRI BRAIN WWO CONTRAST, MRI CERVICAL SPINE WITH/WO CONTRAST CLINICAL HISTORY: MS progression TECHNIQUE: MRI of the brain and cervical spine with and withoutcontrast. Multiple sclerosis protocol. 6 cc Gadavist administered. COMPARISON: MRI brain 12/17/2014. FINDINGS: MRI brain: The multiple supratentorial white matter lesions are muchsmaller on the current study. No definite new lesions. The lesions involving both cerebellar peduncles are also smaller on the current study. The previouslyseen ring enhancement has resolved. No new areas of enhancement. The ventriclesare normal size and configuration. The corpus callosum is thinned. Paranasalsinuses are clear. The proximal cranial flow voids are unremarkable. Cervical spine: There are numerous cervical cord lesion spanning 1-2vertebral body in length. A prominent lesion is identified along the left dorsalaspect of the cord at the C4-C5 level. Alignment of the cervical spine is normal. The disc spaces and vertebralbody heights are well-maintained. None of these lesions enhance. IMPRESSION IMPRESSION: 1. The lesions in the brain demonstrate significant intervalimprovement. 2. Numerous cervical cord lesions do not enhance. Ja Degroot MD [facility] MRI ORDERABL ES * MRI cervical spine with/WO contrast (06/26/2015 11:34 AM EDT) Anatomical Region Laterality Modality C-spine Magnetic Resonan ce Impressions 06/26/2015 12:04 PM EDT IMPRESSION: 1. ??The lesions in the brain demonstrate significant interval improvement. 2. ??Numerous cervical cord lesions do not enhance. Narrative 06/26/2015 12:04 PM EDT EXAMINATION: MRI BRAIN WWO CONTRAST, MRI CERVICAL SPINE WITH/WO CONTRAST CLINICAL HISTORY: MS progression TECHNIQUE: MRI of the brain and cervical spine with and without contrast. Multiple sclerosis protocol. 6 cc Gadavist administered. COMPARISON: MRI brain 12/17/2014. FINDINGS: MRI brain: The multiple supratentorial white matter lesions are much smaller on the current study. No definite new lesions. The lesions involving both cerebellar peduncles are also smaller on the current study. The previously seen ring enhancement has resolved. No new areas of enhancement. The ventricles are normal size and configuration. The corpus callosum is thinned. Paranasal sinuses are clear. The proximal cranial flow voids are unremarkable. Cervical spine: There are numerous cervical cord lesion spanning 1-2 vertebral body in length. A prominent lesion is identified along the left dorsal aspect of the cord at the C4-C5 level. Alignment of the cervical spine is normal. The disc spaces and vertebral body heights are well-maintained. None of these lesions enhance. Procedure Note Edil Garvin MD - 06/26/2015 EXAMINATION: MRI BRAIN WWO CONTRAST, MRI CERVICAL SPINE WITH/WO CONTRAST CLINICAL HISTORY: MS progression TECHNIQUE: MRI of the brain and cervical spine with and withoutcontrast. Multiple sclerosis protocol. 6 cc Gadavist administered. COMPARISON: MRI brain 12/17/2014. FINDINGS: MRI brain: The multiple supratentorial white matter lesions are muchsmaller on the current study. No definite new lesions. The lesions involving both cerebellar peduncles are also smaller on the current study. The previouslyseen ring enhancement has resolved. No new areas of enhancement. The ventriclesare normal size and configuration. The corpus callosum is thinned. Paranasalsinuses are clear. The proximal cranial flow voids are unremarkable. Cervical spine: There are numerous cervical cord lesion spanning 1-2vertebral body in length. A prominent lesion is identified along the left dorsalaspect of the cord at the C4-C5 level. Alignment of the cervical spine is normal. The disc spaces and vertebralbody heights are well-maintained. None of these lesions enhance. IMPRESSION IMPRESSION: 1. The lesions in the brain demonstrate significant intervalimprovement. 2. Numerous cervical cord lesions do not enhance. Ja Degroot MD [facility] MRI ORDERABL ES documented in this encounter Visit Diagnoses Diagnosis Multiple sclerosis Multiple sclerosis Multiple sclerosis documented in this encounter Care Teams Belt Knife Feeder Relationship Specialty Start Date End Date Arely Bond MD [address] [place] [address] PCP - General 08/12/10 01/21/16 documented as of this encounter
--- OUTSIDE RECORDS SUMMARY | 2024-07-08 09:59 | XMS_ITS | Encounter Summary ---
[facility] Organization [facility] [place] [address] Care Team Providers Care Careers Adviser Name Role Phone None Primary Care Provider Unavailabl e Reason for Visit * Reason Onset Date Comments Other 05/05/2016 Encounter Details Date Type Department Care Team (Late st Contact Info) Description 05/05/2016 [place] [id number] Janiya Alvarez MD [facility] [place] [place] [address] Other Social History Tobacco Use Types Packs/Day [...] encounter Miscellaneous Notes * Telephone Encounter - Triny Riggs - 05/05/2016 9:33 AM EDT Patient called in regarding her MS. States she was out walking a little while back during an MS flare so she was battling vertigo and was stopped by a police officer crime prevention to make sure she was okay. Patient would like to know if it is possible to have a letter or something provided so that if that happens again she can show the officer that information. Please call to discuss documented in this encounter Plan of Treatment Not on file documented as of this encounter Visit Diagnoses Not on filedocumented in this encounter Care Teams Careers Adviser Relationship Specialty Start Date End Date None None PCP - General 01/22/16 documented as of this encounter
--- OUTSIDE RECORDS SUMMARY | 2024-07-08 09:59 | XMS_ITS | Encounter Summary ---
Author Organization [facility] [place] [address] Care Team Providers Care Field Support Technician Name Role Phone None Primary Care Provider Unavailabl e Encounter Details Date Type Department Care Team (Late st Contact Info) Description 06/22/2016 Orders [place] [address] Reyna Hood Social History Tobacco Use Types Packs/Day Years [...] on filedocumented in this encounter Care Teams Field Support Technician Relationship Specialty Start Date End Date None None PCP - General 01/22/16 documented as of this encounter
--- OUTSIDE RECORDS SUMMARY | 2024-07-08 09:59 | XMS_ITS | Encounter Summary ---
[place] [address] Care Team Providers Care Import Export Clerk Name Role Phone Arely Argueta MD Primary Care Provider [phone] Encounter Details Date Type Department Care Team (Late st Contact Info) Description 12/03/2014 [place] [address] Ja Degroot MD [facility] [place] [address] Social History Tobacco Use Types Packs/Day Years Used Date Smoking Tobacco: Never Assessed Sex and Gender Information Value Date Recorded Sex Assigned at Not on file Gender Identity Not on file Sexual Orientation Not on file documented as of this encounter Plan of Treatment Not on file documented as of this encounter Visit Diagnoses Not on filedocumented in this encounter Care Teams Import Export Clerk Relationship Specialty Start Date End Date Arely Argueta MD [address] [place] [address] PCP - General 08/12/10 01/21/16 documented as of this encounter
--- OUTSIDE RECORDS SUMMARY | 2024-07-08 09:59 | XMS_ITS | Encounter Summary ---
[facility] Organization [facility] [place] [address] Care Team Providers Care Automated Manufacturing Instructor Name Role Phone Arely Bond MD Primary Care Provider [phone] Encounter Details Date Type Department Care Team (Late st Contact Info) Description 12/26/2014 3:15 PM EDT Office [place] [address] Tay Diego MD [facility] [place] [address] Multiple sclerosis Discharge Disposition: Home Social History [...] Sign Reading Time Taken Comments Blood Pressure 108/83 12/26/2014 3:10 PM EDT Pulse 100 12/26/2014 3:10 PM EDT Temperature - - Respiratory Rate - - Oxygen Saturation - - Inhaled Oxygen Concentration - - Weight 67.3 kg (148 lb 5.9 oz) 12/26/2014 3:10 P M EDT Height 171.5 cm (5' 7.5) 12/26/2014 3:10 PM EDT Body Mass Index 22.89 12/26/2014 3:10 PM EDT documented in this encounter Patient Instructions * Patient Instructions* Janiya Alvarez MD - 12/26/2014 4:48 PM EDT Today, you were seen in [facility] Neurology [facility] for multiple sclerosis. 1. Have blood work today 2. We will start disease modifying medication paperwork today, our nurse will be in touch with you about Copaxone and arrange for medication teaching 3. Follow-up in 2 months 4. Call with any questions, concerns, problems documented in this encounter Progress Notes * Janiya Alvarez MD - 12/26/2014 4:55 PM EDT Neurology Clinic Note Patient Name: Toya Tellez : 1990 PCP: ARELY BOND MD Clinic Attending: Dr. Diego Patient ID Toya Tellez is a 24 y.o. right-handed female with new dx of MS (detailed below) here for scheduled FU visit. Patient was last seen by ok inpatient 1 week ago. There are no active problems to display for this patient. Interval History: Ms Tellez is a 24yo F who was evaluated at [facility] as a transfer from [facility] where she had presented with 6 weeks of unsteady gait and vomiting. Her MRI was grossly abnormal and there was concern for MS vs PAD ASSEMBLER infection. Repeat MRI brain and lumbar puncture results were consistent with MS and patient was given 3 days IV solu-medrol Since last seen, Toya says she has had progressive pins and needles tingling in her right foot moving up to mi leg and right hand moving all the way up to her face. Torso, abdomen, and hip are spared. She has some pain and clicking feeling in there right hip she thinks is from walking in such a way because her right foot is numb. She is very worried about her diagnosis and has a lot of questions ie fci prognosis, heritability, plan of management She is interested in starting disease modifying medication right away and thinks she would feel more comfortable with a drug that has been on the market longer even though she is somewhat reluctant about injectibles. She is accompanied by a provider from her health center where she is seen for psych and methadone/narcotics rehab who is going to be involved in her care and states that Toya will have support from their institution and can have help administering medications at their facility. She had tubal ligation Smoking:occassional EtOH: rare History reviewed. No pertinent past medical history. Medications: Medications 12/26/14 1510 Medication Sig Taking? ondansetron (ZOFRAN) 4 mg Tablet Take 1 tablet by mouth every 8 hours as needed. Yes hydrOXYzine (ATARAX) 25 mg Tablet Take 1 tablet by mouth 3 times daily as needed for Itching or Anxiety. Yes buPROPion (WELLBUTRIN) 100 mg Tablet Take 100 mg by mouth 2 times daily. Yes methylphenidate (RITALIN) 10 mg Tablet Take 10 mg by mouth 3 times daily. Yes methadone (DOLOPHINE) 10 mg Tablet Take 10 mg by mouth daily. Yes Allergy: No Known Allergies Review of systems: Constitutional: No fevers or chills Eyes: No vision changes, no diplopia, no blurry vision ENT: No rhinorrhea or pharyngitis, no meningismus CV: No chest pain or palpitations Resp: No cough, no shortness of breath GI: No nausea, persistent vomiting, no diarrhea or constipation : No dysuria, no incontinence Heme: No bleeding or bruising Endo: No polyuria or cold intolerance Neuro: See HPI Psych: No depression, normal sleep [x] Review of systems otherwise negative Physical Exam: Filed Vitals: 12/26/14 1510 BP: 108/83 Pulse: 100 Height: 171.5 cm (5' 7.5) Weight: 67.3 kg (148 lb 5.9 oz) Gen: Patient of apparent stated age, well nourished, well developed, awake, alert, NAD Neck: Supple, no meningismus, no carotid bruit, no occipital tenderness CV: + S1, S2, RRR, no murmur Resp: CTA B/L Abd: +normoactive bowel sounds, soft, nontender, nondistended Ext: No edema. No bony deformity Neuro Exam: MS: AAOx4, clear language, no dysarthria, follows commands, very tearful CN: PERRL, EOMI, visual villeda full Facial sensation intact, no facial asymmetry Hearing intact to finger rub Palate elevates symmetrically, tongue protrudes midline SCM and trap strength intact Motor: Normal bulk and tone. UE: 5/5 R, 5/5 L Arm abduction at shoulder 5/5 R, 5/5 L Elbow extension 5/5 R, 5/5 L Elbow flexion 5/5 R, 5/5 L Termite Control Representative 5/5 R, 5/5 L Thumb abduction (APB) 5/5 R, 5/5 L Finger abduction LE: 5/5 R, 5/5 L Hip flexion 5/5 R, 5/5 L Knee extension 5/5 R, 5/5 L Knee flexion 5/5 R, 5/5 L Foot dorsiflexion 5/5 R, 5/5 L Foot plantar flexion Sensation: Intact to light touch, temperature, and vibration throughout but diminished light touch in right face, arm ,neck, foot compared to left side Reflexes: DTRs 2+ R, 3+L Biceps 2+ R, 3+ L Brachioradialis 3+ R, 3+ L Patellar 2+ R, 2+ L Achilles tendon Toes - R down, L down Coordination: Finger to nose intact, no dysmetria Rapid alternating movements & finger tapping smooth and symmetric Heel-jaramillo intact No tremor Gait: Stable, steady, imbalance with tandem Romberg negative but slight sway Labs: No results found for this or any previous visit (from the past 24 hour(s)). Diagnostic Tests and Imaging: No new imaging studies Assessment / Plan: Toya Tellez is a 24 y.o. F with new diagnosis of MS. After weighing benefits and downsides of different medications, think it would be best plan to try copaxone or plegridy for her. She is more interested in copaxone at this point because of its older reputation. We will get baseline labs below in case we need to change plan of management in the future. I provided a lot of education about MS, what to expect for her and her kids, and the disease's unpredictability. She was receptive and somewhat relieved by the information but i suspect we will have to reinforce this on subsequent visits. Ideally, Toya would have had an MRI of the c-spine at the time of her last MRI brain but we will defer until a follow-up scan in about 6 months (or sooner if disease worsens clinically) because of her severe claustrophobia. I will send Nayeli a request for assistance regarding PA for copaxone and anything else the patient may need from a medication standpoint. Orders: Cbc, bmp, lft, tsh Follow-up: [address] Johnathon Alvarez MD Neurology Resident, PGY2 Pager [phone] I have seen the patient and reviewed the resident's above history and I agree with the details as written. The assessment and plan were formulated in discussion with me and I agree with them as documented. Tay Diego documented in this encounter Plan of Treatment Not on file documented as of this encounter Visit Diagnoses Diagnosis Multiple sclerosis documented in this encounter Care Teams Automated Manufacturing Instructor Relationship Specialty Start Date End Date Arely Bond MD [address] [place] [address] PCP - General 08/12/10 01/21/16 documented as of this encounter
--- OUTSIDE RECORDS SUMMARY | 2024-07-08 09:59 | XMS_ITS | Encounter Summary ---
Author Organization [facility] Address [facility] [place] [address] Care Team Providers Care Electrical Lineworker Name Role Phone Arely Argueta MD Primary Care Provider [phone] Reason for Visit * Reason Onset Date Comments Other 02/25/2015 Encounter Details Date Type Department Care Team (Late st Contact Info) Description 02/25/2015 [place] [id number] Janiya Alvarez MD [facility] [place] [address] Other Social History Tobacco Use Types Packs/Day [...] Telephone Encounter - Nayeli Roger RN - 02/25/2015 2:07 PM EDT Call placed to [employer] asking about having a nurse visit pt at home for injection training/teaching. Pt had already spoken to [employer] and is getting a home visit scheduled. * Telephone Encounter - Janiya Alvarez MD - 02/25/2015 1:22 PM EDT Spoke with patient about her problem. She thinks she is running out of locations and cant do 3/weekdosing until next month because of insurance. Will ask for assistance in getting a home nurse visitfor education * Telephone Encounter - Triny Riggs - 02/25/2015 12:52 PM EDT Patient called in today in regards to her copaxone prescription. She states that she has been running out of space for the injections and she accidentally ended up injecting into a bump and hit the same area. It seems like it may have connected to the other injection sites and resulted in a big bump. This bump has subsided but patient is concerned and would like advice as to where to inject/what to do. documented in this encounter Plan of Treatment Not on file documented as of this encounter Visit Diagnoses Not on filedocumented in this encounter Care Teams Electrical Lineworker Relationship Specialty Start Date End Date Arely Argueta MD [address] [place] [address] PCP - General 08/12/10 01/21/16 documented as of this encounter
--- OUTSIDE RECORDS SUMMARY | 2024-07-08 09:59 | XMS_ITS | Encounter Summary ---
Author Organization [facility] [place] [address] Care Team Providers Care Obstetrics Gyn Name Role Phone None Primary Care Provider Unavailabl e Reason for Visit * Reason Onset Date Comments Other 04/14/2016 Other Encounter Details Date Type Department Care Team (Late st Contact Info) Description 04/14/2016 [place] [address] Janiya Alvarez MD [facility] [place] [address] Other (Other) Social History Tobacco Use Types [...] encounter Miscellaneous Notes * Telephone Encounter - Radha Nunez CMA - 07/10/2016 6:09 PM EDT Closing old encounter * Telephone Encounter - Janiya Alvarez MD - 04/21/2016 11:50 AM EDT Aidan calling again regarding the two questions: 1. Is ed diagnosed with MS 2. Can ms make her absent-minded i reviewed the consent form for disclosure of information and it specifically states that I (although my name is spelled incorrectly) and DCF- Alexei Mendoza may speak directly so i am deferring questions until Alexei is able to speak with me directly Next, the consent form allows me to share diagnosis and drug information and test results so i am not able to comment on their second inquiry. Aidan will re-fax the form when filled out in full My hesitancy here is that i am unaware of the situation and had no knowledge i would be contacted by any cash posting representative from any organization, concerned that i should not just disclose information Will touch base with ed's mental health care provider * Telephone Encounter - Sofia Smith - 04/20/2016 3:18 PM EDT Aidan states that the best phone number to call her back on is: [phone]. * Telephone Encounter - Janiya Alvarez MD - 04/20/2016 2:05 PM EDT 2:05 PM Aidan calling She is calling because she sent a release form over to the clinic 04/14 Says this is a release of medical records. Calling to ask if Ed carries a diagnosis of MS and if this could make her absent minded i have not received the release form. She says she faxed it to [phone] .... This is the incorrect number as far as i know and i have not received the form so she will fax over a new release of medical information form, as signed by ed, and then call me back this afternoon. * Telephone Encounter - Janiya Alvarez MD - 04/17/2016 6:08 PM EDT Left message for aidan * Telephone Encounter - Chuck Ramsey - 04/17/2016 1:26 PM EDT Aidan, a wrapper caser from [facility] in [place], [place] called back, regarding wanting to speak with Dr. Alvarez in regards to this patient's diagnosis, and other questions related to this. Please call back to discuss: [phone]. * Telephone Encounter - Kellie Bledsoe - 04/14/2016 1:56 PM EDT Aidan called in today regarding the patients diagnosis and a few other questions. Aidan states she would like a call back to discuss. documented in this encounter Plan of Treatment Not on file documented as of this encounter Visit Diagnoses Not on filedocumented in this encounter Care Teams Obstetrics Gyn Relationship Specialty Start Date End Date None None PCP - General 01/22/16 documented as of this encounter
--- OUTSIDE RECORDS SUMMARY | 2024-07-08 09:59 | XMS_ITS | Encounter Summary ---
Author Organization [facility] [place] [address] Care Team Providers Care Shirt Turner Name Role Phone None Primary Care Provider Unavailabl e Encounter Details Date Type Department Care Team (Late st Contact Info) Description 03/12/2015 Telephone Neurology at [facility] [place] [address] Janiya Alvarez MD [facility] [place] [address] Social History Tobacco Use Types Packs/Day Years [...] Telephone Encounter - Janiya Alvarez MD - 03/12/2015 4:34 PM EDT Still anxious about daily injection. We believe she is approved for the 3 times weekly. Childcare connections needs letter stating Toya has medical condition that limits her ability to drive and Fax for daycare: [phone] Will write letter and fax * Telephone Encounter - Wilfred Greene - 03/12/2015 4:29 PM EDT Patient called in again very anxious about her medication. She does not want to keep taking it, andwould like to discuss options. She also would like to clarify whether she needs her MRI done in June or in August (CC chart says August). Please call her back MIKE to discuss. documented in this encounter Plan of Treatment Not on file documented as of this encounter Visit Diagnoses Not on filedocumented in this encounter Care Teams Shirt Turner Relationship Specialty Start Date End Date None None PCP - General 01/22/16 documented as of this encounter
--- OUTSIDE RECORDS SUMMARY | 2024-07-08 09:59 | XMS_ITS | Encounter Summary ---
Author Organization [place] [address] Care Team Providers Care Dovetail Machine Operator Name Role Phone None Primary Care Provider Unavailabl e Encounter Details Date Type Department Care Team (Late st Contact Info) Description 12/11/2014 Community Orders External [phone] George Angulo MD [address] [place], [place] [address] Social History Tobacco Use Types Packs/Day Years Used Date Smoking Tobacco: Never Assessed Sex and Gender Information Value Date Recorded Sex Assigned at Not on file Gender Identity Not on file Sexual Orientation Not on file documented as of this encounter Plan of Treatment Not on file documented as of this encounter Visit Diagnoses Not on filedocumented in this encounter Care Teams Dovetail Machine Operator Relationship Specialty Start Date End Date None None PCP - General 01/22/16 documented as of this encounter
--- OUTSIDE RECORDS SUMMARY | 2024-07-08 09:59 | XMS_ITS | Encounter Summary ---
Author Organization [facility] Address [facility] [place] [address] Care Team Providers Care Transport Corps Officer Name Role Phone Arely Argueta MD Primary Care Provider [phone] Encounter Details Date Type Department Care Team (Late st Contact Info) Description 06/26/2015 8:30 AM EDT - 06/26/2015 9:29 AM EDT Hospital [place] [address] Ja Degroot MD [facility] [place] [address] Multiple sclerosis Discharge Disposition: Home Social History [...] Sign Reading Time Taken Comments Blood Pressure 104/74 06/26/2015 11:46 AM EDT Pulse 50 06/26/2015 11:46 AM EDT Temperature 37.1 ??C (98.7 ??F) 06/26/2015 8:58 AM ED T Respiratory Rate 9 06/26/2015 11:35 AM EDT Oxygen Saturation 100% 06/26/2015 11:46 AM EDT Inhaled Oxygen Concentration - - Weight - - Height - - Body Mass Index - - documented in this encounter Discharge Instructions * Discharge Instructions* Concepcion Anaya RN - 06/26/2015 11:54 AM EDT 1. You have received medication before and/or during your procedure, which affects judgment and reaction time. 2. Do not drive, operate machinery, drink alchololic beverages, or make important decisions for 24 hours. 3. Be careful on stairs, as you may be unsteady on your feet. 4. You may eat a regular diet as tolerated. 5. Do not smoke if you are alone. 6. IV site- slight redness or tenderness is normal, you can use warm compresses. If tenderness and redness increases or foul drainage occours, please contact your M.D. Call with any questions or concerns: During regular office hours call: [phone]. If it is afterregular office hours, weekends or holidays, please call [phone] and ask to speak to the Receiving Specialist public relations coordinator for Interventional Radiology. documented in this encounter Medications at Time of Discharge Medication Sig Dispensed Refills Start Date End Date buPROPion (WELLBUTRIN SR) 100 mg Tablet Sustained Release Take 1 tablet by mouth 3 times daily. METHADONE HCL (METHADONE ORAL) Take 20 mg by mouth daily. Liquid. methylphenidate (RITALIN) 10 mg Tablet Take 10 mg by mouth 4 times daily. glatiramer (COPAXONE) 40 mg/mL Syringe Inject 40 mg subcutaneously three times a week. 36 Syringe 3 03/08/2015 08/27/2015 ondansetron (ZOFRAN) 4 mg Tablet Take 1 tablet by mouth every 8 hours as needed. 30 tablet 2 12/26/2014 02/11/2018 documented as of this encounter Progress Notes * Neida Plummer RN - 06/25/2015 8:35 AM EDT MRI IV SEDATION NURSING DATABASE Name: TEGAN TELLEZ Date of : 1990 AGE 24 y.o. Address: [address] [address] (home) Mobile: No relevant phone numbers on file. Referring Provider: No ref. provider found SCAN REQUESTED: MRI Brain and C-Spine W/WO length of scan 1 to 1.5 hours TYPE IN ANSWERS: 1. Have you ever had an MRI? Yes If yes, tell me about the experience. difficult If no, your name is on our list as needing sedation. Can you tell me why ? Clastrophobic/Anxiety 2. Did you have medication for the prior MRI? Yes Do you remember what you took? Ativan Have you ever taken Ativan or Valium? Yes 3. Are you claustrophobic? Yes Can you ride in an elevator? Yes 4. Do you snore, use CPAP, or on home O2? No 5. Do you have pain or anxiety? Yes, Anxiety Do you take pain med's on a regular basis? No 6. CAN YOU LAY FLAT? Yes 7. HT: 5' WT: 130 lbs Anesthesia for pt's with ALS, involuntary tremors, uses CPAP/Sleep apnea, failed IV sedation, Cognitive impairment? No Known Allergies Pertinent PMH: Recently diagnosed with MS, Hx of substance abuse Pertinent PSH: Tubal Liagation DATE PRIOR SCANS: MED'S GIVEN PASS OR FAIL 06/26/15 MRI Brain and C-Spine w/ IV sedation Versed 4 mg IV; Fentanyl 200 mcg IV PASS. Slept soundly throughout; snoring. Laboratory Results: Lab Results Component Value Date CREATININE 0.79 12/14/2014 Lab Results Component Value Date K 3.9 12/14/2014 Medications: Prior to Admission medications Medication Sig Start Date End Date Taking? Authorizing Provider glatiramer (COPAXONE) 40 mg/mL Syringe Inject 40 mg subcutaneously three times a week. 03/08/15 Janiya Alvarez MD buPROPion (WELLBUTRIN SR) 100 mg Tablet Sustained Release Take 1 tablet by mouth 2 times daily. PROVIDER, HISTORICAL METHADONE HCL (METHADONE ORAL) Take 17 mg by mouth daily. Liquid. PROVIDER, HISTORICAL ondansetron (ZOFRAN) 4 mg Tablet Take 1 tablet by mouth every 8 hours as needed. 12/26/14 Anita Alvarez MD hydrOXYzine (ATARAX) 25 mg Tablet Take 1 tablet by mouth 3 times daily as needed for Itching or Anxiety. 12/19/14 Madonna Mejia MD methylphenidate (RITALIN) 10 mg Tablet Take 10 mg by mouth 3 times daily. PROVIDER, HISTORICAL ++++ FOR OUTPATIENT SCAN'S: I have informed this patient that they require a concrete mixing truck driver to be present and in the building to drive them home after this procedure. In the absence of a concrete mixing truck driver, IR will not be able to perform this procedure and will need to reschedule. Pt verbalized understanding of these i nstructions during the pre-procedure education via phone. (initials) documented in this encounter Plan of Treatment Not on file documented as of this encounter Procedures Procedure Name Priority Date/Time Associated Diagnosis Comments MRI BRAIN WWO CONTRAST (GENERIC) Routine 06/26/2015 11:47 AM EDT Multiple sclerosis documented in this encounter Results * MRI brain with/WO [...] Visit Diagnoses Diagnosis Multiple sclerosis Multiple sclerosis documented in this encounter Administered Medications Inactive Administered Medications - up to 3 most recent administrations Medication Order MAR Action Action Date Dose Rate Site fentaNYL 50mcg/mL injection 25-50 mcg, Intravenous, EVERY 5 MIN PRN, Starting on Wed06/26/15 at 0951, Until Wed06/26/15 at 1136, Pain, sedation, For use in the Interventional Radiology (IR) Suite only for procedural sedation with direct provider supervision and verbal order. RASS goal (-)2 to (-)3., Angio/IR (Intra-Procedure), Routine Given 06/26/2015 10:57 AM EDT 50 mcg Given 06/26/2015 10:10 AM EDT 50 mcg Given 06/26/2015 10:05 AM EDT 50 mcg midazolam (PF) (VERSED) 1 mg/mL injection 0.5-1 mg 0.5-1 mg, Intravenous, EVERY 5 MIN PRN, Starting on Wed06/26/15 at 0951, Until 06/26/15 at 1136, Anxiety, For use in the Interventional Radiology (IR) Suite only for procedural sedation with direct provider supervision and verbal order. RASS goal (-)2 to (-)3., Angio/IR (Intra-Procedure), Routine Given 06/26/2015 10: 57 AM EDT 1 mg Given 06/26/2015 10:10 AM EDT 1 mg Given 06/26/2015 10:05 AM EDT 1 mg documented in this encounter Care Teams Transport Corps Officer Relationship Specialty Start Date End Date Arely Argueta MD [address] [place] [address] PCP - General 08/12/10 01/21/16 documented as of this encounter
--- OUTSIDE RECORDS SUMMARY | 2024-07-08 09:59 | XMS_ITS | Encounter Summary ---
Author Organization [facility] [place] [address] Care Team Providers Care Tailor Fitter Name Role Phone None Primary Care Provider Unavailabl e Reason for Visit * Reason Onset Date Comments Prior Authorization 03/18/2016 Wes LEMOS Encounter Details Date Type Department Care Team (Late st Contact Info) Description 03/18/2016 [place] [address] Janiya Alvarez MD [facility] [place] [address] Prior Authorization (Wes LEMOS) Social History Tobacco Use Types Packs/Day Years [...] Telephone Encounter - Nayeli Roger RN - 03/25/2016 12:35 PM EDT Medication: Copaxone Prior Authorization: Start Date: 03/16/2016 End Date: 03/16/2017 Health Plan: [employer] Phone: Fax: Authorizing Rep: Authorization Number (if applicable): Notified: Patient ( x ) Pharmacy ( ) * Telephone Encounter - Nayeli Roger RN - 03/24/2016 12:24 PM EDT Faxed Copaxone PA to [facility] at [phone] and marked as URGENT as pt is out of medication. * Telephone Encounter - Chuck Ramsey - 03/24/2016 12:01 PM EDT Patient called in again, looking for update on PA for her medication. Patient states that she is out of the medication. Patient called insurance, and was told that faxing the PA may be a faster way of completing the PA. Please call the patient back in regards to this. * Telephone Encounter - Triny Riggs - 03/24/2016 8:16 AM EDT Patient called in and states that she checked with her insurance company and they have still not received the PA for this medication. Please call patient to discuss this * Telephone Encounter - Nayeli Roger RN - 03/18/2016 7:33 AM EDT Completed Copaxone PA online through [employer]. documented in this encounter Plan of Treatment Not on file documented as of this encounter Visit Diagnoses Not on filedocumented in this encounter Care Teams Tailor Fitter Relationship Specialty Start Date End Date None None PCP - General 01/22/16 documented as of this encounter
--- OUTSIDE RECORDS SUMMARY | 2024-07-08 09:59 | XMS_ITS | Encounter Summary ---
Author Organization [facility] Address [facility] [place] [address] Care Team Providers Care Return To Factory Clerk Name Role Phone Arely Argueta MD Primary Care Provider [phone] Reason for Visit * Reason Onset Date Comments Medication Refill 02/13/2015 Encounter Details Date Type Department Care Team (Late st Contact Info) Description 02/13/2015 [place] [address] Janiya Alvarez MD [facility] [place] [address] Social History Tobacco Use Types Packs/Day Years [...] on filedocumented in this encounter Care Teams Return To Factory Clerk Relationship Specialty Start Date End Date Arely Argueta MD [address] [place] [address] PCP - General 08/12/10 01/21/16 documented as of this encounter
--- OUTSIDE RECORDS SUMMARY | 2024-07-08 09:59 | XMS_ITS | Encounter Summary ---
[facility] [place] [id number] Care Team Providers Care Hemming And Tacking Machine Operator Name Role Phone None Primary Care Provider Unavailabl e Encounter Details Date Type Department Care Team (Late st Contact Info) Description 01/22/2016 1:30 PM EDT Office [place] [address] Thomas Pink MD [facility] [place] [address] Janiya Alvarez MD [facility] [place] [address] Multiple sclerosis Social History Tobacco Use Types [...] Sign Reading Time Taken Comments Blood Pressure 111/75 01/22/2016 1:42 PM EDT Pulse 89 01/22/2016 1:42 PM EDT Temperature - - Respiratory Rate - - Oxygen Saturation - - Inhaled Oxygen Concentration - - Weight - - Height 171.5 cm (5' 7.5) 01/22/2016 1:42 PM EDT Body Mass Index - - documented in this encounter Patient Instructions * Patient Instructions* Janiya Alvarez MD - 01/22/2016 2:28 PM EDT Today, you were seen in [facility] for multiple sclerosis. 1. Continue medications as prescribed and call for refills 2. Follow-up in June and have MRIs then, i will schedule this with sedation documented in this encounter Progress Notes * Janiya Alvarez MD - 01/22/2016 2:11 PM EDT Neurology Clinic Note Patient Name: Toya Tellez : 1990 PCP: None Clinic Attending: Dr. Pink Patient ID: Toya Tellez is a 25 y.o. right handed female with MS (detailed below) here for scheduled FU visit. Patient was last seen by me in February There are no active problems to display for this patient. Interval History: Toya is a 24yo female with diagnosis of MS based on imaging, symptoms, and LP in 11/04. Since last appointment 2 events of 2 minutes each of probelms swallowing solids and liquids but these were not sustained. She had speech improved the next day or two after our last appointment. She is doing better with injections, can do it herself now. Toya has had some significant weight loss. She has been attributing this to low appetite, could be stress or anxiety. She has had events that sound like panic attacks which are associated with sharp chest pains, feels like her heart is going to explode, and her anxiety has been getting worse and worse. She thinks shes having some OCD tendencies and is quick to get angry and cant calm heself down. Having problems parenting which is stressful. Methadone up to 20mg 1 month ago, she was having cold and hot spells but increasing the methadone helped slightly She still has right arm tingling occurs every day, occurs throughout day and night, she says this has never gone away since admission. No longer has dense numbness. Has been noticing it more frequently and it gets worse if she is hot or upset Smoking:none EtOH:none History reviewed. No pertinent past medical history. Medications: Medications 01/22/16 1348 Medication Sig Taking? traZODone (DESYREL) 100 mg Tablet Take 1 tablet by mouth nightly as needed. Yes glatiramer (COPAXONE) 40 mg/mL Syringe Inject 40 mg subcutaneously three times a week. Yes buPROPion (WELLBUTRIN SR) 100 mg Tablet Sustained Release Take 1 tablet by mouth 3 times daily. Yes METHADONE HCL (METHADONE ORAL) Take 20 mg by mouth daily. Liquid. Yes ondansetron (ZOFRAN) 4 mg Tablet Take 1 tablet by mouth every 8 hours as needed. Yes methylphenidate (RITALIN) 10 mg Tablet Take 10 mg by mouth 3 times daily. Yes Allergy: No Known Allergies Review [...] systems otherwise negative Physical Exam: Filed Vitals: 01/22/16 1342 BP: 111/75 Pulse: 89 Height: 171.5 cm (5' 7.5) Gen: Patient of apparent stated age, well nourished, well developed, awake, alert, NAD Neck: Supple, no meningismus, no carotid bruit, no occipital tenderness CV: + S1, S2, RRR, no murmur Resp: CTA B/L Abd: +normoactive bowel sounds, soft, nontender, nondistended Ext: No edema. No bony deformity Neuro Exam: MS: AAOx4, clear language, +moderate dysarthria, follows commands CN: PERRL, EOMI, visual villeda full Facial sensation intact, no facial asymmetry Hearing intact to finger rub Palate elevates symmetrically, tongue protrudes midline SCM and trap strength intact Motor: Normal bulk and tone. UE: 5/5 R, 5/5 L Arm abduction at shoulder 5/5 R, 5/5 L Elbow extension 5/5 R, 5/5 L Elbow flexion 5/5 R, 5/5 L Shower Screen Installer 5/5 R, 5/5 L Thumb abduction (APB) 5/5 R, 5/5 L Finger abduction LE: 5/5 R, 5/5 L Hip flexion 5/5 R, 5/5 L Knee extension 5/5 R, 5/5 L Knee flexion 5/5 R, 5/5 L Foot dorsiflexion 5/5 R, 5/5 L Foot plantar flexion Sensation: Intact to light touch, temperature, and vibration throughout Reflexes: DTRs + lopez's b/l 2+ R, 2+ L Biceps 2+ R, 3+ L Brachioradialis 2+ R, 2+ L Triceps 2+ L Patellar 2+b/ L Achilles tendon Toes - R down, L down Coordination: Finger to nose intact, no dysmetria Rapid alternating movements & finger tapping smooth and symmetric Heel-jaramillo intact No tremor Romberg - very steady no sway Gait: Stable, steady, tandem very steady, toe walk and heel walk steady Labs: No results found for this or any previous visit (from the past 24 hour(s)). Diagnostic Tests and Imaging: No new imaging studies Assessment / Plan: Toya Tellez is a 25 y.o. female with radiographically diagnosed and CSF confirmed MS. Most probably she has relapsing and remitting MS since we suspect she has had 4 events in the year prior to presentation and has returned to baseline after each with the exception of right arm tingling which she is reporting today for the first time. No new events or flare ups that we can detect so will not change copaxone plan since she seems clinically stable. Will repeat MRIs at 1 year, June follow-up scans with sedation. She is due to follow with her psych who knows her well. Orders: MRI brain and c-spine with sedation Follow-up: June Patient Instructions: Today, you were seen in [facility] for multiple sclerosis. 1. Continue medications as prescribed and call for refills 2. Follow-up in June and have MRIs then, i will schedule this with sedation Discussed with Dr. Johnathon Alvarez MD Neurology Resident, PGY3 Pager [phone] I have seen the patient and reviewed the resident's above history and I agree with the details as written. The assessment and plan were formulated in discussion with me and I agree with them as documented. Thomas Pink MD documented in this encounter Miscellaneous Notes * Addendum Note - Thomas Pink MD - 01/24/2016 12:27 PM EDTAddended by: THOMAS PINK on: 01/24/2016 12:27 PM Modules accepted: Level of Service documented in this encounter Plan of Treatment Scheduled Orders Name Type Priority Associated Diagnoses Orde r Schedule MRI Brain With Contrast Imaging Routine Once PRN (for Ra diant use) for 1 Occurrences starting 01/23/2016 until 01/23/2016 MRI Cervical Spine With/WO Contrast Imaging Routine Once PRN (for R adiant use) for 1 Occurrences starting 01/23/2016 until 01/23/2016 documented as of this encounter Visit Diagnoses Diagnosis Multiple sclerosis documented in this encounter Care Teams Hemming And Tacking Machine Operator Relationship Specialty Start Date End Date None None PCP - General 01/22/16 documented as of this encounter
--- OUTSIDE RECORDS SUMMARY | 2024-07-08 09:59 | XMS_ITS | Encounter Summary ---
Author Organization [facility] Address [facility] [place] [address] Care Team Providers Care Quantitative Consultant Name Role Phone Arely Argueta MD Primary Care Provider [phone] Reason for Visit * Reason Onset Date Comments Other 03/11/2015 Encounter Details Date Type Department Care Team (Late st Contact Info) Description 03/11/2015 [place] [phone] Janiya Alvarez MD [facility] [place] [address] Other Social History Tobacco Use Types Packs/Day [...] Notes * Telephone Encounter - Triny Riggs H - 03/11/2015 4:12 PM EDT Patient states that her phone will be shut off tomorrow until March 20 so please call heidi. Patientstates that she would like an update on if her copaxone 40mg had been authorized. Please call and advise patient as to how to proceed with this because she doesn't wish to end up being stuck paying for it out of pocket as it is expensive. Alternative number if phone is off [phone]. Patient states that she has RTC rides paid for her daughter to go to daycare. A Note is required for this to becontinued to be covered. Is this something that Dr. Alvarez could take care of? documented in this encounter Plan of Treatment Not on file documented as of this encounter Visit Diagnoses Not on filedocumented in this encounter Care Teams Quantitative Consultant Relationship Specialty Start Date End Date Arely Argueta MD [address] [place] [address] PCP - General 08/12/10 01/21/16 documented as of this encounter
--- OUTSIDE RECORDS SUMMARY | 2024-07-08 09:59 | XMS_ITS | Encounter Summary ---
Author Organization [facility] [place] [address] Care Team Providers Care Printing Roller Handler Name Role Phone None Primary Care Provider Unavailabl e Reason for Visit * Reason Onset Date Comments Medication Refill 05/28/2016 Encounter Details Date Type Department Care Team (Late st Contact Info) Description 05/28/2016 [place] [address] Janiya Alvarez MD [facility] [place] [address] Social History Tobacco Use Types Packs/Day Years [...] on filedocumented in this encounter Care Teams Printing Roller Handler Relationship Specialty Start Date End Date None None PCP - General 01/22/16 documented as of this encounter
--- OUTSIDE RECORDS SUMMARY | 2024-07-08 09:59 | XMS_ITS | Encounter Summary ---
Author Organization [facility] [place] [address] Care Team Providers Care Powerhouse Helper Name Role Phone None Primary Care Provider Unavailabl e Reason for Visit * Reason Onset Date Comments Other 05/19/2016 Encounter Details Date Type Department Care Team (Late st Contact Info) Description 05/19/2016 Telephone [place] [phone] Janiya Alvarez MD [facility] [place] [address] Other Social History Tobacco Use Types Packs/Day [...] Telephone Encounter - Janiya Alvarez MD - 05/20/2016 3:36 PM EDT Spoke with malia Provided him with information that ed has MS And advised i would be happy to provide additional information if he were to obtain additional consent for me to share her symptoms and clinical presentation and that if he wanted information on whether or not those are symptoms of MS, he could consult instrument man as it is out of my scope as a resident provider to share that type of information Advised he obtain additional information from her providers at [facility] * Telephone Encounter - Janiya Alvarez MD - 05/20/2016 12:49 PM EDT Left voicemail * Telephone Encounter - Triny Riggs - 05/19/2016 10:14 AM EDT Malia from [facility] called to discuss this patient as they have received calls with concerns regarding this patient and her ability to care for her daughter. She states that these calls/complaints are a result of her MS and symptoms. Please call to discuss documented in this encounter Plan of Treatment Not on file documented as of this encounter Visit Diagnoses Not on filedocumented in this encounter Care Teams Powerhouse Helper Relationship Specialty Start Date End Date None None PCP - General 01/22/16 documented as of this encounter
--- OUTSIDE RECORDS SUMMARY | 2024-07-08 09:59 | XMS_ITS | Encounter Summary ---
Author Organization [place] [address] Care Team Providers Care Senior Medical Writer Name Role Phone Arely Argueta MD Primary Care Provider [phone] Encounter Details Date Type Department Care Team (Late st Contact Info) Description 12/07/2014 Orders [place] [address] Pennie Escobar MD [facility] [place] [address] Social History Tobacco Use Types Packs/Day Years Used Date Smoking Tobacco: Never Assessed Sex and Gender Information Value Date Recorded Sex Assigned at Not on file Gender Identity Not on file Sexual Orientation Not on file documented as of this encounter Plan of Treatment Not on file documented as of this encounter Procedures Procedure Name Priority Date/Time Associated Diagnosis Comments FILM LIBRARY STORAGE ONLY MR HEAD Routine 12/07/2014 9:15 AM EDT documented in this encounter Results * Film Library- Storage only MR Head (12/07/2014 9:15 AM EDT) Anatomical Region Laterality Modality Other 12/07/2014 9:15 AM EDT Narrative 12/17/2014 11:16 PM EDT This is a Non-reportable exam Procedure Note ZULAY, UNSIGNED REPORT - 12/17/2014 This is a Non-reportable exam Pennie Escobar MD IMG FILM LIBRARY ORD ERABLES documented in this encounter Visit Diagnoses Not on filedocumented in this encounter Care Teams Senior Medical Writer Relationship Specialty Start Date End Date Arely Argueta MD [address] [place] [address] PCP - General 08/12/10 01/21/16 documented as of this encounter
--- OUTSIDE RECORDS SUMMARY | 2024-07-08 09:59 | XMS_ITS | Encounter Summary ---
Author Organization [facility] Address [facility] [address] Care Team Providers Care Spring Coiling Machine Setter Name Role Phone Arely Argeuta MD Primary Care Provider [phone] Reason for Visit * Reason Onset Date Comments Patient Not Seen 09/19/2015 Encounter Details Date Type Department Care Team (Latest Contact Info) Description 06/25/2015 Unscheduled [place] [address] Janiya Alvarez MD [facility] [place] [address] Multiple sclerosis; PATIENT NOT SEEN Social History Tobacco Use Types Packs/Day Years [...] as of this encounter Progress Notes * Thomas Pink MD - 09/19/2015 3:42 PM EST This patient was not seen in this encounter. * Janiya Alvarez MD - 06/25/2015 1:26 PM EDT Neurology Progress Note - pre-sedation documentation Patient Name: Toya Quinonesvis Admit Date: (Not on file) Patient ID: Toya Tellez is a 24 y.o. female with MS confirmed by imaging and CSF studies corresponding to clinical manifestations. She is returning to clinic tomorrow for follow-up visit and annual MRI survey. For MRI, I have scheduled with sedation. I have reviewed her chart and prior History and Physical and this morning, spoke with her provider at [facility] who has my cell phone number. Toya has an appointment there today. She has had no change in health and has been tolerating medication. No new piercings, tubal ligation. She has a severe amount of anxiety surrounding any of her medical care and this has been an issue with her MRIs in the past, I suspect related to her mental health stability. Because she needs both brain and spine MRI and needs them with and without contrast, i felt it important to optimize her studies and comfort with sedation in a controlled setting with anesthesia / nursing personnel rather than without sedation. Janiya Palma MD Neurology Resident Pager [phone] documented in this encounter Miscellaneous Notes * Addendum Note - Thomas Pink MD - 09/19/2015 3:42 PM ESTAddended by: THOMAS PINK on: 09/19/2015 03:42 PM Modules accepted: Level of Service, SmartSet documented in this encounter Plan of Treatment Not on file documented as of this encounter Visit Diagnoses Diagnosis Multiple sclerosis DH PATIENT NOT SEEN documented in this encounter Care Teams Spring Coiling Machine Setter Relationship Specialty Start Date End Date Arely Argueta MD [address] [place] [address] PCP - General 08/12/10 01/21/16 documented as of this encounter
--- OUTSIDE RECORDS SUMMARY | 2024-07-08 09:59 | XMS_ITS | Encounter Summary ---
Author Organization [facility] [place] [address] Care Team Providers Care Welder Journeyman Name Role Phone Arely Argueta MD Primary Care Provider [phone] Reason for Visit * Reason Onset Date Comments Other 02/12/2015 Encounter Details Date Type Department Care Team (Late st Contact Info) Description 02/12/2015 [place] [phone] Janiya Alvarez MD [facility] [place] [address] Other Social History Tobacco Use Types Packs/Day [...] Telephone Encounter - Janiya Alvarez MD - 02/13/2015 12:31 PM EDT 12:31 PM Patient reports being upset when having to give herself the shot and thinks 3 time weekly would be easier. She thinks she has been stable Will ask for miracle's help facilitating * Telephone Encounter - Sofia Smith - 02/12/2015 1:48 PM EDT Patient called regarding questions on her medications. She is on the once a day copaxone and would like to have it go to 3 times weekly. Please call and advise. documented in this encounter Plan of Treatment Not on file documented as of this encounter Visit Diagnoses Not on filedocumented in this encounter Care Teams Welder Journeyman Relationship Specialty Start Date End Date Arely Argueta MD [address] [place] [address] PCP - General 08/12/10 01/21/16 documented as of this encounter
--- OUTSIDE RECORDS SUMMARY | 2024-07-08 09:59 | XMS_ITS | Encounter Summary ---
Author Organization [facility] Address [facility] [place] [address] Care Team Providers Care Barrel Header Name Role Phone Arely Argueta MD Primary Care Provider [phone] Reason for Visit * Reason Onset Date Comments Other 12/28/2014 Copaxone enrollm ent Encounter Details Date Type Department Care Team (Late st Contact Info) Description 12/28/2014 [place] [address] Janiya Alvarez MD [facility] [place] [place] [address] Other (Copaxone enrollment) Social History Tobacco Use Types Packs/Day Years [...] Telephone Encounter - Nayeli Roger RN - 12/28/2014 8:42 AM EDT Faxed Copaxone enrollment to [facility] at [phone]. documented in this encounter Plan of Treatment Not on file documented as of this encounter Visit Diagnoses Not on filedocumented in this encounter Care Teams Barrel Header Relationship Specialty Start Date End Date Arely Argueta MD [address] [place] [address] PCP - General 08/12/10 01/21/16 documented as of this encounter
--- OUTSIDE RECORDS SUMMARY | 2024-07-08 09:59 | XMS_ITS | Encounter Summary ---
Author Organization [facility] Address [facility] [place] [address] Care Team Providers Care Division Road Supervisor Name Role Phone None Primary Care Provider Unavailabl e Reason for Visit * Reason Onset Date Comments Other 12/19/2015 Needs Ride appro [place] through Medicaid Encounter Details Date Type Department Care Team (Late st Contact Info) Description 12/19/2015 [place] [phone] Janiya Alvarez MD [facility] [place] [address] Other (Needs Ride approved through Medicaid ) Social History Tobacco Use Types Packs/Day Years [...] encounter Miscellaneous Notes * Telephone Encounter - Betty Downing - 12/19/2015 11:13 AM EDT Please file paper work for ride approval through Medicaid. Patient is scheduled currently for 12/24/[address] Alvarez. documented in this encounter Plan of Treatment Not on file documented as of this encounter Visit Diagnoses Not on filedocumented in this encounter Care Teams Division Road Supervisor Relationship Specialty Start Date End Date None None PCP - General 01/22/16 documented as of this encounter
--- OUTSIDE RECORDS SUMMARY | 2024-07-08 09:59 | XMS_ITS | Encounter Summary ---
Author Organization [facility] Address [facility] [place] [address] Care Team Providers Care Junior Brand Manager Name Role Phone Arely Argueta MD Primary Care Provider [phone] Encounter Details Date Type Department Care Team (Late st Contact Info) Description 12/18/2014 1:00 PM EDT Procedure visit Neurology at [facility] [place] [address] ELECTROENCEPHALOGR AM, NEURO [facility] [place] [address] Ja Degroot MD [facility] [place] [address] Discharge Disposition: Home Social History Tobacco Use Types Packs/Day Years Used Date Smoking Tobacco: Former Cigarettes 1 5 Smokeless Tobacco: Never Alcohol Use Standard Drinks/Week [...] Procedure Name Priority Date/Time Associated Diagnosis Comments [facility] SENDOUT Routine 12/18/2014 12:46 PM EDT documented in this encounter Results * [facility] [place] (12/18/2014 12:46 PM EDT) [facility] Send[facility] See Note [facility] Comment: The ordered test is: ??JCV Antibody Test performed by: [employer]. [address] [place] [address] The test result is: Please see scanned report in Chart Review under the Non-DH Laboratory Heading. Specimen of unknown material (specimen) Other / Unknown 12/18/2014 12:46 PM EDT 12/18/2014 1:56 PM EDT Madonna Mejia MD LAB SEND OUT ORDERAB LES Performing Organization Address City/State/[facility] Co de Phone Number [facility] documented in this encounter Visit Diagnoses Not on filedocumented in this encounter Care Teams Junior Brand Manager Relationship Specialty Start Date End Date Arely Argueta MD [address] [place] [id number] PCP - General 08/12/10 01/21/16 documented as of this encounter
--- OUTSIDE RECORDS SUMMARY | 2024-07-08 09:59 | XMS_ITS | Encounter Summary ---
Author Organization [facility] Address [facility] [place] [address] Care Team Providers Care Broadcast Maintenance Engineer Name Role Phone Arely Argueta MD Primary Care Provider [phone] Encounter Details Date Type Department Care Team (Late st Contact Info) Description 06/26/2015 9:30 AM EDT - 06/26/2015 11:59 PM EDT [place] [address] Ja Degroot MD [facility] [place] [address] Multiple sclerosis Social History Tobacco Use Types [...] on file documented as of this encounter Medications at Time of Discharge [...] as of this encounter Progress Notes * Nathan Morgan - 06/26/2015 9:30 AM EDT Pre-Sedation Assessment: for MRI under moderate sedation Toya Tellez is a 24 y.o. female. @SB540@ History Substance Use Topics ??? Smoking status: Former Smoker -- 1.00 packs/day for 5 years Types: Cigarettes ??? Smokeless tobacco: Never Used Comment: quit 2009 ??? Alcohol Use: No HEENT: NCAT Chest/Lungs: CTA BL Heart: RRR, no rubs, murmurs, or gallops ASA: 1 Mallampati: III documented in this encounter Plan of Treatment Not on file documented as of this encounter Procedures Procedure Name Priority Date/Time Associated Diagnosis Comments MRI BRAIN WWO CONTRAST (GENERIC) Routine 06/26/2015 11:47 AM EDT Multiple sclerosis MRI CERVICAL SPINE WITH/WO CONTRAST Routine 06/26/2015 11:34 AM EDT Multiple sclerosis documented in this encounter Results * MRI cervical spine with/WO contrast (06/26/2015 [...] Diagnosis Multiple sclerosis documented in this encounter Administered Medications Inactive Administered Medications - up to 3 most recent administrations Medication Order MAR Action Action Date Dose Rate Site gadobutrol (GADAVIST) 1 mMol/mL injection 5.9 mL 5.9 mL (0.1 mL/kg/dose ? 59 kg Order-specific weight), Intravenous, ONCE PRN, 1 dose, Starting on Wed06/26/15 at 1012, Until Wed06/26/15 at 1115, Per Protocol, Routine Given 06/26/2015 11:15 AM EDT 6 mLs documented in this encounter Care Teams Broadcast Maintenance Engineer Relationship Specialty Start Date End Date Arely Argueta MD [address] [place] [address] PCP - General 08/12/10 01/21/16 documented as of this encounter
--- OUTSIDE RECORDS SUMMARY | 2024-07-08 09:59 | XMS_ITS | Encounter Summary ---
Author Organization [facility] [place] [address] Care Team Providers Care Printer Operator Name Role Phone Arely Argueta MD Primary Care Provider [phone] Reason for Visit * Reason Onset Date Comments Prior Authorization 03/04/2015 Copaxone 40 mg PA Encounter Details Date Type Department Care Team (Late st Contact Info) Description 03/04/2015 [place]phone [place] [address] Janiya Alvarez MD [facility] [place] [address] Prior Authorization (Copaxone 40 mg PA) Social History Tobacco Use Types Packs/Day Years [...] Telephone Encounter - Nayeli Roger RN - 03/06/2015 9:13 AM EDT Medication: Copaxone 40 mg Prior Authorization: Start Date: 03/05/2015 End Date: 03/05/2016 Health Plan: [employer] Authorizing Rep: Authorization Number (if applicable): [id number] Notified: Patient ( x ) Pharmacy ( x ) * Telephone Encounter - Nayeli Roger RN - 03/05/2015 2:55 PM EDT Copaxone 40 mg PA denied. Call placed to appeal denial. Was told that Dr. Alvarez could call to do a [id number]. Gave Dr. Alvarez this information. * Telephone Encounter - Janiya Alvarez MD - 03/04/2015 4:02 PM EDT Spoke with pharm D at [facility] and Toya needed an extra injector so pharmD needed to confirm dose. i confirmed over the phone * Telephone Encounter - Riana May - 03/04/2015 11:47 AM EDT The patient just received a denial letter for the glatiramer. It was the patient's understanding that her Copaxone had been approved. She can continue with the injections. Please call and discuss. documented in this encounter Plan of Treatment Not on file documented as of this encounter Visit Diagnoses Not on filedocumented in this encounter Care Teams Printer Operator Relationship Specialty Start Date End Date Arely Argueta MD [address] [place] [address] PCP - General 08/12/10 01/21/16 documented as of this encounter
--- OUTSIDE RECORDS SUMMARY | 2024-07-08 09:59 | XMS_ITS | Encounter Summary ---
[place] [address] Care Team Providers Care Rn Staff Name Role Phone Arely Argueta MD Primary Care Provider Encounter Details Date Type Department Care Team (Late st Contact Info) Description 11/21/2015 Orders [place] [address] Janiya Alvarez MD [facility] [place] [address] Social History Tobacco Use Types Packs/Day Years [...] on filedocumented in this encounter Care Teams Rn Staff Relationship Specialty Start Date End Date Arely Argueta MD [address] [place] [address] PCP - General 08/12/10 01/21/16 documented as of this encounter
--- OUTSIDE RECORDS SUMMARY | 2024-07-08 09:59 | XMS_ITS | Encounter Summary ---
Author Organization [facility] Address [place] [address] Care Team Providers Care Hand Flatwork Finisher Name Role Phone Arely Argueta MD Primary Care Provider [phone] Reason for Visit * Reason Onset Date Comments Other 11/20/2015 Encounter Details Date Type Department Care Team (Late st Contact Info) Description 11/20/2015 [place] [phone] Janiya Alvarez MD [facility] [place] [address] Other Social History Tobacco Use Types Packs/Day [...] Telephone Encounter - Janiya Alvarez MD - 11/20/2015 12:47 PM EST Returned call left message. She also needs a follow-up * Telephone Encounter - OneilSilvestregh Brooklynn - 11/20/2015 9:45 AM EST Patient called in with questions regarding her MS or symptoms. States that she has heard that Lyme disease can present with very similar symptoms to MS and is wondering if Dr. Alvarez could call her back to discuss this and her particular case. Please call documented in this encounter Plan of Treatment Not on file documented as of this encounter Visit Diagnoses Not on filedocumented in this encounter Care Teams Hand Flatwork Finisher Relationship Specialty Start Date End Date Arely Argueta MD [address] [place] [address] PCP - General 08/12/10 01/21/16 documented as of this encounter
--- OUTSIDE RECORDS SUMMARY | 2024-07-08 09:59 | XMS_ITS | Encounter Summary ---
[place] [address] Care Team Providers Care Fish And Wildlife Scientific Aid Name Role Phone Arely Argueta MD Primary Care Provider [phone] Encounter Details Date Type Department Care Team (Late st Contact Info) Description 04/22/2015 [place] [address] Betty Woodson Social History Tobacco Use Types Packs/Day Years [...] on filedocumented in this encounter Care Teams Fish And Wildlife Scientific Aid Relationship Specialty Start Date End Date Arely Argueta MD [address] [place] [address] PCP - General 08/12/10 01/21/16 documented as of this encounter
--- OUTSIDE RECORDS SUMMARY | 2024-07-08 09:59 | XMS_ITS | Encounter Summary ---
Author Organization [facility] Address [facility] [place] [address] Care Team Providers Care Recovery Advocate Name Role Phone Arely Argueta MD Primary Care Provider [phone] Reason for Visit * Reason Onset Date Comments Medication Refill 11/19/2015 Encounter Details Date Type Department Care Team (Late st Contact Info) Description 11/19/2015 Telephone [place] [id number] Janiya Alvarez MD [facility] [place] [address] Medication Refill Social History Tobacco Use Types [...] Telephone Encounter - Janiya Alvarez MD - 11/21/2015 3:58 PM EST Re-ordered the medication to be e-prescribed to the [place] branch of that pharmacy * Telephone Encounter - OneilSilvestregh Brooklynn - 11/21/2015 11:31 AM EST Patient called in and states that she needs the pharmacy for this changed to [facility] [place]. Not in [place]. * Telephone Encounter - Triny Riggs - 11/19/2015 3:37 PM EST Name of Med: glatiramer COPAXONE Strength of Pills: 40mg/mL Syringe Dosing Directions: inject 40mg subcutaneously three times a week 30 or 90 Day: 36 syringe Pharmacy: [place] Last Appointment: 06/26/2015 Next Appointment: none yet Is Patient out of Medication?: 1 month left documented in this encounter Plan of Treatment Not on file documented as of this encounter Visit Diagnoses Not on filedocumented in this encounter Care Teams Recovery Advocate Relationship Specialty Start Date End Date Arely Argueta MD [address] [place] [address] PCP - General 08/12/10 01/21/16 documented as of this encounter
--- OUTSIDE RECORDS SUMMARY | 2024-07-08 09:59 | XMS_ITS | Encounter Summary ---
Author Organization [facility] [place] [address] Care Team Providers Care Furnace Tapper Name Role Phone Arely Argueta MD Primary Care Provider [phone] Reason for Visit * Reason Onset Date Comments Medication Refill 08/27/2015 Encounter Details Date Type Department Care Team (Late st Contact Info) Description 08/27/2015 [place] [address] Tay Diego MD [facility] [place] [address] Social History Tobacco Use Types Packs/Day Years [...] on filedocumented in this encounter Care Teams Furnace Tapper Relationship Specialty Start Date End Date Arely Argueta MD [address] [place] [address] PCP - General 08/12/10 01/21/16 documented as of this encounter
--- OUTSIDE RECORDS SUMMARY | 2024-07-08 09:59 | XMS_ITS | Encounter Summary ---
[place] [address] Care Team Providers Care Non Licensed Nuclear Equipment Operator Name Role Phone None Primary Care Provider Unavailabl e Encounter Details Date Type Department Care Team (Late st Contact Info) Description 12/11/2014 Community Orders External [phone] Delisa Bolivar, CARDIOVASCULAR SPECIALIST [address] [place] [address] Social History Tobacco Use Types [...] on filedocumented in this encounter Care Teams Non Licensed Nuclear Equipment Operator Relationship Specialty Start Date End Date None None PCP - General 01/22/16 documented as of this encounter
[2024-07-08] MEDS: Ondansetron 4 MG/2 ML VIAL IVP (10:11)
[2024-07-08] MEDS: Ketorolac 15 MG/ML VIAL IVP (10:11)
[2024-07-08 10:12] LABS: Abs Immature Grans 0.03 10^3/uL (0.0-0.06); Absolute Basophil Count 0.03 10^3/uL (0.0-0.2); Absolute Lymphocyte Count 1.18 10^3/uL (1.2-3.4); Absolute Monocyte Count 0.47 10^3/uL (0.1-0.8); Basophils % 0.4 %; HCT 44.1 % (36.0-46.0); HGB 14.8 g/dL (11.2-15.7); Immature Grans % 0.4 %; Lymphocytes % 15.5 %; MCHC 33.6 % (32.0-36.0); MCV 101 fL (80-95); MPV 9.5 fL (8.0-11.0); Monocytes % 6.2 %; Neutrophils % 77.5 %; Platelet Count 267 10^3/uL (130-400); RBC 4.35 10^6/uL (3.93-5.22); RDW 13.1 % (11.7-14.6); RDW-SD 49.4 fL; WBC 7.61 10^3/uL (4.4-10.8)
[2024-07-08 10:32] LABS: ALT 17 U/L (14-59); AST 49 U/L (15-37); Albumin 3.7 g/dL (3.4-5.0); Alkaline Phosphatase 99 U/L (46-116); Anion Gap 11.8 mmol/L (3-11); BUN 6 mg/dL (7-18); Bilirubin, Total 0.93 mg/dL (0.2-1.0); CO2 25.2 mmol/L (21.0-32.0); CREATININE 0.9 mg/dL (0.55-1.02); Calcium 9.6 mg/dL (8.5-10.1); Chloride 104 mmol/L (98-107); Estimated GFR 84.97 (mL/min/1.73m2); Glucose 116 mg/dL (74-106); Lipase 23 U/L (16-77); Magnesium 1.7 mg/dL (1.8-2.4); Potassium 3.7 mmol/L (3.5-5.1); Sodium 141 mmol/L (136-145); Total Protein 7.5 g/dL (6.4-8.2); Troponin I 5 ng/L (<or=51)
[2024-07-08 10:42] LABS: D-Dimer 696 ng/mlFEU (<500)
--- NOTE | 2024-07-08 10:45 | DI.CT_ITS ---
Exam(s) CT CHEST PE ABD PELVIS W EXAM: CT CHEST PE ABD PELVIS W CLINICAL HISTORY: L. chest px, +dimer, vomiting. TECHNIQUE: Imaging Protocol: Axial CT angiography was performed with multi-slice acquisition and mu lti-planar and/or 3D reconstructions. CONTRAST MATERIAL: Intravenous: Omnipaque 350contrast volume:100 mL COMPARISON: CT HEAD WITHOUT CONTRAST from 08/15/2008 CR,XR XR CHEST 2V PA LATERAL from 07/08/2024 FINDINGS: CHEST: Tracheobronchial tree: Patent where visualized. No evidence of bronchiectasis. Pulmonary parenchyma: Atelectasis or scarring in the lung bases bilaterally. No architectural distor tion. Pulmonary Arteries: No evidence of filling defect to suggest pulmonary emboli. Mediastinum and Melodie: No dominant adenopathy or fluid collection. The esophagus is unremarkable. Visualized thyroid gland: Unremarkable. Pleura: No effusion or pneumothorax. Heart: The heart is not dilated. No coronary artery calcifications are seen. No pericardial effusion. Aorta: Thoracic aorta non-dilated. No evidence of dissection. Bones: Within normal limits for the patient's age. Soft tissues: Unremarkable. ABDOMEN: Liver: Normal density. No measurable mass. The liver measures 20.5 cm long. Portal, Superior Mesenteric, and Splenic Veins: Unremarkable. Gallbladder and Biliary Tract: No radiodense calculus or dilation. Pancreas: Normal density, no abnormal calcifications or inflammatory process. Spleen: Normal. The spleen measures 13.5 cm long. Adrenals: No masses seen. Kidneys: Normal size, contour and axis. No radiodense stones or obstructive uropathy. No masses seen. Abdominal Aorta: Abdominal portion non-dilated. Bowel: No obstruction or bowel wall thickening. Appendix is unremarkable. Peritoneal Cavity: No ascites. There is mild infiltration in the left upper quadrant adjacent to the distal transverse colon. No free air. Lymph Nodes: Within normal limits. Bones: Within normal limits for the patient's age. Soft Tissues: Unremarkable. PELVIS: Bladder: Symmetric distention, no gross wall thickening. Reproductive Organs: Unremarkable as visualized. Lymph Nodes: Within normal limits. Bones: Within normal limits. IMPRESSION: 1. No evidence pulmonary embolism, thoracic aortic dissection or aneurysm. 2. No acute pulmonary process. 3. Hepatosplenomegaly. 4. There is infiltration of the fat seen in left upper quadrant adjacent to the distal transverse col on. Differential considerations include epiploic appendagitis or omental infarction. 5. Otherwise unremarkable abdominal and pelvic CT examination. RADIATION DOSE DELIVERED: 802.39mGy.cm Total DLP DATA REPOSITORY: All CT scans at this facility are submitted to the National Radiology Data Registry (NRDR) Dose Index Registry (DIR) with the [employer] (ACR). RADIATION OPTIMIZATION: All CT scans at this facility use at least one of these dose optimization te chniques: automated exposure control; mA and/or kV adjustment per patient size (includes targeted exa ms where dose is matched to clinical indication); or iterative reconstruction.
--- NOTE | 2024-07-08 11:00 | DI.VRAD_ITS ---
PROCEDURE INFORMATION: Exam: XR Chest Exam date and time: 07/08/2024 10:24 AM Age: 34 years old Clinical indication: Other: L. Chest pain with inspiration TECHNIQUE: Imaging protocol: Radiologic exam of the chest. Views: 2 views. COMPARISON: No relevant prior studies available. FINDINGS: Lungs: Unremarkable. No consolidation. Pleural spaces: Unremarkable. No pleural effusion. No pneumothorax. Heart/Mediastinum: Unremarkable. No cardiomegaly. Bones/joints: Unremarkable. IMPRESSION: No acute findings. Dictated and Authenticated by: Elisa Delaney MD. Ordering:EVELYN Cyr MD
[2024-07-08] MEDS: Normal Saline - Diluent 50 ML VIAL IJ (11:01)
[2024-07-08] MEDS: Omnipaque 350 MG/ML 100 ML BTL IJ (11:03)
--- NOTE | 2024-07-08 11:22 | DI.VRAD_ITS ---
PROCEDURE INFORMATION: Exam: CTA Chest With Contrast Exam date and time: 07/08/2024 11:00 AM Age: 34 years old Clinical indication: Other: L. Chest px, +dimer, vomiting TECHNIQUE: Imaging protocol: Computed tomographic angiography of the chest with contrast. Exam focused on the arteries. 3D rendering (Not supervised by radiologist): MIP and/or 3D reconstructed images were created by the technologist. Radiation optimization: All CT scans at this facility use at least one of these dose optimization techniques: automated exposure control; mA and/or kV adjustment per patient size (includes targeted exams where dose is matched to clinical indication); or iterative reconstruction. Contrast material: OMNI 350; Contrast volume: 100 ml; Contrast route: INTRAVENOUS (IV); COMPARISON: CR XR CHEST 2V PA LATERAL 07/08/2024 10:24 AM FINDINGS: Pulmonary arteries: No evidence of pulmonary embolus to the segmental level. Aorta: No aneurysm of the aorta. No dissection of the aorta. Lungs: Atelectasis in both lower lobes Pleural spaces: Unremarkable. No pneumothorax. No pleural effusion. Heart: Unremarkable. No cardiomegaly. No pericardial effusion. Lymph nodes: Unremarkable. No enlarged lymph nodes. Bones/joints: Unremarkable. No acute fracture. Soft tissues: Unremarkable. IMPRESSION: 1. No evidence of pulmonary embolus to the segmental level. 2. No aneurysm of the aorta. 3. No dissection of the aorta. PROCEDURE INFORMATION: Exam: CT Abdomen And Pelvis With Contrast Exam date and time: 07/08/2024 11:00 AM Age: 34 years old Clinical indication: Other: L. Chest px, +dimer, vomiting TECHNIQUE: Imaging protocol: Computed tomography of the abdomen and pelvis with contrast. Radiation optimization: All CT scans at this facility use at least one of these dose optimization techniques: automated exposure control; mA and/or kV adjustment per patient size (includes targeted exams where dose is matched to clinical indication); or iterative reconstruction. Contrast material: OMNI 350; Contrast volume: 100 ml; Contrast route: INTRAVENOUS (IV); COMPARISON: CR XR CHEST 2V PA LATERAL 07/08/2024 10:24 AM FINDINGS: Liver: Hepatomegaly 21 cm. . Gallbladder and biliary ducts: Normal. No calcified stones. No ductal dilation. Pancreas: Normal. No ductal dilation. Spleen: Splenomegaly 14 cm.. Adrenal glands: Normal. No mass. Kidneys and ureters: Normal. No hydronephrosis. Stomach and bowel: See Intraperitoneal space finding. Appendix: Normal appendix Intraperitoneal space: 2.2 cm Hyperdense ring in the omentum anterior to the spleen (series 26, image 31.) additional mild inflammatory changes in this region on image 32. This may represent epiploica appendagitis versus omental infarction.. Vasculature: Unremarkable. No abdominal aortic aneurysm. Lymph nodes: Unremarkable. No enlarged lymph nodes. Urinary bladder: Unremarkable as visualized. Reproductive: Unremarkable as visualized. Bones/joints: Unremarkable. No acute fracture. Soft tissues: Unremarkable. IMPRESSION: 1. 2.2 cm Hyperdense ring in the omentum anterior to the spleen (series 26, image 31.) additional mild inflammatory changes in this region on image 32. This may represent epiploica appendagitis versus omental infarction.. 2. Splenomegaly 14 cm.. Differential diagnosis of splenomegaly is lymphoma/leukemia, mononucleosis, hemolytic anemia, portal hypertension. 3. Hepatomegaly 21 cm. . Dictated and Authenticated by: Elisa Delaney MD. Ordering:EVELYN Cyr MD
[2024-07-08 11:41] LABS: Mono Screening Negative (Negative)
[2024-07-08 11:44] LABS: Bilirubin Small (Negative); Blood Negative (Negative); Clarity Clear (Clear); Glucose Negative (Negative); Ketones Trace mg/dL (Negative); Leukocyte Esterase Small (Negative); Nitrite Negative (Negative); Specific Gravity 1.015 (1.005-1.025); pH 6.5 (5-8)
[2024-07-08 12:07] LABS: Bacteria Few HPF (Negative); C & S Indicated? No; Casts Negative LPF (Negative); Crystals Negative HPF (Negative); Epithelial Cells Moderate HPF (Negative); Mucus Trace (Negative); RBC Negative HPF (0-2)
--- NOTE | 2024-08-30 13:50 | W.EDPROG ---
Date of service: 08/30/24 Time of Service: 13:50 Medical Decision Making I was contacted by EMS. Per EMS the patient had taken a couple extra clonidine last night, not in an effort for self-harm. Today they were called to evaluate the patient. Blood pressure was in the high 80s. Glucose normal. Heart rate normal. Patient was mentating well per EMS. Patient did not want to go to the emergency department via EMS, and wanted to either stay home or come in by POV. She was refusing EMS's recommendation for evaluation. EMS reports that the patient has no signs of altered mental status, she is mentating well, and shows no active confusion. I did inform EMS that that I also would recommend that the patient come in for evaluation, and then happy to see the patient at any time that she wishes and we are always here for evaluation. Patient understands but continues to refuse. EMS did also make it clear that it was against their recommendations that she avoid coming in, and that there is potential that she could or have lifelong disability. Patient understands EMS reports. Quality:SDOH Health Related Social Needs: No Data to Display Discharge Plan Disposition Patient Disposition: Home Condition: Stable Discharge Details Clinical Impression: Epiploic appendagitis, Multiple sclerosis, Migraine headache without aura, Hepatosplenomegaly Primary Care Provider: None,None ED Provider: Betty Mustafa Home Meds and New Rx's Prescriptions: No Action zolpidem [Ambien] 5 mg tablet 5 mg PO QHS PRN clonidine HCl 0.2 mg tablet 0.2 mg PO TID escitalopram oxalate [Lexapro] 10 mg tablet 10 mg PO DAILY olanzapine 7.5 mg tablet 7.5 mg PO QHS cholecalciferol (vitamin D3) 50 mcg (2,000 unit) capsule 2,000 unit PO DAILY Qty: 90 3RF dexmethylphenidate [Focalin XR] 15 mg capsule,ER biphasic 50-50 15 mg PO DAILY Discharge Instructions Instructions: Managing acute pain at home Additional Instructions: You were seen in the emergency department today for evaluation of pain, and were found to have a twisting of the fat inside your belly, condition called epiploic appendagitis. This is managed by taking anti-inflammatory medicine such as ibuprofen for the next few days to reduce the inflammation in the area. It does not require antibiotics and typically does not require any surgical interventions. You were also noted to have an enlargement of your liver and spleen, and need to follow-up with a primary care provider to discuss this finding, and ongoing management of your chronic conditions. Thank you for allowing us to be part of your care. Discharge Data Discharge Date/Time-TO BE ENTERED AT DEPARTURE: 07/08/24 12:39
== END 2024-07-08 12:39 | disposition home or self-care (01) ==
PROVIDERS: Emergency Provider Emergency Medicine
DX: R10.12 Left upper quadrant pain (principal); R11.2 Nausea with vomiting, unspecified; K63.89 Other specified diseases of intestine; R16.2 Hepatomegaly with splenomegaly, not elsewhere classified
CPT/HCPCS: 00123; 36415; 71275; 74177; 80053; 83690; 93005; 96374; 96375; 99285; 71046; 81003; 81015; 83735; 84484; 85025; 85379; 86308; 93010; 99283; J1885; J2405; J3490

== ENCOUNTER 2024-08-30 14:28 | Emergency (ER) | payer MEDICAID, SELFPAY ==
[2024-08-30] VITALS (11 sets, daily range): BP systolic 81–100; BP diastolic 46–73; PULSE 45–97; RESP 16–22; TEMP 36.2–36.6; O2SAT 96–98
--- NOTE | 2024-08-30 14:30 | RT.EKG_ITS ---
APPROVED REPORT Exam: Resting ECG Reason for Exam: overdose Patient Location: E HR:65 bpm ECG Measurements Heart Rate 65 AXIS MA 164 P 37 QRSd 81 QRS 63 QT 477 T 40 QTc 495 Conclusion Sinus rhythm...normal P axis, V-rate 60- 99
--- NOTE | 2024-08-30 14:43 | ED.GENADUL_ITS ---
Discharge Plan Discharge Details Chief Complaint: OD/Poison Clinical Impression: Depression, Clonidine overdose Primary Care Provider: None,None ED Provider: Luis Daniel Forman Home Meds and New Rx's Prescriptions: No Action zolpidem [Ambien] 5 mg tablet 5 mg PO QHS PRN clonidine HCl 0.2 mg tablet 0.1 mg PO TID escitalopram oxalate [Lexapro] 10 mg tablet 10 mg PO DAILY olanzapine 7.5 mg tablet 10 mg PO QHS dexmethylphenidate [Focalin XR] 15 mg capsule,ER biphasic 50-50 15 mg PO DAILY HPI General Mode of arrival: EMS . Date/Time Provider Initiated Documentation: 08/30/24 14:36 . Limitations to Documentation: no limitations . Information obtained by: patient . History of Present Illness 34 year old F presents to the emergency department with the chief complaint of took extra clonidine yesterday, described as moderate, Patient started experiencing this day(s) (1) and it has been constant. No relieving factors improve symptom(s), No exacerbating factors reported . Patient notes denies chest pain, fever/chills and shortness of breath. Patient did receive the following treatments prior to arrival, none Related Data Home Medications ?Medication ?Instructions ?Recorded ?Confirmed zolpidem 5 mg tablet (Ambien) 5 mg PO QHS PRN 07/10/20 08/30/24 clonidine HCl 0.2 mg tablet 0.1 mg PO TID 09/01/21 08/30/24 escitalopram oxalate 10 mg tablet 10 mg PO DAILY 09/01/21 08/30/24 (Lexapro) olanzapine 7.5 mg tablet 10 mg PO QHS 09/01/21 08/30/24 dexmethylphenidate 15 mg 15 mg PO DAILY 07/08/24 08/30/24 capsule,extended release [id number] (Focalin XR) Allergies Allergy/AdvReac Type Severity Reaction Status Date / Time cat dander Allergy Intermediate Itching Verified 08/30/24 14:37 house dust mite Allergy Mild Itching Verified 08/30/24 14:37 General Stated Complaint: OD/Poison NAIMA: 2 Review of Systems All systems reviewed & are unremarkable except as noted in HPI and below Constitutional Constitutional: Denies chills, Denies fever(s) and Denies weakness Cardiovascular Cardiovascular: Denies chest pain and Denies dyspnea Respiratory Respiratory: Denies cough and Denies dyspnea Gastrointestinal Gastrointestinal: Denies abdominal pain, Denies nausea and Denies vomiting Neurologic Neurologic: Denies weakness Exam Const General: no acute distress Orientation: alert HENSC Head: normal to inspection Ears: external ears normal General nose exam: external nose normal Mouth: moist mucous membranes Eyes General: appearance normal, both eyes and all related structures Neck Neck: normal visual inspection Resp Effort & Inspection: normal respiratory effort and able to speak in complete sentences Cardio Rate: regular rate Skin General skin exam: no rashes or lesions noted Neuro General: patient alert and patient oriented x3 Psych Attitude: not cooperative Course Vital Signs Vital signs: Vital Signs Temperature 36.2 C L 08/30/24 14:29 Pulse 66 08/30/24 14:29 Blood Pressure 82/57 L 08/30/24 14:29 Pulse Oximetry 97 08/30/24 14:29 Temperature 36.2 C L 08/30/24 14:29 Temperature Source Temporal Artery Scan 08/30/24 14:29 Pulse 66 08/30/24 14:29 Blood Pressure 82/57 L 08/30/24 14:29 Blood Pressure Position Sitting 08/30/24 14:29 Pulse Oximetry 97 08/30/24 14:29 Oxygen Delivery Method Room Air 08/30/24 14:29 Oxygen Flow Rate 0 08/30/24 14:29 Pain Level 0 08/30/24 14:29 Comment pt laying back on stretcher after VS taken given fluids to drink 08/30/24 14:29 Medical Decision Making 34-year-old female with a prior history of auditory and visual hallucinations and depression comes in with complaints of take an extra clonidine yesterday. When asked why she did this she shrugs her shoulders and when asked, she took she says I have no fucking idea. Patient denies any headaches, chest pain, difficulty breathing. She denies any drug or alcohol use. She is moving all extremities well. She has noted to be hypotensive with blood pressure in the 80s. She denies taking any clonidine today. She was initially resistant to having any blood work or labs done but I advise she could have a mental health evaluation until we did a medical workup and her blood pressure stabilized she was agreeable to this for now. Will check a CBC, CMP, talk screen and obtain IV access and give IV fluids.will also obtain ecg Labs unremarkable, patient eating food without any issues and BP 104/67. Patient states she took her meds yesterday around 2:00 and has not had any since overdeveloped feel any further testing indicated. She does states she has had increased auditory and visual hallucinations, telling her to harm herself. Will have mental health evaluate. Patient met with mental health and will be seeking voluntary placement. Differential Diagnosis Differential Diagnosis: Overdose, depression, hypertension Medical Records Medical records reviewed: Yes I reviewed the patient's medical records. ECG Data Attestation: I personally reviewed and interpreted this ECG (s) as follows: Prior ECG tracings: available for review Interpretation: sinus rate of 65 pr 164 no stemi Quality:SDOH Health Related Social Needs: No Data to Display PFSH All Active Problems (Updated 08/30/24 @ 18:00 by Luis Daniel Forman MD) Clonidine overdose (Acute) Depression (Chronic) DVT prophylaxis (Acute) Depression (Chronic) Auditory hallucination (Acute) Visual hallucinations (Acute) Migraine headache without aura (Acute) Blurred vision (Acute) Chronic pain (Chronic) Right knee pain (Acute) Fatigue (Chronic) Arm paresthesia, right (Chronic) Multiple sclerosis (Chronic) Medical History ADD (attention deficit disorder) Anxiety Depression Opioid dependence Surgical History S/P tubal ligation Family History Maternal Grandmother Multiple sclerosis Social History Smoking/Tobacco Use Status: Former Tobacco Use Smoking risk assessment performed?: Yes Alcohol Intake: current Alcohol Intake frequency: 3 or more drinks per day Alcohol type: beer Drug use: Current Sobriety Substance use type: marijuana Household members: children Housing: apartment Number of Children: 3 Pets and animals: No Seatbelt use: always Do you feel safe at home: Yes Do you feel safe in your relationship?: Yes PAWSS Have you Been Recently Intoxicated or Drunk Within the Last 30 days?: Yes Have you Ever Experienced Previous Episodes of Alcohol Withdrawal?: Yes Have you ever Experienced Withdrawal Seizures?: No Have you ever Experienced Delirium Tremens(DT)s?: Yes Have you ever undergone Alcohol Rehabilitation Treatment (i.e, inpt ot outpatient treatment programs)?: No Have you ever Experienced Blackouts?: No Have you ever Combined Alcohol with other Downers within the last 90 days?: No Have you ever Combined Alcohol with any other Substance of Abuse during the last 90 days?: No Positive Blood Alcohol level on Presentation? [PCS.BAL]: Unable to Obtain Evidence of Increased Autonomic Activity (i.e. HR>120, tremor, sweating, agitation, nausea)?: No Result: 3
[2024-08-30] MEDS: Normal Saline 1,000 ML 1000 ML IV (15:18)
[2024-08-30 15:22] LABS: Abs Immature Grans 0.01 10^3/uL (0.0-0.06); Absolute Basophil Count 0.02 10^3/uL (0.0-0.2); Absolute Lymphocyte Count 1.21 10^3/uL (1.2-3.4); Absolute Monocyte Count 0.35 10^3/uL (0.1-0.8); Absolute Neutrophil Count 4.18 10^3/uL (1.2-6.7); Basophils % 0.3 %; HCT 35.2 % (36.0-46.0); HGB 11.5 g/dL (11.2-15.7); Immature Grans % 0.2 %; MCH 35.1 pg (27.0-33.0); MCHC 32.7 % (32.0-36.0); MCV 107 fL (80-95); MPV 9.3 fL (8.0-11.0); Monocytes % 6.1 %; Neutrophils % 72.4 %; Platelet Count 268 10^3/uL (130-400); RBC 3.28 10^6/uL (3.93-5.22); RDW 17.2 % (11.7-14.6); RDW-SD 65.2 fL; WBC 5.77 10^3/uL (4.4-10.8)
[2024-08-30 15:32] LABS: Diff Comment RBC Morph Reviewed; Macrocytosis 1+
[2024-08-30 15:51] LABS: ALT 34 U/L (14-59); AST 75 U/L (15-37); Albumin 3.3 g/dL (3.4-5.0); Alkaline Phosphatase 100 U/L (46-116); Anion Gap 8.7 mmol/L (3-11); BUN 8 mg/dL (7-18); Bilirubin, Total 0.51 mg/dL (0.2-1.0); CO2 27.3 mmol/L (21.0-32.0); CREATININE 0.9 mg/dL (0.55-1.02); Calcium 8.7 mg/dL (8.5-10.1); Chloride 108 mmol/L (98-107); ETHANOL BLOOD 4.7 mg/dL (<10); Estimated GFR 84.97 (mL/min/1.73m2); Glucose 110 mg/dL (74-106); Potassium 3.5 mmol/L (3.5-5.1); Sodium 144 mmol/L (136-145); TSH (W/Ref FT4) 0.67 uIU/mL (0.36-3.74); Total Protein 6.4 g/dL (6.4-8.2)
[2024-08-30 16:11] LABS: Salicylate < 2.8 mg/dL (<2.8)
[2024-08-30 16:12] LABS: Acetaminophen < 2 ug/mL (10-30)
--- NOTE | 2024-08-30 18:06 | PDOC.MHCN_ITS ---
Date of service: 08/30/24 Time of Service: 17:40 PHQ-9 Over the last 2 weeks, how often have you been bothered by any of the following problems? 1. Little interest or pleasure in doing things: several days 2. Feeling down, depressed, or hopeless: several days 3. Trouble falling or staying asleep, or sleeping too much: several days 4. Feeling tired or having little energy: not at all 5. Poor appetite or overeating: several days 6. Feeling bad about yourself - or that you are a failure or have let yourself and your family down: several days 7. Trouble concentrating on things, such as reading the newspaper or watching television: several days 8. Moving or speaking so slowly that other people could have noticed? - Or the opposite - being so fidgety or restless that you have been moving around a lot more than usual: not at all 9. Thoughts that you would be better off or of hurting yourself in some way: several days Total score: 7 If you checked off any problems, how difficult have these problems made it for you to do your work, take care of things at home, or get along with other people?: somewhat difficult Source: Developed by Drs. Nish Strong, Mattie Glez, Triston Bone and colleagues, with an educational emeka from [employer]. Suicide Severity Rate CSSRS Have you wished you were or wished you could go to sleep and not wake up?: Yes Have you actually had any thoughts of killing yourself?: Yes CSSRS2 Have you been thinking about how you might do this?: Yes Have you had these thoughts and had some intention of acting on them?: Yes Have you started to work out or worked out the details of how to kill yourself? Do you intend to carry out this plan?: Yes CSSRS3 Have you ever done anything, started to do anything or prepared to do anything to end your life?: Yes CSSRS4 Was this within the past three months?: Yes Screening Score Total Score: 8 Screening: Positive Mental Health Emergency Note Release [facility] release signed:: Yes Reason for Visit Toya presents via [facility] for taking too much medication in attempt to harm herself and due to hearing voices. In the last 2 weeks has the pt presented for ES prior to today?: Unknown Client Information Client is: Adult Outpatient Well Housed: Yes Non Suicidal Self Injury Current: No History: No Safety Risk/Harm to Self or Others Current Ideation to Harm Self or Others: Yes to self. (Toya disclosed that she had been trying to end her life by taking too much medication over the last few days. Elvia could not disclose what she took or how much. Toya also disclosed she had thoughts of harming herself with a knife but could not go through with it.) Intent: yes, has intent. Plan: yes,has a plan. History of suicide attempt: yes,history of suicide attempt reported. Details of previous suicide attempt: Toya disclosed that she had been trying to end her life by taking too much medication over the last few days. Elvia could not disclose what she took or how much. Toya also disclosed she had thoughts of harming herself with a knife but could not go through with it. Risk: Does risk to harm exist?: No Risk: N/A Duty to warn indicated: No Asssessment/Mental Status Appearance: Disheveled Attitude: Passive and Guarded Behavior: Poor impulse control and Gait disturbances Speech: Normal Affect: Cogruent with mood Mood: Sad, Stressed, Depressed and Anxious Thought process: Goal directed Hallucinations: yes, Auditory Delusions: No evidence Attention: Unremarkable Perception: Not impaired Orientation: Fully orientated Memory: Intact Insight: Fair Judgement: Poor Neurovegetative Symptoms Sleep: Decrease Appetitie: Decrease Interests: Decrease Energy: Decrease Libido: Not applicable Substance Use: Do you use nicotine?: Yes Have you used substances in the last 7 days?: yes, Toya reports she drinks a few beers a day. Additional Issues: Assaultive/Threatening Behavior: No Medical Concerns: No Client engaged in active self harm w/weapon: No Threatening to run away: No Child reported abuse/neglect: No Voluntarily presenting for services: Yes Domestic violence is a concern: No Extreme Psychosis or extreme behavior is present: No Impression Toya presents to this information writer sitting in her hospital bed, in paper scrubs. Toya reports that she is at the hospital due to her hearing voices again. Toya reports she has been hearing voices for the last six months but has not told anybody. Toya reports the voices are becoming too intense. Toya reports the voices are degrading telling her that no one likes her, she's a horrible person, she should end her life. Toya reports that this has been an experience in the past and this has happened roughly for 5-6 years but never this bad. Toya also disclosed that she attempted to end her life by taking too much medication over the last few days. Toya could not disclose what specific pills or the amount of pills taken but did disclose the police and EMS made her come to the ED due to taking the medications. Toya also disclosed she had thoughts of harming herself with a knife but she could not get herself to do it. Toya denies HI at this time. Toya describes her mood as depressed and reports the voices are severely impacting her mood and sleep patterns. Toya reports a decrease in appetite as well. Toya reports previous history of going to inpatient treatment, the last time was 2-3 years ago at [facility]. Toya was hesitant to inpatient treatment but could not identify what would change if she went home. This information writer and the provider were considered as she had been trying to end her life, the voices are telling her to end her life, and the voices are affecting several aspects of her life that she would try again if she returned to the community with no support. Once she heard these concerns she agreed to voluntary seek inpatient treatment. If she attempts to leave an EE should be considered. Plan/Disposition Recommended Disposition: Hospitalization (Referrals will be sent on 08/30) facilities contacted. Plan: Toya will remain at [facility] until voluntary inpatient treatment is found. If Toya attempts to leave an EE should be considered. Person reported agreement to plan: Yes Reports/communication Outcome discussed with: ED/Personnel
--- NOTE | 2024-08-30 18:19 | NUR.NOTE ---
Tana lambert was contacted at 1630 re-patient ingestion of 1/2 bottle clonidine. This advertising copy writer spoke to the oncall pharmacist Kary at the said time. She made recommendation of IVFs which was being given, but she did not expressed any immediate danger due to the patient acetaminophen and salicylate results.
[2024-08-30] MEDS: LORazepam 1 MG TAB PO (18:22)
--- NOTE | 2024-08-30 19:07 | NUR.NOTE ---
Pts facesheet has been sent to [facility] to determine placement.
[2024-08-30] MEDS: Zolpidem 5 MG TAB PO (21:12)
[2024-08-30 21:43] LABS: Clarity Clear (Clear); Glucose Negative (Negative); Ketones Negative (Negative); Leukocyte Esterase Negative (Negative); Nitrite Negative (Negative); Specific Gravity 1.025 (1.005-1.025)
[2024-08-30 21:44] LABS: Bacteria Rare HPF (Negative); Bilirubin Moderate (Negative); Blood Small (Negative); C & S Indicated? No; Crystals Negative HPF (Negative); Epithelial Cells Many HPF (Negative); Mucus Heavy (Negative); Other Cells Rare Transitional (Negative)
[2024-08-30 21:54] LABS: *AMPHETAMINES SCREEN URINE Negative (Negative); *BARBITURATES SCREEN URINE Negative (Negative); *BENZODIAZEPINES SCREEN URINE Negative (Negative); Cannabinoids THC Negative (Negative); Cocaine Screen,Urine Negative (Negative); METHADONE URINE SCREEN Negative (Negative); OPIATES URINE SCREEN Negative (Negative)
[2024-08-30 21:55] LABS: Tricyclic Antidepressants Negative (Negative)
--- NOTE | 2024-08-31 07:42 | W.EDPROG ---
Date of service: 08/31/24 Time of Service: 07:42 Medical Decision Making In brief, this is a 34-year-old female patient boarding in our emergency department awaiting placement for inpatient psychiatric care after an intentional overdose on clonidine. The patient was medically cleared at the time that I took over her care, remains voluntary. On vitals check this morning, the patient was noted to be hypotensive in the 70s systolic, feeling slightly lightheaded but without change in mental status, near syncope or loss of consciousness. Given that it has been 48 hours since her overdose I feel that this is unlikely to be related to clonidine in her system, I did provide the patient with breakfast and fluids in the patient after that had an improvement to her blood pressure back to her baseline, which has been in the 90s systolic over the last few checks. She did not require any additional interventions. We did elect to hold her clonidine given the soft blood pressures. The patient was accepted to [facility], doc to doc report was completed, the patient will be transported to that facility. She remained hemodynamically appropriate, calm, cooperative, and comfortable throughout her time under my care. Left her facility without incident. Betty Mustafa MD Medical Records Medical records reviewed: Yes I reviewed the patient's medical records. Lab Data Lab results reviewed: Yes I reviewed the patient's lab results. Quality:SDOH Health Related Social Needs: No Data to Display Discharge Plan Disposition Patient Disposition: Psychiatric Hospital/Unit Specific Psychiatric Facility: [facility] Condition: Stable Discharge Details Clinical Impression: Depression, Clonidine overdose Primary Care Provider: None,None ED Provider: Betty Mustafa Home Meds and New Rx's Prescriptions: No Action zolpidem [Ambien] 5 mg tablet 5 mg PO QHS PRN clonidine HCl 0.2 mg tablet 0.1 mg PO TID escitalopram oxalate [Lexapro] 10 mg tablet 10 mg PO DAILY olanzapine 7.5 mg tablet 10 mg PO QHS dexmethylphenidate [Focalin XR] 15 mg capsule,ER biphasic 50-50 15 mg PO DAILY
[2024-08-31] MEDS: Escitalopram 10 MG TAB PO (08:29)
[2024-08-31 08:33] VITALS: BP 91/63; PULSE 64; RESP 14; TEMP 36.4; O2SAT 99
--- NOTE | 2024-08-31 11:15 | PDOC.CMSAFE ---
Date of service: 08/31/24 Time of Service: 11:15 Care Management Safety Plan Status Status: Voluntary Reason for Wait Reason for Wait: Inpatient Admission (Toya has been accepted to [facility]. Nurse-nurse has already been done. Gil arranged transportation through [facility], and they will arrive at [facility] sometime this afternoon.) Safety Plan Safety Plan: VOLUNTARY FOR INPATIENT PSYCHIATRIC STABILIZATION.? Patient is appropriate in all interactions since arriving at [facility]; Pt has demonstrated appropriate coping and communication skills, has articulated his or her needs and concerns and is fully engaged during staff interactions. Safety plan has been established with patient, and care team, to adhere to patient goals, identify restrictions based on behavioral status, address nutrition, and determine allowed personal belongings, tools for hygiene and personal care. Determine level of activity including ambulation, level of supervision, visitors, and determine privileges based on behaviors and level of engagement by pt. VOLUNTARY SAFETY PLAN: 1. Will remain on suicide precautions, in paper clothes 2. Will remain in Zone B under direct supervision of one-on-one staff at all times provided by [employer]; PROMISE, LABEL REWINDER escalator operator. 3. May have paper cups, plates, finger foods as well as a cardboard spoon with which to eat meals. 4. Follow [facility] Management of the Admitted Behavioral Health Patient policy. 5. Shower available in Zone B without restriction. 6. Personal belongings-soft items permitted at RN discretion. 7. Visitors-none at this time. 8. Activities: soft cart items approved per RN discretion. 9.? Bathroom available in Zone B without restriction. 10. Phone: limited to [facility] cordless phone at RN discretion. Due to VOLUNTARY status, if patient wishes to leave [facility], staff will contact [facility] Crisis Screener ([phone]) and Cosmetology Instructor ([phone]) as soon as possible. In the event of elopement, notify [email or web address] Police ([phone]).
[2024-08-31] MEDS: LORazepam 1 MG TAB PO (14:23)
[2024-08-31 14:31] VITALS: BP 84/52; PULSE 69; RESP 16; O2SAT 98
== END 2024-08-31 14:59 ==
PROVIDERS: Emergency Medicine; Emergency Provider Emergency Medicine
DX: T46.5X2A Poisoning by other antihypertensive drugs, intentional self-harm, initial encounter (principal); I95.89 Other hypotension; F32.A Depression, unspecified; Z87.891 Personal history of nicotine dependence
CPT/HCPCS: 00123; 36415; 80053; 80307; 81025; 93005; 96127; 99285; 80320; 80329; 81003; 81015; 84443; 85025; 93010

== ENCOUNTER 2025-07-20 16:00 | Emergency (ER) | payer MEDICAID, SELFPAY ==
[2025-07-20] VITALS (36 sets, daily range): BP systolic 115–148; BP diastolic 70–114; PULSE 61–93; RESP 10–20; TEMP 36.2; O2SAT 93–98
[2025-07-20 16:15] LABS: Abs Immature Grans 0.03 10^3/uL (0.0-0.06); HCT 43.2 % (36.0-46.0); HGB 13.6 g/dL (11.2-15.7); Immature Grans % 0.4 %; MCH 29.0 pg (27.0-33.0); MCHC 31.5 % (32.0-36.0); MCV 92 fL (80-95); MPV 9.7 fL (8.0-11.0); Platelet Count 209 10^3/uL (130-400); RBC 4.69 10^6/uL (3.93-5.22); RDW 16.3 % (11.7-14.6); RDW-SD 52.7 fL; WBC 6.85 10^3/uL (4.4-10.8)
[2025-07-20 16:33] LABS: HCG Qual (Serum) Negative
[2025-07-20 16:36] LABS: ALT 39 U/L (14-59); AST 46 U/L (15-37); Albumin 3.0 g/dL (3.4-5.0); Alkaline Phosphatase 77 U/L (46-116); Anion Gap 11.5 mmol/L (3-11); BUN 7 mg/dL (7-18); Bilirubin, Total 0.2 mg/dL (0.2-1.0); CO2 22.5 mmol/L (21.0-32.0); Calcium 6.6 mg/dL (8.5-10.1); Chloride 114 mmol/L (98-107); Glucose 101 mg/dL (74-106); Lipase 31 U/L (<78); Magnesium 1.6 mg/dL (1.8-2.4); Potassium 3.2 mmol/L (3.5-5.1); Sodium 148 mmol/L (136-145); Total Protein 5.8 g/dL (6.4-8.2)
[2025-07-20] MEDS: Lactated Ringers 1,000 ML 1000 ML IV (16:40)
[2025-07-20] MEDS: MAGNESIUM SULFATE 8.12 MEQ, MULTIVITAMIN 10 ML, THIAMINE 100 MG, FOLIC ACID 1 MG in Nor... 168.867 MG IV (17:03)
[2025-07-20 17:13] LABS: Salicylate < 2.8 mg/dL (<2.8)
[2025-07-20 17:24] LABS: Acetaminophen < 2 ug/mL (10-30)
[2025-07-20 18:42] LABS: Glucose Negative (Negative)
[2025-07-20 18:43] LABS: C & S Indicated? No; RBC 0-2 HPF (0-2); WBC 0-2 HPF (0-5)
[2025-07-20 18:54] LABS: Cannabinoids THC Negative (Negative)
--- NOTE | 2025-07-20 21:55 | W.ED.GENAD ---
Discharge Plan Disposition Patient Disposition: Home Discharge Details Clinical Impression: Alcohol intoxication Primary Care Provider: None,None ED Provider: Ranjit Simons Home Meds and New Rx's Prescriptions: No Action zolpidem [Ambien] 5 mg tablet 5 mg PO QHS PRN clonidine HCl 0.2 mg tablet 0.1 mg PO TID escitalopram oxalate [Lexapro] 10 mg tablet 10 mg PO DAILY olanzapine 7.5 mg tablet 10 mg PO QHS dexmethylphenidate [Focalin XR] 15 mg capsule,ER biphasic 50-50 15 mg PO DAILY Discharge Instructions Instructions: Alcohol Intoxication ED Additional Instructions: Please follow-up with your primary care provider regarding your visit to the emergency department today. Be sure to discuss results of all test performed here today to include radiology, and laboratory testing as well as results for any pending cultures. I will consider cutting back on drinking, please discuss with your primary care provider if you need any help to stop drinking. Should your symptoms worsen, or if you develop new concerning symptoms, please return immediately emergency department for further evaluation. HPI General Date/Time Provider Initiated Documentation: 07/20/25 17:00. HPI Narrative: MDM/Narrative: Initial Assessment: 35-year-old female with multiple sclerosis presents with altered mental status, likely due to acute alcohol intoxication. Differential Diagnosis: Acute alcohol intoxication: Smells of alcohol, slow to respond, limited history. Monitor until clinically sober. Electrolyte abnormalities: Assess for imbalances. Other coingestions: Evaluate for other substances. ED Course: Reassessment: Patient remains intoxicated. Upset and angry due to inability to meet discharge criteria. 2100: Spoke with fiancé, plans to arrange transport, and is aware that at this time patient is not clinically sober enough to be discharged around care. Will continue to monitor patien. 0000 Patient care signed out to Dr. Robison pending patient's clinical sobriety or family member able to take patient This document was created with assistance from [employer] The patient consented to its use. HPI: The patient is a 35-year-old female with a known diagnosis of multiple sclerosis, presenting with altered mental status. According to the history provided by [facility] ([facility]) and her fiancé, she was found unresponsive in bed with her eyes open, accompanied by a significant odor of alcohol. A 1.75-liter bottle of vodka was noted to be three-quarters empty. There were no signs of trauma or seizure-like activity observed. During transport, the patient was able to state her name and answer questions regarding her identity upon arrival but was unable to provide additional history. ROS: Negative besides as mentioned above Exam: Vital signs: Reviewed. General Appearance: Well-appearing, smells of alcohol, slow to respond but correctly provides name and date of , follows directions. HEENT: NCAT, EOMI, not icteric. External ears normal. No rhinorrhea. Moist mucous membranes. Neck: Supple, full range of motion, no observable masses, No meningeal sign. Respiratory: No Respiratory distress. No tachypnea. Cardiovascular: RRR, no edema. Gastrointestinal: Soft, nondistended, No rebound tenderness. Back: No midline tenderness to palpation or palpable step-offs of the C/T/L spine. Skin: Warm and dry, no rash. Neurological: No focal deficits. Psychiatric: Appropriate for situation. Labs: Laboratory Tests Range/Units 07/20/25 07/20/25 07/20/25 16:06 16:26 17:11 WBC (4.4-10.8) 10^3/uL 6.85 RBC (3.93-5.22) 10^6/uL 4.69 Hgb (11.2-15.7) g/dL 13.6 Hct (36.0-46.0) % 43.2 MCV (80-95) fL 92 MCH (27.0-33.0) pg 29.0 MCHC (32.0-36.0) % 31.5 L RDW (11.7-14.6) % 16.3 H Plt Count (130-400) 10^3/uL 209 MPV (8.0-11.0) fL 9.7 Immature Gran % % 0.4 Neutrophils % % 58.0 Lymphocytes % % 35.6 Monocytes % % 5.7 Eosinophils % % 0.0 Basophils % % 0.3 Nucleated RBC % (0.0-0.3) % 0.0 Absolute Neutrophils (1.2-6.7) 10^3/uL 3.97 Absolute Lymphocytes (1.2-3.4) 10^3/uL 2.44 Absolute Monocytes (0.1-0.8) 10^3/uL 0.39 Absolute Eosinophils (0.0-0.7) 10^3/uL 0.00 Absolute Basophils (0.0-0.2) 10^3/uL 0.02 VBG Lactate (<or=2.0) mmol/L 1.7 Sodium (136-145) mmol/L 148 H Potassium (3.5-5.1) mmol/L 3.2 L Chloride (98-107) mmol/L 114 H Carbon Dioxide (21.0-32.0) mmol/L 22.5 Anion Gap (3-11) mmol/L 11.5 H BUN (7-18) mg/dL 7 Creatinine (0.55-1.02) mg/dL 0.5 L Est GFR (CKD-EPI 2020) (mL/min/1.73m2) 123.81 Glucose (74-106) mg/dL 101 Calcium (8.5-10.1) mg/dL 6.6 L Magnesium (1.8-2.4) mg/dL 1.6 L Total Bilirubin (0.2-1.0) mg/dL 0.2 AST (15-37) U/L 46 H ALT (14-59) U/L 39 Alkaline Phosphatase (46-116) U/L 77 Total Protein (6.4-8.2) g/dL 5.8 L Albumin (3.4-5.0) g/dL 3.0 L Lipase (<78) U/L 31 Serum HCG, Qual Negative Urine Color (Yellow) Yellow Urine Clarity (Clear) Clear Urine pH (5-8) 6.5 Ur Specific [place] (1.005-1.025) 1.010 Urine Protein (Neg-Trace) mg/dL Negative Urine Ketones (Negative) mg/dL Negative Urine Blood (Negative) Small H Urine Nitrite (Negative) Negative Urine Bilirubin (Negative) Negative Urine Urobilinogen (Up to 0.2) mg/dL 0.2 Ur Leukocyte Esterase (Negative) Small H Urine RBC (0-2) HPF 0-2 Urine WBC (0-5) HPF 0-2 Ur Epithelial Cells (Negative) HPF Rare Urine Crystals (Negative) HPF Negative Urine Bacteria (Negative) HPF Many Urine Casts (Negative) LPF Negative Urine Mucus (Negative) Negative Ur Culture Indicated? No Urine Glucose (Negative) mg/dL Negative Salicylates (<2.8) mg/dL < 2.8 Urine Opiates Screen (Negative) Negative Urine Methadone Screen (Negative) Negative Acetaminophen (10-30) ug/mL < 2 Ur Barbiturates Screen (Negative) Negative Ur Tricyclics Screen (Negative) Negative Ur Amphetamines Screen (Negative) Negative U Benzodiazepines Scrn (Negative) Negative Urine Cocaine Screen (Negative) Negative Ur THC Screen (Negative) Negative Ethyl Alcohol (<10) mg/dL 259.4 H Related Data Home Medications Medication Instructions Recorded Confirmed zolpidem 5 mg tablet (Ambien) 5 mg PO QHS PRN 07/10/20 07/20/25 clonidine HCl 0.2 mg tablet 0.1 mg PO TID 09/01/21 07/20/25 escitalopram oxalate 10 mg tablet 10 mg PO DAILY 09/01/21 07/20/25 (Lexapro) olanzapine 7.5 mg tablet 10 mg PO QHS 09/01/21 07/20/25 dexmethylphenidate 15 mg 15 mg PO DAILY 07/08/24 07/20/25 capsule,extended release -14 (Focalin XR) Allergies Allergy/AdvReac Type Severity Reaction Status Date / Time cat dander Allergy Intermediate Itching Verified 07/20/25 16:05 house dust mite Allergy Mild Itching Verified 07/20/25 16:05 General Stated Complaint: AMS/LOC NAIMA: 2 Course Vital Signs Vital signs: Vital Signs Temperature 36.2 C L 07/20/25 16:00 Pulse 90 07/20/25 16:00 Respiratory Rate 20 07/20/25 16:00 Blood Pressure 148/114 H 07/20/25 16:00 Pulse Oximetry 94 07/20/25 16:00 Temperature 36.2 C L 07/20/25 16:16 Temperature Source Tympanic 07/20/25 16:16 Pulse 78 07/20/25 20:16 Pulse 78 07/20/25 20:20 Respiratory Rate 14 07/20/25 20:20 Blood Pressure 116/77 07/20/25 20:16 Blood Pressure Mean 85 07/20/25 20:16 Blood Pressure Position Sitting 07/20/25 16:16 Pulse Oximetry 96 07/20/25 19:00 Respiratory End-tidal CO2 32 07/20/25 17:45 Oxygen Delivery Method Room Air 07/20/25 16:16 Oxygen Flow Rate 0 07/20/25 16:16 Pain Level 0 07/20/25 16:16 Lab/Test Results Lab/Test Results: Laboratory Tests Range/Units 07/20/25 07/20/25 07/20/25 16:06 16:26 17:11 WBC (4.4-10.8) 10^3/uL 6.85 RBC (3.93-5.22) 10^6/uL 4.69 Hgb (11.2-15.7) g/dL 13.6 Hct (36.0-46.0) % 43.2 MCV (80-95) fL 92 MCH (27.0-33.0) pg 29.0 MCHC (32.0-36.0) % 31.5 L RDW (11.7-14.6) % 16.3 H Plt Count (130-400) 10^3/uL 209 MPV (8.0-11.0) fL 9.7 Immature Gran % % 0.4 Neutrophils % % 58.0 Lymphocytes % % 35.6 Monocytes % % 5.7 Eosinophils % % 0.0 Basophils % % 0.3 Nucleated RBC % (0.0-0.3) % 0.0 Absolute Neutrophils (1.2-6.7) 10^3/uL 3.97 Absolute Lymphocytes (1.2-3.4) 10^3/uL 2.44 Absolute Monocytes (0.1-0.8) 10^3/uL 0.39 Absolute Eosinophils (0.0-0.7) 10^3/uL 0.00 Absolute Basophils (0.0-0.2) 10^3/uL 0.02 VBG Lactate (<or=2.0) mmol/L 1.7 Sodium (136-145) mmol/L 148 H Potassium (3.5-5.1) mmol/L 3.2 L Chloride (98-107) mmol/L 114 H Carbon Dioxide (21.0-32.0) mmol/L 22.5 Anion Gap (3-11) mmol/L 11.5 H BUN (7-18) mg/dL 7 Creatinine (0.55-1.02) mg/dL 0.5 L Est GFR (CKD-EPI 2020) (mL/min/1.73m2) 123.81 Glucose (74-106) mg/dL 101 Calcium (8.5-10.1) mg/dL 6.6 L Magnesium (1.8-2.4) mg/dL 1.6 L Total Bilirubin (0.2-1.0) mg/dL 0.2 AST (15-37) U/L 46 H ALT (14-59) U/L 39 Alkaline Phosphatase (46-116) U/L 77 Total Protein (6.4-8.2) g/dL 5.8 L Albumin (3.4-5.0) g/dL 3.0 L Lipase (<78) U/L 31 Serum HCG, Qual Negative Urine Color (Yellow) Yellow Urine Clarity (Clear) Clear Urine pH (5-8) 6.5 Ur Specific [place] (1.005-1.025) 1.010 Urine Protein (Neg-Trace) mg/dL Negative Urine Ketones (Negative) mg/dL Negative Urine Blood (Negative) Small H Urine Nitrite (Negative) Negative Urine Bilirubin (Negative) Negative Urine Urobilinogen (Up to 0.2) mg/dL 0.2 Ur Leukocyte Esterase (Negative) Small H Urine RBC (0-2) HPF 0-2 Urine WBC (0-5) HPF 0-2 Ur Epithelial Cells (Negative) HPF Rare Urine Crystals (Negative) HPF Negative Urine Bacteria (Negative) HPF Many Urine Casts (Negative) LPF Negative Urine Mucus (Negative) Negative Ur Culture Indicated? No Urine Glucose (Negative) mg/dL Negative Salicylates (<2.8) mg/dL < 2.8 Urine Opiates Screen (Negative) Negative Urine Methadone Screen (Negative) Negative Acetaminophen (10-30) ug/mL < 2 Ur Barbiturates Screen (Negative) Negative Ur Tricyclics Screen (Negative) Negative Ur Amphetamines Screen (Negative) Negative U Benzodiazepines Scrn (Negative) Negative Urine Cocaine Screen (Negative) Negative Ur THC Screen (Negative) Negative Ethyl Alcohol (<10) mg/dL 259.4 H PFSH All Active Problems (Updated 07/20/25 @ 21:56 by Ranjit Simons MD) Alcohol intoxication (Acute) DVT prophylaxis (Acute) Depression (Chronic) Auditory hallucination (Acute) Visual hallucinations (Acute) Migraine headache without aura (Acute) Blurred vision (Acute) Chronic pain (Chronic) Right knee pain (Acute) Fatigue (Chronic) Arm paresthesia, right (Chronic) Multiple sclerosis (Chronic) Medical History ADD (attention deficit disorder) Anxiety Depression Opioid dependence Surgical History S/P tubal ligation Family History Maternal Grandmother Multiple sclerosis Social History Smoking/Tobacco Use Status: Former Tobacco Use Smoking risk assessment performed?: Yes Alcohol Intake: current Alcohol Intake frequency: 3 or more drinks per day Alcohol type: beer Drug use: Current Sobriety Substance use type: marijuana Household members: children Housing: apartment Number of Children: 3 Pets and animals: No Seatbelt use: always Do you feel safe at home: Yes Do you feel safe in your relationship?: Yes PAWSS Have you Been Recently Intoxicated or Drunk Within the Last 30 days?: Yes Have you Ever Experienced Previous Episodes of Alcohol Withdrawal?: No Have you ever Experienced Withdrawal Seizures?: No Have you ever Experienced Delirium Tremens(DT)s?: No Have you ever undergone Alcohol Rehabilitation Treatment (i.e, inpt ot outpatient treatment programs)?: No Have you ever Experienced Blackouts?: No Have you ever Combined Alcohol with other Downers within the last 90 days?: No Have you ever Combined Alcohol with any other Substance of Abuse during the last 90 days?: No Positive Blood Alcohol level on Presentation? [PCS.BAL]: Yes Evidence of Increased Autonomic Activity (i.e. HR>120, tremor, sweating, agitation, nausea)?: No Result: 2
[2025-07-21] VITALS (43 sets, daily range): BP systolic 101–118; BP diastolic 59–89; PULSE 63–88; RESP 12–23; TEMP 36.5; O2SAT 92–99
--- NOTE | 2025-07-21 06:10 | W.EDPROG ---
Date of service: 07/21/25 Time of Service: 06:10 Medical Decision Making The patient was observed overnight in the emergency room without any difficulties. She slept off-and-on and was ambulatory to the bathroom several times during the night. Patient has been tolerating liquids here. The patient was unable to get a ride from family overnight, but they will come pick her. Patient to be discharged to await transport by family. Discharge Plan Disposition Patient Disposition: Home Discharge Details Clinical Impression: Alcohol intoxication Primary Care Provider: None,None ED Provider: Marito Robison Home Meds and New Rx's Prescriptions: No Action zolpidem [Ambien] 5 mg tablet 5 mg PO QHS PRN clonidine HCl 0.2 mg tablet 0.1 mg PO TID escitalopram oxalate [Lexapro] 10 mg tablet 10 mg PO DAILY olanzapine 7.5 mg tablet 10 mg PO QHS dexmethylphenidate [Focalin XR] 15 mg capsule,ER biphasic 50-50 15 mg PO DAILY Discharge Instructions Instructions: Alcohol Intoxication ED Additional Instructions: Please follow-up with your primary care provider regarding your visit to the emergency department today. Be sure to discuss results of all test performed here today to include radiology, and laboratory testing as well as results for any pending cultures. I will consider cutting back on drinking, please discuss with your primary care provider if you need any help to stop drinking. Should your symptoms worsen, or if you develop new concerning symptoms, please return immediately emergency department for further evaluation. Discharge Data Discharge Physician: Marito Robison
--- NOTE | 2025-07-21 06:52 | NUR.NOTE ---
Pt mother called this morning after Pt was discharged and had called her to tell her that she needed to find her own ride. Pts mother called back and this employee answered the phone. Pts mother stated that she was told that [facility] would bring her daughter home. She wanted to know why her daughter was told that she needed to set up her own ride home. This underwriter solicitation director stated that Pt had her own phone and could call for a ride herself. Pts mother stated to me that if you put my daughter out into the weather you better be ready to deal with me, you will not want me to come down. I asked her to not speak to me in that tone, and stated that I will talk with the Charge nurse to see what we could do. After talking with the Charge nurse, we called [facility] and Pt will be picked up at 0745.
== END 2025-07-21 06:37 | disposition home or self-care (01) ==
PROVIDERS: General Practice; Emergency Provider Emergency Medicine Emergency Medical Services
DX: F10.929 Alcohol use, unspecified with intoxication, unspecified (principal)
CPT/HCPCS: 00123; 36415; 80053; 80307; 83690; 96365; 96366; 99284; 80320; 80329; 81003; 81015; 83605; 83735; 84703; 85025; J3411; J3475